=== PATIENT | female | born 1955 | race Caucasian/White ===

== ENCOUNTER 2023-12-05 09:52 | Outpatient (AMB) | payer OTHER, SELFPAY ==
--- NOTE | 2023-12-05 10:01 | A.OFFPC_ITS ---
Vital Signs 12/05/23 10:04 12/05/23 10:54 12/05/23 10:54 12/05/23 10:54 Height 5 ft 5 in Weight 147 lb 8 oz BMI 24.5 BP 122/74 122/62 132/70 140/78 H Blood Pressure Location Lt brachial Rt brachial Rt brachial Rt brachial Position Sitting Supine Standing Standing Pulse 76 70 74 72 Pulse Source Pulse Oximeter Pulse Oximeter Pulse Oximeter Pulse Oximeter Pulse Oximetry (%) 97 97 97 97 Oxygen Delivery Method Room Air Room Air Room Air Room Air Intake Visit Reasons: Est Care Intake Note: pt is here for establish care Police Cadet Required: No Accompanied by: Self / Same As Patient Allergies No Known Allergies Allergy (Verified 12/05/23 10:17) Medication List - Last Reconciled 12/05/23 by ESMER Torres No Known Home Meds Tobacco use date assessed: 12/05/23 Fall risk assessment: No Falls in past year Last assessed Fall Risk: 12/05/23 Dental Screening Dental Screen Date: 12/05/23 Did you have a dental visit in the last 12 months?: Yes Did you have a dental problem in the last 6 months where you did not have access to dental care?: No Was dental information given to patient?: Patient has dentist HPI HPI Comments History of Present Illness Details Patient is a 68-year-old female here to establish [facility]. Patient has a past medical history for syncopal event following UTI, 4 years prior to this appointment. Patient states she was recently seen at [facility] for burning with urination was given nitro feet urine toys. The patient completed the course 5 days prior to this appointment and states she is still having symptoms of burning with urination. She denies fever, numbness, chest pain, shortness a breath, dyspnea on exertion, nausea, vomiting, diarrhea. Will obtain EKG in postural vital signs in office today. Will also draw full panel fasting labs including UA with culture. Patient is declining pneumonia vaccine, declining mammogram, declining OBGYN referral, declining bone density scan. [facility] Surgical History S/P foot surgery, left Family History Father No problems noted. Mother Dementia Social History Housing: House Alcohol intake: never Patient Tobacco Use Status: Former Tobacco user e-Cigarette/Vaping Use: Never Used service: No Current occupational status: employed and retired Current occupational exposures/hazards: No Cognitive needs: No Hearing needs: Yes Vision needs: Yes Questionnaire PHQ-9 Over the last 2 weeks, how often have you been bothered by any of the following problems? 1. Little interest or pleasure in doing things: not at all 2. Feeling down, depressed, or hopeless: not at all 3. Trouble falling or staying asleep, or sleeping too much: several days 4. Feeling tired or having little energy: several days 5. Poor appetite or overeating: several days 6. Feeling bad about yourself - or that you are a failure or have let yourself or your family down: several days 7. Trouble concentrating on things, such as reading the newspaper or watching television: several days 8. Moving or speaking so slowly that other people could have noticed. Or the opposite - being so fidgety or restless that you have been moving around a lot more than usual: not at all 9. Thoughts that you would be better off or of hurting yourself in some way: not at all Total score: 5 Depression Screening Interpretation: Negative Depression Screening Done: Yes 29286 - PHQ-9 Billing: Yes Source: Developed by Drs. Adi Muñoz, Ana Lane, Brennan Betancourt and colleagues, with an educational kelly from [employer]. Thrive Questionnaire Date Thrive assessed: 12/05/23 I am a: Patient What is your living situation today?: I have a steady place to live Within the past 12 months, did the food you bought not last and you didn't have the money to get more?: Never true Within the past 12 months, did you worry whether your food would run out before you got money to buy more?: Never true Do you have trouble paying for medicines?: No Do you have trouble getting transportation to medical appointments?: No Do you have trouble paying your heating and electricity bill?: No Do you have trouble taking care of your child, family member or friend?: No Do you have trouble with day-to-day activities such as bathing, preparing meals, shopping, managing finances, etc.?: No Are you currently unemployed and looking for a job?: No Are you interested in more education?: No Please select the resources that you would like help with: None Currently or been in a relationship where the following occur: no concerns reported THRIVE Score: 0 AUDIT C Alcohol Use Questionnaire (AUDIT-C) 1. How often do you have a drink containing alcohol?: Never 3. How often do you have six or more drinks on one occasion?: Never Total Score: 0 Score Reviewed/Action Taken: Yes TAYLER-7 AMB Questionnaire TAYLER-7 Date TAYLER - 7 assessed: 12/05/23 Feeling nervous, anxious, or on edge: 1 = Several days Not being able to stop or control worryin = Several days Worrying too much about different things: 2 = More than half the days Trouble relaxin = Several days Being so restless that it is hard to sit still: 1 = Several days Becoming easily annoyed or irritable: 1 = Several days Feeling afraid as if something awful might happen: 1 = Several days Total TAYLER-7 score (0-4 normal; 5-9 mild; 10-14 moderate; 15-21 severe): 8 Source: Developed by Drs. Adi Muñoz, Ana Lane, Brennan Betancourt and colleagues, with an educational kelly from [employer]. TAYLER-7 Assessment Billing TAYLER-7 Assessment Tool: TAYLER-7 Assessment 57994 Physical exam (Primary Care) Vital Signs: Last Vital Signs Pulse 76 12/05/23 10:04 BP 122/74 12/05/23 10:04 Pulse Ox 97 12/05/23 10:04 Oxygen Delivery Method Room Air 12/05/23 10:04 BMI result Body Mass Index 24.5 Tobacco/Smoking Status: Tobacco use Status Tobacco use date assessed 12/05/23 12/05/23 10:02 Patient Tobacco Use Status Former Tobacco user 12/05/23 10:11 e-Cigarette/Vaping Use Never Used 12/05/23 10:11 PHQ-9: PHQ-9 Score PHQ-9: Total score 5 12/05/23 10:20 Depression Screening Interpretation: Negative Thrive Assessment: Date of Thrive Assessment Date Thrive assessed 12/05/23 12/05/23 10:11 Currently or been in a relationship where the following occur: no concerns reported Assessment and Plan Assessment & Plan (1) Burning with urination: Comment: Patient recently completed course of Macrobid. States she is still having burning with urination. Will order UA with culture. Code(s): R30.0 - Dysuria (2) Fatigue: Comment: Patient currently offering symptoms of fatigue. States that she feels tired has little energy. Will order EKG, will obtain postural vital signs. Will order full panel of fasting labs which will include CBC, TSH, UA, CMP, lipid profile, vitamin B6, vitamin B12, vitamin-D. Code(s): R53.83 - Other fatigue Qualifiers: Fatigue type: unspecified Qualified Code(s): R53.83 - Other fatigue Plan: Patient will sign release in send us medical records from [facility] on Screen (3) Bilateral knee pain: Comment: Patient has bilateral knee pain. Will obtain x-rays. Patient educated she can use [id number] Aleve cream. Code(s): M25.561 - Pain in right knee; M25.562 - Pain in left knee Qualifiers: Chronicity: unspecified Qualified Code(s): M25.561 - Pain in right knee; M25.562 - Pain in left knee Plan: Will follow-up with results. Plan Will follow-up with any abnormal test results. Patient will make physical exam in 3-4 months. Orders: Orders Comprehensive Met. Panel Today Z91.89 - Other specified personal risk factors, not elsewhere classified Vitamin D 25-OH (D2 and D3) Today Z13.21 - Encounter for screening for nutritional disorder XR knee LT 2V Today M25.569 - Pain in unspecified knee XR knee RT 2V Today M25.569 - Pain in unspecified knee Complete Blood Count Auto Diff Today Z13.0 - Encounter for screening for diseases of the blood and blood-forming organs and certain disorders involving the immune mechanism Lipid Panel Today Z13.220 - Encounter for screening for lipoid disorders IRON PROFILE Today Z13.0 - Encounter for screening for diseases of the blood and blood-forming organs and certain disorders involving the immune mechanism Vitamin B6 Today Z13.21 - Encounter for screening for nutritional disorder Vitamin B12 Today Z13.21 - Encounter for screening for nutritional disorder UA CC w/rflx Micro + Cult Today Z13.89 - Encounter for screening for other disorder TSH reflex Free T4 Today Z13.29 - Encounter for screening for other suspected endocrine disorder AMB EKG-In Office Today Z13.6 - Encounter for screening for cardiovascular disorders Review Patient declined Mammogram: 12/05/23 Declined Pap Smear: 12/05/23 Patient declined Colonoscopy: 12/05/23 Patient declined Pneumococcal Vaccine: 12/05/23 Flu Vaccine not done: patient reason Coding Level of Care Code New Pt Level 3 (36632) Diagnoses Burning with urination R30.0 Fatigue, unspecified type R53.83 Fatigue type: unspecified Pain in both knees, unspecified chronicity M25.561; M25.562 Chronicity: unspecified Additional Codes TAYLER-7 Assessment Billing - TAYLER-7 Assessment Tool: TAYLER-7 Assessment [id number] ([id number]) Time Spent (min) 40
[2023-12-05 10:04] VITALS: BP 122/74; PULSE 76; O2SAT 97; BMI 24.5
[2023-12-05 10:54] VITALS: BP 122/62; BP 132/70; BP 140/78; PULSE 70; PULSE 72; PULSE 74; O2SAT 97
== END 2023-12-05 12:26 | disposition home or self-care (01) ==
PROVIDERS: PCP Internal Medicine; Visit Provider Nurse Practitioner Primary Care
DX: R30.0 Dysuria (principal); R53.83 Other fatigue; M25.561 Pain in right knee; M25.562 Pain in left knee
CPT/HCPCS: 99203

== ENCOUNTER 2023-12-05 11:02 | Outpatient (REF) | payer OTHER, SELFPAY ==
--- NOTE | ~2023-12-05 | XR_ITS ---
EXAM: XR BILATERAL KNEES CLINICAL INFORMATION: Pain and unspecified knee TECHNIQUE: 2 views of each knee. FINDINGS: Right Knee: The bones are diffusely demineralized. Moderate medial joint space narrowing with marginal osteophytes. Degenerative changes in the patellofemoral joints with small osteophytes. No significant joint effusion. Vascular calcifications. Left Knee: The bones are diffusely demineralized. Vascular calcifications. No significant joint effusion. Mild medial joint space narrowing. There is a heterogeneous lesion in the proximal tibia with mixed sclerotic and lucent components of indeterminate age and etiology. XR/XR knee RT 2V IMPRESSION: 1. Moderate degenerative changes right knee. 2. Mild degenerative changes left knee. Heterogeneous lesion in the proximal left tibia with mixed sclerotic and lucent components of indeterminate age and etiology. Direct correlation with prior images is recommended and if prior images are provided, an addendum will be dictated. In the absence of prior images, correlation with clinical exam as well as orthopedic consultation and possible MRI recommended.
--- NOTE | ~2023-12-05 | XR_ITS ---
EXAM: XR BILATERAL KNEES CLINICAL INFORMATION: Pain and unspecified knee TECHNIQUE: 2 views of each knee. FINDINGS: Right Knee: The bones are diffusely demineralized. Moderate medial joint space narrowing with marginal osteophytes. Degenerative changes in the patellofemoral joints with small osteophytes. No significant joint effusion. Vascular calcifications. Left Knee: The bones are diffusely demineralized. Vascular calcifications. No significant joint effusion. Mild medial joint space narrowing. There is a heterogeneous lesion in the proximal tibia with mixed sclerotic and lucent components of indeterminate age and etiology. XR/XR knee LT 2V IMPRESSION: 1. Moderate degenerative changes right knee. 2. Mild degenerative changes left knee. Heterogeneous lesion in the proximal left tibia with mixed sclerotic and lucent components of indeterminate age and etiology. Direct correlation with prior images is recommended and if prior images are provided, an addendum will be dictated. In the absence of prior images, correlation with clinical exam as well as orthopedic consultation and possible MRI recommended.
[2023-12-05 13:05] LABS: MANUAL DIFF FLAG NO
[2023-12-05 13:11] LABS: Basophils Percent Auto 0.4 % (0-2); Eosinophils Absolute Auto 0.1 X10*3/uL (0.0-0.4); Hematocrit 39.2 % (37.0-47.0); Hemoglobin 13.2 g/dl (12.0-16.0); Imm Gran Abs Auto 0.03 X10*3/uL (0.00-0.03); Imm Gran Pct Auto 0.4 % (0.0-0.4); Lymphocytes Absolute Auto 1.7 X10*3/uL (1.2-4.9); Lymphocytes Percent Auto 24.5 % (20-40); Mean Corpuscular HGB Conc 33.7 g/dl (31.0-35.0); Mean Corpuscular Hemoglobin 30.9 pg (27.0-33.0); Mean Corpuscular Volume 91.8 fL (80.0-98.0); Monocytes Absolute Auto 0.6 X10*3/uL (0.1-1.2); Monocytes Percent Auto 7.8 % (2-11); Neutrophils Absolute Auto 4.6 x10*3/uL (2.0-8.3); Neutrophils Percent Auto 65.9 % (45-73); Platelet Count 186 X10*3/uL (160-400); Red Blood Count 4.27 X10*6/uL (4.20-5.50); Red Cell Distribution Width 12.7 % (11.0-16.0)
[2023-12-05 13:41] LABS: Appearance Urine Clear; Color Urine Yellow; Glucose Urine UA Negative (Negative); Leukocyte Esterase Urine Negative (Negative); Nitrite Urine Negative (Negative); Specific Gravity - Urine <= 1.005 (1.005-1.025); Urine Blood Negative (Negative); Urine Ketones Negative (Negative); Urine Protein Negative (Neg-Trace)
[2023-12-05 13:44] LABS: Alanine Aminotransferase 11 U/L (0-31); Albumin Level 3.7 g/dL (3.5-5.0); Alkaline Phosphatase 92 U/L (39-117); Anion Gap 10 (12-20); Aspartate Amino Transferase 18 U/L (5-31); Bilirubin Total 1.3 mg/dL (0.0-1.0); Blood Urea Nitrogen 10 mg/dL (9-16); Calcium 9.1 mg/dL (8.4-10.2); Carbon Dioxide 26 mmol/L (22-29); Chloride 103 mmol/L (96-108); Cholesterol 155 mg/dL (<200); Estimated Glomerular Filt Rate > 60; Glucose Random 88 mg/dL (60-115); HDL Cholesterol 53 mg/dL (>40); Iron 132 mcg/dL (30-160); LDL Cholesterol Calculated 89 mg/dL (<100); Percent Iron Saturation 52 % (15-50); Potassium 3.7 mmol/L (3.3-5.1); Sodium 135 mmol/L (135-145); Total Iron Binding Capacity 256 mcg/dL (228-428); Total Protein 7.9 g/dL (6.5-8.0); Triglycerides 65 mg/dL (<150); Unsaturated Iron Binding 124 ug/dL
[2023-12-05 13:58] LABS: TSH reflex Free T4 2.94 uIU/mL (0.32-4.0)
[2023-12-05 14:01] LABS: Vitamin B12 519 pg/mL (200-900)
[2023-12-09 17:08] LABS: Vitamin B6 10.7 ng/mL (2.1-21.7)
[2023-12-10 17:38] LABS: Vitamin D 25-OH, D2 <4 ng/mL; Vitamin D 25-OH, D3 33 ng/mL; Vitamin D 25-OH, Total 33 ng/mL (30-100)
== END 2023-12-05 11:03 | disposition home or self-care (01) ==
LOC: HO.HMGCX 11:02
PROVIDERS: PCP Nurse Practitioner Primary Care; Visit Provider Nurse Practitioner Primary Care
DX: M25.561 Pain in right knee (principal); M25.562 Pain in left knee; Z13.21 Encounter for screening for nutritional disorder; Z13.89 Encounter for screening for other disorder; Z13.29 Encounter for screening for other suspected endocrine disorder; Z13.220 Encounter for screening for lipoid disorders; Z13.0 Encounter for screening for diseases of the blood and blood-forming organs and certain disorders involving the immune mechanism
CPT/HCPCS: 36415; 73560; 80053; 80061; 81003; 82306; 82607; 83540; 84207; 84443; 85025

== ENCOUNTER 2024-02-14 08:53 | Outpatient (AMB) | payer OTHER, SELFPAY ==
--- NOTE | 2024-02-14 09:02 | A.OFFPC_ITS ---
Vital Signs 02/14/24 09:04 Height 5 ft 5 in Weight 145 lb BMI 24.1 BP 110/64 Blood Pressure Location Rt brachial Position Sitting Pulse 65 Pulse Source Pulse Oximeter Pulse Oximetry (%) 98 Oxygen Delivery Method Room Air Intake Visit Reasons: pre op DOS 02/25/24 EKG, CBC,BMP,PT,PTT/INR Intake Note: Patient here for preop clearance. Allergies No Known Allergies Allergy (Verified 02/14/24 09:19) Medication List - Last Reconciled 02/14/24 by ESMER Torres No Known Home Meds Tobacco use date assessed: 12/05/23 Dental Screening Dental Screen Date: 12/05/23 HPI HPI Comments History of Present Illness Details Patient is a 68-year-old female in today for a preop visit. Patient is having surgery on her left foot to remove stables. For clearance patient needs labs including CBC, BMP, PT/INR, PTT. Patient also needs EKG Patient has past medical history significant for osteoarthritis of the bilateral knees. Patient is not currently taking any medication. Has been educated that she needs to avoid NSAIDs at least 1 week prior to surgery. [facility] Surgical History S/P foot surgery, left Family History Father No problems noted. Mother Dementia Social History Housing: House Alcohol intake: never Patient Tobacco Use Status: Former Tobacco user e-Cigarette/Vaping Use: Never Used service: No Current occupational status: employed and retired Current occupational exposures/hazards: No Cognitive needs: No Hearing needs: Yes Vision needs: Yes Questionnaire Thrive Questionnaire Date Thrive assessed: 12/05/23 TAYLER-7 AMB Questionnaire TAYLER-7 Date TAYLER - 7 assessed: 12/05/23 Source: Developed by Drs. Adi Muñoz, Ana Lane, Brennan Betancourt and colleagues, with an educational kelly from [employer]. Review of Systems Const All systems reviewed & are unremarkable except as noted in HPI and below Denies chills and Denies fever(s) Card Denies chest pain and Denies dyspnea Resp Denies chest congestion, Denies cough, Denies dyspnea and Denies wheezing GI Denies diarrhea, Denies nausea and Denies vomiting Musc Reports other (Left foot pain) Aller/Immun Denies wheezing Physical exam (Primary Care) Care Plan Goal for BP management: Blood Pressure Controlled. Tobacco/Smoking Status: Tobacco use Status Tobacco use date assessed 12/05/23 12/05/23 10:02 Patient Tobacco Use Status Former Tobacco user 12/05/23 10:11 e-Cigarette/Vaping Use Never Used 12/05/23 10:11 Thrive Assessment: Date of Thrive Assessment Date Thrive assessed 12/05/23 12/05/23 10:11 Const Other: Appearance: Alert.? Oriented X3.? No acute distress.? Head: Normocephalic, atraumatic, no step-offs or deformities Neck: Normal inspection.? Neck supple.? CVS: Normal heart rate and rhythm.? Pulses normal.? Respiratory: No respiratory distress.? Breath sounds normal.? Extremity: Left foot palpable mark under skin. No erythema or edema. Limited ROM. Neuro: Oriented X 3.? No motor deficit.? No sensory deficit. CN 2-12 intact Assessment and Plan Assessment & Plan (1) Preoperative clearance: Comment: Patient will have BMP, CBC, PT/INR,/PTT. Patient also had office EKG which was normal sinus rhythm. Code(s): Z01.818 - Encounter for other preprocedural examination (2) Left foot pain: Comment: Patient is having surgery in [place] through [facility] from instep of left foot. Code(s): M79.672 - Pain in left foot Plan: Will send results to surgical office. Plan Patient will follow-up with physical exam in 2 months Orders: Orders Complete Blood Count Auto Diff Today Z13.0 - Encounter for screening for diseases of the blood and blood-forming organs and certain disorders involving the immune mechanism AMB EKG-In Office 02/11/24 Z13.6 - Encounter for screening for cardiovascular disorders Coding Level of Care Code Est Pt Level 3 (04178) Diagnoses Preoperative clearance Z01.818 Left foot pain M79.672 Time Spent (min) 25
[2024-02-14 09:04] VITALS: BP 110/64; PULSE 65; O2SAT 98; BMI 24.1
== END 2024-02-14 09:28 | disposition home or self-care (01) ==
PROVIDERS: PCP Nurse Practitioner Primary Care; Visit Provider Nurse Practitioner Primary Care
DX: Z01.818 Encounter for other preprocedural examination (principal); M79.672 Pain in left foot
CPT/HCPCS: 99213

== ENCOUNTER 2024-02-14 09:34 | Outpatient (REF) | payer OTHER, SELFPAY ==
[2024-02-14 10:19] LABS: MANUAL DIFF FLAG NO
[2024-02-14 10:50] LABS: Basophils Absolute Auto 0.1 X10*3/uL (0.0-0.2); Basophils Percent Auto 0.7 % (0-2); Eosinophils Absolute Auto 0.2 X10*3/uL (0.0-0.4); Eosinophils Percent Auto 2.4 % (0-4); Hematocrit 37.2 % (37.0-47.0); Hemoglobin 12.6 g/dl (12.0-16.0); Imm Gran Abs Auto 0.03 X10*3/uL (0.00-0.03); Imm Gran Pct Auto 0.4 % (0.0-0.4); Lymphocytes Absolute Auto 1.8 X10*3/uL (1.2-4.9); Lymphocytes Percent Auto 25.5 % (20-40); Mean Corpuscular HGB Conc 33.9 g/dl (31.0-35.0); Mean Corpuscular Hemoglobin 32.2 pg (27.0-33.0); Mean Corpuscular Volume 95.1 fL (80.0-98.0); Mean Platelet Volume 10.8 fL (9.4-12.3); Monocytes Absolute Auto 0.7 X10*3/uL (0.1-1.2); Monocytes Percent Auto 9.1 % (2-11); Neutrophils Absolute Auto 4.4 x10*3/uL (2.0-8.3); Neutrophils Percent Auto 61.9 % (45-73); Platelet Count 182 X10*3/uL (160-400); Red Blood Count 3.91 X10*6/uL (4.20-5.50); Red Cell Distribution Width 12.7 % (11.0-16.0); White Blood Count 7.2 X10*3/uL (4.8-10.8)
[2024-02-14 10:54] LABS: INTERNATIONAL NORM RATIO 1.1 (0.9-1.1)
[2024-02-14 10:57] LABS: Partial Thromboplastin Time 34.8 SEC (26.0-36.8)
[2024-02-14 11:58] LABS: Anion Gap 12 (12-20); Blood Urea Nitrogen 8 mg/dL (9-16); Calcium 9.5 mg/dL (8.4-10.2); Carbon Dioxide 26 mmol/L (22-29); Chloride 99 mmol/L (96-108); Estimated Glomerular Filt Rate > 60; Glucose Random 74 mg/dL (60-115); Potassium 3.7 mmol/L (3.3-5.1); Sodium 133 mmol/L (135-145)
== END 2024-02-14 09:35 | disposition home or self-care (01) ==
LOC: HO.HMGCLDS 09:34
PROVIDERS: PCP Nurse Practitioner Primary Care; Visit Provider Nurse Practitioner Primary Care
DX: Z01.812 Encounter for preprocedural laboratory examination (principal); Z13.0 Encounter for screening for diseases of the blood and blood-forming organs and certain disorders involving the immune mechanism
CPT/HCPCS: 36415; 80048; 85025; 85610; 85730

== ENCOUNTER 2024-03-25 08:52 | Outpatient (AMB) | payer OTHER, SELFPAY ==
--- NOTE | 2024-03-25 08:56 | A.OFFPC_ITS ---
Vital Signs 03/25/24 08:59 Height 5 ft 5 in Weight 143 lb BMI 23.8 BP 128/84 Blood Pressure Location Rt brachial Position Sitting Pulse 83 Pulse Source Pulse Oximeter Pulse Oximetry (%) 97 Oxygen Delivery Method Room Air Intake Visit Reasons: annual pe Intake Note: pt is here for annual PE. Declined mammogram, declined colonoscopy, declined pap Allergies No Known Allergies Allergy (Verified 03/25/24 09:19) Medication List - Last Reconciled 03/25/24 by ESMER Torres amoxicillin 500 mg PO BID Tobacco use date assessed: 03/25/24 Dental Screening Dental Screen Date: 03/25/24 Did you have a dental visit in the last 12 months?: Yes Did you have a dental problem in the last 6 months where you did not have access to dental care?: No Was dental information given to patient?: Patient has dentist HPI HPI Comments History of Present Illness Details Patient is a 68-year-old female in today for physical exam Patient is declining mammogram, declining colonoscopy, declining Pap smear, declining bone density test. Patient is up-to-date with tetanus. She is declining all other vaccines. Patient has a past medical history significant for: Osteoarthritis of bilateral knees: Patient is establish care with [facility], receives intermittent gel injections. Patient has history of left knee x-ray with heterogeneous lesion, she has declined any additional care or im aging. Osteoarthritis of the right shoulder: Patient establish care with [facility], received steroid injections. History of right foot surgery: Being followed by Podiatry, will receive notes. Will draw fasting labs [facility] Medical History (Updated 03/25/24 @ 09:44 by ESMER Torres) Fatigue History of syncope Burning with urination Surgical History S/P foot surgery, left Family History Father No problems noted. Mother Dementia Social History Housing: House Alcohol intake: never Patient Tobacco Use Status: Former Tobacco user e-Cigarette/Vaping Use: Never Used service: No Current occupational status: employed and retired Current occupational exposures/hazards: No Cognitive needs: No Hearing needs: Yes Vision needs: Yes Questionnaire TAYLER-7 AMB Questionnaire TAYLER-7 Date TAYLER - 7 assessed: 12/05/23 Source: Developed by Drs. Adi Muñoz, Ana Lane, Brennan Betancourt and colleagues, with an educational kelly from [employer]. Review of Systems Const All systems reviewed & are unremarkable except as noted in HPI and below Physical exam (Primary Care) Vital Signs: Last Vital Signs Pulse 83 03/25/24 08:59 BP 128/84 03/25/24 08:59 Pulse Ox 97 03/25/24 08:59 Oxygen Delivery Method Room Air 03/25/24 08:59 Care Plan Goal for BP management: Patient's blood pressure is controlled BMI result Body Mass Index 23.8 Tobacco/Smoking Status: Tobacco use Status Tobacco use date assessed 03/25/24 03/25/24 09:04 Patient Tobacco Use Status Former Tobacco user 03/25/24 08:56 e-Cigarette/Vaping Use Never Used 03/25/24 08:56 Thrive Assessment: Date of Thrive Assessment Date Thrive assessed 03/25/24 09:04 Const Other: Appearance: Alert.? Oriented X3.? No acute distress.? Head: Normocephalic. Eyes: Pupils equal, round and reactive to light.?Normal conjunctiva and sclera. ENT: Pharynx normal.?TM intact and pearly lucero. Neck: Normal inspection.? Neck supple.? CVS: Normal heart rate and rhythm.? Pulses normal.? Respiratory: No respiratory distress.? Breath sounds normal.? Abdomen: Soft and nontender.? Skin: Skin warm and dry.? Normal skin color.? Normal skin turgor.? Extremities: No lower extremity edema. 5/5 strength to bilateral upper and lower extremities. Patient in left foot cast. Back: No midline tenderness, no C-spine tenderness, full range of motion, no CVA tenderness bilaterally Neuro: Oriented X 3.? No motor deficit.? No sensory deficit. CN 2-12 intact Assessment and Plan Assessment & Plan (1) Physical exam: Comment: Patient is a 68-year-old female in today for physical exam Patient is declining mammogram, declining colonoscopy, declining Pap smear, declining bone density test. Patient is up-to-date with tetanus. She is declining all other vaccines. Patient has a past medical history significant for: Osteoarthritis of bilateral knees: Patient is establish care with [facility], receives intermittent gel injections. Patient has history of left knee x-ray with heterogeneous lesion, she has declined any additional care or imaging. Osteoarthritis of the right shoulder: Patient establish care with [facility], received steroid injections. History of right foot surgery: Being followed by Podiatry, will receive notes. Will draw fasting labs Code(s): Z00.00 - Encounter for general adult medical examination without abnormal findings (2) Bilateral knee pain: Comment: Patient is establish care with [facility]. Code(s): M25.561 - Pain in right knee; M25.562 - Pain in left knee Qualifiers: Chronicity: unspecified Qualified Code(s): M25.561 - Pain in right k nee; M25.562 - Pain in left knee (3) Left foot pain: Comment: Recent surgical procedure to remove mark on left foot. Patient is in cast on physical exam. Patient has follow-up with pre billing clinician in 3 days. Code(s): M79.672 - Pain in left foot Plan: draw labs Plan Follow-up in 6 months Orders: Orders Vitamin B12 Today Z13.21 - Encounter for screening for nutritional disorder UA CC w/rflx Micro + Cult Today Z13.89 - Encounter for screening for other disorder TSH reflex Free T4 Today Z13.29 - Encounter for screening for other suspected endocrine disorder Lipid Panel Today Z13.220 - Encounter for screening for lipoid disorders Vitamin D 25-OH (D2 and D3) Today Z13.21 - Encounter for screening for nutritional disorder Vitamin B6 Today Z13.21 - Encounter for screening for nutritional disorder Complete Blood Count Auto Diff Today Z13.0 - Encounter for screening for diseases of the blood and blood-forming organs and certain disorders involving the immune mechanism IRON PROFILE Today D50.9 - Iron deficiency anemia, unspecified Review Patient declined Mammogram: 03/25/24 Declined Pap Smear: 03/25/24 Patient declined Colonoscopy: 03/25/24 Patient declined Colon Cancer Screen Lab: 03/25/24 Patient declined Pneumococcal Vaccine: 03/25/24 Flu Vaccine not done: patient reason Coding Level of Care Code Est Pt Prev Care >65y(04186) Diagnoses Physical exam Z00.00 Pain in both knees, unspecified chronicity M25.561; M25.562 Chronicity: unspecified Left foot pain M79.672 Time Spent (min) 28
[2024-03-25 08:59] VITALS: BP 128/84; PULSE 83; O2SAT 97; BMI 23.8
== END 2024-03-25 09:50 | disposition home or self-care (01) ==
PROVIDERS: PCP Nurse Practitioner Primary Care; Visit Provider Nurse Practitioner Primary Care
DX: Z00.00 Encounter for general adult medical examination without abnormal findings (principal); M25.561 Pain in right knee; M25.562 Pain in left knee; M79.672 Pain in left foot
CPT/HCPCS: 99397

== ENCOUNTER 2025-01-06 10:15 | Outpatient (AMB) | payer MEDICARE, SELFPAY ==
--- NOTE | 2025-01-06 10:22 | A.OFFPC_ITS ---
Vital Signs 01/06/25 10:23 Height 5 ft 5 in Weight 144 lb BMI 24.0 BP 110/66 Blood Pressure Location Lt brachial Position Sitting Pulse 70 Pulse Source Pulse Oximeter Pulse Oximetry (%) 96 Intake Visit Reasons: JODY from [facility] review/weakness Prop[employer] Required: No Accompanied by: Self / Same As Patient Allergies No Known Allergies Allergy (Verified 01/06/25 10:59) Medication List - Last Reconciled 01/06/25 by Charley Hickey MD No Known Home Meds Tobacco use date assessed: 01/06/25 Fall risk assessment: No Falls in past year Last assessed Fall Risk: 01/06/25 Dental Screening Dental Screen Date: 01/06/25 Did you have a dental visit in the last 12 months?: Yes Did you have a dental problem in the last 6 months where you did not have access to dental care?: No Was dental information given to patient?: Patient has dentist HPI JODY from [facility] [employer] [facility] review/weakness HPI Details 69-year-old lady, [place] to [place], here to [facility] with a new PCP. She has history of osteoarthritis, but not taking any medications for it. She has been feeling well except for occasional episodes of this and fatigue. Denies any chest pain or shortness of breath, no lightheadedness, no headaches, no gait instability reported. [facility] Medical History (Updated 01/10/25 @ 22:24 by Charley Hickey MD) Osteoarthritis Cold intolerance History of fracture of right hip Fatigue History of syncope Burning with urination Surgical History (Updated 01/06/25 @ 10:27 by Cholo Raymundo CMA) Status post hip surgery S/P foot surgery, left Family History Father No problems noted. Mother Dementia Social History Housing: House Alcohol intake: never Patient Tobacco Use Status: Former Tobacco user e-Cigarette/Vaping Use: Never Used service: No Current occupational status: employed and retired Current occupational exposures/hazards: No Cognitive needs: No Hearing needs: Yes Vision needs: Yes Questionnaire PHQ-9 Over the last 2 weeks, how often have you been bothered by any of the following problems? 1. Little interest or pleasure in doing things: several days 2. Feeling down, depressed, or hopeless: not at all 3. Trouble falling or staying asleep, or sleeping too much: several days 4. Feeling tired or having little energy: several days 5. Poor appetite or overeating: several days 6. Feeling bad about yourself - or that you are a failure or have let yourself or your family down: several days 7. Trouble concentrating on things, such as reading the newspaper or watching television: several days 8. Moving or speaking so slowly that other people could have noticed. Or the opposite - being so fidgety or restless that you have been moving around a lot more than usual: not at all 9. Thoughts that you would be better off or of hurting yourself in some way: not at all Total score: 6 Depression Screening Interpretation: Negative Depression Screening Done: Yes 62678 - PHQ-9 Billing: Yes Source: Developed by Drs. Adi Muñoz, Ana Lane, Brennan Betancourt and colleagues, with an educational kelly from [employer]. Thrive Questionnaire Date Thrive assessed: 01/06/25 I am a: Patient What is your living situation today?: I have a steady place to live Within the past 12 months, did the food you bought not last and you didn't have the money to get more?: I choose not to answer this question Within the past 12 months, did you worry whether your food would run out before you got money to buy more?: I choose not to answer this question Do you have trouble paying for medicines?: I choose not to answer this question Do you have trouble getting transportation to medical appointments?: No Do you have trouble paying your heating and electricity bill?: No Do you have trouble taking care of your child, family member or friend?: No Do you have trouble with day-to-day activities such as bathing, preparing meals, shopping, managing finances, etc.?: Yes Are you currently unemployed and looking for a job?: Yes Are you interested in more education?: No Please select the resources that you would like help with: None Currently or been in a relationship where the following occur: I choose not to answer THRIVE Score: 0 AUDIT C Alcohol Use Questionnaire (AUDIT-C) 1. How often do you have a drink containing alcohol?: Never 3. How often do you have six or more drinks on one occasion?: Never Total Score: 0 Score Reviewed/Action Taken: Yes TAYLER-7 AMB Questionnaire TAYLER-7 Date TAYLER - 7 assessed: 01/06/25 Feeling nervous, anxious, or on edge: 1 = Several days Not being able to stop or control worryin = Several days Worrying too much about different things: 1 = Several days Trouble relaxin = Several days Being so restless that it is hard to sit still: 1 = Several days Becoming easily annoyed or irritable: 1 = Several days Feeling afraid as if something awful might happen: 0 = Not at all Total TAYLER-7 score (0-4 normal; 5-9 mild; 10-14 moderate; 15-21 severe): 6 Source: Developed by Drs. Adi Muñoz, Ana Lane, Brennan Betancourt and colleagues, with an educational kelly from [employer]. TAYLER-7 Assessment Billing TAYLER-7 Assessment Tool: TAYLER-7 Assessment 47862 Review of Systems Const Denies chills and Denies fever(s) Eyes Denies change in vision ENT Reports no additional complaints Card Denies chest pain, Denies irregular heart rhythm, Denies lightheadedness and Denies dyspnea Resp Denies chest congestion, Denies cough, Denies dyspnea and Denies wheezing GI Denies abdominal pain, Denies melena, Denies hematochezia, Denies change in bowel habits, Denies heartburn and Denies vomiting Reports no additional complaints Musc Reports arthralgias (Occasional in her knees/ ankles), Denies muscle weakness and Reports stiffness Skin/Breast Denies breast pain, Denies breast mass and Denies rash Neuro Reports no additional complaints Psych Reports no additional complaints Endo Reports no additional complaints Cabrera/Lymph Reports no additional complaints Aller/Immun Denies seasonal rhinorrhea and Denies wheezing Physical exam (Primary Care) Vital Signs: Last Vital Signs Pulse 70 01/06/25 10:23 BP 110/66 01/06/25 10:23 Pulse Ox 96 01/06/25 10:23 BMI result Body Mass Index 24.0 Tobacco/Smoking Status: Tobacco use Status Tobacco use date assessed 01/06/25 01/06/25 10:30 Patient Tobacco Use Status Former Tobacco user 01/06/25 10:30 e-Cigarette/Vaping Use Never Used 01/06/25 10:30 PHQ-9: PHQ-9 Score PHQ-9: Total score 6 01/10/25 22:08 Depression Screening Interpretation: Negative Thrive Assessment: Date of Thrive Assessment Date Thrive assessed 01/06/25 01/06/25 10:30 Currently or been in a relationship where the following occur: I choose not to answer Const General: comfortable, no acute distress and alert Orientation/consciousness: patient oriented x3 HENMT Ears: external ears normal, TM's normal bilaterally and EAC's normal General nose exam: Normal external nose present and No nasal discharge present Mouth: Normal oral and palatal mucosa present, oropharynx normal and moist mucous membranes Eyes General: appearance normal, both eyes and all related structures Conjunctivae: conjunctivae normal Sclerae: sclerae normal Pupils: Equal, round and reactive pupils present EOM: EOMs intact bilaterally Neck Neck: Yes full ROM, Yes no lymphadenopathy and Yes supple Resp Effort & Inspection: normal respiratory effort and able to speak in complete sentences Auscultation: clear to auscultation bilaterally Cardio Rate: regular rate Rhythm: regular rhythm Heart sounds: S1 normal heart sound present and S2 normal heart sound present GI Palpation (GI): Soft to palpation, nontender and no masses Auscultation: normal bowel sounds Back/Spine/Pelvis Back: No back tenderness Skin General skin exam: no rashes or lesions noted Neuro General: patient oriented x3, gait normal, tone normal, moves all extremities, Normal light touch and pain sensation and no focal motor deficits Cranial nerves: Yes CN's II-XII intact bilaterally and Yes Equal, round and reactive pupils present Cognition (Neuro): normal cognition Extrem General: Yes full ROM, Yes no joint enlargement, Yes no clubbing, cyanosis or edema and Yes no calf tenderness Psych Appearance: grossly normal and well kempt Mental Status: mental status grossly normal Speech and movement: Normal speech and movement present Affect: normal affect Attitude: cooperative Thought process: Normal thought process present Thought content: Normal thought content present, suicidality and no homicidality Results Reviewed Results Reviewed: Name: Julia Lomax Age/Sex: 68/F : 1955 Unit#: [id number] Attend Dr: Baudilio Welsh [employer] Re02/14/24 Status: DEP REF [facility]: [facility] Disch: SPEC : [id number] JOSIAH: 02/14/24 STATUS: COMP REQ : [id number] RECD: 02/14/24-[address]: Baudilio Welsh [employer] COMP: 02/14/24 ENTERED: 02/14/[address]: ORDERED: CBC Auto Diff Test Result Flag Reference WBC 7.2 4.8-10.8 X10*3/uL RBC 3.91 L 4.20-5.50 X10*6/uL HGB 12.6 12.0-16.0 g/dl HCT 37.2 37.0-47.0 % MCV 95.1 80.0-98.0 fL MCH 32.2 27.0-33.0 pg MCHC 33.9 31.0-35.0 g/dl RDW 12.7 11.0-16.0 % PLT 182 160-400 X10*3/uL MPV 10.8 9.4-12.3 fL Neut Pct Auto 61.9 45-73 % ImGran Pct Auto 0.4 0.0-0.4 % Lymp Pct Auto 25.5 20-40 % Nash Pct Auto 9.1 2-11 % Eos Pct Auto 2.4 0-4 % Baso Pct Auto 0.7 0-2 % NRBC Pct Auto 0.0 0.0-0.2 /100WBC ANC Neut Abs # 4.4 2.0-8.3 x10*3/uL ImGran Abs Auto 0.03 0.00-0.03 X10*3/uL Lymph Abs Auto 1.8 1.2-4.9 X10*3/uL Nash Abs Auto 0.7 0.1-1.2 X10*3/uL Eos Abs Auto 0.2 0.0-0.4 X10*3/uL Baso Abs Auto 0.1 0.0-0.2 X10*3/uL NRBC Abs Auto 0.000 0.0-0.012 X10*3/uL Coding Level of Care Code Est Pt Level 4 (54435) Diagnoses Fatigue, unspecified type R53.83 Fatigue type: unspecified Cold intolerance R68.89 Osteoarthritis M19.90 History of fracture of right hip Z87.81 Additional Codes TAYLER-7 Assessment Billing - TAYLER-7 Assessment Tool: TAYLER-7 Assessment 69088 ([id number]) PHQ-9 - 12998 - PHQ-9 Billing: Yes ([id number]) Assessment & Plan Assessment & Plan (1) Fatigue: Code(s): R53.83 - Other fatigue Category: Medical Qualifiers: Fatigue type: unspecified Qualified Code(s): R53.83 - Other fatigue Plan: Reviewed last labs from a year ago which did not show any evidence of anemia, mild hyponatremia noted, ordered thyroid stimulating hormone with free T4 vitamin-D level and comprehensive metabolic panel. (2) Cold intolerance: Code(s): R68.89 - Other general symptoms and signs Category: Medical Plan: Will check TSH and T4, last CBC done a year ago showed normal findings (3) Osteoarthritis: Code(s): M19.90 - Unspecified osteoarthritis, unspecified site Category: Medical Plan: Advised to try massaging absorbing nakia to affected joints or diclofenac gel as directed (4) History of fracture of right hip: Comment: s/p fall 2021 Code(s): Z87.81 - Personal history of (healed) traumatic fracture Category: Medical Plan: Patient postmenopausal, ordered a bone density scan and will check vitamin-D and calcium levels Orders: Orders XR DEXA axial skeleton 01/06/25 Z87.81 - Personal history of (healed) traumatic fracture Lipid Panel 01/06/25 M19.90 - Unspecified osteoarthritis, unspecified site, R53.83 - Other fatigue, R68.89 - Other general symptoms and signs, Z13.1 - Encounter for screening for diabetes mellitus, Z13.220 - Encounter for screening for lipoid disorders, Z13.820 - Encounter for screening for osteoporosis, Z78.0 - Asymptomatic menopausal state Vitamin D 25-OH Total 01/06/25 M19.90 - Unspecified osteoarthritis, unspecified site, R53.83 - Other fatigue, R68.89 - Other general symptoms and signs, Z13.1 - Encounter for screening for diabetes mellitus, Z13.220 - Encounter for screening for lipoid disorders, Z13.820 - Encounter for screening for osteoporosis, Z78.0 - Asymptomatic menopausal state Comprehensive [place]. Panel Fast 01/06/25 M19.90 - Unspecified osteoarthritis, unspecified site, R53.83 - Other fatigue, R68.89 - Other general symptoms and signs, Z13.1 - Encounter for screening for diabetes mellitus, Z13.220 - Encounter for screening for lipoid disorders, Z13.820 - Encounter for screening for osteoporosis, Z78.0 - Asymptomatic menopausal state TSH reflex Free T4 01/06/25 M19.90 - Unspecified osteoarthritis, unspecified site, R53.83 - Other fatigue, R68.89 - Other general symptoms and signs, Z13.1 - Encounter for screening for diabetes mellitus, Z13.220 - Encounter for screening for lipoid disorders, Z13.820 - Encounter for screening for osteoporosis, Z78.0 - Asymptomatic menopausal state
[2025-01-06 10:23] VITALS: BP 110/66; PULSE 70; O2SAT 96; BMI 24.0
--- OUTSIDE RECORDS SUMMARY | 2025-01-06 12:00 | XMS_ITS | Clinical Summary ---
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 0 10/27/2019 Active doxepin (SINEquan) 10 MG capsule Take 10 mg by mouth. 0 10/27/2019 Active bumetanide (BUMEX) 0.5 MG tablet Take 0.5 mg by mouth. 0 06/01/2020 Active Diclofenac Sodium 1 % GEL topical APPLY 4GM TOPICALLY 3 TIMES DAILY 0 06/01/2020 Active folic acid (FOLVITE) tablet 1 mg Take 1 mg by mouth. 0 06/01/2020 Acti ve spironolactone (ALDACTONE) tablet 25 mg TAKE 1 TABLET BY MOUTH TWICE DAILY 0 06/01/2020 Active lisinopril (PRINIVIL,ZESTRIL) tablet 10 mg Take 10 mg by mouth. 0 10/24/2020 Active LORazepam (ATIVAN) 0.5 MG tablet Take 1 tablet by mouth every 6 (six) hours as needed. 0 10/25/2020 Active Diclofenac Sodium 1 % GEL APPLY 4GM TOPICALLY 3 TIMES DAILY 0 06/01/2020 Active cetirizine (ZyrTEC) 10 MG tablet TAKE ONE TABLET BY MOUTH EVERY DAY 0 2021 Active ergocalciferol (VITAMIN D2) capsule 74655 units Take 1 capsule by mouth once a week. 0 02/16/2022 Active acetaminophen (TYLENOL) 325 MG tablet Take 2 tablets (650 mg total) by mouth every 6 (six) hours as needed for pain. 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 Arthritis of knee, right 10/09/2019 Radiodense bone lesion present on x-ray 10/09/19 20 Arthritis of right knee 05/10/2017 Family History Medical History Relation Name Comments Hypertension Neg Hx Social History Tobacco Use Types Packs/Day Years Used Date Smoking Tobacco: Former Cigarettes Alcohol Use Standard Drinks/Week Comments Not Currently 0 (1 standard drink = 0.6 oz pur e alcohol) Sex and Gender Information Value Date Recorded Sex Assigned at Female 11/10/2019 8:39 AM EST Gender Identity Not on file Sexual Orientation Not on file Job Start Date Occupation Industry Not on file Not on file Not on file Last Filed Vital Signs Vital Sign Reading Time Taken Comments Blood Pressure 144/72 02/25/2024 9:07 AM EDT Pulse 65 02/25/2024 9:07 AM EDT Temperature 36.1 ??C (96.9 ??F) 02/25/2024 8:45 AM ED T Respiratory Rate 15 02/25/2024 9:07 AM EDT Oxygen Saturation 96% 02/25/2024 9:07 AM EDT Inhaled Oxygen Concentration - - Weight 64 kg (141 lb) 02/20/2024 10:03 AM EDT Height 165.1 cm (5' 5 ) 02/20/2024 10:03 AM EDT Body Mass Index 23.46 02/20/2024 10:03 AM EDT Plan of Treatment Health Maintenance Due Date Last Done Comments Hepatitis C Screening 1955 COVID-19 Vaccine (#1) 01/20/1956 Depression Screening 1965 Preventative Health Evaluation 1971 DTap / Tdap / Td (1 - Tdap) 1972 Colon Cancer Screening (Colonoscopy) 1998 Breast Cancer Screening (Mammogram) 2003 Shingrix-Zoster Vaccine (1 of 2) 2003 Fall Risk Assessment 2018 Osteoporosis Screening (DEXA Scan) 2018 Pneumococcal Vaccine (1 of 1 - PCV) 2018 Influenza Vaccine (#1) 2024 RSV Adult > 60+ Yrs or Pregn ant (1 - 1-dose 75+ series) 2028 Hepatitis B Vaccines Aged Out No long er eligible based on patient's age to complete this topic RSV Ped < 20 months Aged Out No longe r eligible based on patient's age to complete this topic
--- OUTSIDE RECORDS SUMMARY | 2025-01-06 12:01 | XMS_ITS | Data Portability ---
Author Organization [place] [facility] Mark Fay AONE Clifford Address [address] [place] [address] Care Team Providers Care Fan Blade Truer Name Role Phone JOEL LAWTON Referring Provider [facility] Primary Care Provider [phone] Assessment Encounter Date Assessment Date Assessment LastModified by Organization Details LastModified Time 09/01/2024 09/01/2024 69-year-old fema le with right hip pain. 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 During today's office visit we will do an injection to the region of the bursa for therapeutic and diagnostic reasons. Notably, she is status post 3 cannulated screw fixation of hip fracture. Her hip pain may be related to friction syndrome at the screw heads. Follow-up in 1 month with me. A second follow-up appointment will be scheduled with Dr. Patton for further evaluation of right shoulder pain. This patient was seen and evaluated by Gagandeep Sanchez MS, PA-C in indirect conjunction with documenting/superv [facility] provider Agusto Cain MD. He agrees with history, physical examination, tests/diagnostic imaging, and treatment plan. This document was generated using voice recognition software. As a result, there may be unintended spelling, grammatical and/or textual errors. Not available 09/01/2024 14:11:03 09/15/2024 09/15/2024 69-year-old fema le with right hip pain. Based on her location of pain, exam, and response to injection of local anesthetic it would appear that most if not all of her symptoms are coming from prominence of the 3 screw heads. She is status post cannulated screw fixation of a hip fracture years ago. She reports that her symptoms are bothersome enough that she wishes to consider hardware removal. Follow-up with Dr. Cain. This patient was seen and evaluated by Gagandeep Sanchez MS, PADavid in indirect conjunction with documenting/superv ising provider Agusto Cain MD. He agrees with history, physical examination, tests/diagnostic imaging, and treatment plan. This document was generated using voice recognition software. As a result, there may be unintended spelling, grammatical and/or textual errors. Not available 09/15/2024 16:03:08 09/16/2024 09/16/2024 HPI : ?Thank you for the pleasure of requesting a consultation on this patient. Patient comes in complaining of right hip pain. Patient has a history of a right hip femoral neck fracture 3 years ago. This was treated with femoral neck screws. She healed from this. She has had pain for the last 1 year. The pain is both laterally based and groin base. She has pain with putting on shoes and socks. She gets pain with getting in and out of the car. She did have an intra-articular injection to the right hip on August 18 which did not bring significant relief. ?This patient is experiencing right hip pain for a period lasting greater than the last three months, which is severe (VAS score greater than or equal to 6 on a 0-10 scale) in intensity and the restriction of function (appropriate for a patient of this age) are intolerable. The pain substantially limits activities of daily living. In particular, walking tolerance and ability to stair climb is reduced. Conservative management such as non-steroidal anti-inflammatory medications available by prescription, physician directed therapy, ice and/or heat and activity modification have been minimally effective or deemed insufficient by the patient for a period lasting greater than 3-6 months in duration. Assistive devices and external support were not deemed by the patient to be helpful in improving their function. The patient is unable to tolerate further physical therapy at this time. Review of systems is negative for rapidly progressive neurological disorder, chest pain, shortness of breath, fevers, chills, or any signs of active or persistent local or systemic infection. Physical Exam : Patient is well nourished, well-developed, in no acute distress, with appropriate mood and affect. The patient is oriented to time, place, and person. Respirations are even and unlabored. Gait evaluation reveals a limp. There is no inguinal adenopathy. Examination of the contralateral hip shows normal range of motion, strength, no tenderness, and intact skin. The affected limb is well-perfused, shows a grossly normal motor and sensory examination. Examination of the hip shows well-healed lateral skin incision. She has tenderness along the greater trochanter and the screw heads. Hip motion is reduced and causes pain. FADIR is positive and PHYLICIA is positive. Stinchfield test is positive. Leg lengths are approximately right less than left by 1 cm. Both hips are stable and muscle strength is normal. Pedal pulses are palpable. Radiographs of the right hip from June 2024 demonstrate right hip femoral neck screws with washers. There are 3 screws present. There is slight valgus deformity of the femoral head. There is flattening of the femoral head superiorly. There is subchondral sclerosis and joint space narrowing. Assessment/Plan : The patient is an appropriate candidate for consideration of right total hip replacement conversion surgery. An extensive discussion was conducted of the natural history of the disease and the variety of surgical and non-surgical treatment options available to the patient. A risk/benefit analysis was discussed with the patient reviewing the advantages and disadvantages of surgical intervention at this time. A full explanation was given of the nature and the purpose of the procedure and anesthesia, its benefits, possible alternative methods of diagnosis or treatment, the risks involved, the possibility of complications, the foreseeable consequences of the procedure and the possible results of the non-treatment. No guarantee or assurance was made as to the results that may be obtained. Specifically, the risks were identified to include, but are not limited to the following: Infection, phlebitis, pulmonary embolism, , paralysis, dislocation, pain, stiffness, instability, limp, weakness, breakage, leg-length inequality, uncontrolled bleeding, nerve injury, blood vessel injury, pressure sores, anesthetic risks, delayed healing of wound and bone, and wear and loosening. Additional risks of robotic hip replacement were discussed (if used) including but not limited to pin site infection, draining, longer incision, longer OR time, and fracture near the pin sites. Further discussion was undertaken with the patient about the details of surgical preparation, treatment, and postoperative rehabilitation including medical clearance, autotransfusion, the hospital course, and the postoperative rehabilitation involved. As a part of routine preoperative counseling, if the patient is a smoker, the patient recognizes the increased risk of complications in patients who utilize tobacco products. The patient has also been counseled regarding the elevated risk of surgical complications in patients with an elevated BMI. The patient demonstrates understanding of the increased risk in such patients. The patient was encouraged to participate in physical activity and diet modification under the direction of their primary care physician. We will plan on proceeding with right total hip arthroplasty using the Renetta hip replacement system. However, it is possible during the preoperative planning process or due to intraoperative findings that a different implant system may be utilized in order to optimize the patient's outcome. We had a discussion regarding implant and bearing options. We had a detailed discussion of the advantages and limitations of the specific implant designs, materials and bearing surfaces. All questions were answered to the patient's satisfaction, and the patient was asked to call the office with any further concerns. All in all, I feel that this patient is a good candidate for surgical reconstruction. An in-depth discussion of the risks and benefits of surgery as noted above were had with patient, including any reasonable alternatives and the risks and benefits of the alternatives. The patient was given time to understand and ask questions, and the surgical consent was signed and dated today. If surgery is >1 month from today, this discussion will be repeated on the day of surgery, prior to anesthesia administration. The patient is also aware that questions can be asked at any time before the surgical date to me or my team. Plan for right total hip conversion surgery at [facility]. [email or web address] Not available 09/16/2024 11:52:41 09/22/2024 09/22/2024 Right shoulder pain, weakness, limited function in the setting of right proximal humeral fracture malunion and early post-traumatic arthropathy. Fracture was approximately 5 years ago, treated nonoperatively. Prior injection helped significantly. Right shoulder subacromial cortisone injection performed today. She will follow-up as needed. [email or web address] Not available 09/22/2024 10:43:14 12/01/2024 12/01/2024 HPI : Patient is here for a 2 week follow-up from a conversion HAL[facility]. Patient denies fevers, chest pain and shortness of breath. Patient has been compliant with anticoagulant protocol. She has not encountered any problems since the time of her surgery. She reports that every day I am getting a little bit stronger. She requires only Tylenol for analgesia. She has plans to do outpatient physical therapy. She states that the pain that she was having at the screw heads is now completely resolved. She only has soreness at the incisions. Physical Exam : Patient is well nourished, well- developed, in no acute distress, with appropriate mood and affect. The patient demonstrates good hip motion and strength. Patient demonstrates active hip flexion and knee extension. 3 out of 5 strength on hip flexion and knee extension. The incision is clean and dry with no signs of infection. Negative calf tenderness, negative Belen's sign. Assessment/Plan : The patient is doing well status post total hip arthroplasty. Patient will continue and complete 28 day anticoagulation therapy and continue physical therapy. Return for follow-up in 1 month; sooner with any problems. This patient was seen and evaluated by Gagandeep Sanchez MS, PAPaulC in indirect conjunction with documenting/superv ising provider Agusto Cain MD. He agrees with history, physical examination, tests/diagnostic imaging, and treatment plan. Not available 12/01/2024 11:27:00 Plan of Treatment Reminders Order Date Submit Date Provider Last Modified By Organization Details Last Modified Time Details Appointments POST-OP 2024 10:00A Gatito Cain MD Not available Not available Not available FOLLOW UP 2024 11:15A M Slava downey MD Not available Not available Not available Lab None recorded. Referral None recorded. Procedures None recorded. Surgeries total hip arthropla sty (SURG) 2023 025 [facility] [place] [facility], [address] [place], [address], 11/23/2024 12:16:22 Imaging None recorded. Medication Orders lidocaine (PF) 10 mg/mL (1 %) injection solution 2023 024 [email or web address] Not available 12/01/2024 11:19:59 Marcaine (PF) 0.5 % (5 mg/mL) injection solution 2023 024 [email or web address] Not available 12/01/2024 11:20:01 triamcino lone acetonide 40 mg/mL suspensio n for injection 2023 024 [email or web address] Not available 12/01/2024 11:20:04 Marcaine (PF) 0.5 % (5 mg/mL) injection solution 2023 024 [email or web address] [facility], [address] [place], [address], 12/01/2024 11:20:01 lidocaine (PF) 100 mg/5 mL (2 %) injection syringe 2023 024 [facility], [address] [place] [address], [address], 09/22/2024 09:29:14 triamcino lone acetonide 40 mg/mL suspensio n for injection 2023 024 [email or web address] [facility], [address] [facility], [place], [address], 12/01/2024 11:20:04 Patient TargetsNo targets recorded. Patient Instructions Encounter Date Encounter Id Patient Instructions Last Modified By Organization Details Last Modified Time 12/01/2024 [id number] physical therapy * - Evaluate and treat as indicated to reduce pain and to improve strength, mobility, stability, range of motion, and function. Please teach a home exercise plan and incorporate PT into patient's exercise routine. 2-3 sessions weekly for 6-8 weeks. [email or web address] Not available 12/08/2024 08:14:15 Reason for Referral None Reported. Results Created Date Observation Date Name Description Value Unit Range Abnormal Flag Note LastModifiedBy Organization Detail LastModifiedTime 08/18/20 24 08/18/2024 injec tion, hip, fluor o curly nce (PROC ) No observ ation record ed. [email or web address] [facility] [address] [facility] [address], [place], [address], 08/18/2024 13:25:51 11/16/19 25 11/16/2024 XR, hip, unila teral , 2 or 3 view No observ ation record ed. [email or web address] [address], [address], 11/17/2024 06:59:30 11/17/19 25 11/16/2024 XR, hip, unila teral , 2 or 3 view No observ ation record ed. [email or web address] [address], [address], 11/17/2024 15:28:59 11/17/19 25 11/16/2024 XR, knee, 4 or more view No observ [facility]ion [facility] ed. [email or web address] [address], [address], 11/17/2024 15:28:59 11/17/19 25 11/16/2024 XR, foot, 3 or more view No observ ation record ed. [email or web address] [address], [address], 11/17/2024 15:28:59 Result Notes None recorded. Problems Name Problem SNOMED Code Status Onset Date Resolution Date Notes Provider Name and Address Organization Details Recorded Time Closed fracture of proximal right humerus 2434306289432 9105 Active 2023 ZAKI DUMONT PA-C [address], [place], [address], [place] [facility], [facility] 4 08:42:58 Pain of right shoulder joint 9616714837498 9100 Active 2023 ZAKI DUMONT PA-C [address], [place], [address], [place] [facility], [facility] 4 08:42:58 Osteoarthri tis of joint of right shoulder region 6995692313973 00 Active 2023 ZAKI DUMONT PA-C [address], [place], [address], [place] [facility], [facility] 4 08:42:58 Pain 58778279 Active 2023 Kyara Sierra MD [address], [place], [address], [place] [facility], [facility] 4 20:08:33 Osteoarthri tis of right knee joint 2656855298088 00 Active 2023 GAGANDEEP SANCHEZ PA-C [address], [place], [address], [place] [facility], [facility] 4 09:39:02 Osteoarthri tis of left knee joint 0038629634531 09 Active 2023 GAGANDEEP SANCHEZ PA-C [address], [place], [address], [place] [facility], [facility] 4 09:39:03 Osteoarthri tis of right hip joint 5583046147344 07 Active 2023 GAGANDEEP SANCHEZ PA-C [address], [place], [address], [place] [facility], [facility] 4 13:18:38 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 001897121 Active 2023 Agusto Cain MD [address], [place], [address], [place] [facility], [facility] 4 11:48:31 Arthritis of hip 20591295 Active [address], [place], [address], [place] [facility], [facility] 4 11:49:30 Osteoarthri tis of knee 042042007 Active 2022 Shiva Rojas MD [address], [place], [address], [place] [facility], [facility] 10:53:59 History of repair of hip joint 981961096 Active 2024 GAGANDEEP SANCHEZ PA-C [address], [place], [address], [place] [facility], [facility] 11:26:09 Problem Notes None recorded. Procedures Surgical History Date Name Laterality Status Provider Name and Address Organization Details Recorded Time 11/16/19 25 TOTAL HIP ARTHROPLASTY (SURG) completed Elva Agarwal [place] [facility] 11/18/2024 14:14:48 09/22/20 24 BLW Subacromial Inj completed Sammi Yi [place] [facility] 09/22/2024 10:04:57 09/01/20 24 MJG GT injection w/US completed GAGANDEEP SANCHEZ PA-C [address], [place], [address], [place] [facility], [facility] 09/01/2024 14:17:38 06/02/20 24 Synvisc-One Knee Inj w/US completed GAGANDEEP SANCHEZ PA-C [address], [place], [address], [place] [facility] 06/02/2024 15:18:24 03/10/20 24 BLW Subacromial Inj completed Sammi Yi [place] [facility] 03/10/2024 09:39:21 02/25/20 24 ORTHOPAEDIC SURGERY (SURG) completed Elva Agarwal [place] [facility] 02/26/2024 09:22:07 11/05/19 24 BLW Subacromial Inj completed Sammi Yi [place] [facility] 11/05/2023 09:09:00 10/25/19 24 Synvisc-One Knee Inj completed GAGANDEEP SO PA-C [address], [place], [address], [place] [facility] 10/25/2023 10:46:54 03/19/20 23 Synvisc-One Knee Inj completed Shiva Rojas MD [address], [place], [address], [place] [facility] 03/19/2023 10:09:01 Imaging Results Imaging Date Name Status LastModified by [facility] Details LastModified Time 08/18/2024 injection, hip, fluoro guidance (PROC) completed [email or web address] [facility] [address], [place], [address], 08/18/2024 13:25:51 11/16/2024 XR, hip, unilateral, 2 or 3 view completed [address], [address], 11/17/2024 06:59:30 11/16/2024 XR, hip, unilateral, 2 or 3 view completed [email or web address] [address], [address], 11/17/2024 15:28:59 11/16/2024 XR, knee, 4 or more view completed [email or web address] [address], [address], 11/17/2024 15:28:59 11/16/2024 XR, foot, 3 or more view completed [address], [address], 11/17/2024 15:28:59 Procedure Notes None recorded. Medical Equipment None Reported. Allergies No known drug allergies Medications Name Sig Start Date Stop Date Status Note LastModified by Organization Details LastModified Time methocarbam ol 500 mg tablet TAKE TWO TABLETS BY MOUTH EVERY 8 HOURS NEEDED FOR PAIN AND OR MUSCLE SPASMS 10/25 completed Not Available Not Available Not Available prednisone 10 mg tablet TAKE FOUR TABLETS BY MOUTH EVERY DAY FOR 3 DAYS THEN TAKE THREE TABLETS BY MOUTH EVERY DAY FOR 3 DAYS, THEN TAKE TWO TABLETS BY MOUTH EVERY 10/25 completed Not Available Not Available Not Available Sulfatrim 200 mg-40 mg/5 mL oral suspension TAKE 10 ML ONCE DAILY 10/25 completed Not Available Not Available Not Available amoxicillin 600 mg-potassiu m clavulanate 42.9 mg/5 mL oral suspension TAKE 5 MLS TWO TIMES A DAY FOR 7 DAYS. DISCARD REMAINDER 06/16 completed Not Available Not Available Not Available amoxicillin 250 mg-potassiu m clavulanate 62.5 mg/5 mL oral suspension active Not Available Not Available N ot Available ondansetron HCl 8 mg tablet active Not Available Not Available Not Available prednisone 20 mg tablet TAKE TWO TABLETS BY MOUTH EVERY DAY FOR 5 DAYS 10/25 completed Not Available Not Available Not Available ciprofloxac in 500 mg tablet TAKE ONE TABLET BY MOUTH EVERY DAY FOR 10 DAYS 10/25 completed Not Available Not Available Not Available cefadroxil 500 mg capsule active Not Available Not Available Not Available meloxicam 7.5 mg tablet active Not Available Not Available Not Available amoxicillin 875 mg tablet TAKE 1 TABLET BY MOUTH EVERY 12 HOURS FOR 10 DAYS 10/25 completed Not Available Not Available Not Available methocarbam ol 750 mg tablet active Not Available Not Available Not Available IBU 600 mg tablet Take 1 tablet every 6 hours by oral route. 03/10 completed Not Available Not Available Not Available triamcinolo ne acetonide 40 mg/mL suspension for injection Take 80 mg by injection route. 12/01 completed Not Available Not Available Not Available pantoprazol e 40 mg tablet,vidhya yed release active Not Available Not Available Not Available polymyxin B sulfate 10,000 unit-trimet hoprim 1 mg/mL eye drops INSTILL ONE DROP INTO AFFECTED EYE S) EVERY 4 HOURS 10/25 completed Not Available Not Available Not Available Vitamin D2 1,250 mcg (50,000 unit) capsule TAKE ONE CAPSULE BY MOUTH ONCE A WEEK 10/25 completed Not Available Not Available Not Available Tylenol Extra Strength 500 mg tablet Take 2 tablets 3 times a day by oral route. 03/10 completed Not Available Not Available Not Available oxycodone 5 mg tablet Take 1 tablet every 6 hours by oral route. active Not Available Not Available No t Available cyclobenzap rine 5 mg tablet TAKE ONE TABLET BY MOUTH EVERY 8 HOURS NEEDED FOR PAIN FOR 5 DAYS 10/25 completed Not Available Not Available Not Available LMX 5 5 % topical cream APPLY A SMALL AMOUNT TO AFFECTED AREA(S) OF 5TH METATARSA L HEAD 3-4 TIMES DAILY NEEDED 10/25 completed Not Available Not Available Not Available Marcaine (PF) 0.5 % (5 mg/mL) injection solution Take 2 mL by injection route. 12/01 completed Not Available Not Available Not Available nitrofurant oin monohydrate /macrocryst als 100 mg capsule TAKE ONE CAPSULE BY MOUTH TWICE A DAY 12/23 completed Not Available Not Available Not Available Tylenol active Not Available Not Avail able Not Available lidocaine (PF) 10 mg/mL (1 %) injection solution Take 2 mL by injection route. 12/01 completed Not Available Not Available Not Available Synvisc-One 48 mg/6 mL intra-artic ular syringe Take 6 mL by intraarti cular route. 06/16 completed Not Available Not Available Not Available tranexamic acid 650 mg tablet active Not Available Not Available Not Available lidocaine (PF) 100 mg/5 mL (2 %) injection syringe Take 4 mL by injection route. 09/22 completed Not Available Not Available Not Available Vitals Date Recorded Body height Body mass index (BMI) Body weight Provider Name and Address Organization Details Last Updated DateTime 09/01/2024 165.1 cm 25 kg/m2 [address] [place] [facility] 09/01/2024 13:40:18 Date Recorded Body height Body mass index (BMI) Body weight Provider Name and Address Organization Details Last Updated DateTime 09/16/2024 160.02 cm 26 kg/m2 [address] [place] [facility] 09/16/2024 11:14:22 Date Recorded Body height Provider Name an d Address Organization Details Last Updated DateTime 12/01/2024 160[address] [place] [facility] 12/01/2024 11:20:13 Social History Question Answer Notes LastModified by Organizat ion Details LastModified Time Tobacco Smoking Status Former Smoker Leanna laureano, [place] [facility] 02/19/2023 10:23:44 What Is Your Level Of Alcohol Consumption? None [email or web address] Information not available 02/19/2023 Which Of Your Hands Is Dominant? Right [email or web address] Information not available 11/05/2023 Do You Use Any Illicit Or Recreational Drugs? No [email or web address] Information not available 02/19/2023 Do You Or Have You Ever Used Any Other Forms Of Tobacco Or Nicotine? No Information not available 02/19/2023 Sex: Unknown Functional Status None recorded. Mental Status None recorded. Family History Nothing Reported. Medical History Condition Response Coronary Artery Disease N Gout N Hyperthyroidism N MRSA N Blood Transfusion N Emphysema N Hypothyroidism N Depression N COPD N Pacemaker N Vascular Disease N Gastrointestinal Disease N Anxiety Disorder N Autoimmune disease N Arthritis N Cancer N Stroke N High Cholesterol N Neurologic Disorder N Liver Disease N Organ Transplant N Rheumatoid Arthritis N Arrhythmia N Fibromyalgia N Kidney Disease N Allergies/Hayfever N Adverse Reaction to Anesthesia N Thyroid Problems N Anemia N Brain Injury N Heart Attack (DC) N Osteopenia N Diabetes N Bleeding Disorder N Seizures/Epilepsy N AIDS/HIV N Congestive Heart Failure (CHF) N Asthma N Amputation N Reflux/GERD N Sleep Apnea N Hepatitis N Aneurysm N Heart Disease N Pulmonary Embolism N Hypertension N Osteoporosis N Gynecological HistoryNo gynecological history recorded. Obstetrics History GPAL:G 0 P 0 0 0 0 Past Encounters Encounter ID Performer Location Encounter Start Date Encounter Closed Date Diagnosis/Indication Diagnosis SNOMED-CT Code Diagnosis ICD10 Code Diagnosis Note [id number] MD RENETTA Ruiz[address] [address] 02/19/2023 09:55:49 02/19/2023 10:53:48 Pain of right knee joint [id number] 36792 M25.561 Pain of le ft knee joint [id number] 66068 M25.562 Osteoarthr itis of knee 950849818 M17.9 [id number] MD RENETTA Ruiz[address] [address] 03/19/2023 09:19:16 03/19/2023 10:09:36 Bilateral osteoarthritis of knees [id number] 26277 M17.0 Osteoarthr itis of knee 027641139 M17.9 [id number] MD RENETTA Ruiz[address] [address] 03/21/2023 15:03:24 03/21/2023 16:05:12 Osteoarthritis of knee 481831994 M17.9 [id number] MD RENETTA Ortiz[address] [address] 10/25/2023 10:02:37 10/25/2023 10:46:38 Osteoarthritis of left knee joint [id number] 86879 M17.12 Osteoarthr itis of right knee joint 7153625591 73130 M17.11 [id number] MD RENETTA Galvez[address] [address] 11/05/2023 08:20:45 11/05/2023 09:17:07 Pain of right shoulder joint [id number] 3822646 M25.511 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 5898929436 05313 M19.011 Closed fra cture of proximal right humerus 8460437645 1388633 S42.201A 43942 ZAKI DUMONT PA-C [address] [address] 12/24/2023 09:04:44 12/24/2023 09:25:51 Osteoarthritis of knee 484088621 M17.9 Pain of ri ght shoulder joint 2987192713 2180500 M25.511 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 5729250273 83219 M19.011 Closed fra cture of proximal right humerus 7332616390 0457877 S42.201A [id number] MD RENETTA Greco[address] [address] 01/02/2024 14:08:16 01/02/2024 15:11:50 Pain in left foot [id number] 75702 M79.672 Pain 34843372 T84.84X A Additional diagnosis detail: Painful orthopaedi c hardware [id number] MD RENETTA Greco[address] [address] 01/30/2024 08:45:09 01/30/2024 09:08:16 Pain in left foot 6089328701 72024 M79.672 Pain 83597646 T84.84X A Additional diagnosis detail: Painful orthopaedi c hardware [id number] Slava Patton MD [place] [address] 9 03/10/2024 09:05:05 03/10/2024 09:45:03 Pain of right shoulder joint [id number] 5366658 M25.511 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 7133568741 12183 M19.011 Closed fra cture of proximal right humerus 1938844339 7175236 S42.201A 34796 [place] [address] 03/12/2024 09:27:33 03/12/2024 10:07:24 Pain in left foot 4488324454 30481 M79.672 Pain 55808619 T84.84X A Additional diagnosis detail: Painful orthopaedi c hardware [id number] Agusto Cain MD [address] [address] 03/17/2024 09:14:06 03/17/2024 09:51:08 Pain of right knee joint 1051793849 62931 M25.561 Additional diagnosis detail: Pain, joint, knee, right Pain of le ft knee joint 1258289272 29599 M25.562 Additional diagnosis detail: Pain, joint, knee, left Osteoarthr itis of right knee joint 4394042988 60480 M17.11 Additional diagnosis detail: Primary osteoarthr itis of right knee Osteoarthr itis of left knee joint 3348613247 20690 M17.12 Additional diagnosis detail: Primary osteoarthr itis of left knee [id number] Agusto Cain MD [address] [address] 06/02/2024 14:38:53 06/02/2024 15:32:53 Osteoarthritis of right knee joint [id number] 07768 M17.11 Additional diagnosis detail: Primary osteoarthr itis of right knee Osteoarthr itis of left knee joint 9267071124 96124 M17.12 Additional diagnosis detail: Primary osteoarthr itis of left knee Osteoarthr itis of knee 693310646 M17.9 13432 MD KALYANI Ortiz [address] [address] 06/16/2024 12:39:47 06/16/2024 13:17:47 Pain in right hip joint 2326536729 41091 M25.551 Osteoarthr itis of right hip joint 1347717474 48906 M16.11 [id number] MD KALYANI Ortiz [address] [address] 09/01/2024 13:27:29 09/01/2024 14:21:10 Trochanteric bursitis of right hip 0905062745 38076 M70.61 [id number] MD KALYANI Ortiz [address] [address] 09/15/2024 14:56:07 09/15/2024 16:03:48 Hip pain 87700339 M25.551 [id number] MD KALYANI Ortiz [address] [place], [place] [address] [address] 09/16/2024 10:54:39 09/16/2024 11:51:06 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 719406071 M16.51 Arthritis of hip 0019295 6 M13.859 [id number] MD KALYANI Galvez [address] [address] 09/22/2024 09:18:13 09/22/2024 10:08:52 Pain of right shoulder joint 9292529489 6167009 M25.511 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 8698657164 93108 M19.011 Closed fra cture of proximal right humerus [id number] 8685948 S42.201A [id number] MD KALYANI Ortiz [address] [address] 12/01/2024 10:57:42 12/01/2024 11:27:35 History of repair of hip joint 850815408 Z96.641 Health Concerns Section Related Observation LastModified by Organization Detai ls LastModified Time None Recorded Concern Status LastModified by Organization Details LastModified Time None Recorded Advance Directives Directive None Recorded Payers Encounter Date Sequence Insurance Name Policy Number Policy Butterfield Covered Member ID Butterfield Member ID Guarantor Name 09/01/2024 1 [employer] (MEDICARE REPLACEMENT HMO) Julia Lomax [id number] Julia Lomax 09/01/2024 2 () Julia Lomax [id number] Julia Lomax 09/15/2024 1 [employer] (MEDICARE REPLACEMENT HMO) Julia Lomax [id number] Julia Lomax 09/15/2024 2 () Julia Lomax [id number] Julia Lomax 09/16/2024 1 [employer] (MEDICARE REPLACEMENT HMO) Julia Lomax [id number] Julia Lomax 09/16/2024 2 () Julia Lomax [id number] Julia Lomax 09/22/2024 1 [employer] (MEDICARE REPLACEMENT HMO) Julia Lomax [id number] Julia Lomax 09/22/2024 2 () Julia Lomax [id number] Julia Lomax 12/01/2024 1 [employer] (MEDICARE REPLACEMENT PPO) [id number] Julia Lomax [id number] Julia Lomax 12/01/2024 2 () Julia Lomax [id number] Julia Lomax Notes Date Note Type Note Provider Name and Address Organization Details Recorded Time 09/01/2024 text/html 69-year-old fembelinda greene presents for recheck of right hip pain. She underwent an interventional radiology administered intra-articular injection of cortisone to the right hip on 08/18/2024. She reports that she got no immediate relief from the local anesthetic nor any later relief from the steroid component. She has persistent pain at the hip. At present moment, the majority of her pain is at the lateral aspect of the hip and she points to the region of the greater trochanter. GAGANDEEP SANCHEZ PA-C [address], [place], [address], [place] [facility] 09/01/2024 14:18:05 09/15/2024 text/html 69-year-old fembelinda greene presents for recheck of right hip pain. She reports that she did not get any lasting relief from cortisone injection to the bursa of the right hip administered on September 01. However, she reports that in the hours immediately after the injection she had a sensation of numbness which gave her relief of virtually all of the pain for which she has been presenting. She complains of a burning sensation and sensitivity to light touch and points to the region of the greater trochanter of the right hip. GAGANDEEP SANCHEZ PA-C [address], [place], [address], [place] [facility] 09/15/2024 16:04:21 09/22/2024 text/html Julia returns t o the office today for follow-up of her right shoulder pain in the setting of rotator cuff tear arthropathy. She underwent a subacromial cortisone injection on 03/10/2024 with relief. She notes pain with reaching. Her pain is moderate and intermittent. On average, her pain is a 2 out of 10 and a 6-7 out of 10 at worst. Her function and motion are limited. She has tried cortisone injections and Tylenol. She ambulates with a cane. She is scheduled for right total hip surgery in [facility] with Dr. Cain. Slava Patton MD [address], [place], [address], [place] [facility] 09/22/2024 10:44:01 OBGyn Episode No OBEpisode recorded.
--- OUTSIDE RECORDS SUMMARY | 2025-01-06 12:01 | XMS_ITS ---
Author Organization [facility] Address [address] [place] [address] Phone Care Team Providers Care Epic Analyst Name Role Phone Rajesh Lane MD Primary Care Provider [phone] [facility] Unavailable [phone] Plan of Treatment No Plan of Treatment Recorded Assessments Includes: Assessments for all patient encounters No Assessments Recorded Medical Equipment - Implanted Devices Includes: Current and historical Devices No Medical Equipment Recorded Medications Includes: Current and historical Medications Current Medications (continue as prescribed) Tylenol 325 MG Oral Tablet 05/18/2021 Provider: Diagnosis: Last Documented On 7:53AM By Linda Orourke ; [facility] Medications Administered Includes: Administered Medications in patient's chart No Administered Medications Recorded Results Includes: Results from 01/07/2024 through 01/06/2025 No Results Recorded For Specified Dates History of Present Illness History of Present Illness not supported for this document type No History of Present Illness Recorded Social History No Social History Recorded - Smoking Status Unknown Medical History Includes: Medical History in patient's chart No Medical History Recorded Family History Includes: Family History in patient's chart No Family History Recorded Review of Systems Review of Systems not supported for this document type No Review of Systems Recorded Mental Status No Mental Status Recorded Functional Status No Functional Status Recorded Physical Exam Physical Exam not supported for this document type No Physical Exam Recorded Allergies Includes: Active, inactive, and resolved Allergies No Known Allergies Insurance Includes: Active Insurance Policies Plan Name Member ID Group # Subscriber Relationship Effect miguel Dates 1 - [employer] [id number] Julia Lomax Self 10/07/2022 - Un known 2 - [facility] [id number] Julia Monie Self Clinical Notes Includes: Signed Clinical Notes starting from 09/16/2022 No Clinical Notes Recorded
--- OUTSIDE RECORDS SUMMARY | 2025-01-06 12:01 | XMS_ITS ---
Author Name [facility] Organization Unknown Results Test Name/Text Value Interpretation Date Range Source Calcium SerPl-mCnc 8.5mg/dL Normal [id number] 8.4 - 10 .2 [facility] BUN SerPl-mCnc 8mg/dL Normal [id number] 7 - 17 [facility] Creat SerPl-mCnc 0.7mg/dL Normal [id number] 0.5 - 1 [facility] Chloride SerPl-sCnc 98mmol/L Normal [id number] 98 - 10 7 [facility] BUN/Creat SerPl 11.4 Below low normal [id number] 12 - 20 [facility] CO2 SerPl-sCnc 24mmol/L Normal [id number] 24 - 32 [facility] eGFRcr SerPlBld CKD-EPI 2020 93mL/min/1.7 3m2 Normal [id number] - [facility] Potassium SerPl-sCnc 4mmol/L Normal [id number] 3.5 - 5.1 [facility] Sodium SerPl-sCnc 130mmol/L Below low normal [id number] 13 5 - 145 [facility] Anion Gap SerPl-sCnc 8 Normal [id number] 5 - 14 [facility] Glucose SerPl-mCnc 137mg/dL Above high normal [id number] 70 - 99 [facility] RDW RBC Auto-Rto 13.5% Normal [id number] 12.1 - 16. 2 [facility] PMV Bld Auto 7.7FL Normal [id number] 7.4 - 11.4 [facility] MCH RBC Qn Auto 32.9pcg Normal [id number] 25 - 33 [facility] RBC # Bld Auto 3.55M/mcL Below low normal [id number] 4.2 - 5.4 [facility] MCHC RBC Auto-mCnc 34.2g/dL Normal [id number] 32 - 36 [facility] Platelet # Bld Auto 146K/mcL Below low normal [id number] 150 - 450 [facility] WBC # Bld Auto 11K/mcL Above high normal [id number] 4 - 10.5 [facility] Hct VFr Bld Auto 34.3% Below low normal [id number] 37 - 47 [facility] MCV RBC Auto 96.4FL Normal [id number] 78 - 100 [facility] Hgb Bld-mCnc 11.7g/dL Below low normal [id number] 12.5 - 16 [facility] Prealb SerPl-mCnc 18mg/dL Normal [id number] 17 - 34 [facility] ALP SerPl-cCnc 93unit/L Normal [id number] 34 - 104 [facility] Glucose SerPl-mCnc 85mg/dL Normal [id number] 70 - 99 [facility] Chloride SerPl-sCnc 99mmol/L Normal [id number] 98 - 10 7 [facility] BUN SerPl-mCnc 13mg/dL Normal [id number] 7 - 17 [facility] Calcium SerPl-mCnc 8.6mg/dL Normal [id number] 8.4 - 10 .2 [facility] Anion Gap SerPl-sCnc 7 Normal [id number] 5 - 14 [facility] Sodium SerPl-sCnc 132mmol/L Below low normal [id number] 13 5 - 145 [facility] eGFRcr SerPlBld CKD-EPI 2021 79mL/min/1.7 3m2 Normal [id number] - [facility] CO2 SerPl-sCnc 26mmol/L Normal [id number] 24 - 32 [facility] Albumin SerPl-mCnc 3.9g/dL Normal [id number] 3.5 - 5 [facility] Potassium SerPl-sCnc 3.6mmol/L Normal [id number] 3.5 - 5.1 [facility] AST SerPl-cCnc 16unit/L Normal [id number] 5 - 40 [facility] Creat SerPl-mCnc 0.8mg/dL Normal [id number] 0.5 - 1 [facility] BUN/Creat SerPl 16.3 Normal [id number] 12 - 20 C [facility] ALT SerPl-cCnc 11unit/L Normal [id number] 7 - 52 [facility] Bilirub SerPl-mCnc 1.4mg/dL Above high normal [id number] 0.3 - 1 [facility] Prot SerPl-mCnc 6.7g/dL Normal [id number] 6.4 - 8.5 C [facility] MCH RBC Qn Auto 33.4pcg Above high normal [id number] 25 - 33 [facility] RBC # Bld Auto 3.84M/mcL Below low normal [id number] 4.2 - 5.4 [facility] Lymphocytes # Bld Auto 1.5K/mcL Normal [id number] 1 - 3.2 [facility] Neutrophils/leuk NFr Bld Auto 70.5% Normal [id number] 44 - 74 [facility] Basophils # Bld Auto 0K/mcL Normal [id number] 0 - 0.2 [facility] Lymphocytes/leuk NFr Bld Auto 20.8% Normal [id number] 20 - 48 [facility] PMV Bld Auto 7.3FL Below low normal [id number] 7.4 - 1 1.4 [facility] Monocytes/leuk NFr Bld Auto 7.9% Normal [id number] 2 - 12 [facility] Basophils/leuk NFr Bld Auto 0.4% Normal [id number] 0 - 2 [facility] MCHC RBC Auto-mCnc 34.4g/dL Normal [id number] 32 - 36 [facility] Monocytes # Bld Auto 0.6K/mcL Normal [id number] 0 - 0.8 [facility] Hct VFr Bld Auto 37.4% Normal [id number] 37 - 47 [facility] Eosinophil/leuk NFr Bld Auto 0.4% Normal [id number] 0 - 6 [facility] Neutrophils # Bld Auto 5.2K/mcL Normal [id number] 1.8 - 7.8 [facility] Platelet # Bld Auto 205K/mcL Normal [id number] 150 - 4 50 [facility] RDW RBC Auto-Rto 13.6% Normal [id number] 12.1 - 16. 2 [facility] Eosinophil # Bld Auto 0K/mcL Normal [id number] 0 - 0.5 [facility] Hgb Bld-mCnc 12.8g/dL Normal [id number] 12.5 - 16 [facility] MCV RBC Auto 97.3FL Normal [id number] 78 - 100 [facility] WBC # Bld Auto 7.4K/mcL Normal [id number] 4 - 10.5 [facility] History of Medication Use Medication Directions Dispensed Refills Start Date End Date Stat pantoprazole 40 mg tablet,delayed release active cefadroxil 500 mg capsule active amoxicillin 250 mg-potassium clavulanate 62.5 mg/5 mL oral suspension active methocarbamol 750 mg tablet active ondansetron HCl 8 mg tablet active tranexamic acid 650 mg tablet active meloxicam 7.5 mg tablet active senna (SENOKOT) 8.6 mg tablet Take 2 tablets (17.2 mg total) by mouth at bedtime. 11/17/2024 active aspirin 81 mg EC tablet Take 1 tablet (81 mg total) by mouth 2 (two) times a day for 28 days. 11/17/2024 active senna (SENOKOT) tablet 17.2 mg 17.2 mg (2 tablet), oral, Nightly, First dose on Sat11/16/24 at 2100, Recovery & On Unit, Bowel Regimen - for prevention of constipation 11/17/2024 active meloxicam (MOBIC) 7.5 mg tablet Take 1 tablet (7.5 mg total) by mouth 1 (one) time each day. 11/16/2024 active ondansetron (ZOFRAN) 8 mg tablet Take 1 tablet (8 mg total) by mouth every 8 (eight) hours if needed for nausea or vomiting for up to 10 days. 11/17/2024 active ceFAZolin (ANCEF) 2 g in sterile water 20 mL IV syringe 2 g, intravenous, Administer over 3 Minutes, Every 8 hours, First dose on Sat11/16/24 at 2100, For 2 doses, Recovery & On Unit, Indication: Prophylaxis-Surgica l 11/17/2024 active tranexamic acid (LYSTEDA) 650 mg tablet tablet Take 3 tablets (1,950 mg total) by mouth 1 (one) time each day for 2 days. 11/17/2024 active oxyCODONE (ROXICODONE) immediate release tablet 5 mg [Order 1 Start] Name: oxyCODONE (ROXICODONE) immediate release tablet 5 mg Signed Summary: 5 mg, oral, Every 4 hours PRN, moderate pain, Starting on Sat11/16/24 at 1549, Recovery & On Unit [Order 1 End] [Order 2 Start] Name: oxyCODONE (ROXICODONE) immediate release tablet 10 mg Signed Summary: 10 mg 11/16/2024 active orphenadrine (NORFLEX) injection 30 mg 30 mg, intravenous, Once as needed, muscle spasms, Starting on Sat11/16/24 at 1610, For 1 dose, Recovery (only) 11/16/2024 completed lactated Ringer's infusion 100 mL/hr, intravenous, Continuous, Starting on Sat11/16/24 at 1015 11/16/2024 active acetaminophen (TYLENOL) 500 mg tablet Take 2 tablets (1,000 mg total) by mouth every 8 (eight) hours for 28 days. 11/16/2024 active vancomycin (VANCOCIN) 1,000 mg in sodium chloride 0.9 % 250 mL IVPB 1,000 mg, intravenous, at 250 mL/hr, Administer over 60 Minutes, Once, On Sat11/16/24 at 1015, For 1 dose, Preprocedure, ADD vancomycin 1,000mg IV less than or equal to 70kg Give pre-op in the OR, Indication: Prophylaxis-Surgica l 11/16/2024 completed methocarbamoL (ROBAXIN) 750 mg tablet Take 1 tablet (750 mg total) by mouth 4 (four) times a day if needed for muscle spasms for up to 14 days. 11/16/2024 active cefadroxil 500 mg capsule Take 1 capsule (500 mg total) by mouth 2 (two) times a day for 7 days. 11/17/2024 active oxyCODONE (ROXICODONE) 5 mg immediate release tablet Take 1 tablet (5 mg total) by mouth every 4 (four) hours if needed for moderate pain. Max Daily Amount: 30 mg 11/17/2024 active pantoprazole (PROTONIX) 40 mg EC tablet Take 1 tablet (40 mg total) by mouth 1 (one) time each day before breakfast for 28 days. Do not crush, chew, or split. 11/17/2024 active HYDROmorphone (DILAUDID) injection 0.5 mg 0.5 mg, intravenous, Every 15 min PRN, severe pain, Starting on Sat11/16/24 at 1610, For 4 doses, Recovery (only), For pain (7-10). 11/16/2024 aborted tranexamic acid (CYKLOKAPRON) 1,000 mg in sodium chloride 0.9 % 100 mL IVPB - MBP 1,000 mg (1 g), intravenous, Once, On Sat11/16/24 at 1615, For 1 dose, Recovery & On Unit, Mini-Bag Plus bag. Do not exceed maximum rate of 100 mg per minute. 11/16/2024 completed ondansetron ODT (ZOFRAN-ODT) disintegrating tablet 4 mg [Order 1 Start] Name: ondansetron ODT (ZOFRAN-ODT) disintegrating tablet 4 mg Signed Summary: 4 mg, oral, Every 8 hours PRN, vomiting, nausea, Starting on Sat11/16/24 at 1550, Recovery & On Unit, -Give IV if patient is unable to take orally. -If inadequate response within 30 minutes, proceed to next 11/16/2024 active amoxicillin-clavula joanna (AUGMENTIN) 250-62.5 mg/5 mL suspension TAKE 10ML BY MOUTH EVERY 8 HOURS FOR 7 DAYS DISCARD REMAINDER 10/13/2024 completed acetaminophen (TYLENOL) 500 mg tablet Take 500 mg by mouth every 6 hours as needed. active Marcaine (PF) 0.5 % (5 mg/mL) injection solution active folic acid (FOLVITE) tablet 1 mg Take 1 mg by mouth. 06/01/2020 activ e Menthol-Zinc Oxide (CALMOSEPTINE) 0.44-20.6 % OINT Apply 1 each topically. 10/27/2019 active IBU 600 mg tablet Take 1 tablet every 6 hours by oral route. 4 completed LORazepam (ATIVAN) 0.5 MG tablet Take 1 tablet by mouth every 6 (six) hours as needed. 10/25/2020 active lidocaine (PF) 100 mg/5 mL (2 %) injection syringe Take 4 mL by injection route. 09/01/2024 4 active Tylenol active Synvisc-One 48 mg/6 mL intra-articular syringe active prednisone 20 mg tablet TAKE TWO TABLETS BY MOUTH EVERY DAY FOR 5 DAYS 4 active ciprofloxacin 500 mg tablet TAKE ONE TABLET BY MOUTH EVERY DAY FOR 10 DAYS 4 completed methocarbamol 500 mg tablet TAKE TWO TABLETS BY MOUTH EVERY 8 HOURS NEEDED FOR PAIN AND OR MUSCLE SPASMS 4 completed lidocaine (PF) 10 mg/mL (1 %) injection solution active Kenalog 40 mg/mL suspension for injection Take 2 mL by injection route. 11/05/2023 4 completed cetirizine (ZyrTEC) 10 MG tablet TAKE ONE TABLET BY MOUTH EVERY DAY 2021 active oxycodone 5 mg tablet Take 1 tablet every 6 hours by oral route. 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 ProblemAct [facility] Dental disease active ProblemAct [facility] Rebound headache active 2021-11-08 ProblemAct [facility] Femur fracture active 2021-04-27 ProblemAct [facility] Chronic low back pain active 2005-11-10 ProblemAct [facility] Rosacea active 2005-11-10 ProblemAct [facility] Alcoholic cirrhosis of liver without ascites active 2024-10-21 ProblemAct [facility] Osteoarthritis of right knee joint active 2024-03-17 ProblemAct [facility] History of repair of hip joint active 2024-12-01 ProblemAct [facility] Pain of right shoulder joint active 2023-12-24 [facility]Act [facility] 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 active 2024-09-16 ProblemAct [facility] Arthritis of hip active 2024-09-16 ProblemAct [facility] Status post THR (total hip replacement) active 2024-11-16 [facility]Act [facility] Subclinical hypothyroidism active 2011-04-05 ProblemAct [facility] Dysplasia of cervix (uteri) active 2005-11-10 ProblemAct [facility] Hyponatremia active 2024-10-20 ProblemAct [facility] Peripheral neuropathy active 2015-07-25 ProblemAct [facility] Overweight (BMI 25.0-29.9) active 2018-09-16 ProblemAct [facility] Callus active 2021-10-31 ProblemAct [facility] Radius fracture active 2021-04-[address] [facility] Pain active 2024-11-16 ProblemAct [facility] History of alcohol abuse active 2020-10-24 ProblemAct [facility] Closed fracture of proximal right humerus active 2023-12-24 ProblemAct [facility] Pain active 2024-01-05 ProblemAct [facility] Osteoarthritis of left knee joint active 2024-03-17 ProblemAct [facility] 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 ProblemAct [facility] Osteoarthritis of knee active 2023-02-19 ProblemAct [facility] Osteoarthritis of right hip joint active 2024-06-16 ProblemAct [facility] Osteoarthritis of right hip active 2024-10-20 ProblemAct [facility] Humerus fracture active 2015-04-07 ProblemAct [facility] Immunizations Vaccine Date Source Lot Number Status Td Tetanus diptheria (Tdvax) 7yo and older 04/27/2021 [facility] [id number] completed Moderna SARS-CoV-2 COVID-19, mRNA, LNP-S, preservative free 01/20/2021 [facility] completed Moderna SARS-CoV-2 COVID-19, mRNA, LNP-S, preservative free 02/18/2021 [facility] completed Encounters Encounter Type Encounter Reason Primary Diagnosis Location Date Inpatient Pain, unspecified Pain, unspecified [facility] 11/16/2024 Ambulatory [facility] 10/22/2024 Ambulatory Encounter for other preprocedural examination Encounter for other preprocedural examination [facility] 10/20/2024 Ambulatory [facility] 09/17/2024 Ambulatory [facility] 09/01/2024 Ambulatory [facility] 05/21/2024 Ambulatory [facility] 03/25/2024 Ambulatory [facility] 03/13/2024 Ambulatory Pain due to internal orthopedic prosthetic devices, implants and grafts, initial encounter Pain due to internal orthopedic prosthetic devices, implants and grafts, initial encounter [facility] 02/25/2024 Ambulatory [facility] 02/24/2024 Ambulatory [facility] 02/05/2024 Ambulatory [facility] 02/19/2023 Ambulatory [facility] 02/19/2023 Ambulatory [facility] 02/19/2023 Ambulatory [facility] 02/19/2023 Ambulatory [facility] 02/13/2023 Ambulatory [facility] 02/04/2023 Ambulatory [facility] 02/01/2023 Ambulatory [facility] 01/01/2023 Care Team Organization Name Specialty Phone Email Start Date End [facility] te [facility] 02/2024 [facility] Primary Care 0 02/07/2024
--- OUTSIDE RECORDS SUMMARY | 2025-01-06 12:01 | XMS_ITS | Clinical Summary ---
Author Organization [facility] Address [address] [place] [address] Phone Care Team Providers Care C Software Developer Name Role Phone Rajesh Lane MD Primary Care Provider [phone] [facility] Unavailable [phone] Reason for Visit and Chief Complaint Established Patient Plan of Treatment Pending Tests Order Diagnosis Results Due Ordering P rovider Follow Up - Appointment PRN Displaced intertrochanteric fracture of right femur, init 12/19/21 Caden Navarro PA-C Last Documented On 2 9:38AM ; [facility] In House X-Rays - X-Rays Hip Unilateral, right, 2-3 views ([id number]) Displaced intertrochanteric fracture of right femur, init 12/21/21 Caden Navarro PA-C Last Documented On 2 9:38AM ; [facility] Assessments Includes: Assessments from this encounter No Assessments Recorded Medical Equipment - Implanted Devices Includes: Current Devices No Medical Equipment Recorded Medications Includes: Medications discussed during this encounter and other current Medications Current Medications (continue as prescribed) Tylenol 325 MG Oral Tablet 05/18/2021 Provider: Diagnosis: Last Documented On 1 7:53AM By Linda Orourke ; [facility] Medications Administered Includes: Administered Medications from this encounter No Administered Medications Recorded Results Includes: Results discussed during this encounter No Results Recorded For Specified Dates History of Present Illness Includes: History of Present Illness from this encounter No History of Present Illness Recorded Social History No Social History Recorded - Smoking Status Unknown Medical History Includes: Medical History addressed during this encounter No Medical History Recorded Family History Includes: Family History addressed during this encounter No Family History Recorded Review of Systems Includes: Review of Systems from this encounter No Review of Systems Recorded Mental Status Includes: Mental Status from this encounter No Mental Status Recorded Functional Status Includes: Functional Status from this encounter No Functional Status Recorded Physical Exam Includes: Physical Exam from this encounter No Physical Exam Recorded Allergies Includes: Active Allergies No Known Allergies Encounters Encounter Provider Location Date Check-In Time Check-Out Time Diagnosis Established Patient [facility]aden [facility] 12/20/19 22 8:40AM 9:29AM Insurance Includes: Active Insurance Policies Plan Name Member ID Group # Subscriber Relationship Effect miguel Dates 1 - [employer] [id number] Julia Lomax Self 10/07/2022 - Un known 2 - [facility] [id number] Julia Lomax Self Clinical Notes Includes: Clinical Notes from this encounter No Clinical Notes Recorded
--- OUTSIDE RECORDS SUMMARY | 2025-01-06 12:01 | XMS_ITS | Data Portability ---
Author Organization [facility], [address] Address [address] [place] [address] Assessment No assessment recorded. Plan of Treatment Reminders Order Date Submit Date Provider Last Modified By Organization Details Last Modified Time Details Appointments None recorded. Lab None recorded. Referral None recorded. Procedures None recorded. Surgeries None recorded. Imaging None recorded. Medication Orders amoxicillin 875 mg tablet 2022 023 [email or web address], [address] [place] [address], [address], 3 13:25:50 Tylenol Cold and Flu Severe 5 mg-10 mg-325 mg-200 mg/15 mL oral liquid 2022 023 [id number], [address] [place] [address], [id number], 3 13:25:50 Polytrim 10,000 unit-1 mg/mL eye drops 2022 023 [email or web address], [address] [place] [address], [id number], 3 13:25:51 Patient TargetsNo targets recorded. Patient Instructions Encounter Date Encounter Id Patient Instructions Last Modified By Organization Details Last Modified Time 05/01/2023 [id number] You have been diagnosed with an Upper Respiratory Infection. It is important to drink plenty of fluids and rest while you are ill. Hot Tea with Honey is good to help with a sore throat. Some OTC medications that are helpful with your current symptoms would include. 1. Tylenol 2. Codie Selzer Cold/Flu Effervescent Pills 3. Saline Nasal [place] Try an avoid other people and wash your hands regularly. Most symptoms will improve on its own in 7-10 days. If symptoms last longer than 10 days then I would suggest getting a re-evaluate by us or your Primary Care Doctor. I would be seen more urgently if you develop any of the following symptoms: 1. Fever > 101.0 2. Increased facial pain or pressure 3. Purulent Discharge from the nose that occurs all day -(not just first thing in the AM) 4. Worsening Sore throat 5. Cough or Shortness of Breath I would go to the ER if you develop: 1. Severe Headache 2. Fever > 102.5 3. Still Neck 4. Shortness of Breath or Chest Pain. [email or web address] Not available 05/04/2023 16:04:07 Reason for Referral None Reported. Problems No Known Problems Procedures Surgical History Date Name Laterality Status Provider Name and Address Organization Details Recorded Time repair of hip completed MICHAEL DENIS - [facility] 05/01/2023 12:58:25 Imaging Results None recorded. Procedure Notes None recorded. Medical Equipment None Reported. Allergies No known drug allergies Medications Name Sig Start Date Stop Date Status Note LastModified by Organization Details LastModified Time methocarbam ol 500 mg tablet TAKE TWO TABLETS BY MOUTH EVERY 8 HOURS NEEDED FOR PAIN AND OR MUSCLE SPASMS 05/01 completed Not Available Not Available Not Available Sulfatrim 200 mg-40 mg/5 mL oral suspension TAKE 10 ML ONCE DAILY 05/01 completed Not Available Not Available Not Available prednisone 20 mg tablet TAKE TWO TABLETS BY MOUTH EVERY DAY FOR 5 DAYS 05/01 completed Not Available Not Available Not Available amoxicillin 875 mg tablet Take 1 tablet every 12 hours by oral route for 10 days. 2022 active Not Available Not Available Not Avai lable Polytrim 10,000 unit-1 mg/mL eye drops INSTILL 1 DROP INTO AFFECTED EYE(S) BY OPHTHALMI C ROUTE EVERY 4 HOURS 2022 active Not Available Not Available Not Avai lable cyclobenzap rine 5 mg tablet TAKE ONE TABLET BY MOUTH EVERY 8 HOURS NEEDED FOR PAIN FOR 5 DAYS 05/01 completed Not Available Not Available Not Available LMX 5 5 % topical cream APPLY A SMALL AMOUNT TO AFFECTED AREA(S) OF 5TH METATARSA L HEAD 3-4 TIMES DAILY NEEDED 05/01 completed Not Available Not Available Not Available Tylenol Cold and Flu Severe 5 mg-10 mg-325 mg-200 mg/15 mL oral liquid Take 30 mL every 4-6 hours by oral route as needed for 5 days. 2022 active Not Available Not Available Not Avai lable Vitals Date Recorded Body height Body mass index (BMI) Body weight Respiratory rate Body temperature Oxygen saturation Oxygen saturation in Arterial blood by Pulse oximetry Heart rate Systolic blood pressure Diastolic blood pressure Provider Name and Address Organization Details Last Updated DateTime 3 165.1 cm 24.1 kg/m2 01502.8 9 g 18 /min 98.9 [degF] 95 % 95 % 88 /min 147 mm[Hg] 79 mm[Hg] MICHAEL GOULD PA - [facility] 12:59:49 Social History Question Answer Notes LastModified by [employer] ion Details LastModified Time Tobacco Smoking Status Never Smoker MICHAEL laureano PA - [facility] 05/01/2023 12:58:04 What Is Your Level Of Alcohol Consumption? None Information not available 05/01/2023 Are You Currently Employed? No Information not available 05/01/2023 Do You Use Any Illicit Or Recreational Drugs? No Information not available 05/01/2023 Are You Currently In School? No Information not available 05/01/2023 Do You Or Have You Ever Used Any Other Forms Of Tobacco Or Nicotine? No Information not available 05/01/2023 Sex: Unknown Functional Status None recorded. Mental Status None recorded. Family History Nothing Reported. Medical History No medical history recorded. Gynecological History Statement/Question Response LMP N/A Obstetrics History GPAL:G 0 P 0 0 0 0 Immunizations Vaccine Type Date Status Note Provider Nam e and Address Organization Details Recorded Time COVID-19, mRNA, LNP-S, PF, 100 mcg/0.5mL dose or 50 mcg/0.25mL dose 1 completed MICHAEL laureano PA - [facility] 05/01/2023 12:56:53 COVID-19, mRNA, LNP-S, PF, 100 mcg/0.5mL dose or 50 mcg/0.25mL dose 1 completed MICHAEL GOULD null, PA - [facility] 05/01/2023 12:56:53 Td (adult), 2 Lf tetanus toxoid, preservative free, adsorbed 1 completed MICHAEL GOULD null, PA - [facility] 05/01/2023 12:56:53 Past Encounters Encounter ID Performer Location Encounter Start Date Encounter Closed Date Diagnosis/Indication Diagnosis SNOMED-CT Code Diagnosis ICD10 Code Diagnosis Note [id number] [facility] [address] [place] [phone] 03/18/2020 15:15:17 03/18/2020 16:20:19 [id number] [facility] [address] [place] [phone] 0 06/10/2022 12:05:54 06/10/2022 14:31:03 [id number] [facility] [address] [place] [address] 05/01/2023 12:32:42 05/01/2023 13:27:20 Upper respiratory infection 94013923 J06.9 Otalgia of left ear 1010 634361 H92.02 Acute conj unctivitis of left eye 1498528604 00211 H10.32 Health Concerns Section Related Observation LastModified by Organization Detai ls LastModified Time None Recorded Concern Status LastModified by Organization Details LastModified Time None Recorded Advance Directives Directive None Recorded Payers Encounter Date Sequence Insurance Name Policy Number Policy Butter[place] Covered Member ID [place] Member ID Guarantor Name 03/18/2020 1 [place] [employer] Julia Lomax [id number] Julia Lomax 06/10/2022 1 [place] [employer] Julia Lomax [id number] Julia Lomax 05/01/2023 1 [facility] [facility] Lomax [id number] Julia Lomax Notes Date Note Type Note Provider Name and Address Organization Details Recorded Time 3 text/html Eye problemsReported bypatient.source of patient informationInformation obtained from patient; Patient arrived at Urgent Care ambulatory Location:left Eye Symptoms:no sensitivity to light; no pain in the eyes; no blurred vision Severity:mildNotes:67 y.o female pt presents with nasal congestion, cough and blocked left ear. Pt denies fever, sob or chest pain. Pt speaking and swallowing normal. ADEEL ROJAS [address] [place], [address], PA - [facility] 05/04/2023 16:04:31 OBGyn Episode No OBEpisode recorded.
--- OUTSIDE RECORDS SUMMARY | 2025-01-06 12:01 | XMS_ITS | Patient Health Record ---
Author Organization [facility] Address [address] [address] Care Team Providers Care Immunologist Name Role Phone Wilma Goldstein Primary Care Provider CARLITO Valencia Unavailable [phone] MIGUEL ANGEL YBARRA Unavailable [phone] Allergies Allergen (clinical drug ingredient) Drug/Non Drug Allergy documented on EMR Reaction Allergy Type Onset Date Status oxycodone Oxycodone passed out Drug Allergy Active Results Component Value Reference Range Notes Anaerobic/Aerobic/Gram Stain -[id number] Reviewed date:12/18/2024 12:12:14 PM Interpretation: Performing Lab:[facility] [place], Molly [address], [address], [employer], Phone - [phone], Director - [facility] Notes/Report: Clinical Information:RIGHT FOOT Clinical Information:RIGHT FOOT Clinical Information:RIGHT FOOT Clinical Information:RIGHT FOOT Anaerobic Culture Final report Aerobic Culture Final report Gram Stain Result Final report Result 1 No anaerobic gr owth in 72 hours. Result 1 Staphylococcus aureus Based on susceptibility to oxacillin this isolate would be susceptible to: *Penicillinase-stable penicillins, such as: Cloxacillin, Dicloxacillin, Nafcillin *Beta-lactam combination agents, such as: Amoxicillin-clavulanic acid, Ampicillin-sulbactam, Piperacillin-tazobactam *Oral cephems, such as: Cefaclor, Cefdinir, Cefpodoxime, Cefprozil, Cefuroxime, Cephalexin, Loracarbef *Parenteral cephems, such as: Cefazolin, Cefepime, Cefotaxime, Cefotetan, Ceftaroline, Ceftizoxime, Ceftriaxone, Cefuroxime *Carbapenems, such as: Doripenem, Ertapenem, Imipenem, Meropenem Most isolates of Staphylococcus sp. produce a beta-lactamase enzyme rendering them resistant to penicillin. Please contact the laboratory if penicillin is being considered for therapy. Heavy growth Antimicrobial Susceptibility S = Susceptible; I = Intermediate; R = Resistant P = Positive; N = Negative MICS are expressed in micrograms per mL Antibiotic RSLT#1 RSLT#2 RSLT#3 RSLT#4 Ciprofloxacin S Clindamycin R Erythromycin R Gentamicin S Levofloxacin S Linezolid S Moxifloxacin S Oxacillin S Rifampin S Tetracycline S Trimethoprim/Sulfa S Vancomycin S Result 1 No white blood cells seen. Result 2 Few gram positi ve cocci Anaerobic/Aerobic/Gram Stain -[id number] Reviewed date:03/24/2024 12:10:50 PM Interpretation: Performing Lab:[facility], Molly [address], [address], [place], Phone - [phone], Director - [facility] Notes/Report: Anaerobic Culture Final report Aerobic Culture Final report Gram Stain Result Final report Result 1 No white blood cells seen. Result 2 No organisms seen Result 1 Prevotella intermedia Heavy growth Beta lactamase negative. Result 1 Pasteurella multocida Heavy growth Susceptibility not normally performed on this organism. Reason For Referral No Information Medications Medication SIG (Take, Route, Frequency, Duration) Notes Start Date End Date Status Sulfamethoxazole-Trimetho prim 200-40 MG/5ML 10 mL Orally Once a day for 10 day(s) Not-Taking Sulfamethoxazole-Trimetho prim 200-40 MG/5ML 10 mL Orally Once a day for 10 day(s) 07/18/2022 Not-Taking Cipro 500 MG 1 tablet Orally once daily for 10 days 10/22/2023 Not-Taking Amoxicillin-Pot Clavulanate 600-42.9 MG/5ML as directed Orally 5mL twice a day for 7 days 03/27/2024 Not-Takin g Amoxicillin-Pot Clavulanate 600-42.9 MG/5ML 5mL Orally twice a day for 7 days 03/23/2024 Not-Taking Tylenol Active Lisinopril 10 MG 1 tablet Orally Once a day Not-Taking Amoxicillin-Pot Clavulanate 250-62.5 MG/5ML 10 mL Orally every 8 hrs for 7 days 10/12/2024 Not-Taking Sulfamethoxazole-Trimetho prim 200-40 MG/5ML 10 ml Orally Once a day for 10 day(s) 01/26/2022 Not-Taking Vitamin D (Ergocalciferol) 36193 UNIT 1 capsule Orally once a week for 30 day(s) 02/16/2022 Not-Taking Vitamin D (Cholecalciferol) 50 MCG (1999 UT) 1 capsule Orally Once a day Not-Taking Amoxicillin-Pot Clavulanate 250-62.5 MG/5ML 10 ml Orally every 8 hrs for 7 day(s) 01/17/2022 Not-Taking Problems Problem Type SNOMED Code ICD Code Onset Dates Problem Status W/U Status Risk Notes Problem 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 Problem 54121303 Polyneuropathy (G62.9) Active confirmed Problem 596180794 Ulcer of left foot with fat layer exposed (L97.522) Active confirmed Problem 270950568 Polyneuropathy associated with underlying disease (G63) Active confirmed Problem 881669883 Ulcer of right foot, limited to breakdown of skin (L97.511) Active confirmed Problem 480298666 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) Active confirmed Problem 74339889 Vitamin D deficiency (E55.9) Active confirmed Problem 520673198 Deformity of metatarsal bone of right foot (M21.961) Active confirmed Problem 77602745705622064 Skin ulcer of left heel with fat layer exposed (L97.422) Active confirmed Problem 195005988 Pressure injury of right foot, 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) Active confirmed Vital Signs Heart Rate 79 /min 12/14/2024 Temperature 97.1 degrees Fahrenheit 12/14/2024 Respiratory Rate 16 /min 12/14/2024 Blood pressure diastolic 56 mm Hg 07/13/2024 Height 66 in 12/31/2024 Blood pressure systolic 108 mm Hg 07/13/2024 Weight 135.0 lbs 12/31/2024 BMI 21.79 kg/m2 12/31/2024 Procedures Procedure Date Ordered Date Performed Result Body Sit e Debridement ulcer subq first 20sq cm 10/12/2024 N/A Encounters Encounter Location Date Provider Diagnosis [facility] [address] [facility] [address] [place] [address] 01/24/2024 MIGUEL ANGEL AMADA [facility] [address] 04/01/2024 MIGUEL ANGEL AMADA [facility] [address] 04/08/2024 MIGUEL ANGEL AMADA [facility] [address] 04/13/2024 MIGUEL ANGEL AMADA [facility] [address] 05/12/2024 MIGUEL ANGEL AMADA [facility] [address] 07/13/2024 MIGUEL ANGEL AMADA [facility] [address] 12/02/2024 MIGUEL ANGEL AMADA Right foot pain M79.671 and Gait abnormality R26.9 [facility] [address] 02/24/2024 MIGUEL ANGEL AMADA Skin ulcer of left heel with fat layer exposed L97.422 ; Calcaneal gait R26.89 and Polyneuropathy G62.9 [facility] [address] 03/19/2024 MIGUEL ANGEL AMADA Skin ulcer of left heel with fat layer exposed L97.422 ; Calcaneal gait R26.89 and Polyneuropathy G62.9 [facility] [address] 03/27/2024 MIGUEL ANGEL AMADA Skin ulcer of left heel with fat layer exposed L97.422 ; Calcaneal gait R26.89 and Polyneuropathy G62.9 [facility] [address] 09/22/2024 MIGUEL ANGEL AMADA Pressure injury of right foot, stage 3 L89.893 [facility] [address] 10/12/2024 MIGUEL ANGEL AMADA Pressure injury of right foot, stage 3 L89.893 ; Cellulitis of right foot L03.115 ; Alcohol-induced polyneuropathy G62.1 and Post-traumatic osteoarthritis of right hip M16.51 [facility] [address] 12/14/2024 CARLITO ERNST Abscess of right foot L02.611 ; Pressure injury of right foot, stage 3 L89.893 ; Cellulitis of right foot L03.115 and Alcohol-induced polyneuropathy G62.1 [facility] [address] 12/23/2024 MIGUEL ANGEL AMADA Deformity of metatarsal bone of right foot M21.961 and Right foot pain M79.671 [facility] [address] 12/31/2024 MIGUEL ANGEL AMADA Deformity of metatarsal bone of right foot M21.961 ; Right foot pain M79.671 and Gait abnormality R26.9 [facility] [address] 01/24/2024 MIGUEL ANGEL AMADA [facility] [address] 02/24/2024 MIGUEL ANGEL AMADA [facility] [address] 02/24/2024 MIGUEL ANGEL AMADA [facility] [address] 03/06/2024 MIGUEL ANGEL AMADA [facility] [address] 03/13/2024 MIGUEL ANGEL AMADA [facility] [address] 03/19/2024 MIGUEL ANGEL AMADA [facility] [address] 03/23/2024 MIGUEL ANGEL AMADA [facility] [address] [place] [address] 05/12/2024 MIGUEL ANGEL AMADA [facility] [address] [place] [address] 07/13/2024 MIGUEL ANGEL AMADA [facility] [address] [place] [address] 09/17/2024 MIGUEL ANGEL AMADA [facility] [address] [place] [address] 09/22/2024 MIGUEL ANGEL AMADA [facility] [address] [place] [address] 10/08/2024 MIGUEL ANGEL AMADA [facility] [address] [place] [address] 10/12/2024 MIGUEL ANGEL AMADA [facility] [address] [place] [address] 10/20/2024 MIGUEL ANGEL AMADA [facility] [address] [place] [address] 12/01/2024 MIGUEL ANGEL AMADA [facility] [address] [place] [address] 12/14/2024 MIGUEL ANGEL AMADA [facility] [address] [place] [address] 12/14/2024 CARLITO ERNST Assessments Encounter Date Diagnosis (ICD Code) Assessment Notes Treatment Notes Treatment Clinical Notes Section Notes 02/24/2024 Skin ulcer of left heel with fat layer exposed (ICD-10 - L97.422) I debrided all the nonviable tissue to the left plantar heel ulceration. This left her with a granular wound base. I applied a padded bandage to the area. I again discussed with her that the weakness on the left side has changed her gait causing her to apply more pressure to the heel region. This is the reason for the new callus and painful ulceration. I dont see a sinus tract to suspect foreign body. Xrays have been clear in this region. I did advise an ultrasound could always be ordered to rule out FB. I do think that she will need AFO bracing to protect her left side due to the weakness. She is having some hardware removed tomorrow and will be off the foot. She will follow back with me once she has healed. 02/24/2024 Calcaneal gait (ICD-10 - R26.89) 03/19/2024 Skin ulcer of left heel with fat layer exposed (ICD-10 - L97.422) She was examined and evaluated. She continues to have pain associated with a plantar left heel ulceration. This is due to her calcaneal gait from the superficial posterior muscle group weakness she has on the left side. Her ultrasound of the heel revealed no retained foreign bodies. I discussed with her the option of biopsy of the tissues and obtaining cultures. I stressed that the only way this will heal is if she keeps pressure off the area. I advised that she will need to wear a heel offloading post op shoe for awhile and then may require further bracing. She understood. I obtained a punch biopsy of the left heel ulceration under local anesthetic today and also obtained tissue cultures. Cultures were sent for aerobic, anaerobic, and gram stain. The tissue biopsy sent to [facility] for further analysis. The wound was cleansed and a few superficial suture placed. A well padded bandage was then applied and she was placed into the heel offloading shoe. She is to focus on icing, elevating, and resting the foot. She needs to keep the area dry. I will await the cultures and initiate abx as needed. I will re-evaluate her in the office in one week. I encouraged her to call me if she has any additional questions or concerns in the meantime. 03/19/2024 Calcaneal gait (ICD-10 - R26.89) 03/27/2024 Skin ulcer of left heel with fat layer exposed (ICD-10 - L97.422) She was examined and evaluated. She continues to have pain associated with a plantar left heel ulceration. This is due to her calcaneal gait from the superficial posterior muscle group weakness she has on the left side. Her tissue cultures came back with heavy bacterial growth. She has since been on Augmentin twice daily. The biopsy was negative for vasculitis and any signs of malignancy. This is an infected pressure ulceration secondary to her calcaneal gait. The biopsy site today looks good. There is no evidence of worsening ulceration or infection present. There is still a small open granular region that has serosanginous drainage. I cleansed this and applied betadine and a sterile bandage. She needs to continue in the offloading shoe and keep the left foot dry. She also needs to continue daily bandage changes to the area. I have extended her antibiotic for another week to be safe. I will re-evaluate next week. In the meantime I encouraged her to call with any questions or concerns. 03/27/2024 Calcaneal gait (ICD-10 - R26.89) 09/22/2024 Pressure injury of right foot, stage 3 (ICD-10 - L89.893) Ms. Lomax presents with painful callus sub right 5th metatarsal head. This has been a chronic issues. Upon debridement she has a small ulceration present with allison wound erythema. Wound cultures were taken today. The area was cleansed and a padded bandage applied. She will change daily with the help of her . She is struggling with right hip pain and this may have been the reason her gait has been off this enitre time creating this callus tissue. Her left foot has healed remarkably despite her continued calcaneal gait. She will continue with daily foot checks and good supportive shoe gear. I will see her back in a month. I will await cultures and start antibiotics if needed. I encouraged her to call with any quesitons or concerns. 10/12/2024 Cellulitis of right foot (ICD-10 - L03.115) 10/12/2024 Pressure injury of right foot, stage 3 (ICD-10 - L89.893) Ms. Lomax presents with painful callus sub right 5th metatarsal head. This has been a chronic issue and has progressively worsened since her right hip pain and arthritis. She is scheduled for hip replacement next month. She is currently using a walker to ambulate due to her pain. Upon debridement of the right sub 5th callus tissue she has a small ulceration present with allison wound erythema. No probing or undermining. The area was cleansed and a padded bandage applied. She will change daily with the help of her . Rx for antibiotic sent to pharmacy for her to start taking daily for the next 7 days. Her left foot has healed remarkably despite her continued calcaneal gait. She will continue with daily foot checks and good supportive shoe gear. I will see her back in a month. I will await cultures and start antibiotics if needed. I encouraged her to call with any quesitons or concerns. 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 Lomax was examined and evaluated today. She has a chronic callus that comes and goes to the right 5th met head region. She recently had an infected blister form. This was lanced and debrided at her last visit. Cultures were taken and came back for MSSA. She has since been on augmentin suspension. She has a couple days left. On exam today she has no open area to the 5th MTPJ. There is some localized edema and erythema. There is significant tenderness over the dorsum of the right 5th met head. Three weightbearing radiographs were taken today. No obvious bony changes to the 5th MTP. No soft tissue emphysema seen or calcifications. She has had a 5th met osteotomy in the past that was a bit proximal. This has healed on imaging. She still has a tailors deformity present. She also has visible atherosclerosis to the vessels on the xrays. I am concerned that she could have deeper infection such as OM at this point despite the imaging, this could also be inflammatory like a bursitis vs arthropathy. She also could have some neuritis. She definitely increases her gait pressure to the outer aspect of the right foot and this has always created increased irritation here. At this point I will have her finish the oral antibiotic course. Continue padding, icing, and resting the area. I will re-evaluate in 1 week. If she is still have pain, erythema, and edema.. we may need to tap the joint or even pursue a bone biopsy with a more distal osteotomy to the 5th met. I encouraged her to call me if anything worsens before her appt. 12/31/2024 Right foot pain (ICD-10 - M79.671) 12/31/2024 Deformity of metatarsal bone of right foot (ICD-10 - M21.961) Ms. Lomax was examined and evaluated today. She has a chronic callus that comes and goes to the right 5th met head region. She recently had an infected blister form. This was lanced and debrided. Cultures were taken and came back for MSSA. She has since been on augmentin suspension and has finished the course. The area has healed over nicely. There is still some localized tenderness and hyperemia. Her gait on the right side is showing increased inversion of the right foot with more pressure to the lateral border since the hip surgery. She is working with PT for this. We have discussed inserts and bracing in the past and she does not want to do this. I discussed doing another floating osteotomy to the 5th more distal. She does not want to do this. I also discussed bone biopsy if the area continues to be an issue to rule out any deeper infection. She does not want to do this either. She wants to monitor it for now and continue to do PT for the hip. I did advise that if she starts to notice any new callus formation or any worsening pain or redness she needs to call immediately or go to the ER. She understood. She will follow back with me as needed. 12/14/2024 Abscess of right foot (ICD-10 - L02.611) Patient was seen and examined by myself for an urgent visit. Her medical history was reviewed. I discussed with the patient the evidence of infection and risk if the area of fluctuance was not drained. The patient agreed, and a consent form was signed for an incision, drainage, and debridement of abscess in the right foot. The area does not probe to bone, but I warned the patient that if it continues to deteriorate this could continue to the bone. Wound culture taken. RX Augmentin in liquid form sent to the pharmacy per the patient's request. They are to wrap the foot again daily until almost closed and then can switch to a band-aid again. Patient to call if the redness worsens, swelling or drainage increases. Pt to follow up in 1 week. 12/14/2024 Pressure injury of right foot, stage 3 (ICD-10 - L89.893) 12/31/2024 Gait abnormality (ICD-10 - R26.9) 10/12/2024 Alcohol-induced polyneuropathy (ICD-10 - G62.1) 03/27/2024 Polyneuropathy (ICD-10 - G62.9) 03/19/2024 Polyneuropathy (ICD-10 - G62.9) 02/24/2024 Polyneuropathy (ICD-10 - G62.9) 10/12/2024 Post-traumatic osteoarthritis of right hip (ICD-10 - M16.51) 12/14/2024 Cellulitis of right foot (ICD-10 - L03.115) 12/14/2024 Alcohol-induced polyneuropathy (ICD-10 - G62.1) Plan Of Treatment Pending Test Test Name Order Date Thyroid Panel With TSH 03/14/2022 Uric Acid, Serum 03/14/2022 Vitamin B12 01/26/2022 CBC With Differential/Platelet TRACE w/Reflex if Positive 03/14/2022 Lyme Ab/Western Blot Reflex 03/14/2022 Ultrasound : Ankle Brachial Indices 01/06 Ultrasound : Artery Doppler Low Ext Bila t 01/26/2022 Ultrasound : Extremity Ultrasound Non-Va sc 03/10/2024 X ray : Foot, left 3v 01/26/2022 X ray : Foot, right 3v 08/21/2022 X ray : Foot, right 3v 12/23/2024 Debridement ulcer subq first 20sq cm 03/2025 Removal of nail matrix 12/31/2022 25OH VITAMIN D 01/26/2022 25OH VITAMIN D 10/17/2023 CBC (COMPLETE BLOOD COUNT) WITH DIFF 08/2024 CITRULLINE PEPTIDE ANTIBODY 03/14/2022 COMPREHENSIVE METABOLIC PANEL 03/14/2022 COMPREHENSIVE METABOLIC PANEL 10/17/2023 C-REACTIVE PROTEIN 03/14/2022 C-REACTIVE PROTEIN 10/17/2023 HEMOGLOBIN A1C 10/17/2023 RHEUMATOID FACTOR 03/14/2022 SEDIMENTATION RATE 10/17/2023 SEDIMENTATION RATE 03/14/2022 THYROID PANEL (TSH, FT4) 10/17/2023 Trim skin lesion 10/28/2020 Trim skin lesion 05/17/2021 Insurance Providers Payer Name Payer Address Payer Phone Subscriber Number Group Number Insured Name Patient Relationship to Insured Coverage Start Date Coverage End Date [employer] [address] [place] [phone] [id number] Julia Lomax Self - patient is the insured Medical (General) History Medical History History ICD Code Polyneuropathy, unspecified G62.9 Unspecified fracture of shaf t of humerus, unspecified arm, initial encounter for closed fracture S42.309A Hypothyroidism, unspecified E03.9 Low back pain M54.5 Dysplasia of cervix uteri, unspecified N 87.9 Rosacea, unspecified L71.9 Unspecified fracture of shaf t of humerus, unspecified arm, initial encounter for closed fracture S42.309A Cirrhosis of liver Hypertension 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 [facility] [id number] Right tailors bunion surgery 2019 Left and right 5th metatarsal floating o steotomies 07/2022 removal of mark left foot 02/2024 Right hip surgery 11/2024 Hospitalization History Reason Date(Month/Year) right hip surgery [facility] 11/2024 [facility] Lyme encephalopathy , UTI sepsis, Cirrhosis. 04/2020
--- OUTSIDE RECORDS SUMMARY | 2025-01-06 12:01 | XMS_ITS | Encounter Summary ---
Author Organization [facility] Address [address] [place] [address] Care Team Providers Care Licensed Land Surveyor Name Role Phone Audelia Messer MD Primary Care Provider [phone] Reason for Visit * Consultation (Routine) - Authorized Specialty Diagnoses / Procedures Referred By Kameron andrade Referred To Contact Physical Therapy Diagnoses Presence of right artificial hip joint Daniel Sanchez PA [address] [place] [phone] Phone: tel: fax: Referral ID Status Reason Start Date Expiration Date Visits Requested Visits Authorized [id number] Authorized Specialty Services Required 12/01/2024 12/01/2025 20 20 Encounter Details Date Type Department Care Team (Late st Contact Info) Description 01/01/2025 9:30 AM EDT Treatment [address] [address] Agusto Nicole PTA Presence of right artificial hip joint (Primary Dx) Social History Tobacco Use Types Packs/Day Years Used Date Smoking Tobacco: Former Cigarettes 1 26.9 1 11/11/1969 - 08/21/1997 Smokeless Tobacco: Never Comments:None Alcohol Use Standard Drinks/Week Comments Not Currently 6 (1 standard drink = 0.6 oz pur e alcohol) don't drink Interpersonal Safety Answer Date Record ed Physical Abuse 11/16/2024 Verbal Abuse 11/16/2024 Comments No Sex and Gender Information Value Date Recorded Sex Assigned at Female 11/10/2024 5:19 PM EST Legal Sex Female 9:08 PM EST Gender Identity Female 11/10/2024 5:19 PM EST Sexual Orientation Straight 11/10/2024 5: 19 PM EST documented as of this encounter Progress Notes * Agusto Nicole PTA - 01/01/2025 9:30 AM EDT [facility] - Outpatient PHYSICAL THERAPY DAILY TREATMENT NOTE - OP Date: 01/01/2025 Visit Number: 3 Patient Name: Julia Lomax : 1955 Age: 69 y.o. Gender: female Diagnosis: ICD-10-CM ICD-9-CM 1. Presence of right artificial hip joint Z96.641 V43.64 Date of Onset/Surgery: 11/16/2024 Referring Provider: Daniel Sanchez PA Insurance: Payor: [employer] / Plan: [employer] MED[employer]ARE ADVANTAGE / Product Type: *No Product type* / Patient Identified by: Agusto Nicole PTA Language: Speaks and understands Japanese as preferred language with no centrex radio operator required Medications: Current Outpatient Medications on File Prior to Visit Medication Sig Dispense Refill methocarbamoL (ROBAXIN) 750 mg tablet Take 1 tablet (750 mg total) by mouth 4 (four) times a day ifneeded for muscle spasms for up to 14 days. 56 tablet 0 oxyCODONE (ROXICODONE) 5 mg immediate release tablet Take 1 tablet (5 mg total) by mouth every 4 (four) hours if needed for moderate pain. Max Daily Amount: 30 mg 40 tablet 0 senna (SENOKOT) 8.6 mg tablet Take 2 tablets (17.2 mg total) by mouth at bedtime. 60 each 11 No current facility-administered medications on file prior to visit. Allergies: has No Known Allergies. Precautions: Hip precautions (no flexion past 90, no excessive hip Add and IR Fall risk: No SUBJECTIVE Subjective Report: R knee was sore after last visit. Hip is doing well. Chart Reviewed: Yes Pain: R ant thigh is a little stiff and sore TREATMENT INTERVENTION: Nustep L5 x 6 mins (UE/LE) Standing marching, 2x15 B Standing R and L hip ext toe touch, 2x10 B Standing R and L hip abd, 2x10 ea B heel raise in // bars, 2x10 Supine AA knee/hip flexion heel slides to 90*, 2x10 Supine slide board R hip abd, 3x10 HL hip add isometrics into bolster, 2x10 HL hip abd isometrics - man resistance, 2x10 Reviewed hip precautions ASSESSMENT/Response to Treatment Good Some soreness with standing december, otherwise jayy exs well Patient Education: Education provided: POC Education Provided To: Patient utilizing Explanation mode(s) of education Response to Education: Verbal Understanding PLAN POC Development/Review: No Change in the Plan of Care; Participants: Patient Interventions Time Entry: Modalities: Therapeutic procedures: Total Treatment Time: 30 mins Documentation completed by Agusto Nicole PTA documented in this encounter Plan of Treatment Upcoming Encounters Date Type Department Care Team (Late st Contact Info) Description 01/07/2025 11:30 AM EDT Treatment [address] [address] Ceferino Griffin, CIGAR MACHINE FEEDER 01/11/2025 10:00 AM EDT Treatment [address] [phone] Catherine Zaldivar, PT 01/13/2025 10:30 AM EDT Treatment [address] [phone] Agusto Nicole, MADELINE 01/18/2025 10:30 AM EDT Treatment [address] [phone] Catherine Zaldivar, PT 01/20/2025 9:30 AM EDT Treatment [address] [phone] Catherine Zaldivar, PT documented as of this encounter Goals Goal Patient Goal Type Associated Problems Recent Progress Patient-Stated? Author LTG - 8 visits General No Catherine Zaldivar, PT Note: Patient reports subjective decrease in R hip tenderness Patient is able to achieve 4+/5 R hip flexion strength Patient is able to ambulate 400 ft without AD Patient is able to perform 5 sit to stand from chair without UE assistance Patient is able to achieve 4/5 hip abd strength Patient is independent and compliant with HEP documented as of this encounter Visit Diagnoses Diagnosis Presence of right artificial hip joint- Primary documented in this encounter Care Teams Licensed Land Surveyor Relationship Specialty Start Date End Date Audelia Messer MD [address] [place] [address] PCP - General Internal Medicine 10/20/24 documented as of this encounter
--- OUTSIDE RECORDS SUMMARY | 2025-01-06 12:01 | XMS_ITS | Clinical Summary ---
Author Organization [facility] Address [address] [place] [address] Phone Care Team Providers Care Tile Layer Name Role Phone Rajesh Lane MD Primary Care Provider [phone] [facility] [phone] Reason for Visit and Chief Complaint Established Patient Plan of Treatment Pending Tests Order Diagnosis Results Due Ordering P rovider Follow Up - Appointment PRN Displaced intertrochanteric fracture of right femur, init 09/19/21 Earnestine DENIS Last Documented On 1 8:43AM ; [facility] Follow Up - Appointment 3 Months Displaced intertrochanteric fracture of right femur, init 09/19/21 Earnestine DENIS Last Documented On 1 9:00AM ; [facility] Follow Up - Appointment 3 Months Displaced intertrochanteric fracture of right femur, init 09/19/21 Earnestine DENIS Last Documented On 1 9:10AM ; [facility] In House X-Rays - X-Rays Hip Unilateral, right, 2-3 views ([id number]) Displaced intertrochanteric fracture of right femur, init 09/21/21 Earnestine DENIS Last Documented On 1 8:43AM ; [facility] Assessments Includes: Assessments from this encounter No Assessments Recorded Medical Equipment - Implanted Devices Includes: Current Devices No Medical Equipment Recorded Medications Includes: Medications discussed during this encounter and other current Medications Current Medications (continue as prescribed) Tylenol 325 MG Oral Tablet 05/18/2021 Provider: Diagnosis: Last Documented On 1 7:53AM By Linda Orourke ; [facility] Medications Administered Includes: Administered Medications from this encounter No Administered Medications Recorded Results Includes: Results discussed during this encounter No Results Recorded For Specified Dates History of Present Illness Includes: History of Present Illness from this encounter HPI Chief complaint: Follow-up fracture right hip s/p cannulated screws 04/03 and closed reduction of right distal radius fracture by Dr Kaleb REYNOSO 04/01/21 History of Present Illness: This is a 65-year-old woman who had multiple screw fixation of an impacted valgus subcapital fracture of the right hip and close reduction and casting of a fracture of her right distal radius by Dr. Manuel on 04/03/2021. She was last seen here on 08/01/2021. She is ambulating without an assistive device. She complains of residual right hip pain and decreased strength of right wrist. No other major concerns. Physical exam: General: AOx3 MSK: On exam of RUE, There is mild deformity noted. She is mildly tender palpation overlying the distal radius. She has no discomfort with wrist flexion. She has minimal discomfort with wrist extension. pronation 65, supination 80, extension 60, flexion 75. decreasded codifier strength in comparison to left. Complains of decreased sensation in tips of all 5 fingers. Remainder of digits NV intact. On exam of RLE, well healed surgical incision. tender to palpation over GT region. She has FROM of hip with minimal discomfort. Imaging: Radiographs of the right hip taken today are compared to her prior images. There has been no change in fracture reduction and there is continued satisfactory position of the implants. 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 Impression: Status post percutaneous screw fixation right hip fracture and closed reduction right distal radius fracture Plan: Continue at home exercises of right wrist. Follow up 3 months for repeat xray of right hip. If worsening AVN of right hip, referral to total hip surgeon for possible total hip arthroplasty if pain is debilitating. Patient case discussed with Dr. Epperson who agrees with the above plan. Social History No Social History Recorded - [...] Check-In Time Check-Out Time Diagnosis Established Patient Earnestine RODRIGUEZ [facility] 09/19/20 8:20AM 9:03AM Insurance Includes: Active Insurance Policies Plan Name Member ID Group # Subscriber Relationship Effect miguel Dates 1 - Walk-in Appointment Scheduler [id number] Julia Tellez 10/07/2022 - Un known 2 - [facility] [id number] Julia Tellez Clinical Notes Includes: Clinical Notes from this encounter No Clinical Notes Recorded
--- OUTSIDE RECORDS SUMMARY | 2025-01-06 12:01 | XMS_ITS | Encounter Summary ---
Author Organization [facility] Address [address] [place] [address] Care Team Providers Care Perinatal Educator Name Role Phone Audelia Messer MD Primary Care Provider [phone] Encounter Details Date Type Department Care Team (Latest Contact Info) Description 10/20/2024 Hospital Encounter Social History Tobacco Use Types Packs/Day Years [...] PM EST documented as of this encounter Plan of Treatment Upcoming Encounters Date Type Department Care Team (Late st Contact Info) Description 01/07/2025 11:30 AM EDT Treatment [facility] [address] [phone] Ceferino Griffin, DIE CUTTER 01/11/2025 10:00 AM EDT Treatment [facility] [address] [phone] Catherine Zaldivar, SHAHRIAR 01/13/2025 10:30 AM EDT Treatment [facility] [address] [phone] Agusto Nicole, DIE CUTTER 01/18/2025 10:30 AM EDT Treatment [facility] [address] [phone] Catherine Zaldivar, SHAHRIAR 01/20/2025 9:30 AM EDT Treatment [facility] [address] [phone] Catherine Zaldivar, SHAHRIAR documented as of this encounter Goals Goal Patient Goal Type Associated Problems Recent Progress Patient-Stated? Author LTG - 8 visits General No Catherine Zaldivar PT Note: Patient reports subjective decrease in [...] as of this encounter Visit Diagnoses Diagnosis Osteoarthritis of right hip- Primary documented in this encounter Admitting Diagnoses Diagnosis Osteoarthritis of right hip documented in this encounter Care Teams Perinatal Educator Relationship Specialty Start Date End Date Audelia Messer MD [address] [place] [address] PCP - General Internal Medicine 10/20/24 documented as of this encounter
--- OUTSIDE RECORDS SUMMARY | 2025-01-06 12:02 | XMS_ITS | Clinical Summary ---
Author Organization [facility] Address [address] [place] [address] Phone Care Team Providers Care Yard Caller Name Role Phone Rajesh Lane MD Primary Care Provider [phone] [facility] [phone] Reason for Visit and Chief Complaint Established Patient Plan of Treatment Pending Tests Order Diagnosis Results Due Ordering P rocurtder Follow Up - Appointment LELE Talbot al primary osteoarthritis, right hip 07/18/23 Brigitte DENIS Last Documented On 3 9:28AM ; [facility] In House X-Rays - X-Rays Hip Unilateral, right, 2-3 views ([id number]) Unilateral primary osteoarthritis, right hip 07/20/23 Brigitte DENIS Last Documented On 3 9:28AM ; [facility] Assessments Includes: Assessments from this encounter No Assessments Recorded Medical Equipment - Implanted Devices Includes: Current Devices No Medical Equipment Recorded Medications Includes: Medications discussed during this encounter and other current Medications Current Medications (continue as prescribed) Tylenol 325 MG Oral Tablet 05/18/2021 Provider: Diagnosis: Last Documented On 1 7:53AM By Linda Orourke ; [facility] Medications Administered Includes: Administered Medications from this encounter No Administered Medications Recorded Vital Signs Includes: Vital Signs from this encounter Vital Name 07/18/2023 10:25A Blood Pressure Sitting (mmHg) 136/69 Pulse Rate-Sitting (bpm) 76 Temp-Temporal 97.9 Height (in) 65 Weight (lb) 147 Body Mass Index 24.5 Body Surface Area 1.7 Oxygen Saturation (%) 98 Last Documented: On 07/18/2023 10:26A M ; [facility] Results Includes: Results discussed during this encounter [...] Includes: Review of Systems from this encounter Chief complaint follow-up right subcapital femoral neck fracture Date of surgery: 04/03/2021 History of present illness: The patient is a 67-year-old female who is status post cannulated screw fixation right femoral neck by Dr. Manuel on 04/03/2021. She was last seen in the office on 11/05/2022. Today she complains of right groin pain and balance issues. She states the balance issues occur when she gets the pain radiating to her groin. She also occasionally uses a walker at home. She also reports chronic right knee pain for which she sees [facility] and will get injections into her right knee. No other complaints at this time. Physical exam: Right hip range of motion: Flexion 90 degrees, external rotation 5 degrees, internal rotation 10 degrees. Left hip range of motion: Flexion 120 degrees, external rotation 20 degrees, internal rotation 40 degrees. No pain with right knee range of motion, no ligamentous laxity with valgus or varus stress test. Tenderness palpation over right lateral hip. Neurovascular intact. Ambulating without any gait aids. Diagnostic imaging: Radiographic images obtained today of the right hip are compared to those from 11/05/2022. There is a healed fracture of the right femoral neck with 3 cannulated screws in satisfactory alignment. No change compared to prior radiographs. Assessment: 1. Greater than 2 years status post cannulated screw fixation right femoral neck 2. Arthritis right hip Plan: I discussed with the patient that her symptoms are consistent with right hip arthritis. She is already a patient of [facility] which includes Dr. Cain who is a total joint surgeon. Patient is to schedule an appointment with their office for treatment of her right hip arthritis and possible discussion of right total hip arthroplasty. The patient understands and agrees with this plan. Mental Status Includes: Mental Status from this encounter No Mental Status Recorded Functional Status Includes: Functional Status from this encounter No Functional Status Recorded Physical Exam Includes: Physical Exam from this encounter No Physical Exam Recorded Allergies Includes: Active Allergies No Known Allergies Encounters Encounter Provider Location Date Check-In Time Check-Out Time Diagnosis Established Patient Brigitte DENIS [facility], 07/18/20 23 8:20AM 9:19AM Insurance Includes: Active Insurance Policies Plan Name Member ID Group # Subscriber Relationship Effect miguel Dates 1 - [employer] [id number] Julia Tellez 10/07/2022 - Un known 2 - [facility] [id number] Julia Lomax Self Clinical Notes Includes: Clinical Notes from this encounter * Progress note Date Encounter Last Documented by 07/18/2023 Established Patient Last joni garduno on 07/18/2023; 9:28 AM, Brigitte DENIS; [facility], Plan StartCited - Unilateral primary osteoarthritis, right hip Follow Up/Appointment: [facility] In House X-Rays/X-Rays: Hip Unilateral, right, 2-3 views ([id number]) EndCited User Defined 4 Chief complaint follow-up right subcapital femoral neck fracture Date of surgery: 04/03/2021 History of present illness: The patient is a 67-year-old female who is status post cannulated screw fixation right femoral neck by Dr. Manuel on 04/03/2021. She was last seen in the office on 11/05/2022. Today she complains of right groin pain and balance issues. She states the balance issues occur when she gets the pain radiating to her groin. She also occasionally uses a walker at home. She also reports chronic right knee pain for which she sees [facility] and will get injections into her right knee. No other complaints at this time. Physical exam: Right hip range of motion: Flexion 90 degrees, external rotation 5 degrees, internal rotation 10 degrees. Left hip range of motion: Flexion 120 degrees, external rotation 20 degrees, internal rotation 40 degrees. No pain with right knee range of motion, no ligamentous laxity with valgus or varus stress test. Tenderness palpation over right lateral hip. Neurovascular intact. Ambulating without any gait aids. Diagnostic imaging: Radiographic images obtained today of the right hip are compared to those from 11/05/2022. There is a healed fracture of the right femoral neck with 3 cannulated screws in satisfactory alignment. No change compared to prior radiographs. Assessment: 1. Greater than 2 years status post cannulated screw fixation right femoral neck 2. Arthritis right hip Plan: I discussed with the patient that her symptoms are consistent with right hip arthritis. She is already a patient of [facility] which includes Dr. Cain who is a total joint surgeon. Patient is to schedule an appointment with their office for treatment of her right hip arthritis and possible discussion of right total hip arthroplasty. The patient understands and agrees with this plan.
--- OUTSIDE RECORDS SUMMARY | 2025-01-06 12:02 | XMS_ITS | Continuity of Care Document ---
Author Name [facility] Organization [facility] Care Team Providers Care Trout Farmer Name Role Phone [facility] Unavailable Unavailable Immunizations Combined list of available immunizations from the Department of Defense and Veterans Affairs facilities. Immunization Series Date Given Administered By Site Reaction Lot Number CVX Code Drug Mold Setter Status Comments Source COVID-19 (MODERNA), MRNA, LNP-S, PF, 100 MCG OR 50 MCG DOSE 3 2021 207 complet ed MOD; [id number]; 2 IELD COVID-19 (MODERNA), MRNA, LNP-S, PF, 100 MCG/0.5 ML DOSE 2 2020 207 complet ed MOD; [id number]; 1 [facility] COVID-19 (MODERNA), MRNA, LNP-S, PF, 100 MCG/0.5 ML DOSE 1 2020 207 complet ed MOD; [id number]; 1 [facility]
--- OUTSIDE RECORDS SUMMARY | 2025-01-06 12:02 | XMS_ITS | Clinical Summary ---
Author Organization [facility] Address [address] [place] [address] Phone Care Team Providers Care Hose Handler Name Role Phone Rajesh Lane MD Primary Care Provider [phone] [facility] Un[facility] [phone] Reason for Visit and Chief Complaint Established Patient Plan of Treatment No Plan of Treatment Recorded Assessments Includes: Assessments from this encounter No Assessments Recorded Medical Equipment - Implanted Devices Includes: Current Devices No Medical Equipment Recorded Medications Includes: Medications discussed during this encounter and other current Medications Current Medications (continue as prescribed) Tylenol 325 MG Oral Tablet 05/18/2021 Provider: Diagnosis: Last Documented On 7:53AM By Linda Orourke ; [facility] Medications Administered Includes: Administered Medications from this [...] Check-In Time Check-Out Time Diagnosis Established Patient Lio Manuel MD [facility] 023 8:20AM 8:52AM Insurance Includes: Active Insurance Policies Plan Name Member ID Group # Subscriber Relationship Effect miguel Dates 1 - [employer] [id number] Julia Lomax Self 10/07/2022 - Un known 2 - [facility] [id number] Lomax Self Clinical Notes Includes: Clinical Notes from this encounter * Progress note Date Encounter Last Documented by 11/05/2022 Established Patient Last joni garduno on 11/05/2022; 8:37 AM, Lio Manuel MD; [facility], Chief Complaint CC: Right hip, subcapital femoral neck fracture S/p in situ fixation cannulated screws DOS: 04/03/2021 HPI: 67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 Exquisite point tenderness in the trochanteric region. Occasional groin pain. States is not gotten any better but has not gotten any worse Denies numbness ting paresthesias denies fevers chills sweats Ambulates without crutch cane or gait aid occasionally will use a walker at night she says if she feels very weak Physical exam alert oriented nondistressed 67-year-old female habitus unremarkable Sensation intact distally good cap refill distally Hip motion unremarkable flexion extension internal and external rotation exquisite point tenderness greater trochanteric region X-rays performed today right hip 2 views AP lateral Well-placed cannulated screws negative cut out lysis periprostatic fracture negative for AVN Mild arthritis Impression/plan 67-year-old female right hip pain mild/moderate point tenderness the screws are slightly prominent but certainly not impressive in any way. Treatment options discussed with patient patient does not desire any type of surgical intervention have discussed Marcaine corticosteroid injection patient declines at this time plan Reassurance follow-up as needed Current Medication - Tylenol 325 MG Oral Tablet 0 days, 0 refills Allergies - No Known Allergies
--- OUTSIDE RECORDS SUMMARY | 2025-01-06 12:02 | XMS_ITS ---
Care Plan - [facility] Created on: January 06, 2025 Julia Lomax : 1955 Sex: Female Author Organization [facility] Address [address] [place] [address] Phone Care Team Providers Care Bagging Salvager Name Role Phone Rajesh Lane MD Primary Care Provider [phone] [facility] Unavailable [phone]
--- OUTSIDE RECORDS SUMMARY | 2025-01-06 12:02 | XMS_ITS ---
Author Organization [facility] Address [address] [facility] [address] [place] [address] Care Team Providers Care Performance Improvement Specialist Name Role Phone Wilma Goldstein Primary Care Provider AN Cuevas Unavailable [phone] Allergies Allergen (clinical drug ingredient) Drug/Non Drug Allergy documented on EMR Reaction Allergy Type Onset Date Status oxycodone Oxycodone passed out Drug Allergy Active REASON FOR VISIT 1 wk Medications Medication SIG (Take, Route, Frequency, Duration) Notes Start Date End Date Status Lisinopril 10 MG 1 tablet Orally Once a day Not-Taking Sulfamethoxazole-Trimetho prim 200-40 MG/5ML 10 ml Orally Once a day for 10 day(s) 01/26/2022 Not-Taking Vitamin D (Ergocalciferol) 38132 UNIT 1 capsule Orally once a week for 30 day(s) 02/16/2022 Not-Taking Vitamin D (Cholecalciferol) 50 MCG (2000 UT) 1 capsule Orally Once a day Not-Taking Amoxicillin-Pot Clavulanate 250-62.5 MG/5ML 10 ml Orally every 8 hrs for 7 day(s) 01/17/2022 Not-Taking Sulfamethoxazole-Trimetho prim 200-40 MG/5ML 10 mL [...] for 7 days 03/23/2024 Not-Taking Tylenol Active Amoxicillin-Pot Clavulanate 250-62.5 MG/5ML 10 mL Orally every 8 hrs for 7 days 10/12/2024 Not-Taking Vital Signs Height 66 in 12/31/2024 Weight 135.0 lbs 12/31/2024 BMI 21.79 kg/m2 12/31/2024 Encounters Encounter Location Date Provider Diagnosis [facility] [address] [place] [address] 12/31/2024 AN WEBBALLEY Deformity of metatarsal bone of right foot M21.961 ; Right foot pain M79.671 and Gait abnormality R26.9 Assessments Encounter Date Diagnosis (ICD Code) Assessment Notes Treatment Notes Treatment Clinical Notes Section Notes 12/31/2024 Deformity of metatarsal bone of right foot (ICD-10 - M21.961) Ms. Nino was examined and evaluated today. She has [...] will follow back with me as needed. 12/31/2024 Right foot pain (ICD-10 - M79.671) 12/31/2024 Gait abnormality (ICD-10 - R26.9) Plan Of Treatment Treatment Notes Assessment Notes Deformity of metatarsal bone of right fo ot Ms. Nino was examined and evaluated today. She has [...] will follow back with me as needed. Progress Notes * Julia NINO NDOB: [birth year] (69 yo F)Acc No.[id number]:12/31/2024 Progress Note Patient:Julia ROMERO Provider:?An Holley DPM :1955???Age:69 Y???Sex:Female D ate:12/31/2024 Address:[address] [place] [id number] Pcp:Wilma Goldstein Subjective: * Chief Complaints: * ???1 wk * HPI: ???Constitutional:?Ms. Nino presents for a 1 week follow up. She has finished the oral antibiotics for the right foot. She still has localized pain around the 5th MTP. She has noticed shooting pains in both feet on and off. The right foot blister area has healed up well. No swelling.??She has noticed that since her right hip surgery the right foot is more inward. She states she has started to use a cane to ambulate. She is in PT and they are working on getting her gait more stabilized. * ROS:?General/Constitutional:?Denies?Chills.?Denies?Fatigue.?Denies?Fever.?Denies?Headache.?Hematology:?Denies?Bleeding problems.?Denies?Dizziness.?Denies?Fever.?Denies?Weakness.?Musculoskeletal:?Patient complaining of?pain right foot.?Admits?Arthritis/Arthralgia.?Denies?Leg cramps.?Denies?Limping gait.?Skin:?Denies?Blistering of skin.?Denies?Discoloration.?Admits?Skin lesion(s).? * Medical History:? * Surgical History:?left foot surgery, triple arthrodesis, left hallux IPJ arthrodesis, left 2-5 PIPJ arthrodesis. [facility] 2017-2019Right tailors bunion surgery 2019Left and right 5th metatarsal floating osteotomies emoval of mark left foot ight hip surgery 11/2024 * Hospitalization/Major Diagno stic Procedure:?[facility] Lyme encephalopathy, UTI sepsis, Cirrhosis. 04/2020right hip surgery [facility] 11/2024 * Family History:?Father: [place], gout.?Mother: thyroid disease, hypertension.?Maternal aunt: breast cancer.?Siblings: hypertension.?1 brother(s) . .? * Social History:?Former Smoker; quit 1996 Alcohol use/2-3 cans of beer per week. Has since quit since her hospital admission in 2019. Lives with , retired. * Medications:?TakingTylenol T aking Tylenol Uhw-NwcxqyGmtkoajibfy-Dvr Clavulanate 250-62.5 MG/5ML Suspension Reconstituted 10 mL Orally every 8 hrs Amoxicillin- Pot Clavulanate 600-42.9 MG/5ML Suspension Reconstituted as directed Orally 5mL twice a day Amoxicillin-Pot Clavulanate 600-42.9 MG/5ML Suspension Reconstituted 5mL Orally twice a day Cipro 500 MG Tablet 1 tablet Orally once daily Sulfamethoxazole-Trimethoprim 200-40 MG/5ML Suspension 10 mL Orally Once a day Sulfamethoxazole-Trimethoprim 200-40 MG/5ML Suspension 10 mL Orally Once a day Vitamin D (Cholecalciferol) 50 MCG (2000 UT) Capsule 1 capsule Orally Once a day Amoxicillin-Pot Clavulanate 250-62.5 MG/5ML Suspension Reconstituted 10 ml Orally every 8 hrs Sulfamethoxazole-Trimethoprim 200-40 MG/5ML Suspension 10 ml Orally Once a day Vitamin D (Ergocalciferol) 23584 UNIT Capsule 1 capsule Orally once a week Lisinopril 10 MG Tablet 1 tablet Orally Once a day Medication List reviewed and reconciled with the patientNot-Taking Amoxicillin-Pot Clavulanate 250-62.5 MG/5ML Suspension Reconstituted 10 mL Orally every 8 hrs Not-Taking Amoxicillin-Pot Clavulanate 600-42.9 MG/5ML Suspension Reconstituted as directed Orally 5mL twice a day Not-Taking Amoxicillin-Pot Clavulanate 600-42.9 MG/5ML Suspension Reconstituted 5mL Orally twice a day Not-Taking Cipro 500 MG Tablet 1 tablet Orally once daily Not-Taking Sulfamethoxazole-Trimethoprim 200-40 MG/5ML Suspension 10 mL Orally Once a day Not-Taking Sulfamethoxazole-Trimethoprim 200-40 MG/5ML Suspension 10 mL Orally Once a day Not-Taking Vitamin D (Cholecalciferol) 50 MCG (2000 UT) Capsule 1 capsule Orally Once a day Not-Taking Amoxicillin-Pot Clavulanate 250-62.5 MG/5ML Suspension Reconstituted 10 ml Orally every 8 hrs Not-Taking Sulfamethoxazole-Trimethoprim 200-40 MG/5ML Suspension 10 ml Orally Once a day Not-Taking Vitamin D (Ergocalciferol) 77570 UNIT Capsule 1 capsule Orally once a week Not-Taking Lisinopril 10 MG Tablet 1 tablet Orally Once a day Medication List reviewed and reconciled with the patient * Allergies:?Oxycodone: passed out - Allergyno[Allergies Verified] Objective: * Vitals:?Wt:135.0lbs, Ht: 66 in, BMI:21.79Index, Ht-cm: 167.64, Wt-k.24 kg. * Examination: ???General Examination: ???Patient is alert and oriented. She is in no acute distress. She is ambulating in sneakers with the aid of a cane. Both feet are warm and well perfused. Palpable pedal pulses bilaterally. She has complete loss of protective sensation 10/10 sites bilaterally when testing with a 5.07 [place]-Fritz monofilament. Her left foot has a rigid pes planus with rigid flexion deformity to her left hallux. She has extensive weakness in her superficial posterior muscle group on the left creating a calcaneal like gait. There is some lateral muscle group weakness on the right. There is tenderness around the right 5th MTPJ with some localized erythema. Most tenderness is dorsally around the joint. No pain triggered with range of motion of the 5th MTPJ on the right. There is a residual tailors like bunionette on the right with adductovarus of the right 5th toe. No open wound or callus tissue to the right 5th.. On stance she has inversion of the right foot. Assessment: * Assessment: 1.?Deformity of metatarsal b one of right foot - M21.961 (Primary)???2.?Right foot pain - M79.671???3.?Gait abnormality - R26.9??? Plan: * Treatment: * Procedure Codes:? * Billing Information: * Visit Code:? 07570 Office Visit, Est Pt., Level 3. * Procedure Codes:? * Sign off status: Completed true * Provider:?An Holley DPM Date:?12/31 Generated for Woo watson/Denise/Fridaitting on:?01/06/2025 12:01 PM EDT History and Physical Notes * Examination Category Sub-Category Detail Notes Category Not es General Examination Patient is alert and oriented. She is in no acute distress. She is ambulating in sneakers with the aid of a cane. Both feet are warm and well perfused. Palpable pedal pulses bilaterally. She has complete loss of protective sensation 10/10 sites bilaterally when testing with a 5.07 [place]-Fritz monofilament. Her left foot has a rigid pes planus with rigid flexion deformity to her left hallux. She has extensive weakness in her superficial posterior muscle group on the left creating a calcaneal like gait. There is some lateral muscle group weakness on the right. There is tenderness around the right 5th MTPJ with some localized erythema. Most tenderness is dorsally around the joint. No pain triggered with range of motion of the 5th MTPJ on the right. There is a residual tailors like bunionette on the right with adductovarus of the right 5th toe. No open wound or callus tissue to the right 5th.. On stance she has inversion of the right foot.
--- OUTSIDE RECORDS SUMMARY | 2025-01-06 12:02 | XMS_ITS ---
Author Organization [facility] Address [address] [facility] [address] [place] [address] Care Team Providers Care Energy Project Engineer Name Role Phone Wilma Goldstein Primary Care Provider AN Cuevas Unavailable [phone] Allergies Allergen (clinical drug ingredient) Drug/Non Drug Allergy documented on EMR Reaction Allergy Type Onset Date Status oxycodone Oxycodone passed out Drug Allergy Active REASON FOR VISIT 1 wk Medications Medication SIG (Take, Route, Frequency, Duration) Notes Start Date End Date Status Vitamin D (Ergocalciferol) 88370 UNIT 1 capsule Orally once a week for 30 day(s) 02/16/2022 Not-Taking Sulfamethoxazole-Trimetho prim 200-40 MG/5ML 10 ml Orally Once a day for 10 day(s) 01/26/2022 Not-Taking Lisinopril 10 MG 1 tablet Orally Once a day Not-Taking Amoxicillin-Pot Clavulanate 250-62.5 MG/5ML 10 ml Orally every 8 hrs for 7 day(s) 01/17/2022 Not-Taking Vitamin D (Cholecalciferol) 50 MCG (2000 UT) 1 capsule Orally Once a day Not-Taking Amoxicillin-Pot Clavulanate 600-42.9 MG/5ML 5mL Orally twice a day for 7 days 03/23/2024 Not-Taking Amoxicillin-Pot Clavulanate 600-42.9 MG/5ML as directed Orally 5mL twice a day for 7 days 03/27/2024 Not-Takin g Cipro 500 MG 1 tablet Orally once daily for 10 days 10/22/2023 Not-Taking Sulfamethoxazole-Trimetho prim 200-40 MG/5ML 10 mL Orally Once a day for 10 day(s) 07/18/2022 Not-Taking Sulfamethoxazole-Trimetho prim 200-40 MG/5ML 10 mL Orally Once a day for 10 day(s) Not-Taking Amoxicillin-Pot Clavulanate 250-62.5 MG/5ML 10 mL Orally every 8 hrs for 7 days 10/12/2024 Active Tylenol Active Vital Signs Height 66 in 12/23/2024 Encounters Encounter Location Date Provider Diagnosis [facility] [address] [facility] [address] [place] [address] 12/23/2024 AN PEMBERTONEY Deformity of metatarsal bone of right foot M21.961 and Right foot pain M79.671 Assessments Encounter Date Diagnosis (ICD Code) Assessment Notes Treatment Notes Treatment Clinical Notes Section Notes 12/23/2024 Deformity of metatarsal bone of right [...] me if anything worsens before her appt. 12/23/2024 Right foot pain (ICD-10 - M79.671) Plan Of Treatment Treatment Notes Assessment Notes Deformity of metatarsal bone of right foot Ms. Nino was examined and evaluated tonila mcqueen. She has a chronic callus that comes [...] me if anything worsens before her appt. Pending Test Test Name Order Date X ray : Foot, right 3v 12/23/2024 Next Appt Details Follow Up: 1 Week, Reason: Progress Notes * Julia NINO NDOB: [birth year] (69 yo F)Acc No.[id number]:12/23/2024 Progress Note Patient:?Julia NINO Provider:?An Holley DPM :1955???Age:69 Y???Sex:Female D ate:12/23/2024 Address:[address] [place], [place] [id number] Pcp:Wilma Goldstein Subjective: * Chief Complaints: * ???1 wk * HPI: ???Constitutional:?Ms. Nino presents for a 1 week follow up. She saw my colleague last week for an infected blister under the right 5th toe. Cultures were taken and she was started on Augmentin suspension. She still has a couple days to go. She states that the area is still red and tender. She has been getting shooting pains around the top of the toe that come and go. It can be with rest and with ambulation. She has kept the area bandaged and uses tylenol for the pain. She has not had any drainage from the area. She has noticed that since her right hip surgery the right foot is more inward. She states she has been progressing well since the hip surgery and is in PT now. She denies any chills, diarrhea, vomiting, or fatigue. * ROS:?General/Constitutional:?Denies?Chills.?Denies?Fatigue.?Denies?Fever.?Denies?Headache.?Hematology:?Denies?Bleeding problems.?Denies?Dizziness.?Denies?Fever.?Denies?Weakness.?Musculoskeletal:?Patient complaining of?pain right foot.?Admits?Arthritis/Arthralgia.?Denies?Leg cramps.?Denies?Limping gait.?Skin:?Denies?Blistering of skin.?Denies?Discoloration.?Admits?Skin lesion(s).? * Medical History:? * Surgical History:?left foot surgery, triple arthrodesis, left hallux IPJ arthrodesis, left 2-5 PIPJ arthrodesis. [facility] 2017-2019Right tailors bunion surgery 2019Left and right 5th metatarsal floating osteotomies 2removal of mark left foot ight hip surgery 11/2024 * Hospitalization/Major Diagno stic Procedure:?[facility] Lyme encephalopathy, UTI sepsis, Cirrhosis. 04/2020rig hip surgery [facility] 11/2024 * Family History:?Father: [place], gout.?Mother: thyroid disease, hypertension.?Maternal aunt: breast cancer.?Siblings: hypertension.?1 brother(s) . .? * Social History:?Former Smoker; quit 1996 Alcohol use/2-3 cans of beer per week. Has since quit since her hospital admission in 2019. Lives with , retired. * Medications:?TakingTylenol A moxicillin-Pot Clavulanate 250-62.5 MG/5ML Suspension Reconstituted 10 mL Orally every 8 hrs Taking Tylenol Taking Amoxicillin-Pot Clavulanate 250-62.5 MG/5ML Suspension Reconstituted 10 mL Orally every 8 hrs Vkg-CpspbwPbqmciomwik-Lcy Clavulanate 600-42.9 MG/5ML Suspension Reconstituted as directed [...] Orally Once a day Vitamin D (Ergocalciferol) 69512 UNIT Capsule 1 capsule Orally once a week Lisinopril 10 MG Tablet 1 tablet Orally Once a day Medication List reviewed and reconciled with the patientNot-Taking Amoxicillin-Pot Clavulanate 600-42.9 MG/5ML Suspension Reconstituted as [...] Once a day Not-Taking Vitamin D (Ergocalciferol) 91392 UNIT Capsule 1 capsule Orally once a week Not-Taking Lisinopril 10 MG Tablet 1 tablet Orally Once a day Medication List reviewed and reconciled with the patient * Allergies:?Oxycodone: passed out - Allergyno[Allergies Verified] Objective: * Vitals:?Ht: 66 in, Ht-cm: 16 7.64. * Examination: ???General Examination: ???Patient is alert and oriented. She is in no acute distress. She is ambulating in sneakers with the aid of a walker. Both feet are warm and well perfused. Palpable pedal pulses bilaterally. She has complete loss of protective sensation 10/10 sites bilaterally when testing with a 5.07 [place]-Fritz monofilament. Her left foot has a rigid pes planus with rigid flexion deformity to her left hallux. She has extensive weakness in her superficial posterior muscle group on the left creating a calcaneal like gait. Light callus tissue to the plantar left heel. There is some lateral muscle group weakness on the right. There is tenderness around the right 5th MTPJ with some localized erythema. Most tenderness is dorsally around the joint. No pain triggered with range of motion of the 5th MTPJ on the right. There is a residual tailors like bunionette on the right with adductovarus of the right 5th toe. There is light callus tissue to the plantar lateral 5th met head on the right without any open wound. There is some edema present but no fluctuance. No streaking erythema. Assessment: * Assessment: 1.?Deformity of metatarsal b one of right foot - M21.961 (Primary)???2.?Right foot pain - M79.671??? Plan: * Treatment: 2.?Right foot pain?Imaging: X ray : Foot, right 3v * Procedures:?RIGHT FOOT RADIOGRAPHS 12/23/2024 3 weight bearing views (AP, LAT, LO PROJECTION/MO VIEW) Taken in the office and read by the physician. Diffuse osteopenia is present. There is deformity at the 5th metatarsal shaft from previous osteotomy. This has healed. There is a tailors bunionette present with adductovarus of the 5th toe. No erosive changes to the 5th metatarsal head. No abnormal calcifications other than atherosclerotic changes. There is soft tissue edema at the 5th MTPJ without soft tissue emphysema.??There are no acute fractures or dislocations. Large plantar calcaneal enthesophyte. ? * Procedure Codes:?36997 X-RAY EXAM OF FOOT 3 Views, Modifiers: RT * Follow Up:?1 Week * Billing Information: * Visit Code:? 05153 Office Visit, Est Pt., Level 3. * Procedure Codes:? 71665 X-RAY EXAM OF FOOT 3 Views. Modifiers: RT * Sign off status: Completed true * Provider:Annamarie Holley DPM Date:?12/23 Generated for Woo watson/Denise/Blanksmitting on:?01/06/2025 12:01 PM EDT History and Physical Notes * Examination Category Sub-Category Detail Notes Category Not es General Examination Patient is alert and oriented. She is in no acute distress. She is ambulating in sneakers with the aid of a walker. Both feet are warm and well perfused. Palpable pedal pulses bilaterally. She has complete loss of protective sensation 10/10 sites bilaterally when testing with a 5.07 [place]-Fritz monofilament. Her left foot has a rigid pes planus with rigid flexion deformity to her left hallux. She has extensive weakness in her superficial posterior muscle group on the left creating a calcaneal like gait. Light callus tissue to the plantar left heel. There is some lateral muscle group weakness on the right. There is tenderness around the right 5th MTPJ with some localized erythema. Most tenderness is dorsally around the joint. No pain triggered with range of motion of the 5th MTPJ on the right. There is a residual tailors like bunionette on the right with adductovarus of the right 5th toe. There is light callus tissue to the plantar lateral 5th met head on the right without any open wound. There is some edema present but no fluctuance. No streaking erythema.
--- OUTSIDE RECORDS SUMMARY | 2025-01-06 12:02 | XMS_ITS ---
Author Organization [facility] Address [address] [address] Care Team Providers Care Surveyor Mine Name Role Phone Wilma Goldstein Primary Care Provider CARLITO Valencia [phone] REASON FOR VISIT Care credit payment Encounters Encounter Location Date Provider Diagnosis [facility] [address] [address] 12/14/2024 CARLITO ERNST Plan Of Treatment No Information Progress Notes * Julia NINO NDOB: (69 yo F)Acc No.[id number]:12/14/2024 Patient:?Julia NINO :1955???Age:69 Y???Sex:Female Address:[address] [place] [address], [phone] * true * Date:? Generated for Gagani shilrey/Denise/eTransmitting on:?01/06/2025 12:02 PM EDT
--- OUTSIDE RECORDS SUMMARY | 2025-01-06 12:02 | XMS_ITS | Clinical Summary ---
Author Organization [facility] Address [address] [place] [phone] Phone Care Team Providers Care Education Rn Name Role Phone Audelia Messer MD Primary Care Provider [phone] Allergies No known active allergies Medications methocarbamoL (ROBAXIN) 750 mg tablet Take 1 tablet (750 mg total) by mouth 4 (four) times a day if needed for muscle spasms for up to 14 days. 56 tablet 11/17/2024 12:34 PM EST 5 Active oxyCODONE (ROXICODONE) 5 mg immediate release tablet Take 1 tablet (5 mg total) by mouth every 4 (four) hours if needed for moderate pain. Max Daily Amount: 30 mg 40 tablet 11/17/2024 12:34 PM EST 5 Active senna (SENOKOT) 8.6 mg tablet Take 2 tablets (17.2 mg total) by mouth at bedtime. 60 each 11 11/17/2024 12:34 PM EST 5 11/17/19 26 Active acetaminophen (TYLENOL) 500 mg tablet Take 2 tablets (1,000 mg total) by mouth every 8 (eight) hours for 28 days. 168 each 5 12/16/19 25 meloxicam (MOBIC) 7.5 mg tablet Take 1 tablet (7.5 mg total) by mouth 1 (one) time each day. 30 each 11/17/2024 12:34 PM EST 5 03/13/20 25 pantoprazole (PROTONIX) 40 mg EC tablet Take 1 tablet (40 mg total) by mouth 1 (one) time each day before breakfast for 28 days. Do not crush, chew, or split. 28 each 11/17/2024 12:34 PM EST 5 12/16/19 25 aspirin 81 mg EC tablet Take 1 tablet (81 mg total) by mouth 2 (two) times a day for 28 days. 56 each 5 12/16/19 25 Active Problems Problem Noted Date Diagnosed Date Pain 11/16/2024 Status post THR (total hip replacement) 11/16/19 25 Alcoholic cirrhosis of liver without ascites Assessment & Plan (10/21/2024 10:27 PM EST): History of alcoholic liver cirrhosis. Hospitalized in April 2020 with sepsis, TAI requiring hemodialysis and cirrhosis was discovered. She was drinking approximately 4-6 beers daily at the time per review of patient records. She has not had any alcohol since her hospitalization in 2019. Exam today is unremarkable, no jaundice, no abdominal pain, no peripheral edema. Preop labs with elevation in total serum bilirubin 1.4 but otherwise the remainder of liver function is normal. Creatinine 0.8, bilirubin 1.4, sodium 132. INR was not obtained with preop labs so unable to calculate MELD score. PT/INR DOS. Hyponatremia 10/20/2024 Osteoarthritis of right hip 10/20/2024 Assessment & Plan (10/20/2024 11:03 PM EST): Will defer further management to the orthopedic surgeon, anesthesia and the perioperative team regarding the proposed surgery. Rebound headache 11/08/2021 Callus 10/31/2021 Overview (10/01/2024): R Foot. Follows with podiatry. Assessment & Plan (10/21/2024 10:27 PM EST): She is currently taking Augmentin prescribed by her PCP for a callus to the right foot. The callus does not appear to be infected today. Image taken during exam, see above. Podiatry has stated proceed with surgery. Femur fracture 04/27/2021 Overview (10/01/2024): 03/27 secondary to a fall, ORIF, right Radius fracture 04/27/2021 Overview (10/01/2024): 03/27 secondary to a fall; casted History of alcohol abuse 10/24/2020 Assessment & Plan (10/21/2024 10:27 PM EST): Discussed alcohol use history. No longer drinks alcohol, since 2019 hospitalizations. No evidence of synthetic liver dysfunction on lab analysis. Denies history of alcohol withdrawal or seizures in the past. Patient is aware not to drink any alcohol the morning of surgery. Overweight (BMI 25.0-29.9) 09/16/2018 Peripheral neuropathy 07/25/2015 Assessment & Plan (10/21/2024 10:27 PM EST): Ongoing for many years, baseline without changes. Suggest continued outpatient follow up and management. Humerus fracture 04/07/2015 Overview (10/01/2024): 04/20 comminuted displaced fx right humeral head Subclinical hypothyroidism 04/05/2011 Assessment & Plan (10/21/2024 10:27 PM EST): Last TSH 3.25 without any thyroid supplementation. No signs or symptoms of thyroid dysfunction. Normal exam, appears euthyroid. Continue current treatment and outpatient follow up. 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 Suggest continued outpatient follow up and management. Dysplasia of cervix (uteri) 11/10/2005 Overview (10/01/2024): SAMRA 1, cryosurgery IMO update Rosacea 11/10/2005 Assessment & Plan (10/21/2024 6:16 AM EST): She is not currently treating this with any topical or oral medications. Exam unremarkable. Suggest continued outpatient follow up and management. Dental disease Overview (10/20/2024): needs teeth removed went [facility] 10/12/23 Assessment & Plan (11/06/2024 8:03 AM EST): She has multiple missing teeth and several dental caries. She notes that she recently had x-rays taken of her mouth. I have requested documentation from her dental provider that she is okay to proceed with surgery. ADDENDUM: Dentist cleared patient for surgery. Encounters Date Type Department Care Team Description 01/01/2025 9:30 AM EDT Treatment [facility] [address] [phone] Agusto Nicole, MADELINE Presence of right artificial hip joint (Primary Dx) 12/29/2024 10:30 AM EDT Treatment [facility] [address] [phone] Agusto Nicole, MADELINE Presence of right artificial hip joint (Primary Dx) 12/21/2024 10:00 AM EDT Evaluation [facility] [address] [phone] Catherine Zaldivar, PT Presence of right artificial hip joint 11/17/2024 2:29 PM EST - 11/17/2024 7:54 PM EST Emergency [facility] Emergency [address] [place] [address] Ralph Gallegos MD Syncope, unspecified syncope type (Primary Dx) Discharge Disposition: Home or Self Care 11/16/2024 1:19 PM EST Anesthesia Event [facility] OR [address] [place] [address] Mehul Pope MD Colliton, Kenneth R, MD 11/16/2024 1:00 PM EST - 11/16/2024 2:30 PM EST [facility] [address] [place] [address] Agusto Cain MD ARTHROPLASTY HIP TOTAL-CONVERSION [62188 (CPT??)] 11/16/2024 9:54 AM EST - 11/17/2024 12:25 PM EST [facility] [address] [place] [address] Agusto Cain MD Pain Discharge Disposition: Home-Health Care [facility] 10/20/2024 10:30 AM EST Consult Periop Testing - [place] [address] [place] [address] Rita Grimm NP Pre-op evaluation (Primary Dx); Osteoarthritis of right hip, unspecified osteoarthritis type; History of alcohol abuse; Alcoholic cirrhosis of liver without ascites (CMS/HCC); Serum total bilirubin elevated; Subclinical hypothyroidism; Rosacea; Peripheral polyneuropathy; Chronic low back pain, unspecified back pain laterality, unspecified whether sciatica present; Callus; Dental disease 10/20/2024 Hospital Encounter from Last 3 Months Immunizations Name Administration Dates Next Due Moderna SARS-CoV-2 COVID-19, mRNA, LNP-S, preservative free 02/18/2021,01/20/2021 Td Tetanus diptheria (Tdvax) 7yo and older 04/27 Surgical History Surgery Date Site/Laterality Comments HIP SURGERY 10/07/2020 - 10/06/2021 Right PROCEDURE:HIP SURGERY WRIST SURGERY 10/07/2020 - 10/06/2021 Right PROCEDURE:WRIST SURGERY FOOT SURGERY 10/07/2017 - 10/06/2018 Left reconstruction falling arch FRACTURE SURGERY 2019 Medical History Medical History Date Comments Arthritis of right knee 05/10/2017 DX:Arthr itis of right knee HL (hearing loss) DX:HL (hearing loss) Visual impairment DX:Visual impa irment Wears glasses Neuropathy feet Dental disease needs teeth annie cortes went to [facility] 10/12/23 Liver disease April 2019 Alcoholism (CMS/HCC) April 2019 Hyponatremia 10/20/2024 Alcoholic cirrhosis of liver without ascites (CMS/HCC) 10/21/2024 Family History Medical History Relation Name Comments Heart failure Father Delano Frazier Vision loss Father Delano Frazier none Alzheimer's disease Mother Britni Frazier Dementia Mother Britni Frazier none Stroke Mother Britni Frazier none Hypertension Neg Hx Relation Name Status Comments Father Delano Frazier (Age 89) old a ge Mother Britni Frazier (Age 92) old age Social History Tobacco Use Types Packs/Day Years [...] Orientation Straight 11/10/2024 5: 19 PM EST Obstetrics History Last Filed Vital Signs Vital Sign Reading Time Taken Comments Blood Pressure 136/69 11/17/2024 5:33 PM EST Pulse 94 11/17/2024 5:33 PM EST Temperature 36.8 ??C (98.3 ??F) 11/17/2024 5:33 PM ES T Respiratory Rate 21 11/17/2024 5:33 PM EST Oxygen Saturation 97% 11/17/2024 5:33 PM EST Inhaled Oxygen Concentration - - Weight 65.8 kg (145 lb) 11/17/2024 2:42 PM EST Height 165.1 cm (5' 5 ) 11/17/2024 2:42 PM EST Body Mass Index 24.13 11/17/2024 2:42 PM EST Plan of Treatment Upcoming Encounters Date Type Department Care Team (Late st Contact Info) Description 01/07/2025 11:30 AM EDT Treatment [address] [address] Ceferino Griffin, AERIAL INSTALLER 01/11/2025 10:00 AM EDT Treatment [facility] [address] [phone] Catherine Zaldivar, PT 01/13/2025 10:30 AM EDT Treatment [facility] [address] [phone] Agusto Nicole, AERIAL INSTALLER 01/18/2025 10:30 AM EDT Treatment [facility] [address] [phone] Catherine Zaldivar, PT 01/20/2025 9:30 AM EDT Treatment [facility] [address] [phone] Catherine Zaldivar, PT Health Maintenance Due Date Last Done Comments Breast Cancer Screening 1955 Pneumococcal Vaccine: 50+ Years (1 of 2 - PCV) 1972 Zoster Vaccines (1 of 2) 2003 Depression Screening 09/14/2022 Osteoporosis Screening (Bone Density Screening) 09/14/2022 Social Influencers of Health Screening 09/14/2022 Medicare Annual Wellness Visit 09/18/2023 09/18/2022 COVID-19 Vaccine ( - 2023-2 5 season) 2024 10/21/2021, 02/18/2021, 01/20/2021 Influenza Vaccine (Season Ended) 2025 Falls Risk Assessment 11/17/2025 11/17/2024 RSV Immunization Adult Patients (1 - 1-dose 75+ series) 2028 Colorectal Cancer Screening: Colonoscopy 09/16/2028 09/16/2018 DTaP,Tdap,and Td Vaccines (2 - Td or Tdap) 04/27/2031 04/27/2021 Hepatitis C Screening Completed 09/18/2018 HIB Vaccines Aged Out No longer eligi ble based on patient's age to complete this topic HPV Vaccines Aged Out No longer eligi ble based on patient's age to complete this topic Hepatitis A Vaccines Aged Out No long er eligible based on patient's age to complete this topic Hepatitis B Vaccines Aged Out No long er eligible based on patient's age to complete this topic IPV Vaccines Aged Out No longer eligi ble based on patient's age to complete this topic MMR Vaccines Aged Out No longer eligi ble based on patient's age to complete this topic Meningococcal ACWY Vaccine Aged Out N o longer eligible based on patient's age to complete this topic Meningococcal B Vacine Aged Out No lo nger eligible based on patient's age to complete this topic RSV Immunization Patients Under 20 months Aged Out No longer eligible b ased on patient's age to complete this topic Varicella Vaccines Aged Out No longer eligible based on patient's age to complete this topic Goals Goal Patient Goal Type Associated Problems [...] Patient is independent and compliant with HEP Medical Devices Implanted Type Area Facepiece Line Supervisor Device Identifier Shelf Expiration Date Model / Serial / Lot Cement Bone Surg Simplex Radiopq - [id number] Implanted:Qty : 1 on 11/16/2024 by Agusto Cain MD at [facility] Bone Cement Right: Hip [employer] [id number] 05/06/2027 6191 0 / / [id number] Cement Bone Surg Simplex Radiopq - [id number] Implanted:Qty : 1 on 11/16/2024 by Agusto Cain MD at [facility] Bone Cement Right: Hip [employer] [id number] 05/06/2027 6191 0 / / [id number] Kit Prep Total Hip Bone Imp - Sna - [id number] Implanted:Qty : 1 on 11/16/2024 by Agusto Cain MD at [facility] Bone Cement Right: Hip [employer] [id number] / NA / NA Hip Spacr Distl 10mm - [id number] Implanted:Qty : 1 on 11/16/2024 by Agusto Cain MD at [facility] Hip Right: Hip [employer] [id number] 10/16/2029 6103-5499 / / [id number] Head Femoral 36mm -2.5mm Offset Biolox Delta Ceramic Hip - [id number] Implanted:Qty : 1 on 11/16/2024 by Agusto Cain MD at [facility] Joints Hip Right: Hip [employer] [id number] 06/20/2029 6570-0-43 6 / / [id number] Liner Trident X3 0 Deg 36mm 3.9mm Sz D - [id number] Implanted:Qty : 1 on 11/16/2024 by Agusto Cain MD at [facility] Hip Right: Hip [employer] [id number] 06/10/2029 723-00-36 D / / [id number] Lp Hex Screw 6.5x25mm - [id number] Implanted:Qty : 1 on 11/16/2024 by Agusto Cain MD at [facility] Joints Hip Right: Hip [employer] [id number] 09/07/2029 1448-0296 / / [id number] Tritanium Cluster Hole Shell 50mm - [id number] Implanted:Qty : 1 on 11/16/2024 by Agusto Cain MD at [facility] Joints Hip Right: Hip [employer] [id number] 08/04/2028 702-04-50 D / / [id number] Lp Hex Screw 6.5x15mm - [id number] Implanted:Qty : 1 on 11/16/2024 by Agusto Cain MD at [facility] Joints Hip Right: Hip [employer] [id number] 08/22/2027 8101-1661 / / [id number] Lp Hex Screw 6.5x20mm - [id number] Implanted:Qty : 1 on 11/16/2024 by Agusto Cain MD at [facility] Joints Hip Right: Hip [employer] [id number] 08/26/2029 3000-4865 / / [id number] Hip Stem Acco-C 132deg #4 - [id number] Implanted:Qty : 1 on 11/16/2024 by Agusto Cain MD at [facility] Joints Hip Right: Hip [employer] [id number] 09/13/2029 0399-0804 D / / [id number] Explanted Type Area Facepiece Line Supervisor Device Identifier Shelf Expiration Date Model / Serial / Lot Canullated Screws Explanted:Qty: 3 on 11/16/2024 by Agusto Cain MD at [facility] Right: Hip NA NA / NA / NA Procedures Procedure Name Priority Date/Time Associated Diagnosis Comments ECG ANNOTATED 11/18/2024 ECG OUTSIDE 11/18/2024 TROPONIN I HIGH SENSITIVITY STAT 11/17/2024 4:14 PM EST CBC WITH AUTO DIFFERENTIAL STAT 11/17/2024 3:02 PM EST TROPONIN I HIGH SENSITIVITY STAT 11/17/2024 3:02 PM EST MAGNESIUM STAT 11/17/2024 3:02 PM EST BASIC METABOLIC PANEL STAT 11/17/2024 3:02 PM EST CBC AND DIFFERENTIAL STAT 11/17/2024 3:02 PM EST ECG 12-LEAD STAT 11/17/2024 2:49 PM EST BASIC METABOLIC PANEL Routine 11/17/2024 5:49 AM EST COMPLETE BLOOD COUNT Routine 11/17/2024 5:49 AM EST OXYGEN THERAPY, ADULT Routine 11/16/2024 4:10 PM EST XR PELVIS 1-2 VIEWS Routine 11/16/2024 4 :05 PM EST XR FLUORO UP TO 1 HOUR (STATISTICS)(NO REPORT) Routine 11/16/2024 2:27 PM EST Pain XR HIP 1 VIEW RIGHT Routine 11/16/2024 2 :26 PM EST Pain ANESTHESIA SPINAL BLOCK Routine 11/16/2024 1:21 PM EST DE CONVERSION PREV HIP SURG TO TOTAL HIP ARTHROPLASTY W/WO AUTO/ALLOGRAFT 11/16/2024 1:04 PM EST Unilateral post-traumatic osteoarthritis, right hip Case Notes [facility] 10/20/2024Inpatient/Surgery Admit ECG 12-LEAD Routine 10/20/2024 10:40 AM EST Pre-op evaluation Osteoarthritis of right hip, unspecified osteoarthritis type Subclinical hypothyroidism Rosacea History of alcohol abuse Peripheral polyneuropathy Chronic low back pain, unspecified back pain laterality, unspecified whether sciatica present CBC WITH AUTO DIFFERENTIAL Routine 10/16/2024 11:37 AM EST Pre-op evaluation PREALBUMIN Routine 10/16/2024 11:37 AM EST Pre-op evaluation CBC AND DIFFERENTIAL Routine 10/16/2024 11:37 AM EST Pre-op evaluation COMPREHENSIVE METABOLIC PANEL Routine 10/16/2024 11:37 AM EST Pre-op evaluation HEPATITIS C SCREENING Routine 09/18/2018 COLONOSCOPY Routine 09/16/2018 from Last 3 Months or Most Recently Relevant to Health Maintenance Results * ECG-Outside (11/18/2024) us Provider Onbase MD ECG ORDERABLES Final Result * ECG-Annotated (11/18/2024) us Provider Onbase MD ECG ORDERABLES Final Result * Troponin I high sensitivity (11/17/2024 4:14 PM EST) Only the most recent of2 resultswithin the time period is included. [facility] High Sensitivity Troponin I 10 <=54 ng/L LAB CHEMISTRY METHOD 11/17/2024 5:23 PM [facility] Blood Venous blood specimen / Unknown Venipuncture / Unknown 11/17/2024 4:14 PM EST 11/17/2024 4:45 PM EST [facility] - 11/17/2024 5:23 PM EST High levels of biotin in samples may falsely decrease hsTroponin values. ??Use caution when interpreting hsTroponin results in patients taking biotin who exhibit renal impairment (eGFR <60) or in patients taking more than 20 mg/day of biotin. Ralph Gallegos MD LAB BLOOD ORDERABLES Rose Marie jordan Result [facility] [address] [place] [address], [place] [phone] * (ABNORMAL) CBC auto differential (11/17/2024 3:02 PM EST) Only the most recent of2 resultswithin the time period is included. [facility] WBC 15.2(H) 4.8 - 10.8 K/mcL LAB HEMETOLOGY METHOD 11/17/2024 4:08 PM [facility] RBC 3.60(L) 3.80 - 4.80 M/Health system LAB HEMETOLOGY METHOD 11/17/2024 4:08 PM [facility] Hemoglobin 12.0 11.5 - 16.0 g/dL LAB HEMETOLOGY METHOD 11/17/2024 4:08 PM [facility] Hematocrit 35.2 35.0 - 47.0 % LAB HEMETOLOGY METHOD 11/17/2024 4:08 PM [facility] MCV 97.0 79.0 - 98.0 FL LAB HEMETOLOGY METHOD 11/17/2024 4:08 PM EST [facility] MCH 33.1(H) 27.0 - 32.0 pcg LAB HEMETOLOGY METHOD 11/17/2024 4:08 PM [facility] MCHC 34.1 32.0 - 37.0 g/dL LAB HEMETOLOGY METHOD 11/17/2024 4:08 PM [facility] RDW 13.3 11.0 - 15.0 % LAB HEMETOLOGY METHOD 11/17/2024 4:08 PM [facility] Platelets 182 130 - 400 K/mcL LAB HEMETOLOGY METHOD 11/17/2024 4:08 PM [facility] MPV 10.0 7.0 - 11.0 FL LAB HEMETOLOGY METHOD 11/17/2024 4:08 PM [facility] NRBC 0.0 <1.0 % LAB HEMETOLOGY METHOD 11/17/2024 4:08 PM [facility] NRBC Absolute 0.00 <0.10 K/mcL LAB HEMETOLOGY METHOD 11/17/2024 4:08 PM [facility] Neutrophils Relative 84.8 % LAB HEMETOLOGY METHOD 11/17/2024 4:08 PM [facility] Lymphocytes Relative 7.5 % LAB HEMETOLOGY METHOD 11/17/2024 4:08 PM [facility] Monocytes Relative 6.9 % LAB HEMETOLOGY METHOD 11/17/2024 4:08 PM [facility] Eosinophils Relative 0.0 % LAB HEMETOLOGY METHOD 11/17/2024 4:08 PM [facility] Basophils Relative 0.1 % LAB HEMETOLOGY METHOD 11/17/2024 4:08 PM [facility] Immature Granulocytes Relative 0.7 % LAB HEMETOLOGY METHOD 11/17/2024 4:08 PM [facility] Neutrophils Absolute 12.87(H) 1.50 - 7.00 K/mcL LAB HEMETOLOGY METHOD 11/17/2024 4:08 PM EST [facility] Lymphocytes Absolute 1.14 1.00 - 5.00 K/Health system LAB HEMETOLOGY METHOD 11/17/2024 4:08 PM [facility] Monocytes Absolute 1.05(H) 0.20 - 1.00 K/Health system LAB HEMETOLOGY METHOD 11/17/2024 4:08 PM EST [facility] Eosinophils Absolute 0.00 0.00 - 0.50 K/Health system LAB HEMETOLOGY METHOD 11/17/2024 4:08 PM EST [facility] Basophils Absolute 0.02 0.00 - 0.20 K/Health system LAB HEMETOLOGY METHOD 11/17/2024 4:08 PM [facility] Immature Granulocytes Absolute 0.10(H) 0.00 - 0.03 K/Health system LAB HEMETOLOGY METHOD 11/17/2024 4:08 PM [facility] Blood Venous blood specimen / Unknown Venipuncture / Unknown 11/17/2024 3:02 PM EST 11/17/2024 3:55 PM EST Ralph Gallegos MD LAB BLOOD ORDERABLES Rose Marie l Result [facility] [address] [place] [address], * (ABNORMAL) Magnesium (11/17/2024 3:02 PM EST) Magnesium 1.6(L) 1.9 - 2.6 mg/dL LAB CHEMISTRY METHOD 11/17/2024 4:29 PM EST [facility] Blood Venous blood specimen / Unknown Venipuncture / Unknown 11/17/2024 3:02 PM EST 11/17/2024 3:55 PM EST us Ralph Gallegos MD LAB BLOOD ORDERABLES Rose Marie l Result [facility] [address] [place] [address], [place] [phone] * (ABNORMAL) Basic metabolic panel (11/17/2024 3:02 PM EST) Only the most recent of2 resultswithin the time period is included. Sodium 131(L) 133 - 145 mmol/L LAB CHEMISTRY METHOD 11/17/2024 4:29 PM [facility] Potassium 3.8 3.5 - 5.5 mmol/L LAB CHEMISTRY METHOD 11/17/2024 4:29 PM [facility] Chloride 97 96 - 110 mmol/L LAB CHEMISTRY METHOD 11/17/2024 4:29 PM [facility] CO2 25 21 - 32 mmol/L LAB CHEMISTRY METHOD 11/17/2024 4:29 PM EST [facility] Anion Gap 9 3 - 11 LAB CHEMISTRY METHOD 11/17/2024 4:29 PM [facility] Glucose 114(H) 70 - 100 mg/dL LAB CHEMISTRY METHOD 11/17/2024 4:29 PM [facility] BUN 10 5 - 25 mg/dL LAB CHEMISTRY METHOD 11/17/2024 4:29 PM [facility] Creatinine 0.97 0.50 - 1.10 mg/dL LAB CHEMISTRY METHOD 11/17/2024 4:29 PM EST [facility] eGFR 63 >=60 mL/min/1. 73m2 LAB CHEMISTRY METHOD 11/17/2024 4:29 PM [facility] Comment:Calculation based on the??Chronic Kidney Disease Epidemiology Collaboration (CKD-EPI) equation refit??without adjustment for race. BUN/Creatinine Ratio 10.3 LAB CHEMISTRY METHOD 11/17/2024 4:29 PM [facility] Calcium 9.0 8.5 - 10.5 mg/dL LAB CHEMISTRY METHOD 11/17/2024 4:29 PM EST [facility] Blood Venous blood specimen / Unknown Venipuncture / Unknown 11/17/2024 3:02 PM EST 11/17/2024 3:55 PM EST Ralph Gallegos MD LAB BLOOD ORDERABLES Rose Marie l Result Performing Organization Address [facility]/ZIP Co de Phone Number [facility] [address] [place] [address], [place] [phone] * ECG 12 lead (11/17/2024 2:49 PM EST) Only the most recent of2 resultswithin the time period is included. Ventricular Rate ECG 77 BPM GEMUSE Atrial Rate 77 BPM GEMUSE P-R Interval 152 ms GEMUSE QRS Duration 90 ms GEMUSE Q-T Interval 364 ms GEMUSE QTc 411 ms GEMUSE P Wave [place] 34 degrees GEMUSE R [place] 0 degrees GEMUSE T [place] 52 degrees GEMUSE ECG Interpretation Normal sinus rhythm Normal ECG When compared with ECG of 02-APR-2021 17:23, No significant change was found Confirmed by Diomedes VILLATORO YUFENG ([id number]) on 11/17/2024 7:53:17 PM GEMUSE 11/17/2024 2:49 PM EST 11/17/2024 7:53 PM EST Ralph Gallegos MD ECG ORDERABLES Final Res ult Performing Organization Address [facility]/ZIP Co de Phone Number GEMUSE * (ABNORMAL) Complete blood count (11/17/2024 5:49 AM EST) WBC 11.0(H) 4.0 - 10.5 K/Health system LAB HEMETOLOGY METHOD 11/17/2024 6:05 AM EST [facility] RBC 3.55(L) 4.20 - 5.40 M/Health system LAB HEMETOLOGY METHOD 11/17/2024 6:05 AM EST [facility] Hemoglobin 11.7(L) 12.5 - 16.0 g/dL LAB HEMETOLOGY METHOD 11/17/2024 6:05 AM [facility] Hematocrit 34.3(L) 37.0 - 47.0 % LAB HEMETOLOGY METHOD 11/17/2024 6:05 AM [facility] MCV 96.4 78.0 - 100.0 FL LAB HEMETOLOGY METHOD 11/17/2024 6:05 AM EST [facility] MCH 32.9 25.0 - 33.0 pcg LAB HEMETOLOGY METHOD 11/17/2024 6:05 AM [facility] MCHC 34.2 32.0 - 36.0 g/dL LAB HEMETOLOGY METHOD 11/17/2024 6:05 AM [facility] RDW 13.5 12.1 - 16.2 % LAB HEMETOLOGY METHOD 11/17/2024 6:05 AM EST [facility] Platelets 146(L) 150 - 450 K/mcL LAB HEMETOLOGY METHOD 11/17/2024 6:05 AM EST [facility] MPV 7.7 7.4 - 11.4 FL LAB HEMETOLOGY METHOD 11/17/2024 6:05 AM EST [facility] Blood Venous blood specimen / Unknown Venipuncture / Unknown 11/17/2024 5:49 AM EST 11/17/2024 5:57 AM EST us Agusto Cain MD LAB BLOOD ORDERABLES Final R esult [facility] [address] [place] [id number], * XR Pelvis 1-2 Views (11/16/2024 4:05 PM EST) Anatomical Region Laterality Modality Body, Pelvis Radiographic Emely ging 11/16/2024 4:50 PM EST Impressions 11/16/2024 4:56 PM EST FINDINGS/IMPRESSION: Status post right total hip arthroplasty with expected surrounding postsurgical changes including soft tissue edema and subcutaneous emphysema. ??No plain film evidence of displaced fracture or dislocation. ??Coarse vascular calcifications seen in the bilateral thighs. ??Calcification of the bilateral vas deferens suggestive of underlying diabetes. Report reviewed and signed by : Dr. Roland Vazquez on 11/16/2024 4:56 PM. Workstation Name - [id number] -------- FINAL REPORT -------- Dictated By: Roland Vazquez Dictated Date: 11/16/2024 16:50 ET Assigned Physician: Roland Vazquez Reviewed and Electronically Signed By: Roland Vazquez Signed Date: 11/16/2024 16:56 ET Workstation ID: [id number] Transcribed By: Self Edit Transcribed Date: 11/16/2024 16:50 ET Narrative 11/16/2024 4:56 PM EST HISTORY: Hip replacement asymptomatic follow up TECHNIQUE: Portable supine AP view of the pelvis was obtained. COMPARISON: ??None. Procedure Note Roland Vazquez MD - 11/16/2024 HISTORY: Hip replacement asymptomatic follow up TECHNIQUE: Portable supine AP view of the pelvis was obtained. COMPARISON: None. IMPRESSION: FINDINGS/IMPRESSION: Status post right total hip arthroplasty with expected surroundingpostsurgical changes including soft tissue edema and subcutaneousemphysema. No plain film evidence of displaced fracture or dislocation.Coarse vascular calcifications seen in the bilateral thighs.Calcification of the bilateral vas deferens suggestive of underlyingdiabetes. Report reviewed and signed by : Dr. Roland Vazquez on 11/16/2024 4:56 PM.Workstation Name - [id number] -------- FINAL REPORT -------- Dictated By: Roland Vazquez Dictated Date: 11/16/2024 16:50 ET Assigned Physician: Roland Vazquez Reviewed and Electronically Signed By: Roland Vazquez Signed Date: 11/16/2024 16:56 ET Workstation ID: [id number] Transcribed By: Self Edit Transcribed Date: 11/16/2024 16:50 ET Agusto Cain MD IMG XR PROCEDURES Final Resu lt * XR Fluoro Up To 1 Hour (Statistics)(No Report) (11/16/2024 2:27 PM EST) Narrative RIS PACS/VR - 11/16/2024 2:27 PM EST This order has been auto-finalized and does not contain a result. Agusto Cain MD IMG FLUOROSCOPY PROCEDURES F inal Result RIS PACS/VR * XR Hip 1 View Right (11/16/2024 2:26 PM EST) Anatomical Region Laterality Modality Lower Extremities, Hip Right Radiograp hic Imaging 11/17/2024 11:2 0 AM EST Impressions 11/17/2024 11:30 AM EST Intraoperative spot film. Report reviewed and signed by : Dr. Roland Driver on 11/17/2024 11:30 AM. Workstation Name - [id number] -------- FINAL REPORT -------- Dictated By: Roland Driver Dictated Date: 11/17/2024 11:20 ET Assigned Physician: Roland Driver Reviewed and Electronically Signed By: Roland Driver Signed Date: 11/17/2024 11:30 ET Workstation ID: [id number] Transcribed By: Self Edit Transcribed Date: 11/17/2024 11:20 ET Narrative 11/17/2024 11:30 AM EST EXAMINATION TYPE: ??XR HIP 1 VIEW RIGHT DATE OF EXAM: ??11/16/2024 1:08 PM COMPARISON: ??None. INDICATIONS: ??ARTHROPLASTY HIP TOTAL-CONVERSION - Right FINDINGS: Single intraoperative fluoroscopic spot film of the right hip predominantly obscured by overlying metallic artifact in this patient undergoing right total hip arthroplasty. Procedure Note Roland Driver MD - 11/17/2024 EXAMINATION TYPE: XR HIP 1 VIEW RIGHT DATE OF EXAM: 11/16/2024 1:08 PM COMPARISON: None. INDICATIONS: ARTHROPLASTY HIP TOTAL-CONVERSION - Right FINDINGS: Single intraoperative fluoroscopic spot film of the right hippredominantly obscured by overlying metallic artifact in this patientundergoing right total hip arthroplasty. IMPRESSION: Intraoperative spot film. Report reviewed and signed by : Dr. Roland Driver on 11/17/2024 11:30 AM.Workstation Name - [id number] -------- FINAL REPORT -------- Dictated By: Roland Driver Dictated Date: 11/17/2024 11:20 ET Assigned Physician: Roland Driver Reviewed and Electronically Signed By: Roland Driver Signed Date: 11/17/2024 11:30 ET Workstation ID: [id number] Transcribed By: Self Edit Transcribed Date: 11/17/2024 11:20 ET us Agusto Cain MD IMG XR PROCEDURES Final Resu lt * Spinal Block (11/16/2024 1:21 PM EST) Narrative Ceferino Pinedo MD - 11/16/2024 1:21 PM EST Ceferino Pinedo MD ? 11/16/2024 ??1:37 PM Spinal Block Patient location during procedure: OR Start time: 11/16/2024 1:21 PM End time: 11/16/2024 1:28 PM Reason for block: primary anesthetic and at surgeon's request Staffing Performed: anesthesiologist Anesthesiologist: Ceferino Pinedo MD Performed by: Ceferino Pinedo MD Authorized by: Ceferino Pinedo MD ?? Preanesthetic Checklist Completed: patient identified, IV checked, risks and benefits discussed, surgical consent, monitors and equipment checked, pre-op evaluation and timeout performed Spinal Block Patient position: sitting Prep: ChloraPrep and site prepped and draped Patient monitoring: continuous pulse ox Approach: midline Location: L3-4 Injection technique: single-shot Needle Needle type: Castro Needle gauge: 25 G Needle length: 3.5 in Additional Notes Unable to access space at L 4-5. Switch to L 3-4 with success. Positive CSF swirl. ??2.4cc 0.5% ropivicaine injected. No blood or paresthesia. Resistance to injection normal. us Ceferino Pinedo MD ANESTHESIA ORDERABLES Fin al Result * Prealbumin (10/16/2024 11:37 AM EST) Prealbumin 18 17 - 34 mg/dL LAB CHEMISTRY METHOD 10/16/2024 3:08 PM EST [facility] Blood Venous blood specimen / Unknown Venipuncture / Unknown 10/16/2024 11:37 AM EST 10/16/2024 11:37 AM EST Rita Grimm NP LAB BLOOD ORDERABLES Final Re sult [facility] [address] [place] [address], [place] [phone] * (ABNORMAL) Comprehensive metabolic panel (10/16/2024 11:37 AM EST) Pathologist [facility] Sodium 132(L) 135 - 145 mmol/L LAB CHEMISTRY METHOD 10/16/2024 2:33 PM [facility] Potassium 3.6 3.5 - 5.1 mmol/L LAB CHEMISTRY METHOD 10/16/2024 2:33 PM [facility] Chloride 99 98 - 107 mmol/L LAB CHEMISTRY METHOD 10/16/2024 2:33 PM [facility] CO2 26 24 - 32 mmol/L LAB CHEMISTRY METHOD 10/16/2024 2:33 PM [facility] Anion Gap 7 5 - 14 LAB CHEMISTRY METHOD 10/16/2024 2:33 PM [facility] Glucose 85 70 - 99 mg/dL LAB CHEMISTRY METHOD 10/16/2024 2:33 PM [facility] BUN 13 7 - 17 mg/dL LAB CHEMISTRY METHOD 10/16/2024 2:33 PM [facility] Creatinine 0.80 0.50 - 1.00 mg/dL LAB CHEMISTRY METHOD 10/16/2024 2:33 PM [facility] eGFR 79 >=60 mL/min/1. 73m2 LAB CHEMISTRY METHOD 10/16/2024 2:33 PM [facility] Comment:Calculation based on the??Chronic Kidney Disease Epidemiology Collaboration (CKD-EPI) equation refit??without adjustment for race. BUN/Creatinine Ratio 16.3 12.0 - 20.0 LAB CHEMISTRY METHOD 10/16/2024 2:33 PM [facility] Calcium 8.6 8.4 - 10.2 mg/dL LAB CHEMISTRY METHOD 10/16/2024 2:33 PM [facility] AST (SGOT) 16 5 - 40 unit/L LAB CHEMISTRY METHOD 10/16/2024 2:33 PM [facility] ALT (SGPT) 11 7 - 52 unit/L LAB CHEMISTRY METHOD 10/16/2024 2:33 PM [facility] Alkaline Phosphatase 93 34 - 104 unit/L LAB CHEMISTRY METHOD 10/16/2024 2:33 PM [facility] Total Protein 6.7 6.4 - 8.5 g/dL LAB CHEMISTRY METHOD 10/16/2024 2:33 PM [facility] Albumin 3.9 3.5 - 5.0 g/dL LAB CHEMISTRY METHOD 10/16/2024 2:33 PM [facility] Total Bilirubin 1.4(H) 0.3 - 1.0 mg/dL LAB CHEMISTRY METHOD 10/16/2024 2:33 PM [facility] Blood Venous blood specimen / Unknown Venipuncture / Unknown 10/16/2024 11:37 AM EST 10/16/2024 11:37 AM EST us Rita Grimm NP LAB BLOOD ORDERABLES Final Re sult [facility] [address] [place] [address], [place] [phone] * Hepatitis C Screening (09/18/2018) Hepatitis C Screening abstracted Historical Provider HEALTH MAINTENANCE Final Result * Colonoscopy (09/16/2018) Colonoscopy no interpretation , abstracted Anatomical Region Laterality Modality Other Historical Provider HEALTH MAINTENANCE Final Result from Last 3 Months or Most Recently Relevant to Health Maintenance Insurance A[employer] MEDICARE ADVANTAGE [facility] Advance Directives Documents on File Type Date Recorded 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 Health Care Decision (hx) 05/17/2020 AD CADET DIRECTIVE Health Care Decision (hx) 05/17/2020 AD CADET DIRECTIVE Health Care Decision (hx) 05/17/2020 AD CADET DIRECTIVE Health Care Decision (hx) 05/17/2020 AD CADET DIRECTIVE Health Care Decision (hx) 05/17/2020 AD CADET DIRECTIVE Health Care Decision (hx) 05/17/2020 AD CADET DIRECTIVE Health Care Decision (hx) 05/17/2020 AD CADET DIRECTIVE Health Care Decision (hx) 05/17/2020 AD CADET DIRECTIVE Health Care Decision (hx) 05/17/2020 AD CADET DIRECTIVE Health Care Decision (hx) 05/17/2020 AD CADET DIRECTIVE Health Care Decision (hx) 05/17/2020 AD CADET DIRECTIVE Health Care Decision (hx) 05/17/2020 AD CADET DIRECTIVE Health Care Decision (hx) 05/17/2020 AD CADET DIRECTIVE Health Care Decision (hx) 05/17/2020 AD CADET DIRECTIVE Health Care Decision (hx) 05/17/2020 AD CADET DIRECTIVE * Full Code - Default (Latest Code Status on File) Date Activated Date Inactivated Comments 11/16/2024 3:52 PM 11/17/2024 2:30 PM This is ord er is used when code status has not been discussed with the patient, or code status is otherwise unknown/unconfirmed To update the patient's code status, place a code status order. Do not modify or discontinue any currently active code status orders. * Full Code - Confirmed Date Activated Date Inactivated Comments 11/16/2024 9:55 AM 11/16/2024 3:[address] at[facility] was ascertained in the following way: Code status discussion: discussion with patient To update the patient's code status, place a code status order. Do not modify or discontinue any currently active code status orders. Care Teams Education Rn Relationship Specialty Start Date End Date Audelia Messer MD [address] [place] [address] PCP - General Internal Medicine 10/20/24
== END 2025-01-06 11:56 | disposition home or self-care (01) ==
LOC: HO.HMCC 10:16
PROVIDERS: PCP Nurse Practitioner Primary Care; Visit Provider Internal Medicine
DX: R53.83 Other fatigue (principal); R68.89 Other general symptoms and signs; M19.90 Unspecified osteoarthritis, unspecified site; Z87.81 Personal history of (healed) traumatic fracture

== ENCOUNTER 2025-01-06 10:15 | Outpatient (REF) | payer MEDICARE, SELFPAY ==
--- OUTSIDE RECORDS SUMMARY | 2025-01-06 13:49 | XMS_ITS ---
Author Organization [facility] Address [address] [place] [address] Phone Care Team Providers Care Field Service Manager Name Role Phone Rajesh Lane MD Primary Care Provider [phone] [facility] [phone] Plan of Treatment No Plan of Treatment Recorded Assessments Includes: Assessments for all patient encounters No Assessments Recorded Medical Equipment - Implanted Devices Includes: Current and historical Devices No Medical Equipment Recorded Medications Includes: Current and historical Medications Current Medications (continue as prescribed) Tylenol 325 MG Oral Tablet 05/18/2021 Provider: Diagnosis: Last Documented On 7:53AM By Linda Orourke ; [facility] Medications Administered Includes: Administered Medications in [...] Subscriber Relationship Effect miguel Dates 1 - [employer] [id number] Julia Lomax Self 10/07/2022 - Un known 2 - [facility] [id number] Julia Monie Self Clinical Notes Includes: Signed Clinical Notes starting from 09/16/2022 No Clinical Notes Recorded
--- OUTSIDE RECORDS SUMMARY | 2025-01-06 13:49 | XMS_ITS | Clinical Summary ---
Author Organization [facility] Address [address] [place] [address] Care Team Providers Care Emerging Technologies Director Name Role Phone Unavailable Primary Care Provider [...] 0 2021 Active ergocalciferol (VITAMIN D2) capsule 11500 units Take 1 capsule by mouth once [...]
--- OUTSIDE RECORDS SUMMARY | 2025-01-06 13:49 | XMS_ITS | Encounter Summary ---
Author Organization [facility] Address [address] [place] [address] Care Team Providers Care Equipment Maintenance Technician Name Role Phone Audelia Messer MD Primary Care Provider [phone] Encounter Details Date Type Department Care Team [...] Info) Description 01/07/2025 11:30 AM EDT Treatment [facility] [address] [phone] Ceferino Griffin, MANAGER [employer]IANCE 01/11/2025 10:00 AM EDT Treatment [facility] [address] [phone] Catherine Zaldivar, SHAHRIAR 01/13/2025 10:30 AM EDT Treatment [facility] [address] [phone] Agusto Nicole, MANAGER [employer]ANCE 01/18/2025 10:30 AM EDT Treatment [facility] [address] [phone] Catherine Zaldivar, SHAHRIAR 01/20/2025 9:30 AM EDT Treatment [facility] [address] [phone] Catherine Zaldivar, SHAHRIAR documented as of this [...] hip documented in this encounter Care Teams Equipment Maintenance Technician Relationship Specialty Start Date End Date Audelia Messer MD [address] [place] [address] PCP - General Internal Medicine 10/20/24 documented as of this encounter
--- OUTSIDE RECORDS SUMMARY | 2025-01-06 13:49 | XMS_ITS | Clinical Summary ---
Author Organization [facility] Address [address] [place] [address] Phone Care Team Providers Care Farm Implement Engine Mechanic Name Role Phone Rajesh Lane MD Primary Care Provider [phone] [facility] [phone] Reason for Visit and Chief Complaint Established Patient Plan of Treatment Pending Tests Order Diagnosis Results Due Ordering P rovider Follow Up - Appointment PRN Displaced intertrochanteric fracture of right femur, init 09/19/21 Earnestine DENIS Last Documented On 1 8:43AM ; [facility] Follow Up - Appointment 3 Months Displaced intertrochanteric fracture of right femur, init 09/19/21 Earnestine DENIS Last Documented On 1 9:00AM ; [facility] Follow Up - Appointment 3 Months Displaced intertrochanteric fracture of right femur, init 09/19/21 Earnestine DENIS Last Documented On 1 9:10AM ; [facility] In House X-Rays - X-Rays Hip Unilateral, right, 2-3 views ([id number]) Displaced intertrochanteric fracture of right femur, init 09/21/21 Earnestine DENIS Last Documented On 1 8:43AM ; [facility] Assessments Includes: Assessments from this encounter No Assessments Recorded Medical Equipment - Implanted Devices Includes: Current Devices No Medical Equipment Recorded Medications Includes: Medications discussed during this encounter and other current Medications Current Medications (continue as prescribed) Tylenol 325 MG Oral Tablet 05/18/2021 Provider: Diagnosis: Last Documented On 1 7:53AM By Linda Orourke ; [facility] Medications Administered Includes: Administered Medications from this [...] supination 80, extension 60, flexion 75. decreasded master cosmetologist strength in comparison to left. Complains of [...] Diagnosis Established Patient Earnestine RODRIGUEZ [facility] 09/19/20 8:20AM 9:03AM Insurance Includes: Active Insurance Policies Plan Name Member ID Group # Subscriber Relationship Effect miguel Dates 1 - [employer] [id number] Julia Tellez 10/07/2022 - Un known 2 - [facility] [id number] Julia Tellez Clinical Notes Includes: Clinical Notes from this encounter No Clinical Notes Recorded
--- OUTSIDE RECORDS SUMMARY | 2025-01-06 13:50 | XMS_ITS | Clinical Summary ---
Author Organization [facility] Address [address] [place] [address] Phone Care Team Providers Care Latent Print Examiner Name Role Phone Rajesh Lane MD Primary Care Provider [phone] [facility] [phone] Reason for Visit and Chief Complaint Established [...] Documented On 7:53AM By Linda Orourke ; [facility] Medications Administered Includes: Administered Medications from [...] Time Diagnosis Established Patient Lio Manuel MD [facility] 023 8:20AM 8:52AM Insurance Includes: Active Insurance Policies Plan Name Member ID Group # Subscriber Relationship Effect miguel Dates 1 - [employer] [id number] Julia Lomax Self 10/07/2022 - Un known 2 - [facility] [id number] Lomax Self Clinical Notes Includes: Clinical Notes from this encounter * Progress note Date Encounter Last Documented by 11/05/2022 Established Patient Last joni garduno on 11/05/2022; 8:37 AM, Lio Manuel MD; [facility], Chief Complaint CC: Right hip, subcapital femoral [...]
--- OUTSIDE RECORDS SUMMARY | 2025-01-06 13:50 | XMS_ITS | Continuity of Care Document ---
Author Name [facility] Organization [facility] Care Team Providers Care Center Punch Operator Name Role Phone [facility] Unavailable Unavailable Immunizations Combined list of available immunizations from the Department of Defense and Veterans Affairs facilities. Immunization Series Date Given Administered By Site Reaction Lot Number CVX Code Drug Merchandise Distributor Status Comments Source COVID-19 (MODERNA), MRNA, LNP-S, PF, 100 MCG OR 50 MCG DOSE 3 2021 207 complet ed MOD; [id number]; 2 [facility] COVID-19 (MODERNA), MRNA, LNP-S, PF, 100 MCG/0.5 ML DOSE 2 2020 207 complet ed MOD; [id number]; 1 [facility] COVID-19 (MODERNA), MRNA, LNP-S, PF, 100 MCG/0.5 ML DOSE 1 2020 207 complet ed MOD; [id number]; 1 [facility]
--- OUTSIDE RECORDS SUMMARY | 2025-01-06 13:50 | XMS_ITS | Encounter Summary ---
Author Organization [facility] Address [address] [place] [address] Care Team Providers Care Position Classification Manager Name Role Phone Audelia Messer MD Primary Care Provider [phone] Reason for Visit * Consultation (Routine) - Authorized Specialty Diagnoses / Procedures Referred By Kameron andrade Referred To Contact Physical Therapy Diagnoses Presence of right artificial hip joint Daniel Sanchez PA [address] [place] [address] Phone: tel: fax: Referral ID Status Reason Start Date Expiration Date Visits Requested Visits Authorized [id number] Authorized Specialty Services Required 12/01/2024 12/01/2025 20 20 Encounter Details Date Type Department Care Team (Late st Contact Info) Description 01/01/2025 9:30 AM EDT Treatment [address] [phone] Agusto Nicole PTA Presence of [...] Nicole PTA - 01/01/2025 9:30 AM EDT [facility] - Outpatient PHYSICAL THERAPY DAILY TREATMENT NOTE - OP Date: 01/01/2025 Visit Number: 3 Patient Name: Julia Lomax : 1955 Age: 69 y.o. Gender: female Diagnosis: ICD-10-CM ICD-9-CM 1. Presence of right artificial hip joint Z96.641 V43.64 Date of Onset/Surgery: 11/16/2024 Referring Provider: Daniel Sanchez PA Insurance: Payor: [facility] MEDICARE [employer]VANTAGE / Plan: [employer] MEDICARE ADVANTAGE / Product Type: *No Product type* / Patient Identified by: Agusto Nicole PTA Language: Speaks and understands Urdu as preferred language with no reeling machine setup operator required Medications: Current Outpatient Medications on [...] Info) Description 01/07/2025 11:30 AM EDT Treatment [address] [phone] Ceferino Griffin, CONVEYOR SYSTEM OPERATOR 01/11/2025 10:00 AM EDT Treatment [address] [phone] Catherine Zaldivar, PT 01/13/2025 10:30 AM EDT Treatment [address] [phone] Agusto Nicole, MADELINE 01/18/2025 10:30 AM EDT Treatment [address] [phone] Catherine Zaldivar, PT 01/20/2025 9:30 AM EDT Treatment [address] [phone] Catherine Zaldivar, PT documented as of this [...] Primary documented in this encounter Care Teams Position Classification Manager Relationship Specialty Start Date End Date Audelia Messer MD [address] [place] [address] PCP - General Internal Medicine 10/20/24 documented as of this encounter
--- OUTSIDE RECORDS SUMMARY | 2025-01-06 13:50 | XMS_ITS | Clinical Summary ---
Author Organization [facility] Address [address] [place] [phone] Phone Care Team Providers Care Senior Health Educator Name Role Phone Audelia Messer MD Primary Care Provider [phone] Allergies No known active allergies Medications methocarbamoL [...] Team Description 01/01/2025 9:30 AM EDT Treatment [facility] [address] [phone] Agusto Nicole, MADELINE Presence of right artificial hip joint (Primary Dx) 12/29/2024 10:30 AM EDT Treatment [facility] [address] [phone] Agusto Nicole, MADELINE Presence of right artificial hip joint (Primary Dx) 12/21/2024 10:00 AM EDT Evaluation [facility] [address] [phone] Catherine Zaldivar, PT Presence of right artificial hip joint 11/17/2024 2:29 PM EST - 11/17/2024 7:54 PM EST Emergency [facility] Emergency [address] [place] [address] Ralph Gallegos MD Syncope, unspecified syncope type (Primary Dx) Discharge Disposition: Home or Self Care 11/16/2024 1:19 PM EST Anesthesia Event [facility] [place] [address] [place] [address] Mehul Pope MD Colliton, Kenneth R, MD 11/16/2024 1:00 PM EST - 11/16/2024 2:30 PM EST [facility] [address] [place] [address] Agusto Cain MD ARTHROPLASTY HIP TOTAL-CONVERSION [91021 (CPT??)] 11/16/2024 9:54 AM EST - 11/17/2024 12:25 PM EST [facility] [address] [facility] [address] [place] [address] Agusto Cain MD Pain Discharge Disposition: Home-Health Care [facility] 10/20/2024 10:30 AM EST Consult Periop Testing - [facility] [address] [place] [address] Rita Grimm NP Pre-op evaluation [...] Info) Description 01/07/2025 11:30 AM EDT Treatment [address] [phone] Ceferino Griffin, NYLON WINDER 01/11/2025 10:00 AM EDT Treatment [facility] [address] [phone] Catherine Zaldivar, PT 01/13/2025 10:30 AM EDT Treatment [facility] [address] [phone] Agusto Nicole, NYLON WINDER 01/18/2025 10:30 AM EDT Treatment [facility] [address] [phone] Catherine Zaldivar, PT 01/20/2025 9:30 AM EDT Treatment [facility] [address] [phone] Catherine Zaldivar, PT Health Maintenance Due Date [...] with HEP Medical Devices Implanted Type Area Final Inspection Supervisor Device Identifier Shelf Expiration Date Model / Serial / Lot Cement Bone Surg Simplex Radiopq - [id number] Implanted:Qty : 1 on 11/16/2024 by Agusto Cain MD at [facility] Bone Cement Right: Hip [employer] [id number] 05/06/2027 6191 0 / / [id number] Cement Bone Surg Simplex Radiopq - [id number] Implanted:Qty : 1 on 11/16/2024 by Agusto Cain MD at [facility] Bone Cement Right: Hip [employer] [id number] 05/06/2027 6191 0 / / [id number] Kit Prep Total Hip Bone Imp - Sna - [id number] Implanted:Qty : 1 on 11/16/2024 by Agusto Cain MD at [facility] Bone Cement Right: Hip [employer] [id number] / NA / NA Hip Spacr Distl 10mm - [id number] Implanted:Qty : 1 on 11/16/2024 by Agusto Cain MD at [facility] Hip Right: Hip [employer] [id number] 10/16/2029 1390-0772 / / [id number] Head Femoral 36mm -2.5mm Offset Biolox Delta Ceramic Hip - [id number] Implanted:Qty : 1 on 11/16/2024 by Agusto Cain MD at [facility] Joints Hip Right: Hip [employer] [id number] 06/20/2029 6570-0-43 6 / / [id number] Liner Trident X3 0 Deg 36mm 3.9mm Sz D - [id number] Implanted:Qty : 1 on 11/16/2024 by Agusto Cain MD at [facility] Hip Right: Hip [employer] [id number] 06/10/2029 723-00-36 D / / [id number] Lp Hex Screw 6.5x25mm - [id number] Implanted:Qty : 1 on 11/16/2024 by Agusto Cain MD at [facility] Joints Hip Right: Hip [employer] [id number] 09/07/2029 3761-1199 / / [id number] Tritanium Cluster Hole Shell 50mm - [id number] Implanted:Qty : 1 on 11/16/2024 by Agusto Cain MD at [facility] Joints Hip Right: Hip [employer] [id number] 08/04/2028 702-04-50 D / / [id number] Lp Hex Screw 6.5x15mm - [id number] Implanted:Qty : 1 on 11/16/2024 by Agusto Cain MD at [facility] Joints Hip Right: Hip [employer] [id number] 08/22/2027 5705-9914 / / [id number] Lp Hex Screw 6.5x20mm - [id number] Implanted:Qty : 1 on 11/16/2024 by Agusto Cain MD at [facility] Joints Hip Right: Hip [employer] [id number] 08/26/2029 9317-6834 / / [id number] Hip Stem Acco-C 132deg #4 - [id number] Implanted:Qty : 1 on 11/16/2024 by Agusto Cain MD at [facility] Joints Hip Right: Hip [employer] [id number] 09/13/2029 7920-3758 D / / [id number] Explanted Type Area Final Inspection Supervisor Device Identifier Shelf Expiration Date Model / Serial / Lot Canullated Screws Explanted:Qty: 3 on 11/16/2024 by Agusto Cain MD at [facility] Right: Hip NA NA / NA [...] SPINAL BLOCK Routine 11/16/2024 1:21 PM EST AR CONVERSION PREV HIP SURG TO TOTAL HIP [...] of2 resultswithin the time period is included. [facility] High Sensitivity Troponin I 10 <=54 ng/L LAB CHEMISTRY METHOD 11/17/2024 5:23 PM [facility] Blood Venous blood specimen / Unknown Venipuncture / Unknown 11/17/2024 4:14 PM EST 11/17/2024 4:45 PM EST [facility] LAB - 11/17/2024 5:23 PM EST High levels of biotin in samples may falsely decrease hsTroponin values. ??Use caution when interpreting hsTroponin results in patients taking biotin who exhibit renal impairment (eGFR <60) or in patients taking more than 20 mg/day of biotin. Ralph Gallegos MD LAB BLOOD ORDERABLES Rose Marie jordan Result [facility] [address] [place] [address], [place] [phone] * (ABNORMAL) CBC auto differential (11/17/2024 3:02 PM EST) Only the most recent of2 resultswithin the time period is included. [facility] WBC 15.2(H) 4.8 - 10.8 K/mcL LAB HEMETOLOGY METHOD 11/17/2024 4:08 PM [facility] RBC 3.60(L) 3.80 - 4.80 M/[facility] LAB HEMETOLOGY METHOD 11/17/2024 4:08 PM [facility] Hemoglobin 12.0 11.5 - 16.0 g/dL LAB HEMETOLOGY METHOD 11/17/2024 4:08 PM [facility] Hematocrit 35.2 35.0 - 47.0 % LAB HEMETOLOGY METHOD 11/17/2024 4:08 PM [facility] MCV 97.0 79.0 - 98.0 FL LAB HEMETOLOGY METHOD 11/17/2024 4:08 PM EST [facility] MCH 33.1(H) 27.0 - 32.0 pcg LAB HEMETOLOGY METHOD 11/17/2024 4:08 PM [facility] MCHC 34.1 32.0 - 37.0 g/dL LAB HEMETOLOGY METHOD 11/17/2024 4:08 PM [facility] RDW 13.3 11.0 - 15.0 % LAB HEMETOLOGY METHOD 11/17/2024 4:08 PM [facility] Platelets 182 130 - 400 K/mcL LAB HEMETOLOGY METHOD 11/17/2024 4:08 PM [facility] MPV 10.0 7.0 - 11.0 FL LAB HEMETOLOGY METHOD 11/17/2024 4:08 PM [facility] NRBC 0.0 <1.0 % LAB HEMETOLOGY METHOD 11/17/2024 4:08 PM [facility] NRBC Absolute 0.00 <0.10 K/mcL LAB HEMETOLOGY METHOD 11/17/2024 4:08 PM [facility] Neutrophils Relative 84.8 % LAB HEMETOLOGY METHOD 11/17/2024 4:08 PM [facility] Lymphocytes Relative 7.5 % LAB HEMETOLOGY METHOD 11/17/2024 4:08 PM [facility] Monocytes Relative 6.9 % LAB HEMETOLOGY METHOD 11/17/2024 4:08 PM [facility] Eosinophils Relative 0.0 % LAB HEMETOLOGY METHOD 11/17/2024 4:08 PM [facility] Basophils Relative 0.1 % LAB HEMETOLOGY METHOD 11/17/2024 4:08 PM [facility] Immature Granulocytes Relative 0.7 % LAB HEMETOLOGY METHOD 11/17/2024 4:08 PM [facility] Neutrophils Absolute 12.87(H) 1.50 - 7.00 K/mcL LAB HEMETOLOGY METHOD 11/17/2024 4:08 PM EST [facility] Lymphocytes Absolute 1.14 1.00 - 5.00 K/[facility] LAB HEMETOLOGY METHOD 11/17/2024 4:08 PM [facility] Monocytes Absolute 1.05(H) 0.20 - 1.00 K/[facility] LAB HEMETOLOGY METHOD 11/17/2024 4:08 PM EST [facility] Eosinophils Absolute 0.00 0.00 - 0.50 K/[facility] LAB HEMETOLOGY METHOD 11/17/2024 4:08 PM EST [facility] Basophils Absolute 0.02 0.00 - 0.20 K/[facility] LAB HEMETOLOGY METHOD 11/17/2024 4:08 PM [facility] Immature Granulocytes Absolute 0.10(H) 0.00 - 0.03 K/[facility] LAB HEMETOLOGY METHOD 11/17/2024 4:08 PM [facility] Blood Venous blood specimen / Unknown Venipuncture / Unknown 11/17/2024 3:02 PM EST 11/17/2024 3:55 PM EST Ralph Gallegos MD LAB BLOOD ORDERABLES Rose Marie l Result [facility] [address] [place] [address], * (ABNORMAL) Magnesium (11/17/2024 3:02 PM EST) Magnesium 1.6(L) 1.9 - 2.6 mg/dL LAB CHEMISTRY METHOD 11/17/2024 4:29 PM EST [facility] Blood Venous blood specimen / Unknown Venipuncture / Unknown 11/17/2024 3:02 PM EST 11/17/2024 3:55 PM EST us Ralph Gallegos MD LAB BLOOD ORDERABLES Rose Marie l Result [facility] [address] [place] [address], [place] [phone] * (ABNORMAL) Basic metabolic panel (11/17/2024 3:02 PM EST) Only the most recent of2 resultswithin the time period is included. Sodium 131(L) 133 - 145 mmol/L LAB CHEMISTRY METHOD 11/17/2024 4:29 PM [facility] Potassium 3.8 3.5 - 5.5 mmol/L LAB CHEMISTRY METHOD 11/17/2024 4:29 PM [facility] Chloride 97 96 - 110 mmol/L LAB CHEMISTRY METHOD 11/17/2024 4:29 PM [facility] CO2 25 21 - 32 mmol/L LAB CHEMISTRY METHOD 11/17/2024 4:29 PM EST [facility] Anion Gap 9 3 - 11 LAB CHEMISTRY METHOD 11/17/2024 4:29 PM [facility] Glucose 114(H) 70 - 100 mg/dL LAB CHEMISTRY METHOD 11/17/2024 4:29 PM [facility] BUN 10 5 - 25 mg/dL LAB CHEMISTRY METHOD 11/17/2024 4:29 PM [facility] Creatinine 0.97 0.50 - 1.10 mg/dL LAB CHEMISTRY METHOD 11/17/2024 4:29 PM EST [facility] eGFR 63 >=60 mL/min/1. 73m2 LAB CHEMISTRY METHOD 11/17/2024 4:29 PM [facility] Comment:Calculation based on the??Chronic Kidney Disease Epidemiology Collaboration (CKD-EPI) equation refit??without adjustment for race. BUN/Creatinine Ratio 10.3 LAB CHEMISTRY METHOD 11/17/2024 4:29 PM [facility] Calcium 9.0 8.5 - 10.5 mg/dL LAB CHEMISTRY METHOD 11/17/2024 4:29 PM EST [facility] Blood Venous blood specimen / Unknown Venipuncture / Unknown 11/17/2024 3:02 PM EST 11/17/2024 3:55 PM EST Ralph Gallegos MD LAB BLOOD ORDERABLES Rose Marie l Result Performing Organization Address [facility]/ZIP Co de Phone Number [facility] [address] [place] [address], [place] [phone] * ECG 12 lead (11/17/2024 2:49 PM EST) Only the most recent of2 resultswithin the time period is included. Ventricular Rate ECG 77 BPM GEMUSE Atrial Rate 77 BPM GEMUSE P-R Interval 152 ms GEMUSE QRS Duration 90 ms GEMUSE Q-T Interval 364 ms GEMUSE QTc 411 ms GEMUSE P Wave [place] 34 degrees GEMUSE R [place] 0 degrees GEMUSE T [place] 52 degrees GEMUSE ECG Interpretation Normal sinus rhythm Normal ECG When compared with ECG of 02-APR-2021 17:23, No significant change was found Confirmed by Diomedes VILLATORO YUFENG ([id number]) on 11/17/2024 7:53:17 PM GEMUSE 11/17/2024 2:49 PM EST 11/17/2024 7:53 PM EST Ralph Gallegos MD ECG ORDERABLES Final Res ult Performing Organization Address [facility]/ZIP Co de Phone Number GEMUSE * (ABNORMAL) Complete blood count (11/17/2024 5:49 AM EST) WBC 11.0(H) 4.0 - 10.5 K/[facility] HEMETOLOGY METHOD 11/17/2024 6:05 AM EST [facility] RBC 3.55(L) 4.20 - 5.40 M/[facility] HEMETOLOGY METHOD 11/17/2024 6:05 AM EST [facility] Hemoglobin 11.7(L) 12.5 - 16.0 g/dL LAB HEMETOLOGY METHOD 11/17/2024 6:05 AM [facility] Hematocrit 34.3(L) 37.0 - 47.0 % LAB HEMETOLOGY METHOD 11/17/2024 6:05 AM [facility] MCV 96.4 78.0 - 100.0 FL LAB HEMETOLOGY METHOD 11/17/2024 6:05 AM EST [facility] MCH 32.9 25.0 - 33.0 pcg LAB HEMETOLOGY METHOD 11/17/2024 6:05 AM [facility] MCHC 34.2 32.0 - 36.0 g/dL LAB HEMETOLOGY METHOD 11/17/2024 6:05 AM [facility] RDW 13.5 12.1 - 16.2 % LAB HEMETOLOGY METHOD 11/17/2024 6:05 AM EST [facility] Platelets 146(L) 150 - 450 K/mcL LAB HEMETOLOGY METHOD 11/17/2024 6:05 AM EST [facility] MPV 7.7 7.4 - 11.4 FL LAB HEMETOLOGY METHOD 11/17/2024 6:05 AM EST [facility] Blood Venous blood specimen / Unknown Venipuncture / Unknown 11/17/2024 5:49 AM EST 11/17/2024 5:57 AM EST us Agusto Cain MD LAB BLOOD ORDERABLES Final R esult [facility] [address] [place] [id number], * XR Pelvis 1-2 Views (11/16/2024 4:05 [...] on 11/16/2024 4:56 PM. Workstation Name - [id number] -------- FINAL REPORT -------- Dictated By: Roland Vazquez Dictated Date: 11/16/2024 16:50 ET Assigned Physician: Roland Vazquez Reviewed and Electronically Signed By: Roland Vazquez Signed Date: 11/16/2024 16:56 ET Workstation ID: [id number] Transcribed By: Self Edit Transcribed Date: 11/16/2024 [...] Vazquez on 11/16/2024 4:56 PM.Workstation Name - [id number] -------- FINAL REPORT -------- Dictated By: Roland Vazquez Dictated Date: 11/16/2024 16:50 ET Assigned Physician: Roland Vazquez Reviewed and Electronically Signed By: Roland Vazquez Signed Date: 11/16/2024 16:56 ET Workstation ID: [id number] Transcribed By: Self Edit Transcribed Date: 11/16/2024 [...] on 11/17/2024 11:30 AM. Workstation Name - [id number] -------- FINAL REPORT -------- Dictated By: Roland Driver Dictated Date: 11/17/2024 11:20 ET Assigned Physician: Roland Driver Reviewed and Electronically Signed By: Roland Driver Signed Date: 11/17/2024 11:30 ET Workstation ID: [id number] Transcribed By: Self Edit Transcribed Date: 11/17/2024 [...] Driver on 11/17/2024 11:30 AM.Workstation Name - [id number] -------- FINAL REPORT -------- Dictated By: Roland Driver Dictated Date: 11/17/2024 11:20 ET Assigned Physician: Roland Driver Reviewed and Electronically Signed By: Roland Driver Signed Date: 11/17/2024 11:30 ET Workstation ID: [id number] Transcribed By: Self Edit Transcribed Date: 11/17/2024 [...] LAB CHEMISTRY METHOD 10/16/2024 3:08 PM EST [facility] Blood Venous blood specimen / Unknown Venipuncture / Unknown 10/16/2024 11:37 AM EST 10/16/2024 11:37 AM EST Rita Grimm NP LAB BLOOD ORDERABLES Final Re sult [facility] [address] [place] [address], [place] [phone] * (ABNORMAL) Comprehensive metabolic panel (10/16/2024 11:37 AM EST) Pathologist [facility] Sodium 132(L) 135 - 145 mmol/L LAB CHEMISTRY METHOD 10/16/2024 2:33 PM [facility] Potassium 3.6 3.5 - 5.1 mmol/L LAB CHEMISTRY METHOD 10/16/2024 2:33 PM [facility] Chloride 99 98 - 107 mmol/L LAB CHEMISTRY METHOD 10/16/2024 2:33 PM [facility] CO2 26 24 - 32 mmol/L LAB CHEMISTRY METHOD 10/16/2024 2:33 PM [facility] Anion Gap 7 5 - 14 LAB CHEMISTRY METHOD 10/16/2024 2:33 PM [facility] Glucose 85 70 - 99 mg/dL LAB CHEMISTRY METHOD 10/16/2024 2:33 PM [facility] BUN 13 7 - 17 mg/dL LAB CHEMISTRY METHOD 10/16/2024 2:33 PM [facility] Creatinine 0.80 0.50 - 1.00 mg/dL LAB CHEMISTRY METHOD 10/16/2024 2:33 PM [facility] eGFR 79 >=60 mL/min/1. 73m2 LAB CHEMISTRY METHOD 10/16/2024 2:33 PM [facility] Comment:Calculation based on the??Chronic Kidney Disease Epidemiology Collaboration (CKD-EPI) equation refit??without adjustment for race. BUN/Creatinine Ratio 16.3 12.0 - 20.0 LAB CHEMISTRY METHOD 10/16/2024 2:33 PM [facility] Calcium 8.6 8.4 - 10.2 mg/dL LAB CHEMISTRY METHOD 10/16/2024 2:33 PM [facility] AST (SGOT) 16 5 - 40 unit/L LAB CHEMISTRY METHOD 10/16/2024 2:33 PM [facility] ALT (SGPT) 11 7 - 52 unit/L LAB CHEMISTRY METHOD 10/16/2024 2:33 PM [facility] Alkaline Phosphatase 93 34 - 104 unit/L LAB CHEMISTRY METHOD 10/16/2024 2:33 PM [facility] Total Protein 6.7 6.4 - 8.5 g/dL LAB CHEMISTRY METHOD 10/16/2024 2:33 PM [facility] Albumin 3.9 3.5 - 5.0 g/dL LAB CHEMISTRY METHOD 10/16/2024 2:33 PM [facility] Total Bilirubin 1.4(H) 0.3 - 1.0 mg/dL LAB CHEMISTRY METHOD 10/16/2024 2:33 PM [facility] Blood Venous blood specimen / Unknown Venipuncture / Unknown 10/16/2024 11:37 AM EST 10/16/2024 11:37 AM EST us Rita Grimm NP LAB BLOOD ORDERABLES Final Re sult [facility] [address] [place] [address], [place] [phone] * Hepatitis C Screening (09/18/2018) Hepatitis C Screening abstracted Historical Provider HEALTH MAINTENANCE Final Result * Colonoscopy (09/16/2018) Colonoscopy no interpretation , abstracted Anatomical Region Laterality Modality Other Historical Provider HEALTH MAINTENANCE Final Result from Last 3 Months or Most Recently Relevant to Health Maintenance Insurance [employer] MEDICARE ADVANTAGE [facility] Advance Directives Documents on File Type Date Recorded Patient Cotton Header Expl anation Health Care Decision (hx) 05/17/2020 [...] currently active code status orders. Care Teams Senior Health Educator Relationship Specialty Start Date End Date Audelia Messer MD [address] [place] [address] PCP - General Internal Medicine 10/20/24
--- OUTSIDE RECORDS SUMMARY | 2025-01-06 13:50 | XMS_ITS | Clinical Summary ---
Author Organization [facility] Address [address] [place] [address] Phone Care Team Providers Care Nursing Professor Name Role Phone Rajesh Lane MD Primary Care Provider [phone] [facility] [phone] Reason for Visit and Chief Complaint Established Patient Plan of Treatment Pending Tests Order Diagnosis Results Due Ordering P rocurtder Follow Up - Appointment LELE Talbot al primary osteoarthritis, right hip 07/18/23 Brigitte DENIS Last Documented On 3 9:28AM ; [facility] In House X-Rays - X-Rays Hip Unilateral, right, 2-3 views ([id number]) Unilateral primary osteoarthritis, right hip 07/20/23 Brigitte DENIS Last Documented On 3 9:28AM ; [facility] Assessments Includes: Assessments from this encounter No Assessments Recorded Medical Equipment - Implanted Devices Includes: Current Devices No Medical Equipment Recorded Medications Includes: Medications discussed during this encounter and other current Medications Current Medications (continue as prescribed) Tylenol 325 MG Oral Tablet 05/18/2021 Provider: Diagnosis: Last Documented On 1 7:53AM By Linda Orourke ; [facility] Medications Administered Includes: Administered Medications from this encounter No Administered Medications Recorded Vital Signs Includes: Vital Signs from this encounter Vital Name 07/18/2023 10:25A Blood Pressure Sitting (mmHg) 136/69 Pulse Rate-Sitting (bpm) 76 Temp-Temporal 97.9 Height (in) 65 Weight (lb) 147 Body Mass Index 24.5 Body Surface Area 1.7 Oxygen Saturation (%) 98 Last Documented: On 07/18/2023 10:26A M ; [facility] Results Includes: Results discussed during this encounter [...] pain for which she sees [facility] and will get injections into her right [...] is already a patient of [facility] which includes Dr. Cain who is a [...] Check-Out Time Diagnosis Established Patient Brigitte DENIS [facility], 07/18/20 23 8:20AM 9:19AM Insurance Includes: Active Insurance Policies Plan Name Member ID Group # Subscriber Relationship Effect miguel Dates 1 - [employer] [id number] Julia Tellez 10/07/2022 - Un known 2 - [facility] [id number] Julia Lomax Self Clinical Notes Includes: Clinical Notes from this encounter * Progress note Date Encounter Last Documented by 07/18/2023 Established Patient Last joni garduno on 07/18/2023; 9:28 AM, Brigitte DENIS; [facility], Plan StartCited - Unilateral primary osteoarthritis, right hip Follow Up/Appointment: PRN In House X-Rays/X-Rays: Hip Unilateral, right, 2-3 views ([id number]) EndCited User Defined 4 Chief complaint follow-up [...] for which she sees [facility] and will get injections into her right [...] already a patient of [facility] which includes Dr. Cain who is a total joint surgeon. Patient is to schedule an appointment with their office for treatment of her right hip arthritis and possible discussion of right total hip arthroplasty. The patient understands and agrees with this plan.
--- OUTSIDE RECORDS SUMMARY | 2025-01-06 13:50 | XMS_ITS ---
Care Plan - [facility] Created on: January 06, 2025 Julia Lomax : 1955 Sex: Female Author Organization [facility] Address [address] [place] [address] Phone Care Team Providers Care Probation And Patrol Agent Name Role Phone Rajesh Lane MD Primary Care Provider [phone] [facility] Unavailable [phone]
--- OUTSIDE RECORDS SUMMARY | 2025-01-06 13:50 | XMS_ITS | Clinical Summary ---
Author Organization [facility] Address [address] [place] [address] Phone Care Team Providers Care Strategy Manager Name Role Phone Rajesh Lane MD Primary Care Provider [phone] [facility] Unavailable [phone] Reason for Visit and Chief Complaint Established Patient Plan of Treatment Pending Tests Order Diagnosis Results Due Ordering P rovider Follow Up - Appointment PRN Displaced intertrochanteric fracture of right femur, init 12/19/21 Caden Navarro PA-C Last Documented On 2 9:38AM ; [facility] In House X-Rays - X-Rays Hip Unilateral, right, 2-3 views ([id number]) Displaced intertrochanteric fracture of right femur, init 12/21/21 Caden Navarro PA-C Last Documented On 2 9:38AM ; [facility] Assessments Includes: Assessments from this encounter No Assessments Recorded Medical Equipment - Implanted Devices Includes: Current Devices No Medical Equipment Recorded Medications Includes: Medications discussed during this encounter and other current Medications Current Medications (continue as prescribed) Tylenol 325 MG Oral Tablet 05/18/2021 Provider: Diagnosis: Last Documented On 1 7:53AM By Linda Orourke ; [facility] Medications Administered Includes: Administered Medications from [...] Time Diagnosis Established Patient Caden RODRIGUEZ [facility] 12/20/19 22 8:40AM 9:29AM Insurance Includes: Active Insurance Policies Plan Name Member ID Group # Subscriber Relationship Effect miguel Dates 1 - [employer] [id number] Julia Lomax Self 10/07/2022 - Un known 2 - [facility] [id number] Julia Lomax Self Clinical Notes Includes: Clinical Notes from this encounter No Clinical Notes Recorded
--- OUTSIDE RECORDS SUMMARY | 2025-01-06 13:50 | XMS_ITS | Clinical Summary ---
Author Organization [facility] Address [address] [place] [address] Phone Care Team Providers Care Library Technical Assistant Name Role Phone Rajesh Lane MD Primary Care Provider [phone] [facility] Unavailable [phone] Reason for Visit and Chief Complaint Established Patient Plan of Treatment 1. Continue with physical therapy for gait training full weight right lower leg as well as range of motion and strengthening exercises right wrist. 2. Patient given a Velcro wrist splint for support of her right wrist. 3. Return to office in 6 weeks. - Last Documented On 08/01/2021 11:55AM ; [facility] [place] P[place] Tests Order Diagnosis Results Due Ordering Mark hernandez Follow Up - Appointment 6 weeks Colles' fracture of r radius, subs for clos fx w routn heal 08/01/21 Luke Zimmer MD Last Documented On 1 11:55AM ; [facility] Assessments Includes: Assessments from this encounter No Assessments Recorded Medical Equipment - Implanted Devices Includes: Current Devices No Medical Equipment Recorded Medications Includes: Medications discussed during this encounter and other current Medications Current Medications (continue as prescribed) Tylenol 325 MG Oral Tablet 05/18/2021 Provider: Diagnosis: Last Documented On 1 7:53AM By Linda Orourke ; [facility] [place] Medications Administered Includes: Administered Medications from this encounter No Administered Medications Recorded Vital Signs Includes: Vital Signs from this encounter Vital Name 08/01/2021 09:57A Height (in) 64 Weight (lb) 142 Body Mass Index (kg/m2) 24.4 Body Surface Area (m2) 1.7 Last Documented: On 08/01/2021 9:57AM ; [facility] Results Includes: Results discussed during this encounter No Results Recorded For Specified Dates History of Present Illness Includes: History of Present Illness from this encounter HPI SB NINO is a 66 year old female. - Allergy list reviewed - Medication reconciliation performed She underwent cannulated screw fixation of the impacted valgus subcapital right femur fracture on 04/03/2021. She also went closed reduction of a distal right radius fracture with casting. She is here today for follow-up. Social History No Social History Recorded - Smoking Status Unknown Medical History Includes: Medical History addressed during this encounter No Medical History Recorded Family History Includes: Family History addressed during this encounter No Family History Recorded Review of Systems Includes: Review of Systems from this encounter 1. Reduction and fixation of impacted subcapital right femur fracture is evident with three cannulated screws. 2. Healed fracture distal right radius with mild shortening. Mental Status Includes: Mental Status from this encounter No Mental Status Recorded Functional Status Includes: Functional Status from this encounter No Functional Status Recorded Physical Exam Includes: Physical Exam from this encounter Allergies Includes: Active Allergies No Known Allergies Encounters Encounter Provider Location Date Check-In Time Check-Out Time Diagnosis Established Patient Luke Zimmer MD [facility] 08/01/20 21 9:56AM 10:52AM Insurance Includes: Active Insurance Policies Plan Name Member ID Group # Subscriber Relationship Effect miguel Dates 1 - [email or web address] [id number] Sb Nino Self 10/07/2022 - Un known 2 - [facility] [id number] Sb Nino Self Clinical Notes Includes: Clinical Notes from this encounter No Clinical Notes Recorded
[2025-01-06 14:23] LABS: Alanine Aminotransferase 7 U/L (0-31); Albumin Level 3.7 g/dL (3.5-5.0); Alkaline Phosphatase 85 U/L (39-117); Anion Gap 9 (12-20); Aspartate Amino Transferase 23 U/L (5-31); Bilirubin Total 0.7 mg/dL (0.0-1.0); Blood Urea Nitrogen 10 mg/dL (9-16); Calcium 9.1 mg/dL (8.4-10.2); Carbon Dioxide 26 mmol/L (22-29); Chloride 103 mmol/L (96-108); Cholesterol 177 mg/dL (<200); Estimated Glomerular Filt Rate > 60; Glucose Fasting 85 mg/dL (60-99); HDL Cholesterol 63 mg/dL (>40); LDL Cholesterol Calculated 101 mg/dL (<100); Potassium 3.9 mmol/L (3.3-5.1); Sodium 134 mmol/L (135-145); Total Protein 7.5 g/dL (6.5-8.0); Triglycerides 67 mg/dL (<150); Vitamin D 25-OH Total 28.8 ng/mL (>30)
== END 2025-01-06 10:16 | disposition home or self-care (01) ==
LOC: HO.HMGCLDS 10:15
PROVIDERS: PCP Internal Medicine; Visit Provider Internal Medicine
DX: R68.89 Other general symptoms and signs (principal); R53.83 Other fatigue; M19.90 Unspecified osteoarthritis, unspecified site; Z78.0 Asymptomatic menopausal state; Z87.81 Personal history of (healed) traumatic fracture; Z13.220 Encounter for screening for lipoid disorders; Z13.1 Encounter for screening for diabetes mellitus; Z13.820 Encounter for screening for osteoporosis
CPT/HCPCS: 36415; 80053; 80061; 82306; 84443; 96127; 99212

== ENCOUNTER 2025-04-19 08:37 | Outpatient (REF) | payer MEDICARE, SELFPAY ==
--- OUTSIDE RECORDS SUMMARY | 2021-10-21 06:30 | XMS_ITS | Continuity of Care Document ---
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 Immunization Series Date Given Administered By Site Reaction Lot Number [id number] Code Drug Party Host/Hostess Status Comments Source COVID-19 (MODERNA), MRNA, LNP-S, PF, 100 MCG OR 50 MCG DOSE 3 2021 207 complet ed MOD; [id number]; 2 [facility] COVID-19 (MODERNA), MRNA, LNP-S, PF, 100 MCG/0.5 ML DOSE 2 2020 207 complet ed MOD; [id number]; 1 [facility] COVID-19 (MODERNA), MRNA, LNP-S, PF, 100 MCG/0.5 ML DOSE 1 2020 207 complet ed MOD; [id number]; 1 [facility]
--- OUTSIDE RECORDS SUMMARY | 2025-04-19 08:42 | XMS_ITS | Patient Health Record ---
Author Organization [facility] Address [address] [place] [address] Care Team Providers Care Digital Press Operator Name Role Phone Wilma Goldstein Primary Care Provider Yannick Chun Unavailable [phone] Reason For Referral No Information Problems Problem Type SNOMED Code ICD Code Onset Dates Problem Status W/U Status Risk Notes Problem Arthralgia (55291929) Arthralgia (719.40) Active confirmed Problem Disorder of joint of ankle and/or foot (584150963) Arthritis - Degenerative (719.97) Active confirmed Problem Ingrowing nail (768761897) Ingrowing Nail (703.0) Active confirmed Problem Neuralgia - Neuritis (729.2) Active confirmed Problem Onychomycosis (654942865) Onychomycosis (110.1) Active confirmed Problem Pain in limb (57080343) Pain in Limb (729.5) Active confirmed Plan Of Treatment Pending Test Test Name Order Date [id number] NAIL, 6 OR MORE 09/23/2013 [id number] NAIL, 6 OR MORE 12/28/2013 [id number] Plate 12/28/2013 Insurance Providers Payer Name Payer Address Payer Phone Subscriber Number Group Number Insured Name Patient Relationship to Insured Coverage Start Date Coverage End Date [employer] [address] [place] [address] [id number] Julia Lomax Self - patient is the insured 3 Medical (General) History Medical History History ICD Code Arthritis back, hip, knee pain headaches/migraines measles thyroid disorder
--- OUTSIDE RECORDS SUMMARY | 2025-04-19 08:42 | XMS_ITS | Clinical Summary ---
Author Organization [facility] Address [address] [place] [address] Care Team Providers Care Washer Cutter Name Role Phone Unavailable Primary Care Provider [...] 0 2021 Active ergocalciferol (VITAMIN D2) capsule 10290 units Take 1 capsule by mouth once [...] 63 02/25/2024 9:07 AM EDT Temperature 36.1 C (96.9 F) 02/25/2024 8:45 AM EDT Respiratory Rate 15 02/25/2024 9:07 AM EDT [...] 1 - PCV) 2018 Influenza Vaccine (#1) 2025 RSV Adult > 60+ Yrs or Pregn ant (1 - 1-dose 75+ series) 2028 Hepatitis B Vaccines Aged Out No long er eligible based on patient's age to complete this topic RSV Ped < 20 months Aged Out No longe r eligible based on patient's age to complete this topic
--- OUTSIDE RECORDS SUMMARY | 2025-04-19 08:43 | XMS_ITS | Encounter Summary ---
Author Organization [facility] Address [address] [place] [address] Care Team Providers Care Division Toll Wire Chief Name Role Phone Audelia Messer MD Primary Care Provider [phone] Encounter Details Date Type Department Care Team [...] as of this encounter Plan of Treatment Not on file documented as of this encounter Goals Goal [...] hip documented in this encounter Care Teams Division Toll Wire Chief Relationship Specialty Start Date End Date Audelia Messer MD [address] [place] [address] PCP - General Internal Medicine 10/20/24 documented as of this encounter
--- OUTSIDE RECORDS SUMMARY | 2025-04-19 08:43 | XMS_ITS | Patient Health Record ---
Author Organization [facility] Address [address] [facility] [address] [place] [address] Care Team Providers Care Scalder Name Role Phone Wilma Goldstein Primary Care Provider MIGUEL ANGEL Cuevas Unavailable [phone] CARLITO ERNST Unavailable [phone] Allergies Allergen (clinical drug ingredient) Drug/Non Drug Allergy documented on EMR Reaction Allergy Type Onset Date Status oxycodone Oxycodone passed out Drug Allergy Active Results Component Value Reference Range Notes Anaerobic/Aerobic/Gram Stain -[id number] Reviewed date:04/13/2025 07:38:44 AM Interpretation: Performing Lab:[facility], [address], [address], [place], Phone - [phone], Director - [facility] Notes/Report: Clinical Information:SRC: SOURCE NOT INDICATED Clinical Information:SRC: SOURCE NOT INDICATED Clinical Information:SRC: SOURCE NOT INDICATED Clinical Information:SRC: SOURCE NOT INDICATED Anaerobic Culture Final report Aerobic Culture Final report Gram Stain Result Final report Result 1 No anaerobic gr owth in 72 hours. Result 1 Methicillin - resistant Staphylococcus aureus Based on resistance to oxacillin this isolate would be resistant to all currently available beta-lactam antimicrobial agents, with the exception of the newer cephalosporins with anti-MRSA activity, such as Ceftaroline Heavy growth Result 2 Klebsiella pneumoniae Modera te growth Antimicrobial Susceptibility S = Susceptible; I = Intermediate; R = Resistant P = Positive; N = Negative MICS are expressed in micrograms per mL Antibiotic RSLT#1 RSLT#2 RSLT#3 RSLT#4 Amoxicillin/Clavulanic Acid S Ampicillin R Cefazolin S Cefepime S Cefoxitin S Cefpodoxime S Ceftriaxone S Ciprofloxacin S S Clindamycin S Ertapenem S Erythromycin R Gentamicin S S Levofloxacin S S Linezolid S Meropenem S Oxacillin R Penicillin R Piperacillin/Tazobactam S Rifampin S Tetracycline S S Tobramycin S Trimethoprim/Sulfa S S Vancomycin S Result 1 Rare white bloo d cells. Result 2 Many gram posit miguel cocci. Anaerobic/Aerobic/Gram Stain -[id number] Reviewed date:02/23/2025 07:36:54 AM Interpretation: Performing Lab:[facility] [address], [address], [place], Phone - [phone], Director - [facility] Notes/Report: Clinical Information:SRC: Clinical Information:SRC: Clinical Information:SRC: Clinical Information:SRC: Anaerobic Culture Final report Aerobic Culture Final report Gram Stain Result Final report Result 1 No anaerobic gr owth in 72 hours. Result 1 Proteus mirabilis Heavy grow th Result 2 Klebsiella oxytoca Moderate growth Result 3 Methicillin - resistant Staphylococcus aureus Based on resistance to oxacillin this isolate would be resistant to all currently available beta-lactam antimicrobial agents, with the exception of the newer cephalosporins with anti-MRSA activity, such as Ceftaroline Heavy growth Antimicrobial Susceptibility S = Susceptible; I = Intermediate; R = Resistant P = Positive; N = Negative MICS are expressed in micrograms per mL Antibiotic RSLT#1 RSLT#2 RSLT#3 RSLT#4 Amoxicillin/Clavulanic Acid S S Ampicillin S R Cefazolin I Cefepime S S Cefoxitin S S Cefpodoxime S S Ceftriaxone S S Ciprofloxacin S S S Clindamycin S Ertapenem S S Erythromycin R Gentamicin S S S Levofloxacin S S S Linezolid S Meropenem S S Oxacillin R Penicillin R Piperacillin/Tazobactam S Rifampin S Tetracycline R S S Tobramycin S S Trimethoprim/Sulfa S S S Vancomycin S Result 1 No white blood cells seen. Result 2 Moderate number of gram positive cocci. 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 Problem 19424435 Polyneuropathy (G62.9) Active confirmed Problem 023579761 Ulcer of left foot with fat layer exposed (L97.522) Active confirmed Problem 357904900 Polyneuropathy associated with underlying disease (G63) Active confirmed Problem 759802649 Ulcer of right foot, limited to breakdown of skin (L97.511) Active confirmed Problem 997129642 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) Active confirmed Problem 27684597 Vitamin D deficiency (E55.9) Active confirmed Problem 710012617 Deformity of metatarsal bone of right foot (M21.961) Active confirmed Problem 99517358283333038 Skin ulcer of left heel with fat layer exposed (L97.422) Active confirmed Problem 098983260 Pressure injury of right foot, 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) Active confirmed Vital Signs Heart Rate 87 /min 04/07/2025 Temperature 96.9 degrees Fahrenheit 04/07/2025 Respiratory Rate 16 /min 04/07/2025 Blood pressure diastolic 56 mm Hg 07/13/2024 Height 66 in 04/13/2025 Blood pressure systolic 108 mm Hg 07/13/2024 Weight 144 lbs 04/13/2025 BMI 23.24 kg/m2 04/13/2025 Procedures Procedure Date Ordered Date Performed Result Body Sit e Debridement ulcer subq first 20sq cm 10/12/2024 N/A I&D superficial 03/04/2025 N/A Encounters Encounter Location Date Provider Diagnosis [facility] [address] [address] 05/12/2024 MIGUEL ANGEL AMADA [facility] [address] [address] 07/13/2024 MIGUEL ANGEL AAMDA [facility] [address] [address] 12/02/2024 MIGUEL ANGEL AMADA Right foot pain M79.671 and Gait abnormality R26.9 [facility] [address] [address] 09/22/2024 MIGUEL ANGEL AMADA Pressure injury of right foot, stage 3 L89.893 [facility] [address] [address] 10/12/2024 MIGUEL ANGEL AMADA Pressure injury of right foot, stage 3 L89.893 ; Cellulitis of right foot L03.115 ; Alcohol-induced polyneuropathy G62.1 and Post-traumatic osteoarthritis of right hip M16.51 [facility] [address] [address] 12/14/2024 CARLITO ERNST Abscess of right foot L02.611 ; Pressure injury of right foot, stage 3 L89.893 ; Cellulitis of right foot L03.115 and Alcohol-induced polyneuropathy G62.1 [facility] [address] 12/23/2024 MIGUEL ANGEL AMADA Deformity of metatarsal bone of right foot M21.961 and Right foot pain M79.671 [facility] [address] 12/31/2024 MIGUEL ANGEL AMADA Deformity of metatarsal bone of right foot M21.961 ; Right foot pain M79.671 and Gait abnormality R26.9 [facility] [address] 01/28/2025 MIGUEL ANGEL AMADA Deformity of metatarsal bone of right foot M21.961 ; Right foot pain M79.671 and Gait abnormality R26.9 [facility] [address] 02/15/2025 MIGUEL ANGEL AMADA Cellulitis of right foot L03.115 and Pressure injury of right foot, stage 3 L89.893 [facility] [address] 03/04/2025 MIGUEL ANGEL AMADA Cellulitis of right foot L03.115 ; Cutaneous abscess of right foot L02.611 ; Deformity of metatarsal bone of right foot M21.961 and Skin lesion of left lower extremity L98.9 [facility] [address] 03/24/2025 MIGUEL ANGEL AMADA Deformity of metatarsal bone of right foot M21.961 and Pressure injury of right foot, stage 3 L89.893 [facility] [address] 04/01/2025 MIGUEL ANGEL AMADA Deformity of metatarsal bone of right foot M21.961 and Pressure injury of right foot, stage 3 L89.893 [facility] [address] [address] 04/07/2025 MIGUEL ANGEL AMADA Cellulitis of right foot L03.115 and Postoperative wound dehiscence, initial encounter T81.31XA [facility] [address], [place] 04/13/2025 MIGUEL ANGEL AMADA Postoperative wound dehiscence, subsequent encounter T81.31XD and Deformity of metatarsal bone of right foot M21.961 [facility] [address], [place] 05/12/2024 MIGUEL ANGEL AMADA [facility] [address], [place] 07/13/2024 MIGUEL ANGEL AMADA [facility] [address], [place] 09/17/2024 MIGUEL ANGEL AMADA [facility] [address], [place] 09/22/2024 MIGUEL ANGEL AMADA [facility] [address], [place] 10/08/2024 MIGUEL ANGEL AMADA [facility] [address], [place] 10/12/2024 MIGUEL ANGEL AMADA [facility] [address], [place] 10/20/2024 MIGUEL ANGEL AMADA [facility] [address], [place] 12/01/2024 MIGUEL ANGEL AMADA [facility] [address], [place] 12/14/2024 MIGUEL ANGEL AMADA [facility] [address], [place] 12/14/2024 CARLITO ERNST [facility] [address] [place] [address] 01/28/2025 MIGUEL ANGEL AMADA [facility] [address], [place] 02/15/2025 MIGUEL ANGEL YBARRA [facility] [address] [place] [address] 03/05/2025 MIGUEL ANGEL YBARRA [facility] [address] [place] [address] 03/22/2025 MIGUEL ANGEL YBARRA [facility] [address] [place] [address] 03/24/2025 MIGUEL ANGEL YBARRA [facility] [address] [place] [address] 04/01/2025 MIGUEL ANGEL YBARRA [facility] [address] [place] [address] 04/05/2025 MIGUEL ANGEL YBARRA Assessments Encounter Date Diagnosis (ICD Code) Assessment Notes Treatment Notes Treatment Clinical Notes Section Notes 09/22/2024 Pressure injury of right foot, stage [...] Pt to follow up in 1 week. 01/28/2025 Right foot pain (ICD-10 - M79.671) 01/28/2025 Deformity of metatarsal bone of right foot (ICD-10 - M21.961) Ms. Lomax was examined and evaluated today. She has a chronic callus that comes and goes to the right 5th met head region. No evidence of underlying ulceration or infection today. I debrided the callus tissue using a sterile 15 blade down to healthy epithelial tissue. She tolerated this well. I gave her some felt padding to use for offloading. She has some weakness and inversion of this foot and also tailors bunionette. This all creates the pressure. She does not want any more invasive procedures at this time. She will continue with conservative measures for now and follow up as needed. 02/15/2025 Cellulitis of right foot (ICD-10 - L03.115) 02/15/2025 Pressure injury of right foot, stage 3 (ICD-10 - L89.893) Patient examined and evaluated. She has recurrence of the right sub 5th met head callus with pain and localized erythema. There is an underlying ulceration present without undermining or probing. I debirded this today down to a healthy bleeding base. Wound cultures were taken. I started her on bactrim suspension once a day for the next 7 days. Will change depending on culture results. I applied offloading padding and a bandage. I advised she do this daily. I will see her back in 2-3 weeks or sooner if needed. I encouraged her to call if she has any questions or concerns. 03/04/2025 Cutaneous abscess of right foot (ICD-10 - L02.611) 03/04/2025 Cellulitis of right foot (ICD-10 - L03.115) Patient examined and evaluated. She has recurrent issues to the sub right 5th metatarsal head region. She presents with a superficial cutaneous abscess to this area with active cellulitis. I did perform an incision and drainage today. I also debrided the area. There is a superficial pressure ulceration. She had cultures taken two weeks ago that were sensitive to bactrim. I restarted the bactrim suspension again for another 7 days. I advised she continue to cleansed the area and keep it bandaged. I again talked with her about the floating osteotomy and performing this more distally to offload this area better since she continues to have break down. She is wanting to move forward with this. We will check with her insurance and see about scheduling in the future. 03/24/2025 Deformity of metatarsal bone of right foot (ICD-10 - M21.961) 04/01/2025 Deformity of metatarsal bone of right foot (ICD-10 - M21.961) 04/07/2025 Cellulitis of right foot (ICD-10 - L03.115) 04/07/2025 Postoperative wound dehiscence, initial encounter (ICD-10 - T81.31XA) Patient examined and evaluated. She is 1 week s/p floating right 5th metatarsal distal osteotomy to offload a chronic plantar sub 5th ulceration. She has had mild dehiscence at the small dorsal incision site and has cellulitis. She is on bactrim for the past two day and has noticed improvement. I did take a wound culture today to make sure we have full coverage. The plantar ulceration has almost completely healed at this point. I applied betadine over the dorsal incision area and a padded sterile bandage. I advised she continue to do this and keep the foot dry. Continue elevating and icing and taking it easy. She should finish the abx. I will re-evaluate in 1 week. I encouraged her to call if she has any additional questions or concerns. 04/13/2025 Deformity of metatarsal bone of right foot (ICD-10 - M21.961) 04/13/2025 Postoperative wound dehiscence, subsequent encounter (ICD-10 - T81.31XD) Patient examined and evaluated. She is 2 weeks out from her MIS floating metatarsal ostoeotmy to the distal right 5th metatarsal. She had some mild dehiscence of the incision and cellulitis last week. Cultures were taken and came back all sensitive to the bactrim. She just finished the antibiotic. The erythema and edema has resolved. The area of dehiscene is smaller and healing nicely. I advised she cover this when she is getting the foot wet, she otherwise can allow it to dry out. The sub right 5th ulceration has healed and there is minimal callus. Her pain is improving greatly. I want her to continue to elevate and ice for swelling control and continue to take it easy. I will see her back in 4-6 weeks to assess bone healing with radiographs. I encouraged her to call in the meantime with any questions or concerns. 04/01/2025 Pressure injury of right foot, stage 3 (ICD-10 - L89.893) 03/24/2025 Pressure injury of right foot, stage 3 (ICD-10 - L89.893) Patient examined and evaluated. She has chronic callus build up sub right 5th MTPJ that has created a superficial ulceration. This is painful for her. No signs of acute infection on examination. She has residual deformity to the 5th metatarsal. She is scheduled for a more distal MIS osteotomy next week. I cleaned the ulceration for her and applied a padded bandage. I advised she try to stay off the foot and keep the area clean. I will see her next week for the procedure. The skin lesion has gone away to the left brownlee and therefore the biopsy is not needed. I encouraged her to call if she has any additional questions or concenrs before next week. 03/04/2025 Deformity of metatarsal bone of right foot (ICD-10 - M21.961) 01/28/2025 Gait abnormality (ICD-10 - R26.9) 12/14/2024 Pressure injury of right foot, stage 3 (ICD-10 - L89.893) 12/31/2024 Gait abnormality (ICD-10 - R26.9) 10/12/2024 Alcohol-induced polyneuropathy (ICD-10 - G62.1) 10/12/2024 Post-traumatic osteoarthritis of right hip (ICD-10 - M16.51) 03/04/2025 Skin lesion of left lower extremity (ICD-10 - L98.9) Patient has a nonraised pigmented skin lesion to the left anterior lower brownlee region. This can be tender for her. She has not noticed any changes in it over the three months of having it. It is peculiar in appearance with a purple like halo and brown pigmentation in the middle. I discussed the option of a skin biopsy in the future to get a better idea of what it could be for her. She is agreeable and this can be done at the time of the right foot procedure. Will also check this with insurance. 12/14/2024 Cellulitis of right foot (ICD-10 - [...] X ray : Foot, right 3v 12/23/2024 I&D superficial 03/04/2025 Debridement ulcer subq first 20sq cm 03/2025 [...] skin lesion 10/28/2020 Trim skin lesion 05/17/2021 Next Appt Details Provider Name:MIGUEL ANGEL YBARRA, 05/25/2025 09:30:00 AM, [address] [facility] [address], [place], [address], Insurance Providers Payer Name Payer Address Payer Phone Subscriber Number Group Number Insured Name Patient Relationship to Insured Coverage Start Date Coverage End Date [employer] [address] [place] [phone] [id number] Julia Lomax Self - patient is the [...] IPJ arthrodesis, left 2-5 PIPJ arthrodesis. NEOS [id number] Right tailors bunion surgery 2019 Left and right 5th metatarsal floating o steotomies 07/2022 removal of mark left foot 02/2024 Right hip surgery 11/2024 Hospitalization History Reason Date(Month/Year) right hip surgery [facility] 11/2024 [facility] Lyme encephalopathy , UTI sepsis, Cirrhosis. 04/2020
--- OUTSIDE RECORDS SUMMARY | 2025-04-19 08:43 | XMS_ITS | Data Portability ---
Author Organization [place] [facility] [place] Address [address] [place] [address] Care Team Providers [employer] Dean Name Role Phone DIONNE VALLE Primary Care Provider [phone] DIONNE VALLE Referring Provider [phone] JOEL LAWTON Referring Provider [facility] Primary Care Provider [phone] Assessment Encounter Date Assessment Date Assessment LastModified by Organization Details LastModified Time 12/01/2024 12/01/2024 HPI : Patient is here [...] Sanchez MS, PA-C in indirect conjunction with documenting/supervisin g provider Agusto Cain MD. He agrees with history, physical examination, tests/diagnostic imaging, and treatment plan. [email or web address] Not available 12/01/2024 11:27:00 01/15/2025 01/15/2025 HPI : Patient is here for a 6 week follow-up from a right conversion total hip replacement. She states she is recovering well. She has minimal pain. She has good function. She is much improved compared to before surgery. She is using a cane for ambulation. She does think that her foot turns in a little bit but this is not bothersome. Overall she is happy with her progress. She is doing physical therapy once a week. Physical Exam : Patient is well nourished, well- developed, in no acute distress, with appropriate mood and affect. The patient is AAOx3. The patient demonstrates good hip motion and strength. The incision is well healing. Assessment/Plan : The patient is functioning well 6 weeks from right conversion total hip arthroplasty. Continue physical therapy as needed. Return for follow-up in 2 months with x-rays at that time. Not available 01/15/2025 10:15:40 02/02/2025 02/02/2025 Right shoulder p ain, weakness, limited function in the setting of right proximal humeral fracture malunion and early post-traumatic arthropathy. Fracture was approximately 5 years ago, treated nonoperatively. Prior injection helped significantly. Right shoulder subacromial cortisone injection performed today. She will follow-up as needed. [email or web address] Not available 02/02/2025 11:42:53 03/04/2025 03/04/2025 HPI: Patient presents for Synvisc One viscosupplementation injection for the treatment of bilateral knee pain. All questions are answered to the patient's satisfaction. Exam: Knee(s) examined to show no sign of infection. Skin is intact. Score of 2 or more on Kellgren Ang scale. Tenderness to palpation of joint line. Distal checks are intact. Assessment/Plan: Knee pain secondary to osteoarthritis. See the attached procedure note. All questions were answered to the patient's satisfaction. This patient was seen and evaluated by Gagandeep Sanchez MS, PA-C in indirect conjunction with documenting/supervisin g provider Agusto Cain MD. He agrees with history, physical examination, tests/diagnostic imaging, and treatment plan. [email or web address] Not available 03/04/2025 10:32:07 03/19/2025 03/19/2025 HPI : Patient is here for 4-month follow-up from right total hip replacement conversion surgery. Overall, she is much improved compared to preoperatively. She states the pain is significantly better. She is walking well. She will occasionally use a cane. There is some mild lateral sided tenderness depending on her activity. Overall, patient reports good pain relief in the hip and satisfactory jain of function in terms of activities of daily living. Physical Exam : Patient is well nourished, well-developed, in no acute distress, with appropriate mood and affect. The patient is oriented to time, place, and person. Respirations are even and unlabored. There is no inguinal adenopathy. Examination of the contralateral hip shows normal range of motion, strength, no tenderness, and intact skin. The operative limb is well-perfused, with well healed skin incision. The patient demonstrates good hip motion, stability, and strength. There is some tenderness to palpation along the lateral incision, and greater trochanter area. There is no pain with ROM Muscle strength is normal. Pedal pulses are palpable. Assessment/Plan : This patient is functioning well after right total hip arthroplasty conversion surgery. She does have some lateral sided tenderness next aware her screws were in a small amount of extruded cement. We discussed that if this continues she could get a cortisone injection in that area. Overall, however, she is much improved compared to preoperatively. Continue to work on hip conditioning exercises. Ublg-dai-bxelxhr medications as needed. Ultimate failure may occur due to mechanical wear, loosening or breakage. Follow-up is recommended to assess for the possibility of failure. Follow-up at 1 year from surgery with repeat x-rays of the right hip at that time. Not available 03/19/2025 11:12:28 Plan of Treatment Reminders Order Date Submit Date Provider Last Modified By Organization Details Last Modified Time Details Appointments FOLLOW UP 2025 09:30A M Agusto Cain MD Not available Not available Not available Lab None recorde d. Referral None recorde d. Procedures None recorde d. Surgeries None recorde d. Imaging XR, hip, unilate ral, 2 or 3 view 2024 025 [facility], [address], [place], [address], 03/19/2025 11:36:19 XR, shoulde r, 2 or more view 2024 025 [email or web address] [facility], [address], [place], [address], 02/05/2025 13:17:36 Medication Orders Synvisc -One 48 mg/6 mL intra-a rticula r syringe 2024 025 [facility], [address] [place] [address], [address], 03/04/2025 11:03:18 Synvisc -One 48 mg/6 mL intra-a rticula r syringe 2024 025 [facility], [address] [place] [address], [address], 03/04/2025 11:03:18 lidocai ne (PF) 10 mg/mL (1 %) injecti on solutio n 2024 025 [email or web address] Not available 02/05/2025 13:17:36 Marcain e (PF) 0.5 % (5 mg/mL) injecti on solutio n 2024 025 [email or web address] Not available 02/05/2025 13:17:36 triamci nolone acetoni de 40 mg/mL suspens ion for injecti on 2024 025 [email or web address] Not available 02/05/2025 13:17:36 Patient TargetsNo targets recorded. Patient Instructions Encounter Date Encounter Id Patient Instructions Last Modified By Organization Details Last Modified Time 12/01/2024 [id number] physical therapy * - Evaluate and treat as indicated to reduce pain and to improve strength, mobility, stability, range of motion, and function. Please teach a home exercise plan and incorporate PT into patient's exercise routine. 2-3 sessions weekly for 6-8 weeks. [email or web address] Not available 12/08/2024 08:14:15 03/04/2025 [id number] You have been pr ovided with a viscosupplementation injection in order to reduce the pain that you are experiencing from your arthritis. The injection consists of a lubricating injection called hyaluronic acid. Please note that not everyone will have a lasting response following the injection. PATIENT INSTRUCTIONS I recommend icing the affected area for 20 minutes 3-4 times per day. It is recommended that you refrain from any high level activities using the joint or limb that was injected for approximately 24-48 hours. Normal day-to-day activities are generally not a problem. POSSIBLE SIDE EFFECTS Individuals with dark complexions may experience some skin discoloration locally at the site of the injection. There is the possibility of an increase in discomfort within 48 hours following the injection. This is called a flare . To help minimize the chances of this, please see the post-injection instructions above. There is a less than 1% chance of an infection. If you notice any signs of infection (redness, warmth, drainage, fever greater than 100 degrees) please call our office or contact us through the portal MARK. [email or web address] Not available 03/04/2025 10:16:42 03/19/2025 [id number] AP pelvis, AP an d lateral radiographs of the right hip taken today demonstrate a right total hip replacement with components in appropriate position without any signs of hardware related complication. Cemented stem component. Small amount of extruded cement at the greater trochanter where the screw holes were. Not available 03/19/2025 11:12:41 Reason for Referral None Reported. Results Created Date Observation Date Name Description Value Unit Range Abnormal Flag Note LastModifiedBy Organization Detail LastModifiedTime 11/16/1911/16/2024 XR, hip, unila teral , 2 or 3 view No observ ation record ed. [email or web address] [address], [address], 11/17/2024 06:59:30 11/17/19 25 11/16/2024 XR, hip, unila teral , 2 or 3 view No observ ation record ed. [email or web address] [address], [address], 11/17/2024 15:28:59 11/17/19 25 11/16/2024 XR, knee, 4 or more view No observ ation record ed. [email or web address] [address], [address], 11/17/2024 15:28:59 11/17/19 25 11/16/2024 XR, foot, 3 or more view No observ ation record ed. [email or web address] [address], [address], 11/17/2024 15:28:59 Result Notes None recorded. Problems Name Problem SNOMED Code Status Onset Date Resolution Date Notes Provider Name and Address Organization Details Recorded Time Closed fracture of proximal right humerus 7194651824454 9105 Active [address], [place], [address], [place] [facility] 4 08:42:58 Pain of right shoulder joint 8196015142177 9100 Active 2023 ZAKI DUMONT PA-C [address], [place], [address], [place] [facility], [facility] 4 08:42:58 Osteoarthri tis of joint of right shoulder region 8222503911908 00 Active [address], [place], [address], [place] [facility], [facility] 4 08:42:58 Pain 38177811 Active [address], [place], [address], [place] [facility], [facility] 4 20:08:33 Osteoarthri tis of right knee joint 1245525373518 00 Active [address], [place], [address], [place] [facility], [facility] 4 09:39:02 Osteoarthri tis of left knee joint 4169249488866 09 Active 2023 GAGANDEEP SANCHEZ PA-C [address], [place], [address], [place] [facility], [facility] 4 09:39:03 Osteoarthri tis of right hip joint 2080196195923 07 Active 2023 GAGANDEEP SANCHEZ PA-C [address], [place], [address], [place] [facility], [facility] 4 13:18:38 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 352982406 Active 2023 Agusto Cain MD [address], [place], [address], [place] [facility], [facility] 4 11:48:31 Arthritis of hip 64634902 Active 2023 Agusto Cain MD [address], [place], [address], [place] [facility], [facility] 4 11:49:30 Osteoarthri tis of knee 601031120 Active 2022 Shiva Rojas MD [address], [place], [address], [place] [facility], [facility] 3 10:53:59 History of repair of hip joint 150626422 Active 2024 GAGANDEEP SANCHEZ PA-C [address], [place], [address], [place] [facility] 5 11:26:09 Problem Notes None recorded. Procedures Surgical History Date Name Laterality Status Provider Name and Address Organization Details Recorded Time 03/04/20 Synvisc-One Knee Inj w/US completed GAGANDEEP SANCHEZ PA-C [address], [address], [place] [facility] 03/04/2025 10:31:55 02/03/20 25 BLW Subacromial Inj completed Sammi Yi [place] - [facility] 02/02/2025 11:41:40 11/16/19 25 TOTAL HIP ARTHROPLASTY (SURG) completed Elva Agarwal [place] [facility] 11/18/2024 14:14:48 09/22/20 24 BLW Subacromial Inj completed Sammi Yi [place] [facility] 09/22/2024 10:04:57 09/01/20 24 MJG GT injection w/US completed GAGANDEEP SANCHEZ PA-C [address], [place], [address], [place] [facility] 09/01/2024 14:17:38 06/02/20 24 Synvisc-One Knee Inj w/US completed GAGANDEEP SANCHEZ PA-C [address], [place], [address], [place] [facility] 06/02/2024 15:18:24 03/10/20 24 BLW Subacromial Inj completed Sammi Yi [place] - [facility] 03/10/2024 09:39:21 02/25/20 24 ORTHOPAEDIC SURGERY (SURG) completed Elva Agarwal [place] [facility] 02/26/2024 09:22:07 11/05/19 24 BLW Subacromial Inj completed Sammi Yi [place] [facility] 11/05/2023 09:09:00 10/25/19 24 Synvisc-One Knee Inj completed GAGANDEEP SO PA-C [address], [place], [address], [place] [facility] 10/25/2023 10:46:54 03/19/20 23 Synvisc-One Knee Inj completed Shiva Rojas MD [address], [place], [address], [place] [facility] 03/19/2023 10:09:01 Imaging Results None recorded. Procedure Notes None [...] m clavulanate 62.5 mg/5 mL oral suspension TAKE 10 MLS BY MOUTH EVERY 8 HOURS FOR 7 DAYS. DISCARD REMAINDER AFTER 7 DAYS 02/02 completed Not Available Not Available Not Available ondansetron HCl 8 mg tablet 01/15 completed Not Available Not Available Not Available [...] Available Not Available meloxicam 7.5 mg tablet 01/15 completed Not Available Not Available Not Available [...] injection Take 80 mg by injection route. 2024 active Not Available Not Available Not Avai lable pantoprazol e 40 mg tablet,vidhya yed release 01/15 completed Not Available Not Available Not Available polymyxin B sulfate 10,000 unit-trimet hoprim 1 mg/mL eye drops INSTILL ONE DROP INTO AFFECTED EYE S) EVERY 4 HOURS 10/25 completed Not Available Not Available Not Available sulfamethox azole 200 mg-trimetho prim 40 mg/5 mL oral suspension TAKE 5 MLS BY MOUTH TWO TIMES A DAY FOR 7 DAYS active Not Available Not Available No t Available Vitamin D2 1,250 mcg (50,000 unit) capsule TAKE ONE CAPSULE BY MOUTH ONCE A WEEK 10/25 completed Not Available Not Available Not Available Tylenol Extra Strength 500 mg tablet Take 2 tablets 3 times a day by oral route. 03/10 completed Not Available Not Available Not Available oxycodone 5 mg tablet Take 1 tablet every 6 hours by oral route. 01/15 completed Not Available Not Available Not Available cyclobenzap rine 5 mg tablet TAKE [...] solution Take 2 mL by injection route. 2024 active Not Available Not Available Not Avai lable nitrofurant oin monohydrate /macrocryst als 100 mg capsule TAKE ONE CAPSULE BY MOUTH TWICE A DAY 12/23 completed Not Available Not Available Not Available Tylenol active Not Available Not Avail able Not Available lidocaine (PF) 10 mg/mL (1 %) injection solution Take 2 mL by injection route. 2024 active Not Available Not Available Not Avai lable Synvisc-One 48 mg/6 mL intra-artic ular syringe Take 6 mL by intraarti cular route. 2024 active Not Available Not Available Not Avai lable tranexamic acid 650 mg tablet 01/15 completed Not Available Not Available Not Available lidocaine (PF) 100 mg/5 mL (2 %) injection syringe Take 4 mL by injection route. 09/22 completed Not Available Not Available Not Available Vitals Date Recorded Body height Provider Name an d Address Organization Details Last Updated DateTime 12/01/2024 [address] [place] [facility] 12/01/2024 11:20:13 Date Recorded Body height Body mass index (BMI) Body weight Provider Name and Address Organization Details Last Updated DateTime 01/15/2025 160.02 cm 26 kg/m2 [address].[address] [place] [facility] 01/15/2025 09:54:57 Date Recorded Body height Body mass index (BMI) Body weight Provider Name and Address Organization Details Last Updated DateTime 03/19/2025 160.02 cm 26 kg/m2 53868.08 g Opal Pelletier [facility] 03/19/2025 10:52:16 Social History Question Answer Notes LastModified by [employer] Details LastModified Time Tobacco Smoking Status Former Smoker Leanna Genao sridevi, [place] - [facility] 02/19/2023 10:23:44 Which Of Your Hands Is Dominant? Right [email or web address] Information not available 11/05/2023 Sex: Unknown Functional Status Question Answer Note LastModified by [employer] Details LastModified Time Do you use any illicit or recreational drugs? No [email or web address] Information not available 02/19/2023 Do you or have you ever used any other forms of tobacco or nicotine? No Information not available 02/19/2023 What is your level of alcohol consumption? None [email or web address] Information not available 02/19/2023 Mental Status None recorded. Family History Nothing Reported. Medical History Condition Response Coronary Artery Disease N Gout N Hyperthyroidism N MRSA N Blood Transfusion N Emphysema N Depression N COPD N Hypothyroidism N Pacemaker N Vascular Disease N Gastrointestinal Disease N Anxiety Disorder N Autoimmune disease N Arthritis N Cancer N Stroke N High Cholesterol N Neurologic Disorder N Liver Disease N Organ Transplant N Rheumatoid Arthritis N Arrhythmia N Fibromyalgia N Kidney Disease N Allergies/Hayfever N Adverse Reaction to Anesthesia N Thyroid Problems N Anemia N Brain Injury N Heart Attack (IA) N Osteopenia N Diabetes N Bleeding Disorder [...] SNOMED-CT Code Diagnosis ICD10 Code Diagnosis Note [id number] MD RENETTA Ruiz[address] [address] 02/19/2023 09:55:49 02/19/2023 10:53:48 Pain of right knee joint 3839062663 54234 M25.561 Pain of le ft knee joint 2651449384 53194 M25.562 Osteoarthr itis of knee 155645859 M17.9 [id number] MD KALYANI Ruiz [address] [address] 03/19/2023 09:19:16 03/19/2023 10:09:36 Bilateral osteoarthritis of knees 4245836166 22128 M17.0 Osteoarthr itis of knee 274134266 M17.9 [id number] MD RENETTA Ruiz[address] [address] 03/21/2023 15:03:24 03/21/2023 16:05:12 Osteoarthritis of knee 417164180 M17.9 257[address] [address] 10/25/2023 10:02:37 10/25/2023 10:46:38 Osteoarthritis of left knee joint 3459760624 19776 M17.12 Osteoarthr itis of right knee joint 7843544466 51416 M17.11 [id number] MD RENETTA Galvez[address] [address] 11/05/2023 08:20:45 11/05/2023 09:17:07 Pain of right shoulder joint 2750417683 4395991 M25.511 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 6202197112 42749 M19.011 Closed fra cture of proximal right humerus 0846364761 8017382 S42.201A 28811 ARIANNA STINSON [address] [address] 12/24/2023 09:04:44 12/24/2023 09:25:51 Osteoarthritis of knee 820968161 M17.9 Pain of ri ght shoulder joint 6319789611 5851253 M25.511 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 3589836881 77813 M19.011 Closed fra cture of proximal right humerus 1198833560 9126012 S42.201A 70581 Kyara Sierra MD [place] [address] 01/02/2024 14:08:16 01/02/2024 15:11:50 Pain in left foot 2894726641 38403 M79.672 Pain 79221107 T84.84X A Additional diagnosis detail: Painful orthopaedi c hardware [id number] Kyara Sierra MD [place] [address] 01/30/2024 08:45:09 01/30/2024 09:08:16 Pain in left foot 7829768637 14912 M79.672 Pain 22678062 T84.84X A Additional diagnosis detail: Painful orthopaedi c hardware [id number] Slava Patton MD [address] [address] 03/10/2024 09:05:05 03/10/2024 09:45:03 Pain of right shoulder joint 3730193009 0245494 M25.511 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 8119516720 63181 M19.011 Closed fra cture of proximal right humerus 5835388260 1435536 S42.201A 90850 TOMMIE JOHNSON PA-C [address] [address] 03/12/2024 09:27:33 03/12/2024 10:07:24 Pain in left foot 3724643035 50426 M79.672 Pain 45119485 T84.84X A Additional diagnosis detail: Painful orthopaedi c hardware 05790 GAGANDEEP SANCHEZ PA-C [address] [address] 03/17/2024 09:14:06 03/17/2024 09:51:08 Pain of right knee joint 5570020591 34342 M25.561 Additional diagnosis detail: Pain, joint, knee, right Pain of le ft knee joint 8215695175 35351 M25.562 Additional diagnosis detail: Pain, joint, knee, left Osteoarthr itis of right knee joint 3814777102 62450 M17.11 Additional diagnosis detail: Primary osteoarthr itis of right knee Osteoarthr itis of left knee joint 3018436370 06042 M17.12 Additional diagnosis detail: Primary osteoarthr itis of left knee [id number] ARIANNA MCCORMICK [address] [address] 06/02/2024 14:38:53 06/02/2024 15:32:53 Osteoarthritis of right knee joint 9897185387 66066 M17.11 Additional diagnosis detail: Primary osteoarthr itis of right knee Osteoarthr itis of left knee joint 7504912458 99838 M17.12 Additional diagnosis detail: Primary osteoarthr itis of left knee Osteoarthr itis of knee 701789993 M17.9 [id number] ARIANNA MCCORMICK [address] [address] 06/16/2024 12:39:47 06/16/2024 13:17:47 Pain of right hip joint 9432960530 91472 M25.551 Osteoarthr itis of right hip joint 5015609229 10386 M16.11 [id number] ARIANNA MCCORMICK [address] [address] 09/01/2024 13:27:29 09/01/2024 14:21:10 Trochanteric bursitis of right hip 0887482382 24868 M70.61 [id number] ARIANNA MCCORMICK [address] [address] 09/15/2024 14:56:07 09/15/2024 16:03:48 Pain of hip region 89685668 M25.551 [id number] MD KALYANI Ortiz [address] [place] [address] [place] [address] 09/16/2024 10:54:39 09/16/2024 11:51:06 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 144219492 M16.51 Arthritis of hip 8329841 6 M13.859 02557 Slava Patton MD [place] [address] 09/22/2024 09:18:13 09/22/2024 10:08:52 Pain of right shoulder joint 0326553828 2431923 M25.511 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 8599884075 37482 M19.011 Closed fra cture of proximal right humerus 7577502753 9729936 S42.201A [id number] GAGANDEEP SANCHEZ PA-C [place] [address] 12/01/2024 10:57:42 12/01/2024 11:27:35 History of repair of hip joint 299049833 Z96.641 [id number] MD KALYANI Ortiz [address] [address] 01/15/2025 09:48:03 01/15/2025 10:16:10 Surgical follow-up 963724819 Z47.1 Z96.641 [id number] Slava Patton MD [address] [address] 02/02/2025 11:08:38 02/02/2025 11:43:52 Osteoarthr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 0484338302 63609 M19.011 Pain of ri ght shoulder joint 8172747492 5619849 M25.511 Closed fra cture of proximal right humerus 3517303542 4498682 S42.201A [id number] ARIANNA MCCORMICK [address] [facility] [address] [place] [address] 03/04/2025 10:15:48 03/04/2025 10:32:32 Osteoarthritis of right knee joint 4725592782 08635 M17.11 Osteoarthr itis of left knee joint 3204294873 62616 M17.12 [id number] [facility] [address] [facility] [address] [facility] [place] [place] [address] 03/19/2025 10:18:29 03/19/2025 11:13:55 History of repair of hip joint 817925603 Z96.641 Surgical follow-up 08105 4000 Z47.1 Z96.641 Health Concerns Section Related Observation LastModified by Organization Detai ls LastModified Time None Recorded Concern Status LastModified by Organization Details LastModified Time None Recorded Advance Directives Directive None Recorded Payers Insurance Date Sequence Insurance Name Policy Number Policy [place] Covered Member ID [place] Member ID Guarantor Name 03/22/2025 1 [employer] (MEDICARE REPLACEMENT/A DVANTAGE - PPO) [id number] Julia Lomax [id number] Julia Lomax 01/15/2025 1 MEDICARE B-[place]: [facility] [employer] Julia Lomax [id number] Julia Lomax 03/22/2025 2 () Julia Lomax [id number] Julia Lomax 01/15/2025 1 [employer] (MEDICARE REPLACEMENT/A DVANTAGE - HMO) Julia Lomax [id number] Julia Lomax Notes Date Note Type Note Provider Name and Address Organization Details Recorded Time 02/02/2025 text/html Julia returns t o the office today for follow-up of her right shoulder pain in the setting of rotator cuff tear arthropathy. She underwent a subacromial cortisone injection on 09/22/2024 with relief. Her pain is mild and intermittent. On average, her pain is a 3 out of 10 and a 7 out 10 at worst. Her function and motion are good. She has utilized Tylenol. Slava Patton MD [address], [place], [address], [place] [facility], 02/02/2025 11:47:16 OBGyn Episode No OBEpisode recorded.
--- OUTSIDE RECORDS SUMMARY | 2025-04-19 08:43 | XMS_ITS ---
[facility] Name [facility] Organization Unknown Results Test Name/Text Value Interpretation Date Range Source CO2 SerPl-sCnc 24.0 mmol/L Normal 11/17/2024 24 - 32 CT [facility] BUN SerPl-mCnc 8.0 mg/dL Normal 11/17/2024 7 - 17 [facility] Anion Gap SerPl-sCnc 8.0 Normal 11/17/2024 5 - 14 [facility] Sodium SerPl-sCnc 130.0 mmol/L Below low normal 11/17/2024 1 35 - 145 [facility] BUN/Creat SerPl 11.4 Below low normal 11/17/2024 12 - 2 0 [facility] Chloride SerPl-sCnc 98.0 mmol/L Normal 11/17/2024 98 - 10 7 [facility] Calcium SerPl-mCnc 8.5 mg/dL Normal 11/17/2024 8.4 - 10.2 [facility] Potassium SerPl-sCnc 4.0 mmol/L Normal 11/17/2024 3.5 - 5 .1 [facility] eGFRcr SerPlBld CKD-EPI 2020 93.0 mL/min/1.73m2 Normal 11/17/2024 - [facility] Glucose SerPl-mCnc 137.0 mg/dL Above high normal 11/17/2024 70 - 99 [facility] Creat SerPl-mCnc 0.7 mg/dL Normal 11/17/2024 0.5 - 1 CT [facility] RBC # Bld Auto 3.55 M/mcL Below low normal 11/17/2024 4.2 - 5.4 [facility] WBC # Bld Auto 11.0 K/mcL Above high normal 11/17/2024 4 - [address] [facility] MCV RBC Auto 96.4 FL Normal 11/17/2024 78 - 100 [facility] Hct VFr Bld Auto 34.3 % Below low normal 11/17/2024 37 - 47 [facility] Hgb Bld-mCnc 11.7 g/dL Below low normal 11/17/2024 12.5 - 16 [facility] RDW RBC Auto-Rto 13.5 % Normal 11/17/2024 12.1 - 16.2 [facility] MCHC RBC Auto-mCnc 34.2 g/dL Normal 11/17/2024 32 - 36 [facility] MCH RBC Qn Auto 32.9 pcg Normal 11/17/2024 25 - 33 [facility]_ [facility] Platelet # Bld Auto 146.0 K/mcL Below low normal 11/17/2024 150 - 450 [facility] PMV Bld Auto 7.7 FL Normal 11/17/2024 7.4 - 11.4 [facility] Prealb SerPl-mCnc 18.0 mg/dL Normal 10/16/2024 17 - 34 [facility] Potassium SerPl-sCnc 3.6 mmol/L Normal 10/16/2024 3.5 - 5 .1 [facility] ALT SerPl-cCnc 11.0 unit/L Normal 10/16/2024 7 - 52 CT [facility] Sodium SerPl-sCnc 132.0 mmol/L Below low normal 10/16/2024 1 35 - 145 [facility] BUN SerPl-mCnc 13.0 mg/dL Normal 10/16/2024 7 - 17 [facility]_ [facility] Bilirub SerPl-mCnc 1.4 mg/dL Above high normal 10/16/2024 0. 3 - 1 [facility] Creat SerPl-mCnc 0.8 mg/dL Normal 10/16/2024 0.5 - 1 CT [facility] Prot SerPl-mCnc 6.7 g/dL Normal 10/16/2024 6.4 - 8.5 CT_ [facility] Anion Gap SerPl-sCnc 7.0 Normal 10/16/2024 5 - 14 [facility] BUN/Creat SerPl 16.3 Normal 10/16/2024 12 - 20 [facility] Albumin SerPl-mCnc 3.9 g/dL Normal 10/16/2024 3.5 - 5 [facility] Chloride SerPl-sCnc 99.0 mmol/L Normal 10/16/2024 98 - 10 7 [facility] eGFRcr SerPlBld CKD-EPI 2020 79.0 mL/min/1.73m2 Normal 10/16/2024 - [facility] CO2 SerPl-sCnc 26.0 mmol/L Normal 10/16/2024 24 - 32 CT [facility] Glucose SerPl-mCnc 85.0 mg/dL Normal 10/16/2024 70 - 99 [facility] AST SerPl-cCnc 16.0 unit/L Normal 10/16/2024 5 - 40 CT [facility] ALP SerPl-cCnc 93.0 unit/L Normal 10/16/2024 34 - 104 CT [facility] Calcium SerPl-mCnc 8.6 mg/dL Normal 10/16/2024 8.4 - 10.2 [facility] Lymphocytes/leuk NFr Bld Auto 20.8 % Normal 10/16/2024 20 - 48 [facility] MCV RBC Auto 97.3 FL Normal 10/16/2024 78 - 100 [facility] Monocytes # Bld Auto 0.6 K/mcL Normal 10/16/2024 0 - 0.8 [facility] RBC # Bld Auto 3.84 M/mcL Below low normal 10/16/2024 4.2 - 5.4 [facility] Hct VFr Bld Auto 37.4 % Normal 10/16/2024 37 - 47 CT [facility] Lymphocytes # Bld Auto 1.5 K/mcL Normal 10/16/2024 1 - 3.2 [facility] MCH RBC Qn Auto 33.4 pcg Above high normal 10/16/2024 25 - 33 [facility] Monocytes/leuk NFr Bld Auto 7.9 % Normal 10/16/2024 2 - 12 [facility] Basophils/leuk NFr Bld Auto 0.4 % Normal 10/16/2024 0 - 2 [facility] PMV Bld Auto 7.3 FL Below low normal 10/16/2024 7.4 - 11. 4 [facility] Neutrophils # Bld Auto 5.2 K/mcL Normal 10/16/2024 1.8 - 7.8 [facility] Platelet # Bld Auto 205.0 K/mcL Normal 10/16/2024 150 - 4 50 [facility] Neutrophils/leuk NFr Bld Auto 70.5 % Normal 10/16/2024 44 - 74 [facility] Eosinophil # Bld Auto 0.0 K/mcL Normal 10/16/2024 0 - 0.5 [facility] Basophils # Bld Auto 0.0 K/mcL Normal 10/16/2024 0 - 0.2 [facility] Hgb Bld-mCnc 12.8 g/dL Normal 10/16/2024 12.5 - 16 [facility] WBC # Bld Auto 7.4 K/mcL Normal 10/16/2024 4 - 10.5 [facility] RDW RBC Auto-Rto 13.6 % Normal 10/16/2024 12.1 - 16.2 [facility] MCHC RBC Auto-mCnc 34.4 g/dL Normal 10/16/2024 32 - 36 [facility] Eosinophil/leuk NFr Bld Auto 0.4 % Normal 10/16/2024 0 - 6 [facility] History of Medication Use Medication Directions Dispensed Refills Start Date End Date Status ceFAZolin (ANCEF) 2 g in sterile water 20 mL IV syringe 2 g, intravenous, Administer over 3 Minutes, Every 8 hours, First dose on Sat11/16/24 at 2100, For 2 doses, Recovery [facility] On Unit, Indication: Prophylaxis-Surgica l 5 11/17/19 25 active aspirin 81 mg EC tablet Take 1 tablet (81 mg total) by mouth 2 (two) times a day for 28 days. active cefadroxil 500 mg capsule Take 1 capsule (500 mg total) by mouth 2 (two) times a day for 7 days. 02/11/202 5 active ondansetron (ZOFRAN) 8 mg tablet Take 1 tablet (8 mg total) by mouth every 8 (eight) hours if needed for nausea or vomiting for up to 10 days. 5 active oxyCODONE (ROXICODONE) 5 mg immediate release tablet Take 1 tablet (5 mg total) by mouth every 4 (four) hours if needed for moderate pain. Max Daily Amount: 30 mg 5 active pantoprazole (PROTONIX) 40 mg EC tablet Take 1 tablet (40 mg total) by mouth 1 (one) time each day before breakfast for 28 days. Do not crush, chew, or split. 5 active senna (SENOKOT) 8.6 mg tablet Take 2 tablets (17.2 mg total) by mouth at bedtime. 5 active senna (SENOKOT) tablet 17.2 mg 17.2 mg (2 tablet), oral, Nightly, First dose on Sat11/16/24 at 2100, Recovery & On Unit, Bowel Regimen - for prevention of constipation active tranexamic acid (LYSTEDA) 650 mg tablet tablet Take 3 tablets (1,950 mg total) by mouth 1 (one) time each day for 2 days. active HYDROmorphone (DILAUDID) injection 0.5 mg 0.5 mg, intravenous, Every 15 min PRN, severe pain, Starting on Sat11/16/24 at 1610, For 4 doses, Recovery (only), For pain (7-10). 5 11/16/19 aborted orphenadrine (NORFLEX) injection 30 mg 30 mg, intravenous, Once as needed, muscle spasms, Starting on Sat11/16/24 at 1610, For 1 dose, Recovery (only) 5 11/16/19 completed tranexamic acid (CYKLOKAPRON) 1,000 mg in sodium chloride 0.9 % 100 mL IVPB - MBP 1,000 mg (1 g), intravenous, Once, On Sat11/16/24 at 1615, For 1 dose, Recovery & On Unit, Mini-Bag Plus bag. Do not exceed maximum rate of 100 mg per minute. 02/10/11/16/19 completed vancomycin (VANCOCIN) 1,000 mg in sodium chloride 0.9 % 250 mL IVPB 1,000 mg, intravenous, at 250 mL/hr, Administer over 60 Minutes, Once, On Sat11/16/24 at 1015, For 1 dose, Preprocedure, ADD vancomycin 1,000mg IV less than or equal to 70kg Give pre-op in the OR, Indication: Prophylaxis-Surgica l 5 11/16/19 completed acetaminophen (TYLENOL) 500 mg tablet Take 2 tablets (1,000 mg total) by mouth every 8 (eight) hours for 28 days. active lactated Ringer's infusion 100 mL/hr, intravenous, Continuous, Starting on Sat11/16/24 at 1015 active meloxicam (MOBIC) 7.5 mg tablet Take 1 tablet (7.5 mg total) by mouth 1 (one) time each day. active methocarbamoL (ROBAXIN) 750 mg tablet Take 1 tablet (750 mg total) by mouth 4 (four) times a day if needed for muscle spasms for up to 14 days. active ondansetron ODT (ZOFRAN-ODT) disintegrating tablet 4 mg [Order 1 Start] Name: ondansetron ODT (ZOFRAN-ODT) disintegrating tablet 4 mg Signed Summary: 4 mg, oral, Every 8 hours PRN, vomiting, nausea, Starting on Sat11/16/24 at 1550, Recovery [facility] On Unit, -Give IV if patient is unable to take orally. -If inadequate response within 30 minutes, proceed to next active oxyCODONE (ROXICODONE) immediate release tablet 5 mg [Order 1 Start] Name: oxyCODONE (ROXICODONE) immediate release tablet 5 mg Signed Summary: 5 mg, oral, Every 4 hours PRN, moderate pain, Starting on Sat11/16/24 at 1549, Recovery [facility] On Unit [Order 1 End] [Order 2 Start] Name: oxyCODONE (ROXICODONE) immediate release tablet 10 mg Signed Summary: 10 mg active amoxicillin-clavulana te (AUGMENTIN) 250-62.5 mg/5 mL suspension TAKE 10ML BY MOUTH EVERY 8 HOURS FOR 7 DAYS DISCARD REMAINDER 5 10/24/19 25 completed lidocaine (PF) 10 mg/mL (1 %) injection solution Take 2 mL by injection route. 4 12/01/19 25 completed Marcaine (PF) 0.5 % (5 mg/mL) injection solution Take 2 mL by injection route. 4 12/01/19 25 completed triamcinolone acetonide 40 mg/mL suspension for injection Take 80 mg by injection route. 4 12/01/19 25 completed lidocaine (PF) 100 mg/5 mL (2 %) injection syringe Take 4 mL by injection route. 4 09/22/20 24 active lidocaine (PF) 100 mg/5 mL (2 %) injection syringe Take 4 mL by injection route. 4 09/22/20 24 completed Synvisc-One 48 mg/6 mL intra-articular syringe Take 6 mL by intraarticular route. 4 06/16/20 24 completed Tylenol Extra Strength 500 mg tablet Take 2 tablets 3 times a day by oral route. 4 03/10/20 24 completed Kenalog 40 mg/mL suspension for injection Take 2 mL by injection route. 4 12/24/19 24 completed cetirizine (ZyrTEC) 10 MG tablet TAKE ONE TABLET BY MOUTH EVERY DAY 1 active LORazepam (ATIVAN) 0.5 MG tablet Take 1 tablet by mouth every 6 (six) hours as needed. 1 active folic acid (FOLVITE) tablet 1 mg Take 1 mg by mouth. 0 active Menthol-Zinc Oxide (CALMOSEPTINE) 0.44-20.6 % OINT Apply 1 each topically. 0 active meloxicam 7.5 mg tablet 01/16/20 25 completed ondansetron HCl 8 mg tablet 01/16/20 25 completed oxycodone 5 mg tablet Take 1 tablet ever y 6 hours by oral route. 01/16/20 25 completed pantoprazole 40 mg tablet,delayed release 01/16/20 25 completed tranexamic acid 650 mg tablet 01/16/20 25 completed amoxicillin 600 mg-potassium clavulanate 42.9 mg/5 mL oral suspension TAKE 5 MLS TWO TIMES A DAY FOR 7 DAYS. DISCARD REMAINDER 06/16/20 24 completed IBU 600 mg tablet Take 1 tablet every 6 hours by oral route. 03/10/20 24 completed IBU 600 mg tablet Take 1 tablet every 6 hours by oral route. 03/10/20 24 completed oxycodone 5 mg tablet Take 1 tablet ever y 6 hours by oral route. 03/10/20 24 completed nitrofurantoin monohydrate/macrocrys tals 100 mg capsule TAKE ONE CAPSULE BY MOUTH TWICE A DAY 12/24/19 24 completed amoxicillin 875 mg tablet TAKE 1 TABLET BY MOUTH EVERY 12 HOURS FOR 10 DAYS 10/25/19 24 completed ciprofloxacin 500 mg tablet TAKE ONE TABLET BY MOUTH EVERY DAY FOR 10 DAYS 10/25/19 24 completed ciprofloxacin 500 mg tablet TAKE ONE TABLET BY MOUTH EVERY DAY FOR 10 DAYS 10/25/19 24 completed cyclobenzaprine 5 mg tablet TAKE ONE TABLET BY MOUTH EVERY 8 HOURS NEEDED FOR PAIN FOR 5 DAYS 10/25/19 24 completed LMX 5 5 % topical cream APPLY A SMALL AMOUNT TO AFFECTED AREA(S) OF 5TH METATARSAL HEAD 3-4 TIMES DAILY NEEDED 10/25/19 24 completed methocarbamol 500 mg tablet TAKE TWO TABLETS BY MOUTH EVERY 8 HOURS NEEDED FOR PAIN AND OR MUSCLE SPASMS 10/25/19 24 completed methocarbamol 500 mg tablet TAKE TWO TABLETS BY MOUTH EVERY 8 HOURS NEEDED FOR PAIN AND OR MUSCLE SPASMS 10/25/19 24 completed polymyxin B sulfate 10,000 unit-trimethoprim 1 mg/mL eye drops INSTILL ONE DROP INTO AFFECTED EYE S) EVERY 4 HOURS 10/25/19 24 completed prednisone 10 mg tablet TAKE FOUR TABLETS BY MOUTH EVERY DAY FOR 3 DAYS THEN TAKE THREE TABLETS BY MOUTH EVERY DAY FOR 3 DAYS, THEN TAKE TWO TABLETS BY MOUTH EVERY 10/25/19 24 completed prednisone 20 mg tablet TAKE TWO TABLETS BY MOUTH EVERY DAY FOR 5 DAYS 10/25/19 24 active prednisone 20 mg tablet TAKE TWO TABLETS BY MOUTH EVERY DAY FOR 5 DAYS 10/25/19 24 completed Sulfatrim 200 mg-40 mg/5 mL oral suspension TAKE 10 ML ONCE DAILY 10/25/19 24 completed Vitamin D2 1,250 mcg (50,000 unit) capsule TAKE ONE CAPSULE BY MOUTH ONCE A WEEK 01/19/20 24 completed lidocaine (PF) 10 mg/mL (1 %) injection solution active Synvisc-One 48 mg/6 mL intra-articular syringe active Marcaine (PF) 0.5 % (5 mg/mL) injection solution active amoxicillin 250 mg-potassium clavulanate 62.5 mg/5 mL oral suspension active amoxicillin 250 mg-potassium clavulanate 62.5 mg/5 mL oral suspension TAKE 10 MLS BY MOUTH EVERY 8 HOURS FOR 7 DAYS. DISCARD REMAINDER AFTER 7 DAYS active cefadroxil 500 mg capsule active cefadroxil 500 mg capsule active meloxicam 7.5 mg tablet active methocarbamol 750 mg tablet active methocarbamol 750 mg tablet active ondansetron HCl 8 mg tablet active pantoprazole 40 mg tablet,delayed release active sulfamethoxazole 200 mg-trimethoprim 40 mg/5 mL oral suspension SHAKE WELL AND TAKE 10 MLS 2 TEASPOONFULS) TWICE DAILY FOR 7 DAYS. DISCARD REMAINING PORTION. active tranexamic acid 650 mg tablet active Tylenol active Tylenol active acetaminophen (TYLENOL) 500 mg tablet Take 500 mg by mouth every 6 hours as needed. 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 active 2024-09-16 ProblemAct [facility] Osteoarthritis of right knee joint active 2024-03-17 ProblemAct [facility] Osteoarthritis of knee active 2023-02-19 ProblemAct [facility] Closed fracture of proximal right humerus active 2023-12-24 ProblemAct [facility] History of repair of hip joint active 2024-12-01 ProblemAct [facility] Osteoarthritis of right hip joint active 2024-06-16 ProblemAct [facility] Status post THR (total hip replacement) active 2024-11-[address] [facility] Osteoarthritis of right hip active 2024-10-20 ProblemAct [facility] Subclinical hypothyroidism active 2011-04-05 ProblemAct [facility] Dysplasia of cervix (uteri) active 2005-11-10 ProblemAct [facility] 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 ProblemAct [facility] Hyponatremia active 2024-10-20 ProblemAct [facility] Dental disease active ProblemAct [facility] Humerus fracture active 2015-04-07 ProblemAct [facility] Peripheral neuropathy active 2015-07-25 ProblemAct [facility] Overweight (BMI 25.0-29.9) active 2018-09-16 ProblemAct [facility] Callus active 2021-10-31 ProblemAct [facility] Radius fracture active 2021-04-[address] [facility] Pain active 2024-11-16 ProblemAct [facility] Rebound headache active 2021-11-08 ProblemAct C [facility] Femur fracture active 2021-04-[address] Problem[address] [facility] Chronic low back pain active 2005-11-10 ProblemAct [facility] History of alcohol abuse active 2020-10-24 ProblemAct [facility] Rosacea active 2005-11-10 ProblemAct [facility] Alcoholic cirrhosis of liver without ascites active 2024-10-21 ProblemAct [facility] Arthritis of knee, right active 2020-07-15 ProblemAct [facility] Painful orthopaedic hardware active 2024-02-07 ProblemAct [facility] Radiodense bone lesion present on x-ray active 2019-10-09 ProblemAct [facility] 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 ProblemAct [facility] Immunizations Vaccine Date Source Lot Number Status Td Tetanus diptheria (Tdvax) 7yo and older 04/27/2021 [facility] [id number] completed Moderna SARS-CoV-2 COVID-19, mRNA, LNP-S, preservative free 02/18/2021 [facility] completed Moderna SARS-CoV-2 COVID-19, mRNA, LNP-S, preservative free 01/20/2021 [facility] completed Encounters Encounter Type Encounter Reason Primary Diagnosis Location Date Ambulatory [facility] 03/21/2025 Ambulatory [facility] 03/12/2025 Ambulatory [facility] 01/18/2025 Ambulatory [facility] 01/15/2025 Ambulatory [facility] 01/15/2025 Ambulatory [facility] [place] 01/15/2025 Inpatient Pain, unspecified Pain, unspecified [facility] 11/16/2024 Ambulatory [facility] 10/22/2024 Ambulatory Encounter for other preprocedural examination Encounter for other preprocedural examination [facility] 10/20/2024 Ambulatory [facility] 09/17/2024 Ambulatory [facility] 09/01/2024 Ambulatory [facility] 05/21/2024 Ambulatory [facility] 03/25/2024 Ambulatory [facility] 03/13/2024 Ambulatory Pain due to internal orthopedic prosthetic devices, implants and grafts, initial encounter Pain due to internal orthopedic prosthetic devices, implants and grafts, initial encounter [facility] 02/25/2024 Ambulatory [facility] 02/24/2024 Ambulatory [facility] 02/05/2024 Ambulatory [facility] 02/19/2023 Ambulatory [facility] 02/19/2023 Ambulatory [facility] 02/19/2023 Ambulatory [facility] 02/19/2023 Ambulatory [facility] 02/13/2023 Ambulatory [facility] [place] 02/04/2023 Ambulatory [facility] 02/01/2023 Ambulatory [facility] 01/01/2023 Care Team Organization Name Specialty Phone Email Start Date End Da te [facility] 11/08/2024 [facility] 10/21/2024 [facility] [place]/02[place]2024 [facility] 0 02/07/2024
[2025-04-19 10:46] LABS: Hematocrit 32.4 % (37.0-47.0); Hemoglobin 10.7 g/dl (12.0-16.0)
[2025-04-19 11:26] LABS: Alanine Aminotransferase 11 U/L (0-31); Anion Gap 11 (12-20); Aspartate Amino Transferase 23 U/L (5-31); Blood Urea Nitrogen 13 mg/dL (9-16); Calcium 8.5 mg/dL (8.4-10.2); Carbon Dioxide 24 mmol/L (22-29); Chloride 106 mmol/L (96-108); Cholesterol 154 mg/dL (<200); Estimated Glomerular Filt Rate > 60; HDL Cholesterol 56 mg/dL (>40); Potassium 3.7 mmol/L (3.3-5.1); Sodium 137 mmol/L (135-145); Triglycerides 59 mg/dL (<150)
== END 2025-04-19 08:38 | disposition home or self-care (01) ==
LOC: HO.HMGCLDS 08:37
PROVIDERS: PCP Internal Medicine; Visit Provider Internal Medicine
DX: E55.9 Vitamin D deficiency, unspecified (principal); M19.90 Unspecified osteoarthritis, unspecified site; R53.83 Other fatigue; Z13.220 Encounter for screening for lipoid disorders; Z13.1 Encounter for screening for diabetes mellitus; Z78.0 Asymptomatic menopausal state
CPT/HCPCS: 36415; 80048; 80061; 82306; 84450; 84460; 85014; 85018

== ENCOUNTER 2025-04-21 10:54 | Outpatient (AMB) | payer MEDICARE, SELFPAY ==
--- OUTSIDE RECORDS SUMMARY | 2021-10-21 06:30 | XMS_ITS | Continuity of Care Document ---
Author Name [facility] Organization [facility] Care Team Providers Care Dragger Name Role Phone [facility] Unavailable Unavailable Immunizations Combined list of available immunizations from the Department of Defense and Veterans Affairs facilities. Immunization Series Date Given Administered By Site Reaction Lot Number CVX Code Drug Manager Sap Status Comments Source COVID-19 (MODERNA), MRNA, LNP-S, PF, 100 MCG OR 50 MCG DOSE 3 2021 207 complet ed MOD; [id number]; 2 [facility] COVID-19 (MODERNA), MRNA, LNP-S, PF, 100 MCG/0.5 ML DOSE 2 2020 207 complet ed MOD; [id number]; 1 [facility] COVID-19 (MODERNA), MRNA, LNP-S, PF, 100 MCG/0.5 ML DOSE 1 2020 207 complet ed MOD; [id number]; 1 [facility]
[2025-04-21 11:32] VITALS: BP 110/58; PULSE 70; RESP 16; TEMP 36.6; O2SAT 97; BMI 25.1
--- NOTE | 2025-04-21 11:32 | A.OFFPC_ITS ---
Vital Signs 04/21/25 11:32 Height 5 ft 5 in Weight 151 lb BMI 25.1 BP 110/58 L Blood Pressure Location Rt brachial Position Sitting Respiration 16 Pulse 70 Pulse Source Pulse Oximeter Temp 97.9 F Temp Source Oral Pulse Oximetry (%) 97 Oxygen Delivery Method Room Air Intake Visit Reasons: Annual PE Intake Note: Pt is here today for her PE Allergies No Known Allergies Allergy (Verified 04/21/25 11:38) Medication List - Last Reconciled 04/21/25 by Charley Hickey MD acetaminophen (Tylenol Extra Strength) 500 mg PO Q6H PRN Tobacco use date assessed: 04/21/25 Fall risk assessment: No Falls in past year Last assessed Fall Risk: 04/21/25 Dental Screening Dental Screen Date: 04/21/25 Did you have a dental visit in the last 12 months?: Yes Did you have a dental problem in the last 6 months where you did not have access to dental care?: No Was dental information given to patient?: Patient has dentist HPI Annual PE HPI Details 69 year old lady with history of osteoar thritis, occasionally takes acetaminophen as needed for joint pains, here today for physical exam. She states that she has had mammograms in the past but has not been getting it on a regular basis. Never had a colonoscopy screening . No history of bone density scan but has history of hip fracture in the past. No longer gets cervical cancer screenings, stopped going to her OBGYN. She states she feels well, with no complaints of chest pain, no shortness of breath, no heartburn symptoms, no lightheadedness, no generalized weakness. She sees her [facility] Medical History (Updated 04/21/25 @ 12:22 by Charley Hickey MD) Closed fracture of right proximal humerus Anemia Personal history of (healed) osteoporosis fracture Osteoarthritis Cold intolerance History of fracture of right hip Fatigue History of syncope Surgical History (Updated 01/06/25 @ 10:27 by Cholo Raymundo CMA) Status post hip surgery S/P foot surgery, left Family History (Updated 04/21/25 @ 11:34 by Sarah Moya CMA) Father No problems noted. Mother Dementia Social History Housing: House Alcohol intake: never Patient Tobacco Use Status: Former Tobacco user e-Cigarette/Vaping Use: Never Used service: No Current occupational status: employed and retired Current occupational exposures/hazards: No Cognitive needs: No Hearing needs: Yes Vision needs: Yes Female Reproductive History Menstrual Menopause type: natural Questionnaire PHQ-9 Over the last 2 weeks, how often have you been bothered by any of the following problems? 1. Little interest or pleasure in doing things: not at all 2. Feeling down, depressed, or hopeless: not at all 3. Trouble falling or staying asleep, or sleeping too much: several days 4. Feeling tired or having little energy: several days 5. Poor appetite or overeating: several days 6. Feeling bad about yourself - or that you are a failure or have let yourself or your family down: not at all 7. Trouble concentrating on things, such as reading the newspaper or watching television: several days 8. Moving or speaking so slowly that other people could have noticed. Or the opposite - being so fidgety or restless that you have been moving around a lot more than usual: not at all 9. Thoughts that you would be better off or of hurting yourself in some way: not at all Total score: 4 Depression Screening Interpretation: Negative Depression Screening Done: Yes 97687 - PHQ-9 Billing: Yes Source: Developed by Drs. Adi Muñoz, Ana Lane, Brennan Betancourt and colleagues, with an educational kelly from [employer]. Thrive Questionnaire Date Thrive assessed: 01/06/25 I am a: Patient What is your living situation today?: I have a steady place to live Within the past 12 months, did the food you bought not last and you didn't have the money to get more?: I choose not to answer this question Within the past 12 months, did you worry whether your food would run out before you got money to buy more?: I choose not to answer this question Do you have trouble paying for medicines?: I choose not to answer this question Do you have trouble getting transportation to medical appointments?: No Do you have trouble paying your heating and electricity bill?: No Do you have trouble taking care of your child, family member or friend?: No Do you have trouble with day-to-day activities such as bathing, preparing meals, shopping, managing finances, etc.?: Yes Are you currently unemployed and looking for a job?: Yes Are you interested in more education?: No Please select the resources that you would like help with: None Currently or been in a relationship where the following occur: I choose not to answer THRIVE Score: 0 AUDIT C Alcohol Use Questionnaire (AUDIT-C) 1. How often do you have a drink containing alcohol?: Never 3. How often do you have six or more drinks on one occasion?: Never Total Score: 0 Score Reviewed/Action Taken: Yes TAYLER-7 AMB Questionnaire TAYLER-7 Date TAYLER - 7 assessed: 01/06/25 Source: Developed by Drs. Adi Muñoz, Ana Lane, Brennan Betancourt and colleagues, with an educational kelly from [employer]. Review of Systems Const Denies chills, Denies fever(s) and Reports headache(s) Eyes Denies change in vision (Up-to-date exam, sees Dr. Núñez) ENT Denies dizziness, Reports headache(s) and Reports hearing loss (Bilateral, left more than the right) Card Denies chest pain, Denies irregular heart rhythm, Denies lightheadedness and Denies dyspnea Resp Denies chest congestion, Denies cough, Denies dyspnea and Denies wheezing GI Denies abdominal pain, Denies melena, Denies hematochezia, Denies change in bowel habits, Denies heartburn and Denies vomiting Reports no additional complaints Musc Reports arthralgias (Occasional in her knees/ ankles), Denies muscle weakness and Reports stiffness Skin/Breast Denies breast pain, Denies breast mass and Denies rash Neuro Reports no additional complaints, Denies dizziness and Reports headache(s) Psych Reports no additional complaints Endo Reports no additional complaints Cabrera/Lymph Reports no additional complaints Aller/Immun Denies seasonal rhinorrhea and Denies wheezing Physical exam (Primary Care) Vital Signs: Last Vital Signs Temp 97.9 F 04/21/25 11:32 Pulse 70 04/21/25 11:32 Resp 16 04/21/25 11:32 BP 110/58 L 04/21/25 11:32 Pulse Ox 97 04/21/25 11:32 Oxygen Delivery Method Room Air 04/21/25 11:32 BMI result Body Mass Index 25.1 Tobacco/Smoking Status: Tobacco use Status Tobacco use date assessed 04/21/25 04/21/25 11:37 Patient Tobacco Use Status Former Tobacco user 04/21/25 11:37 e-Cigarette/Vaping Use Never Used 04/21/25 11:37 Depression Screening Interpretation: Negative Thrive Assessment: Date of Thrive Assessment Date Thrive assessed 01/06/25 04/21/25 11:37 Currently or been in a relationship where the following occur: I choose not to answer Advance Care Planning discussion: Completed/Scanned Date of discussion: 04/21/25 Who was present: Patient Forms completed: Health Care Proxy and MOLST Time spent: 16-45 minutes Actual minutes spent: 5 Const General: comfortable, no acute distress and alert Orientation/consciousness: patient oriented x3 HENMT Ears: external ears normal, TM's normal bilaterally and EAC's normal General nose exam: Normal external nose present Mouth: Normal oral and palatal mucosa present, oropharynx normal and moist mucous membranes Eyes General: appearance normal, both eyes and all related structures Conjunctivae: conjunctivae normal Sclerae: sclerae normal Pupils: Equal, round and reactive pupils present EOM: EOMs intact bilaterally Neck Neck: Yes full ROM, Yes no lymphadenopathy and Yes supple Chest Chest palpation & inspection: normal inspection of the chest Breast/axilla inspection: normal inspection of the breasts Breast/axilla palpation: normal palpation of the breasts Resp Effort & Inspection: normal respiratory effort and able to speak in complete sentences Auscultation: clear to auscultation bilaterally Cardio Rate: regular rate Rhythm: regular rhythm Heart sounds: S1 normal heart sound present and S2 normal heart sound present GI Palpation (GI): Soft to palpation, nontender and no masses Auscultation: normal bowel sounds Back/Spine/Pelvis Back: No back tenderness Skin General skin exam: no rashes or lesions noted Neuro General: patient oriented x3, gait normal, tone normal, moves all extremities, Normal light touch and pain sensation and no focal motor deficits Cranial nerves: Yes CN's II-XII intact bilaterally and Yes Equal, round and reactive pupils present Cognition (Neuro): normal cognition Extrem General: Yes full ROM, Yes no joint enlargement, Yes no clubbing, cyanosis or edema and Yes no calf tenderness Psych Appearance: grossly normal and well kempt Mental Status: mental status grossly normal Speech and movement: Normal speech and movement present Affect: normal affect Attitude: cooperative Results Reviewed Results Reviewed: Laboratory Tests 04/19/25 08:42 Hgb 10.7 L Hct 32.4 L Name: Julia Lomax Age/Sex: 69/F : 1955 [facility] [id number] Unit#: [id number] Attend Dr: Charley Hickey MD Re04/19/25 Status: DEP REF Location: [facility] Disch: SPEC : [id number] JOSIAH: 04/19/25 STATUS: COMP REQ : [id number] RECD: 04/19/[address]: Charley Hickey MD COMP: 04/19/25 ENTERED: 04/19/[address]: ORDERED: Met Prof Fast, AST, ALT, Lipid Panel, Vitamin D 25-OH Test Result Flag Reference Sodium 137 135-145 mmol/L Potassium 3.7 3.3-5.1 mmol/L CL 106 96-108 mmol/L CO2 24 22-29 mmol/L Gap 11 L 12-20 BUN 13 9-16 mg/dL Creat 0.75 0.5-1.4 mg/dL eGFR > 60 Chronic Kidney Disease: Estimated GFR < 60 mL/min/1.73m2 Severe Kidney Disease: Estimated GFR < 15 mL/min/1.73m2 FBS 81 60-99 mg/dL CA 8.5 # 8.4-10.2 mg/dL AST (GOT) 23 5-31 U/L ALT (GPT) 11 0-31 U/L Triglyceride 59 <150 mg/dL Desirable Triglyceride: less than 150 mg/dL Borderline High Triglyceride 150-199 mg/dL High Triglyceride: 200-499 mg/dL Very High Triglyceride: greater than or equal to 5OO mg/dL Cholesterol 154 <200 mg/dL Desirable Cholesterol: less than 200 mg/dL Borderline High Cholesterol: 200-239 mg/dL High Cholesterol: greater than 239 mg/dL LDL Calculated 87 <100 mg/dL Desirable LDL: less than 100 mg/dL Near Optimal/Above Optimal LDL: 110-129 mg/dL Borderline High LDL: 130-159 mg/dL High LDL: 160-189 mg/dL Very High LDL: greater than or equal to 190 mg/dL HDL 56 >40 mg/dL Desirable HDL: greater than 40 mg/dL Note: This HDL assay may give artificially low results in patients with liver disease. Vitamin D 25-OH 32.6 >30 ng/mL Health Based Reference Values* < 20 ng/mL Deficient 20-30 ng/mL Insufficient > 30 ng/mL Sufficient Coding Level of Care Code Est Pt Prev Care >65y(54174) Diagnoses Annual visit for general adult medical examination with abnormal findings Z00.01 Primary osteoarthritis involving multiple joints M15.0 Osteoarthritis location: multiple joints Osteoarthritis type: primary Anemia, unspecified type D64.9 Anemia type: unspecified type History of vitamin D deficiency Z86.39 Advanced directives, counseling/discussion Z71.89 Encounter for screening for malignant neoplasm of colon Z12.11 Additional Codes PHQ-9 - 54915 - PHQ-9 Billing: Yes ([id number]) Vital Signs *Quality* - Advance Care Planning discussion: Completed/Scanned ([id number]) Vital Signs *Quality* - Time spent: 16-45 minutes ([id number]) Assessment & Plan Assessment & Plan (1) Annual visit for general adult medical examination with abnormal findings: Code(s): Z00.01 - Encounter for general adult medical examination with abnormal findings Plan: Recent fasting lab results were discussed with patient. Up-to-date with her eye exam, sees Dr. Núñez, goes to the dentist every 6 months for cleaning, ordered a screening mammogram together with a bone density scan and referred to [facility] for her initial colonoscopy screening. Patient has had Tdap tetanus diphtheria booster and has had COVID vaccines in the past but does not want to get any other vaccines (2) Osteoarthritis: Code(s): M19.90 - Unspecified osteoarthritis, unspecified site Category: Medical Qualifiers: Osteoarthritis location: multiple joints Osteoarthritis type: primary Qualified Code(s): M15.0 - Primary generalized (osteo)arthritis Plan: Takes Tylenol arthritis as needed, currently being followed by Orthopedic (3) Anemia: Code(s): D64.9 - Anemia, unspecified Category: Medical Qualifiers: Anemia type: unspecified type Qualified Code(s): D64.9 - Anemia, unspecified Plan: Started on ferrous sulfate 325 mg to take 1 tablet once a day. Advised to crush the tablets as she has difficulty swallowing and mixed it with putting repeat another CBC and iron panel as well as ferritin level in 2 months. Referred to [facility] Clinic for her initial colon cancer screening (4) History of vitamin D deficiency: Code(s): Z86.39 - Personal history of other endocrine, nutritional and metabolic disease Plan: Latest labs now showed vitamin-D levels within normal limits (5) Advanced directives, counseling/discussion: Code(s): Z71.89 - Other specified counseling Plan: Initiated the conversation about Advanced Directives. Advanced Directives help patients prepare for current and future decisions about their medical treatment and place of care. Discussed with patient that it is a process where a patients current condition and prognosis are reviewed, their wishes for information regarding their illness are elicited, and likely medical dilemmas are presented and options discussed. Healthcare proxy form and MOLST form completed today The form can be amended as needed, reviewed yearly and make changes as needed (6) Encounter for screening for malignant neoplasm of colon: Code(s): Z12.11 - Encounter for screening for malignant neoplasm of colon Plan: Referred to [facility] for her initial colon cancer screen Orders: Orders XR DEXA axial skeleton Today Z78.0 - Asymptomatic menopausal state, Z87.310 - Personal history of (healed) osteoporosis fracture, Z87.81 - Personal history of (healed) traumatic fracture Complete Blood Count Auto Diff 06/12/25 D64.9 - Anemia, unspecified Ferritin 06/12/25 D64.9 - Anemia, unspecified MM tomosynthesis screening BI Today Z12.31 - Encounter for screening mammogram for malignant neoplasm of breast IRON PROFILE 06/12/25 D64.9 - Anemia, unspecified Referrals Gastroenterology Referral D64.9 - Anemia, unspecified, Z12.11 - Encounter for screening for malignant neoplasm of colon Medications: New ferrous sulfate 325 mg PO DAILY 90 tabs 1RF
--- OUTSIDE RECORDS SUMMARY | 2025-04-21 11:44 | XMS_ITS | Clinical Summary ---
Author Organization [facility] Address [address] [place] [address] Care Team Providers Care Aviation Metalsmith Name Role Phone Unavailable Primary Care Provider [...] 0 2021 Active ergocalciferol (VITAMIN D2) capsule 45527 units Take 1 capsule by mouth once [...]
--- OUTSIDE RECORDS SUMMARY | 2025-04-21 11:44 | XMS_ITS | Patient Health Record ---
Author Organization [facility] Address [address] [place] [address] Care Team Providers Care Junior Technical Writer Name Role Phone Wilma Goldstein Primary Care Provider Yannick Chun Unavailable [phone] Reason For Referral No Information Problems Problem Type SNOMED Code ICD Code Onset Dates Problem Status W/U Status Risk Notes Problem Arthralgia (86355151) Arthralgia (719.40) Active confirmed Problem Disorder of joint of ankle and/or foot (459817544) Arthritis - Degenerative (719.97) Active confirmed Problem Ingrowing nail (056093449) Ingrowing Nail (703.0) Active confirmed Problem Neuralgia - Neuritis (729.2) Active confirmed Problem Onychomycosis (585364678) Onychomycosis (110.1) Active confirmed Problem Pain in limb (26257285) Pain in Limb (729.5) Active confirmed Plan Of Treatment Pending Test Test Name Order Date [id number] NAIL, 6 OR MORE 09/23/2013 [id number] NAIL, 6 OR MORE 12/28/2013 [id number] Plate 12/28/2013 Insurance Providers Payer Name Payer Address Payer Phone Subscriber Number Group Number Insured Name Patient Relationship to Insured Coverage Start Date Coverage End Date Medicare [employer] [address] [place] [address] [id number] Julia Lomax Self - patient is the insured 3 Medical (General) History Medical History History ICD Code Arthritis back, hip, knee pain headaches/migraines measles thyroid disorder
--- OUTSIDE RECORDS SUMMARY | 2025-04-21 11:45 | XMS_ITS | Data Portability ---
Author Organization [place] [facility] Mark Fay AONE Bandera Address [address] [place] [address] Care Team Providers Care Health Policy Manager Name Role Phone DIONNE VALLE Primary Care Provider DIONNE VALLE Referring Provider [phone] JOEL LAWTON Referring Provider [employer] Primary Care Provider Assessment Encounter Date Assessment Date Assessment LastModified [...] pain relief in the hip and satisfactory faith of function in terms of activities of [...] Continue to work on hip conditioning exercises. Aaze-xmh-xwwkyur medications as needed. Ultimate failure may occur [...] or 3 view 2024 025 [facility], [address], [place], [address], 03/19/2025 11:36:19 XR, shoulde r, 2 or more view 2024 025 [email or web address] [facility], [address], [place], [address], 02/05/2025 13:17:36 Medication Orders Synvisc -One 48 mg/6 mL intra-a rticula r syringe 2024 025 [facility], [address] [place] [address], [address], 03/04/2025 11:03:18 Synvisc -One 48 mg/6 mL intra-a rticula r syringe 2024 025 [facility], [address] [place] [address], [address], 03/04/2025 11:03:18 lidocai ne (PF) 10 mg/mL [...] By Organization Details Last Modified Time 12/01/2024 [id number] physical therapy * - Evaluate and treat as indicated to reduce pain and to improve strength, mobility, stability, range of motion, and function. Please teach a home exercise plan and incorporate PT into patient's exercise routine. 2-3 sessions weekly for 6-8 weeks. [email or web address] Not available 12/08/2024 08:14:15 03/04/2025 [id number] You have been pr ovided with a [...] MARK. [email or web address] Not available 03/04/2025 10:16:42 03/19/2025 [id number] AP pelvis, AP an d lateral radiographs [...] view No observ ation record ed. [email or web address] [address], [address], 11/17/2024 06:59:30 11/17/19 25 11/16/2024 XR, hip, unila teral , 2 or 3 view No observ ation record ed. [email or web address] [address], [address], 11/17/2024 15:28:59 11/17/19 25 11/16/2024 XR, knee, 4 or more view No observ ation record ed. [email or web address] [address], [address], 11/17/2024 15:28:59 11/17/19 25 11/16/2024 XR, foot, 3 or more view No observ ation record ed. [email or web address] [address], [address], 11/17/2024 15:28:59 Result Notes None recorded. Problems Name Problem SNOMED Code Status Onset Date Resolution Date Notes Provider Name and Address Organization Details Recorded Time Closed fracture of proximal right humerus 0960386466335 9105 Active [address], [place], [address], [place] [facility], [facility] 4 08:42:58 Pain of right shoulder joint 7219980434106 9100 Active 2023 ZAKI DUMONT PA-C [address], [facility] [place], [address], [place] [facility], P 4 08:42:58 Osteoarthri tis of joint of right shoulder region 9230099400697 00 Active [address], [facility] [place], [address], [place] [facility], [facility] 4 08:42:58 Pain 35935829 Active [address], [place], [address], [place] [facility], P 4 20:08:33 Osteoarthri tis of right knee joint 7784090821371 00 Active [address], [place], [address], [place] [facility], P 4 09:39:02 Osteoarthri tis of left knee joint 4958677035632 09 Active 2023 GAGANDEEP SANCHEZ PA-C [address], [place], [address], [place] [facility], P 4 09:39:03 Osteoarthri tis of right hip joint 0534851547488 07 Active 2023 GAGANDEEP SANCHEZ PA-C [address], [place], [address], [place] [facility], P 4 13:18:38 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 169826782 Active 2023 Agusto Cain MD [address], [place], [address], [place] [facility], P 4 11:48:31 Arthritis of hip 13512191 Active 2023 Agusto Cain MD [address], [place], [address], [place] [facility], [facility] 4 11:49:30 Osteoarthri tis of knee 254038248 Active 2022 Shiva Rojas MD [address], [place], [address], [place] [facility], P 3 10:53:59 History of repair of hip joint 585863832 Active 2024 GAGANDEEP SANCHEZ PA-C [address], [place], [address], [place] [facility], [facility] 5 11:26:09 Problem Notes None recorded. Procedures Surgical History Date Name Laterality Status Provider Name and Address Organization Details Recorded Time 03/04/20 Synvisc-One Knee Inj w/US completed GAGANDEEP SANCHEZ PA-C [address], [address], [place] [facility], [facility] 03/04/2025 10:31:55 02/03/20 25 BLW Subacromial Inj completed Sammi Yi [place] [facility] 02/02/2025 11:41:40 11/16/19 25 TOTAL HIP ARTHROPLASTY (SURG) completed Elva Agarwal [place] [facility], P 11/18/2024 14:14:48 09/22/20 24 BLW Subacromial Inj completed Sammi Yi [place] [facility] 09/22/2024 10:04:57 09/01/20 24 MJG GT injection w/US completed GAGANDEEP SANCHEZ PA-C [address], [place], [address], [place] [facility] 09/01/2024 14:17:38 06/02/20 24 Synvisc-One Knee Inj w/US completed GAGANDEEP SANCHEZ PA-C [address], [place], [address], [place] [facility] 06/02/2024 15:18:24 03/10/20 24 BLW Subacromial Inj completed Sammi Yi [place] [facility] 03/10/2024 09:39:21 02/25/20 24 ORTHOPAEDIC SURGERY (SURG) completed Elva Agarwal [place] [facility] 02/26/2024 09:22:07 11/05/19 24 BLW Subacromial Inj completed Sammi Yi [place] [facility] 11/05/2023 09:09:00 10/25/19 24 Synvisc-One Knee Inj completed GAGANDEEP SO PA-C [address], [place], [address], [place] [facility] 10/25/2023 10:46:54 03/19/20 23 Synvisc-One Knee Inj completed Shiva Rojas MD [address], [place], [address], [place] [facility] 03/19/2023 10:09:01 Imaging Results None recorded. [...] Isabel Magana [place] [facility] 12/01/2024 11:20:13 Date Recorded Body height Body mass index (BMI) Body weight Provider Name and Address Organization Details Last Updated DateTime 01/15/2025 160.02 cm 26 kg/m2 [address]10.[address] [facility] 01/15/2025 09:54:57 Date Recorded Body height Body mass index (BMI) Body weight Provider Name and Address Organization Details Last Updated DateTime 03/19/2025 160.02 cm 26 kg/m2 37446.08 g Opal Pelletier [facility] 03/19/2025 10:52:16 Social History Question Answer Notes LastModified by Graphic[employer] Details LastModified Time Tobacco Smoking Status Former Smoker Leanna Genao sridevi, [place] - [facility] 02/19/2023 10:23:44 Which Of Your Hands Is Dominant? Right [email or web address] Information not available 11/05/2023 Sex: Unknown Functional Status Question Answer Note LastModified by Graph[employer] Details LastModified Time Do you use any illicit or recreational drugs? No [email or web address] Information not available 02/19/2023 Do you or have you ever used any other forms of tobacco or nicotine? No [email or web address] Information not available 02/19/2023 What is your level of alcohol consumption? None [email or web address] Information not available 02/19/2023 Mental Status None [...] Anemia N Brain Injury N Heart Attack (SD) N Osteopenia N Diabetes N Bleeding Disorder [...] SNOMED-CT Code Diagnosis ICD10 Code Diagnosis Note [id number] MD RENETTA Ruiz[address] [address] 02/19/2023 09:55:49 02/19/2023 10:53:48 Pain of right knee joint 3617920929 95861 M25.561 Pain of le ft knee joint 3802616765 29849 M25.562 Osteoarthr itis of knee 715643865 M17.9 39067 MD KALYANI Ruiz [address] [address] 03/19/2023 09:19:16 03/19/2023 10:09:36 Bilateral osteoarthritis of knees 7641058511 68012 M17.0 Osteoarthr itis of knee 457880614 M17.9 46842 MD RENETTA Ruiz[address] [address] 03/21/2023 15:03:24 03/21/2023 16:05:12 Osteoarthritis of knee 955732944 M17.9 [address] [address] 10/25/2023 10:02:37 10/25/2023 10:46:38 Osteoarthritis of left knee joint 7071916897 03045 M17.12 Osteoarthr itis of right knee joint 7974325987 88877 M17.11 03824 MD RENETTA Galvez[address] [address] 11/05/2023 08:20:45 11/05/2023 09:17:07 Pain of right shoulder joint 3558484023 2786843 M25.511 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 5128674501 99883 M19.011 Closed fra cture of proximal right humerus 8336840606 5145619 S42.201A 36746 ARIANNA STINSON [address] [address] 12/24/2023 09:04:44 12/24/2023 09:25:51 Osteoarthritis of knee 741362136 M17.9 Pain of ri ght shoulder joint 6144294778 6146694 M25.511 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 0694107645 05636 M19.011 Closed fra cture of proximal right humerus 2809948127 5955173 S42.201A 66450 Kyara Sierra MD [place] [address] 01/02/2024 14:08:16 01/02/2024 15:11:50 Pain in left foot 3569715755 17579 M79.672 Pain 81469238 T84.84X A Additional diagnosis detail: Painful orthopaedi c hardware 16041 Kyara Sierra MD [place] [address] 01/30/2024 08:45:09 01/30/2024 09:08:16 Pain in left foot 6080848153 10474 M79.672 Pain 41107290 T84.84X A Additional diagnosis detail: Painful orthopaedi c hardware 81476 Slava Patton MD [address] [address] 03/10/2024 09:05:05 03/10/2024 09:45:03 Pain of right shoulder joint 2019220807 8965270 M25.511 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 4821673912 68556 M19.011 Closed fra cture of proximal right humerus 6252348653 7411596 S42.201A 38908 TOMMIE JOHNSON PA-C [address] [address] 03/12/2024 09:27:33 03/12/2024 10:07:24 Pain in left foot 0071598190 00836 M79.672 Pain 66443485 T84.84X A Additional diagnosis detail: Painful orthopaedi c hardware 20849 GAGANDEEP SANCHEZ PA-C [address] [address] 03/17/2024 09:14:06 03/17/2024 09:51:08 Pain of right knee joint 7496729810 66619 M25.561 Additional diagnosis detail: Pain, joint, knee, right Pain of le ft knee joint 1653723726 96667 M25.562 Additional diagnosis detail: Pain, joint, knee, left Osteoarthr itis of right knee joint 6984019813 35954 M17.11 Additional diagnosis detail: Primary osteoarthr itis of right knee Osteoarthr itis of left knee joint 4889051352 63844 M17.12 Additional diagnosis detail: Primary osteoarthr itis of left knee 66015 ARIANNA MCCORMICK [address] [address] 06/02/2024 14:38:53 06/02/2024 15:32:53 Osteoarthritis of right knee joint 7344616523 55509 M17.11 Additional diagnosis detail: Primary osteoarthr itis of right knee Osteoarthr itis of left knee joint 6375576744 10586 M17.12 Additional diagnosis detail: Primary osteoarthr itis of left knee Osteoarthr itis of knee 307311311 M17.9 33717 ARIANNA MCCORMICK [address] [address] 06/16/2024 12:39:47 06/16/2024 13:17:47 Pain of right hip joint 4277673190 17977 M25.551 Osteoarthr itis of right hip joint 0654945689 47802 M16.11 76144 ARIANNA MCCORMICK [address] [address] 09/01/2024 13:27:29 09/01/2024 14:21:10 Trochanteric bursitis of right hip 0708411730 24183 M70.61 99722 ARIANNA MCCORMICK [address] [address] 09/15/2024 14:56:07 09/15/2024 16:03:48 Pain of hip region 87980919 M25.551 08270 MD KALYANI Ortiz [address] [place] [address] [place] [address] 09/16/2024 10:54:39 09/16/2024 11:51:06 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 906775022 M16.51 Arthritis of hip 7828666 6 M13.859 50386 Slava Patton MD [address] [address] 09/22/2024 09:18:13 09/22/2024 10:08:52 Pain of right shoulder joint 9508658403 4409796 M25.511 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 2747991073 72624 M19.011 Closed fra cture of proximal right humerus 3131516689 8151161 S42.201A 700321 GAGANDEEP SANCHEZ PA-C [place] [address] 12/01/2024 10:57:42 12/01/2024 11:27:35 History of repair of hip joint 837622460 Z96.641 212209 MD KALYANI Ortiz [address] [address] 01/15/2025 09:48:03 01/15/2025 10:16:10 Surgical follow-up 079701297 Z47.1 Z96.641 528492 Slava Patton MD [address] [address] 02/02/2025 11:08:38 02/02/2025 11:43:52 Osteoarthr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 1043315157 12734 M19.011 Pain of ri ght shoulder joint 4271647218 9640967 M25.511 Closed fra cture of proximal right humerus 3568811924 4227829 S42.201A [id number] ARIANNA MCCORMICK 299 [facility] [address] [place] [address] 03/04/2025 10:15:48 03/04/2025 10:32:32 Osteoarthritis of right knee joint 0285878947 87498 M17.11 Osteoarthr itis of left knee joint 4041713684 26384 M17.12 [id number] MD [facility] [address] [facility] [address] [facility] [place] [address] 03/19/2025 10:18:29 03/19/2025 11:13:55 History of repair of hip joint 827066844 Z96.641 Surgical follow-up 11931 4000 Z47.1 Z96.641 Health Concerns Section Related Observation LastModified by Organization Detai ls LastModified Time None Recorded Concern Status LastModified by Organization Details LastModified Time None Recorded Advance Directives Directive None Recorded Payers Insurance Date Sequence Insurance Name Policy Number Policy Butterfield Covered Member ID Butterfield Member ID Guarantor Name 03/22/2025 1 [employer] (MEDICARE REPLACEMENT/A DVANTAGE - PPO) [id number] Julia Lomax [id number] Julia Lomax 01/15/2025 1 MEDICARE B-[place]: [facility] Julia Lomax [id number] Julia Lomax 03/22/2025 2 () Julia Lomax [id number] Julia Lomax 01/15/2025 1 [employer] (MEDICARE REPLACEMENT/A DVANTAGE - HMO) Julia Lomax [id number] Julia Lomax Notes Date Note Type Note [...] Tylenol. Slava Patton MD [address], [place], [address], [place] [facility], 02/02/2025 11:47:16 OBGyn Episode No OBEpisode recorded.
--- OUTSIDE RECORDS SUMMARY | 2025-04-21 11:45 | XMS_ITS | Encounter Summary ---
Author Organization [facility] it Address [address] [place] [address] Care Team Providers Care Solar Sales Energy Advisor Name Role Phone Audelia Messer MD Primary Care Provider [phone] Encounter Details Date Type Department Care Team [...] hip documented in this encounter Care Teams Solar Sales Energy Advisor Relationship Specialty Start Date End Date Audelia Messer MD [address] [place] [address] PCP - General Internal Medicine 10/20/24 documented as of this encounter
--- OUTSIDE RECORDS SUMMARY | 2025-04-21 11:45 | XMS_ITS | Patient Health Record ---
Author Organization [facility] Address [address] [facility] [address] [place] [address] Care Team Providers Care Supervisor Customer Services Name Role Phone Wilma Goldstein Primary Care Provider MIGUEL ANGEL Cuevas Unavailable [phone] CARLITO ERNST Unavailable [phone] Allergies Allergen (clinical drug ingredient) Drug/Non Drug Allergy documented on EMR Reaction Allergy Type Onset Date Status oxycodone Oxycodone passed out Drug Allergy Active Results Component Value Reference Range Notes Anaerobic/Aerobic/Gram Stain -114033 Reviewed date:04/13/2025 07:38:44 AM Interpretation: Performing Lab:[facility], [address], [address], [place], Phone - [phone], Director - [facility] Notes/Report: Clinical Information:SRC: SOURCE NOT INDICATED [...] Many gram posit miguel cocci. Anaerobic/Aerobic/Gram Stain -262439 Reviewed date:02/23/2025 07:36:54 AM Interpretation: Performing Lab:[facility] [address], [address], [place], Phone - [phone], Director - [facility] Notes/Report: Clinical Information:SRC: Clinical Information:SRC: Clinical [...] number of gram positive cocci. 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 Problem 92666556 Polyneuropathy (G62.9) Active confirmed Problem 858670741 Ulcer of left foot with fat layer exposed (L97.522) Active confirmed Problem 344002166 Polyneuropathy associated with underlying disease (G63) Active confirmed Problem 597285127 Ulcer of right foot, limited to breakdown of skin (L97.511) Active confirmed Problem 281131598 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) Active confirmed Problem 47805532 Vitamin D deficiency (E55.9) Active confirmed Problem 053854838 Deformity of metatarsal bone of right foot (M21.961) Active confirmed Problem 14329268199969587 Skin ulcer of left heel with fat layer exposed (L97.422) Active confirmed Problem 631606144 Pressure injury of right foot, stage 3 [...] N/A Encounters Encounter Location Date Provider Diagnosis [facility] [address] [address] 05/12/2024 MIGUEL ANGEL AMADA [facility] [address] [address] 07/13/2024 MIGUEL ANGEL AMADA [facility] [address] [address] 12/02/2024 MIGUEL ANGEL AMADA Right foot pain M79.671 and Gait abnormality R26.9 [facility] [address] [address] 09/22/2024 MIGUEL ANGEL AMADA Pressure injury of right foot, stage 3 L89.893 [facility] [address] [address] 10/12/2024 MIGUEL ANGEL AMADA Pressure injury of right foot, stage 3 L89.893 ; Cellulitis of right foot L03.115 ; Alcohol-induced polyneuropathy G62.1 and Post-traumatic osteoarthritis of right hip M16.51 [facility] [address] [address] 12/14/2024 CARLITO ERNST Abscess of right foot L02.611 ; Pressure injury of right foot, stage 3 L89.893 ; Cellulitis of right foot L03.115 and Alcohol-induced polyneuropathy G62.1 [facility] [address] 12/23/2024 MIGUEL ANGEL AMADA Deformity of metatarsal bone of right foot M21.961 and Right foot pain M79.671 [facility] [address] 12/31/2024 MIGUEL ANGEL AMADA Deformity of metatarsal bone of right foot M21.961 ; Right foot pain M79.671 and Gait abnormality R26.9 [facility] [address] 01/28/2025 MIGUEL ANGEL AMADA Deformity of metatarsal bone of right foot M21.961 ; Right foot pain M79.671 and Gait abnormality R26.9 [facility] [address] 02/15/2025 MIGUEL ANGEL AMADA Cellulitis of right foot L03.115 and Pressure injury of right foot, stage 3 L89.893 [facility] [address] 03/04/2025 MIGUEL ANGEL AMADA Cellulitis of right foot L03.115 ; Cutaneous abscess of right foot L02.611 ; Deformity of metatarsal bone of right foot M21.961 and Skin lesion of left lower extremity L98.9 [facility] [address] 03/24/2025 MIGUEL ANGEL AMADA Deformity of metatarsal bone of right foot M21.961 and Pressure injury of right foot, stage 3 L89.893 [facility] [address] 04/01/2025 MIGUEL ANGEL AMADA Deformity of metatarsal bone of right foot M21.961 and Pressure injury of right foot, stage 3 L89.893 [facility] [address] 04/07/2025 MIGUEL ANGEL AMADA Cellulitis of right foot L03.115 and Postoperative wound dehiscence, initial encounter T81.31XA [facility] [address], [place] 04/13/2025 MIGUEL ANGEL AMADA Postoperative wound dehiscence, subsequent encounter T81.31XD and Deformity of metatarsal bone of right foot M21.961 [facility] [address], [place] 05/12/2024 MIGUEL ANGEL AMADA [facility] [address], [place] 07/13/2024 MIGUEL ANGEL AMADA [facility] [address], [place] 09/17/2024 MIGUEL ANGEL AMADA [facility] [address], [place] 09/22/2024 MIGUEL ANGEL AMADA [facility] [address], [place] 10/08/2024 MIGUEL ANGEL AMADA [facility] [address], [place] 10/12/2024 MIGUEL ANGEL AMADA [facility] [address], [place] 10/20/2024 MIGUEL ANGEL AMADA [facility] [address], [place] 12/01/2024 MIGUEL ANGEL AMADA [facility] [address], [place] 12/14/2024 MIGUEL ANGEL AMADA [facility] [address], [place] 12/14/2024 CARLITO ERNST [facility] [address], [place] 01/28/2025 MIGUEL ANGEL AMADA [facility] [address] [place] [address] 02/15/2025 MIGUEL ANGEL WEBBALLEY [facility] [address] [place] [address] 03/05/2025 MIGUEL ANGEL AMADA [facility] [address] [place] [address] 03/22/2025 MIGUEL ANGEL AMADA [facility] [address] [place] [address] 03/24/2025 MIGUEL ANGEL AMADA [facility] [address] [place] [address] 04/01/2025 MIGUEL ANGEL AMADA [facility] [address] [place] [address] 04/05/2025 MIGUEL ANGEL YBARRA Assessments Encounter Date [...] 05/17/2021 Next Appt Details Provider Name:MIGUEL ANGEL WEBBALLEY, 05/25/2025 09:30:00 AM, [address] [address], [place], [address], Insurance Providers Payer Name Payer Address Payer Phone Subscriber Number Group Number Insured Name Patient Relationship to Insured Coverage Start Date Coverage End Date A[employer] Medicare [address] [place] [phone] [id number] Julia Lomax Self - patient is the [...] IPJ arthrodesis, left 2-5 PIPJ arthrodesis. NEOS [id number] Right tailors bunion surgery 2019 Left and right 5th metatarsal floating o steotomies 07/2022 removal of mark left foot 02/2024 Right hip surgery 11/2024 Hospitalization History Reason Date(Month/Year) right hip surgery [facility] 11/2024 [facility] Lyme encephalopathy , UTI sepsis, Cirrhosis. 04/2020
== END 2025-04-21 12:14 | disposition home or self-care (01) ==
PROVIDERS: PCP Nurse Practitioner Primary Care; Visit Provider Internal Medicine
DX: Z00.01 Encounter for general adult medical examination with abnormal findings (principal); M15.0 Primary generalized (osteo)arthritis; D64.9 Anemia, unspecified; Z86.39 Personal history of other endocrine, nutritional and metabolic disease; Z71.89 Other specified counseling; Z12.11 Encounter for screening for malignant neoplasm of colon; Z00.00 Encounter for general adult medical examination without abnormal findings

== ENCOUNTER → 2025-04-21 10:54 | Outpatient (BNVA) | payer MEDICARE, SELFPAY | PROVIDERS: PCP Nurse Practitioner Primary Care; Visit Provider Internal Medicine | DX: Z00.01 Encounter for general adult medical examination with abnormal findings (principal); M15.0 Primary generalized (osteo)arthritis; D64.9 Anemia, unspecified; Z78.0 Asymptomatic menopausal state; Z86.39 Personal history of other endocrine, nutritional and metabolic disease; Z87.81 Personal history of (healed) traumatic fracture; Z87.310 Personal history of (healed) osteoporosis fracture | CPT/HCPCS: 96127; 99397; 99497 ==

== ENCOUNTER 2025-06-21 10:04 | Outpatient (REF) | payer MEDICARE, SELFPAY ==
--- OUTSIDE RECORDS SUMMARY | 2025-06-21 12:39 | XMS_ITS | Clinical Summary ---
Author Organization [facility] Address [address] [place] [address] Care Team Providers Care Manager Shift Name Role Phone Unavailable Primary Care Provider [...] 0 2021 Active ergocalciferol (VITAMIN D2) capsule 44222 units Take 1 capsule by mouth once [...]
--- OUTSIDE RECORDS SUMMARY | 2025-06-21 12:39 | XMS_ITS | Patient Health Record ---
Author Organization [facility] Address [address] [place] [address] Care Team Providers Care Scallop Shucker Name Role Phone Wilma Goldstein Primary Care Provider Yannick Chun Unavailable [phone] Reason For Referral No Information Problems Problem Type SNOMED Code ICD Code Onset Dates Problem Status W/U Status Risk Notes Problem Arthralgia (06934583) Arthralgia (719.40) Active confirmed Problem Disorder of joint of ankle and/or foot (344792086) Arthritis - Degenerative (719.97) Active confirmed Problem Ingrowing nail (660790470) Ingrowing Nail (703.0) Active confirmed Problem Neuralgia - Neuritis (729.2) Active confirmed Problem Onychomycosis (643108851) Onychomycosis (110.1) Active confirmed Problem Pain in limb (47151204) Pain in Limb (729.5) Active confirmed Plan Of Treatment Pending Test Test Name Order Date [id number] NAIL, 6 OR MORE 09/23/2013 [id number] NAIL, 6 OR MORE 12/28/2013 [id number] Plate 12/28/2013 Insurance Providers Payer Name Payer Address Payer Phone Subscriber Number Group Number Insured Name Patient Relationship to Insured Coverage Start Date Coverage End Date Medicare National [employer] [address] [place] [address] [id number] Julia Lomax Self - patient is the insured 3 Medical (General) History Medical History History ICD Code Arthritis back, hip, knee pain headaches/migraines measles thyroid disorder
--- OUTSIDE RECORDS SUMMARY | 2025-06-21 12:39 | XMS_ITS | Encounter Summary ---
Author Organization [facility] it Address [address] [place] [address] Care Team Providers Care Communication And Outreach Manager Name Role Phone Audelia Messer MD Primary Care Provider [phone] Encounter Details Date Type Department Care Team [...] hip documented in this encounter Care Teams Communication And Outreach Manager Relationship Specialty Start Date End Date Audelia Messer MD [address] [place] [address] PCP - General Internal Medicine 10/20/24 documented as of this encounter
--- OUTSIDE RECORDS SUMMARY | 2025-06-21 12:39 | XMS_ITS | Patient Health Record ---
Author Organization [facility] Address [address] [place] [address] Care Team Providers Care Technology Recruiter Name Role Phone Abimaelosmany Charley Primary Care Provider Unavailab MIGUEL ANGEL Beckwith Unavailable [phone] CARLITO ERNST Unavailable [phone] Allergies Allergen (clinical drug ingredient) Drug/Non Drug Allergy documented on EMR Reaction Allergy Type Onset Date Status oxycodone Oxycodone passed out Drug Allergy Active Results Component Value Reference Range Notes Anaerobic/Aerobic/Gram Stain -[id number] Reviewed date:04/13/2025 07:38:44 AM Interpretation: Performing Lab:[facility], Molly Garibay Jeannette, [address], [place], Phone - [phone], Director - [facility] Notes/Report: Clinical Information:SRC: SOURCE NOT INDICATED [...] Many gram posit miguel cocci. Anaerobic/Aerobic/Gram Stain -[id number] Reviewed date:02/23/2025 07:36:54 AM Interpretation: Performing Lab:[facility] [address], [address], [place], Phone - [phone], Director - [facility] Notes/Report: Clinical Information:SRC: Clinical Information:SRC: Clinical [...] number of gram positive cocci. 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 Problem Polyneuropathy (91825384) Polyneuropathy (G62.9) Active confirmed Problem Ulcer of left foot (disorder) (468306969) Ulcer of left foot with fat layer exposed (L97.522) Active confirmed Problem Polyneuropathy associated with another disorder (869066178) Polyneuropathy associated with underlying disease (G63) Active confirmed Problem Ulcer of right foot (disorder) (655446291) Ulcer of right foot, limited to breakdown of skin (L97.511) Active confirmed Problem Deformity of metatarsal (890881616) 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) Active confirmed Problem Vitamin D deficiency (15900221) Vitamin D deficiency (E55.9) Active confirmed Problem Deformity of right foot (finding) (098964675) Deformity of metatarsal bone of right foot (M21.961) Active confirmed Problem Skin ulcer of left heel with fat layer exposed (L97.422) Active confirmed Problem Pressure injury of right foot, 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) Active confirmed Vital Signs Heart Rate 87 /min 04/07/2025 Temperature 96.9 degrees Fahrenheit 04/07/2025 Respiratory Rate 16 /min 04/07/2025 Blood pressure diastolic 56 mm Hg 07/13/2024 Height 66 in 05/25/2025 Blood pressure systolic 108 mm Hg 07/13/2024 Weight 147 lbs 05/25/2025 BMI 23.72 kg/m2 05/25/2025 Procedures Procedure Date Ordered Date Performed Result Body Sit e Debridement ulcer subq first 20sq cm 10/12/2024 N/A I&D superficial 03/04/2025 N/A Encounters Encounter Location Date Provider Diagnosis [facility] [address] [address] 07/13/2024 MIGUEL ANGEL AMADA [facility] [address] [address] 12/02/2024 MIGUEL ANGEL AMADA Right foot pain M79.671 and Gait abnormality R26.9 [facility] [address] [address] 09/22/2024 MIGUEL ANGEL AMADA Pressure injury of right foot, stage 3 L89.893 [facility] [address] [address] 10/12/2024 MIGUEL ANGEL AMADA Pressure injury of right foot, stage 3 L89.893 ; Cellulitis of right foot L03.115 ; Alcohol-induced polyneuropathy G62.1 and Post-traumatic osteoarthritis of right hip M16.51 [facility] [address] [address] 12/14/2024 CARLITO ERNST Abscess of right foot L02.611 ; Pressure injury of right foot, stage 3 L89.893 ; Cellulitis of right foot L03.115 and Alcohol-induced polyneuropathy G62.1 [facility] [address] 12/23/2024 MIGUEL ANGEL AMADA Deformity of metatarsal bone of right foot M21.961 and Right foot pain M79.671 [facility] [address] 12/31/2024 MIGUEL ANGEL AMADA Deformity of metatarsal bone of right foot M21.961 ; Right foot pain M79.671 and Gait abnormality R26.9 [facility] [address] 01/28/2025 MIGUEL ANGEL AMADA Deformity of metatarsal bone of right foot M21.961 ; Right foot pain M79.671 and Gait abnormality R26.9 [facility] [address] 02/15/2025 MIGUEL ANGEL AMADA Cellulitis of right foot L03.115 and Pressure injury of right foot, stage 3 L89.893 [facility] [address] 03/04/2025 MIGUEL ANGEL AMADA Cellulitis of right foot L03.115 ; Cutaneous abscess of right foot L02.611 ; Deformity of metatarsal bone of right foot M21.961 and Skin lesion of left lower extremity L98.9 [facility] [address] [address] 03/24/2025 MIGUEL ANGEL AMADA Deformity of metatarsal bone of right foot M21.961 and Pressure injury of right foot, stage 3 L89.893 [facility] [address] 04/01/2025 MIGUEL ANGEL AMADA Deformity of metatarsal bone of right foot M21.961 and Pressure injury of right foot, stage 3 L89.893 [facility] [address] 04/07/2025 MIGUEL ANGEL AMADA Cellulitis of right foot L03.115 and Postoperative wound dehiscence, initial encounter T81.31XA [facility] [address] 04/13/2025 MIGUEL ANGEL AMADA Postoperative wound dehiscence, subsequent encounter T81.31XD and Deformity of metatarsal bone of right foot M21.961 [facility] [address] 05/25/2025 MIGUEL ANGEL AMADA Deformity of metatarsal bone of right foot M21.961 ; Pre-ulcerative calluses L84 and Status post right foot surgery Z98.890 [facility] [address] 06/08/2025 MIGUEL ANGLE AMADA Left foot pain M79.6 72 ; Acute left ankle pain M25.572 and Weakness of left lower extremity R29.898 [facility] [address] 07/13/2024 MIGUEL ANGEL AMADA [facility] [address] 09/17/2024 MIGUEL ANGEL AMADA [facility] [address] 09/22/2024 MIGUEL ANGEL AMADA [facility] [address] 10/08/2024 MIGUEL ANGEL AMADA [facility] [address] 10/12/2024 MIGUEL ANGEL AMADA [facility] [address] 10/20/2024 MIGUEL ANGEL AMADA [facility] [address] 12/01/2024 MIGUEL ANGEL AMADA [facility] [address] [address] 12/14/2024 MIGUEL ANGEL YBARRA [facility] [address] [place] [address] 12/14/2024 CARLITO ERNST [facility] [address] [place] [address] 01/28/2025 MIGUEL ANGEL AMADA [facility] [address] [place] [address] 02/15/2025 MIGUEL ANGEL AMADA [facility] [address] [place] [address] 03/05/2025 MIGUEL ANGEL AMADA [facility] [address] [place] [address] 03/22/2025 MIGUEL ANGEL AMADA [facility] [address] [place] [address] 03/24/2025 MIGUEL ANGEL AMADA [facility] [address] [place] [address] 04/01/2025 MIGUEL ANGEL AMADA [facility] [address] [place] [address] 04/05/2025 MIGUEL ANGEL AMADA [facility] [address] [place] [address] 06/08/2025 MIGUEL ANGEL AMADA Assessments Encounter Date Diagnosis (ICD Code) Assessment [...] the meantime with any questions or concerns. 05/25/2025 Deformity of metatarsal bone of right foot (ICD-10 - M21.961) Patient examined and evaluated. She is 7 weeks s/p right MIS DMMO to the 5th metatarsal to offload a chronic recurrent ulceration. Three weightbearing radiographs of the right foot were taken in office and reviewed. Interval healing noted. The right plantar sub right 5th ulceration has healed. She has gone back to all normal activity without any issues. I would like to see her back in 6 weeks to recheck bone healing. I encouraged her to call in the meantime with any questions or concerns. 06/08/2025 Left foot pain (ICD-10 - M79.672) Patient examined and evaluated. She comes in with concerns of some increased weakness and nerve like sensations to the left lower extremity. She has had chronic issues to this side since a reconstructive foot surgery over 5 years ago. Three weightbearing radiographs of the left foot and the left ankle were taken in the office today and reviewed. No obvious fractures or dislocations. The radiographs seem stable compared to past radiographs. She has diffuse osteopenic changes and arthrosis. I discussed with her that the weakness and nerve like sensations maybe due to systemic pathology vs spinal compression. She is finally getting established with a PCP and has follow up next week. She has past medical issues that were never fully addressed. She has a history of hypothyroidism and chronic hyponatremia and both these could be factors in her increased weakness and neurological symptoms. I suggest she bring this up with her new PCP as this should be looked further into. She understood. She has an upcoming post-op visit for the right foot in a month and we can re-evaluate then. I encouraged her to call me if she has any additional questions or concerns. 06/08/2025 Acute left ankle pain (ICD-10 - M25.572) 06/08/2025 Weakness of left lower extremity (ICD-10 - R29.898) 05/25/2025 Pre-ulcerative calluses (ICD-10 - L84) 04/01/2025 Pressure injury of right foot, stage [...] procedure. Will also check this with insurance. 05/25/2025 Status post right foot surgery (ICD-10 - Z98.890) 12/14/2024 Cellulitis of right foot (ICD-10 - L03.115) 12/14/2024 Alcohol-induced polyneuropathy (ICD-10 - G62.1) Plan Of Treatment Pending Test Test Name Order Date X ray : Ankle, left, 3 views 06/08/2025 X ray : Foot, left, 2 views 06/08/2025 Thyroid Panel With TSH 03/14/2022 Uric Acid, [...] X ray : Foot, right 3v 12/23/2024 X ray : Foot, right 3v 05/25/2025 I&D superficial 03/04/2025 Debridement ulcer subq first [...] Next Appt Details Provider Name:MIGUEL ANGEL YBARRA, 06/29/2025 09:30:00 AM, [address], [place], [address], Insurance Providers Payer Name Payer Address Payer Phone Subscriber Number Group Number Insured Name Patient Relationship to Insured Coverage Start Date Coverage End Date [employer] Medicare [address] [place] [phone] [id number] Julia Lomax Self - patient is the insured Medical (General) History Medical History History ICD Code Unspecified fracture of shaf t of humerus, unspecified arm, initial encounter for closed fracture S42.309A Hypothyroidism, unspecified E03.9 Low back pain M54.5 Dysplasia of cervix uteri, unspecified N 87.9 Rosacea, unspecified L71.9 Cirrhosis of liver Hypertension 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 NEOS [id number] Right tailors bunion surgery 2019 Left and right 5th metatarsal floating o steotomies 07/2022 removal of mark left foot 02/2024 Right hip surgery 11/2024 Hospitalization History Reason Date(Month/Year) right hip surgery [facility] 11/2024 [facility] Lyme encephalopathy , UTI sepsis, Cirrhosis. 04/2020
--- OUTSIDE RECORDS SUMMARY | 2025-06-21 12:39 | XMS_ITS | Clinical Summary ---
Author Organization [facility] Address [address] [place] [address] Phone Care Team Providers Care Net Coordinator Name Role Phone Audelia Messer MD Primary Care Provider [phone] Allergies No known active allergies Medications methocarbamoL (ROBAXIN) 750 mg tablet Take 1 tablet (750 mg total) by mouth 4 (four) times a day if needed for muscle spasms for up to 14 days. 56 tablet 11/17/2024 12:34 PM EST 11/17/2024 Active oxyCODONE (ROXICODONE) 5 mg immediate release tablet Take 1 tablet (5 mg total) by mouth every 4 (four) hours if needed for moderate pain. Max Daily Amount: 30 mg 40 tablet 11/17/2024 12:34 PM EST 11/17/2024 Active senna (SENOKOT) 8.6 mg tablet Take 2 tablets (17.2 mg total) by mouth at bedtime. 60 each 11 11/17/2024 12:34 PM EST 11/17/2024 11/17/19 26 Active Active Problems Problem Noted Date Diagnosed Date Pain 11/16/2024 Status post THR (total hip replacement) 11/16/19 25 Alcoholic cirrhosis of liver without ascites (CMS/HCC V24, CMS/HCC V28) 10/21/2024 Assessment & Plan (10/21/2024 10:27 PM EST): [...] has stated proceed with surgery. Femur fracture (CMS/HCC V24, CMS/HCC V28) 2020 Overview (10/01/2024): 6/ secondary to a fall, ORIF, right Radius fracture 04/27/2021 Overview (10/01/2024): 6/21 secondary to a fall; casted History of [...] surgery. ADDENDUM: Dentist cleared patient for surgery. Immunizations Name Administration Dates Next Due Moderna [...] dentisit 10/12/23 Liver disease April 2019 Alcoholism ([facility] V24, [facility] V28) April 2019 Hyponatremia 10/20/2024 Alcoholic cirrhosis of liver without ascites ([facility] V24, [facility] V28) 10/21/2024 Family History Medical History Relation Name [...] 94 11/17/2024 5:33 PM EST Temperature 36.8 C (98.3 F) 11/17/2024 5:33 PM EST Respiratory Rate 21 11/17/2024 5:33 PM EST Oxygen Saturation 97% 11/17/2024 5:33 PM EST Inhaled Oxygen Concentration - - Weight 65.8 kg (145 lb) 11/17/2024 2:42 PM EST Height 165.1 cm (5' 5 ) 11/17/2024 2:42 PM EST Body Mass Index 24.13 11/17/2024 2:42 PM EST Plan of Treatment Health Maintenance Due Date Last Done Comments Breast Cancer Screening 1955 Hepatitis A Vaccines (1 of 2 - Risk 2-dose series) 1972 Pneumococcal Vaccine: 50+ Years (1 of 2 - PCV) 1972 Zoster Vaccines (1 of 2) 2003 Osteoporosis Screening (Bone Density Screening) 09/14/2022 Social Influencers of Health Screening 09/14/2022 Medicare Annual Wellness Visit 09/18/2023 09/18/2022 Depression Screening 10/07/2024 COVID-19 Vaccine (4 - 2024-2 6 season) 2025 10/21/2021, 02/18/2021, 01/20/2021 Influenza Vaccine (#1) 2025 Falls Risk Assessment 11/17/2025 11/17/2024 RSV [...] age to complete this topic Meningococcal B Vaccine Aged Out No l onger eligible based on patient's age to complete [...] with HEP Medical Devices Implanted Type Area Space Operations Officer Device Identifier Shelf Expiration Date Model / Serial / Lot Cement Bone Surg Simplex Radiopq - [id number] Implanted:Qty : 1 on 11/16/2024 by Agusto Cain MD at [facility] Bone Cement Right: Hip [employer] [id number] 05/06/2027 6190-10-07 0 / / [id number] Cement Bone Surg Simplex Radiopq - [id number] Implanted:Qty : 1 on 11/16/2024 by Agusto Cain MD at [facility] Bone Cement Right: Hip [employer] [id number] 05/06/2027 6190-10-07 0 / / [id number] Kit Prep Total Hip Bone Imp - Sna - [id number] Implanted:Qty : 1 on 11/16/2024 by Agusto Cain MD at [facility] Bone Cement Right: Hip [employer] [id number] / NA / NA Hip Spacr Distl 10mm - [id number] Implanted:Qty : 1 on 11/16/2024 by Agutso Cain MD at [facility] Joints Hip Right: Hip [employer] [id number] 10/16/2029 2964-4726 / / [id number] Head Femoral 36mm -2.5mm Offset Biolox Delta Ceramic Hip - [id number] Implanted:Qty : 1 on 11/16/2024 by Agusto Cain MD at [facility] Joints Hip Right: Hip [employer] [id number] 06/20/2029 6570-0-43 6 / / [id number] Liner Trident X3 0 Deg 36mm 3.9mm Sz D - [id number] Implanted:Qty : 1 on 11/16/2024 by Agusto Cain MD at [facility] Joints Hip Right: Hip [employer] [id number] 06/10/2029 723-00-36 D / / [id number] Lp Hex Screw 6.5x25mm - [id number] Implanted:Qty : 1 on 11/16/2024 by Agusto Cain MD at [facility] Hip Right: Hip [employer] [id number] 09/07/2029 1964-7852 / / [id number] Tritanium Cluster Hole Shell 50mm - [id number] Implanted:Qty : 1 on 11/16/2024 by Agusto Cain MD at [facility] Joints Hip Right: Hip [employer] [id number] 08/04/2028 702-04-50 D / / [id number] Lp Hex Screw 6.5x15mm - [id number] Implanted:Qty : 1 on 11/16/2024 by Agusto Cain MD at [facility] Joints Hip Right: Hip [employer] [id number] 08/22/2027 4225-0689 / / [id number] Lp Hex Screw 6.5x20mm - [id number] Implanted:Qty : 1 on 11/16/2024 by Agusto Cain MD at [facility] Joints Hip Right: Hip [employer] [id number] 08/26/2029 9642-0696 / / [id number] Hip Stem Acco-C 132deg #4 - [id number] Implanted:Qty : 1 on 11/16/2024 by Agusto Cain MD at [facility] Joints Hip Right: Hip [employer] [id number] 09/13/2029 6814-4306 D / / [id number] Explanted Type Area Space Operations Officer Device Identifier Shelf Expiration Date Model / Serial / Lot Canullated Screws Explanted:Qty: 3 on 11/16/2024 by Agusto Cain MD at [facility] Right: Hip NA NA / NA / NA Procedures Procedure Name Priority Date/Time Associated Diagnosis Comments HEPATITIS C SCREENING Routine 09/18/2018 COLONOSCOPY Routine 09/16/2018 from Last 3 Months or Most Recently Relevant to Health Maintenance Results * Hepatitis C Screening (09/18/2018) Hepatitis C Screening abstracted Historical Provider HEALTH MAINTENANCE Final Result * Colonoscopy (09/16/2018) Colonoscopy no interpretation , abstracted Anatomical Region Laterality Modality Other Historical Provider HEALTH MAINTENANCE Final Result from Last 3 Months or Most Recently Relevant to Health Maintenance Insurance AETNA MEDICARE ADVANTAGE [facility] Advance Directives Documents on File Type Date Recorded Patient Deflector Operator Expl anation Health Care Decision (hx) 05/17/2020 [...] 3:52 PM 11/17/2024 2:30 PM This is orde r is used when code status has not [...] currently active code status orders. Care Teams Net Coordinator Relationship Specialty Start Date End Date Audelia Messer MD [address] [place] [address] PCP - General Internal Medicine 10/20/24
[2025-06-21 13:27] LABS: MANUAL DIFF FLAG NO
[2025-06-21 13:33] LABS: Hematocrit 33.8 % (37.0-47.0); Hemoglobin 11.0 g/dl (12.0-16.0); Imm Gran Abs Auto 0.01 X10*3/uL (0.00-0.03); Imm Gran Pct Auto 0.2 % (0.0-0.4); Lymphocytes Absolute Auto 1.7 X10*3/uL (1.2-4.9); Mean Corpuscular HGB Conc 32.5 g/dl (31.0-35.0); Mean Corpuscular Hemoglobin 31.3 pg (27.0-33.0); Mean Corpuscular Volume 96.3 fL (80.0-98.0); NRBC Abs Auto 0.000 X10*3/uL (0.0-0.012); NRBC Pct Auto 0.0 /100WBC (0.0-0.2); Platelet Count 195 X10*3/uL (160-400); Red Blood Count 3.51 X10*6/uL (4.20-5.50); White Blood Count 6.1 X10*3/uL (4.8-10.8)
[2025-06-21 13:51] LABS: Iron 86 mcg/dL (30-160); Percent Iron Saturation 32 % (15-50); Total Iron Binding Capacity 267 mcg/dL (228-428); Unsaturated Iron Binding 181 ug/dL
[2025-06-21 14:07] LABS: Ferritin 95 ng/mL (10-250)
== END 2025-06-21 10:05 | disposition home or self-care (01) ==
LOC: HO.HMGCLDS 10:04
PROVIDERS: PCP Internal Medicine; Visit Provider Internal Medicine
DX: D64.9 Anemia, unspecified (principal)
CPT/HCPCS: 36415; 82728; 83540; 85025

== ENCOUNTER 2025-06-24 08:58 | Outpatient (AMB) | payer MEDICARE, MEDICAID, SELFPAY ==
--- NOTE | 2025-06-24 09:33 | MHC.PC.OV ---
Vital Signs 06/24/25 09:34 Height 5 ft 5 in Weight 155 lb BMI 25.8 BP 130/64 Blood Pressure Location Lt brachial Position Sitting Respiration 15 Pulse 76 Pulse Source Pulse Oximeter Temp 98.0 F Temp Source Oral Pulse Oximetry (%) 95 Oxygen Delivery Method Room Air Intake Visit Reasons: 2m f/u Allergies No Known Allergies Allergy (Verified 06/24/25 10:03) Medication List - Last Reconciled 06/24/25 by Charley Hickey MD acetaminophen (Tylenol Extra Strength) 500 mg PO Q6H PRN ferrous sulfate 325 mg PO DAILY Tobacco use date assessed: 06/24/25 Fall risk assessment: No Falls in past year Last assessed Fall Risk: 06/24/25 Dental Screening Dental Screen Date: 06/24/25 Did you have a dental visit in the last 12 months?: No Did you have a dental problem in the last 6 months where you did not have access to dental care?: No Was dental information given to patient?: Patient declined HPI 2m f/u HPI Details 69-year-old lady here today for follow-up on her anemia. Currently taking ferrous sulfate 325 mg daily. Denies any headache, no lightheadedness or chest pain or shortness of breath. Patient however complains of easy bruising, states that she easily bleeds . States that she was just sitting on a chair and skin on elbows started to bleed where it was rubbing on the arm of the chair. Has diminished hearing, has hearing aids, but would like a referral back to the speech and hearing center for re-evaluation PENDING SALE TO [facility] Medical History Hearing loss Closed fracture of right proximal humerus Anemia Personal history of (healed) osteoporosis fracture Osteoarthritis Cold intolerance History of fracture of right hip Fatigue History of syncope Surgical History Status post hip surgery S/P foot surgery, left Family History Father No problems noted. Mother Dementia Social History Housing: House Alcohol intake: never Patient Tobacco Use Status: Former Tobacco user e-Cigarette/Vaping Use: Never Used service: No Current occupational status: employed and retired Current occupational exposures/hazards: No Cognitive needs: No Hearing needs: Yes Vision needs: Yes Questionnaire PHQ-9 Over the last 2 weeks, how often have you been bothered by any of the following problems? 1. Little interest or pleasure in doing things: not at all 2. Feeling down, depressed, or hopeless: not at all 3. Trouble falling or staying asleep, or sleeping too much: several days 4. Feeling tired or having little energy: several days 5. Poor appetite or overeating: several days 6. Feeling bad about yourself - or that you are a failure or have let yourself or your family down: not at all 7. Trouble concentrating on things, such as reading the newspaper or watching television: several days 8. Moving or speaking so slowly that other people could have noticed. Or the opposite - being so fidgety or restless that you have been moving around a lot more than usual: not at all 9. Thoughts that you would be better off or of hurting yourself in some way: not at all Total score: 4 Depression Screening Interpretation: Negative Depression Screening Done: Yes Source: Developed by Drs. Adi Muñoz, Ana Lane, Brennan Betancourt and colleagues, with an educational kelly from [employer]. Thrive Questionnaire Date Thrive assessed: 01/06/25 I am a: Patient What is your living situation today?: I have a steady place to live Within the past 12 months, did the food you bought not last and you didn't have the money to get more?: I choose not to answer this question Within the past 12 months, did you worry whether your food would run out before you got money to buy more?: I choose not to answer this question Do you have trouble paying for medicines?: I choose not to answer this question Do you have trouble getting transportation to medical appointments?: No Do you have trouble paying your heating and electricity bill?: No Do you have trouble taking care of your child, family member or friend?: No Do you have trouble with day-to-day activities such as bathing, preparing meals, shopping, managing finances, etc.?: Yes Are you currently unemployed and looking for a job?: Yes Are you interested in more education?: No Please select the resources that you would like help with: None Currently or been in a relationship where the following occur: I choose not to answer THRIVE Score: 0 AUDIT C Alcohol Use Questionnaire (AUDIT-C) 1. How often do you have a drink containing alcohol?: Never 3. How often do you have six or more drinks on one occasion?: Never Total Score: 0 TAYLER-7 AMB Questionnaire TAYLER-7 Date TAYLER - 7 assessed: 01/06/25 Feeling nervous, anxious, or on edge: 0 = Not at all Not being able to stop or control worryin = Not at all Worrying too much about different things: 0 = Not at all Trouble relaxin = Not at all Being so restless that it is hard to sit still: 0 = Not at all Becoming easily annoyed or irritable: 0 = Not at all Feeling afraid as if something awful might happen: 0 = Not at all Total TAYLER-7 score (0-4 normal; 5-9 mild; 10-14 moderate; 15-21 severe): 0 Source: Developed by Drs. Adi Muñoz, Ana Lane, Brennan Betancourt and colleagues, with an educational kelly from [employer]. Review of Systems Const All systems reviewed & are unremarkable except as noted in HPI and below ENT Details: Frequent nosebleeds Physical exam (Primary Care) Vital Signs: Last Vital Signs Temp 98.0 F 06/24/25 09:34 Pulse 76 06/24/25 09:34 Resp 15 06/24/25 09:34 BP 130/64 06/24/25 09:34 Pulse Ox 95 06/24/25 09:34 Oxygen Delivery Method Room Air 06/24/25 09:34 BMI result Body Mass Index 25.8 Tobacco/Smoking Status: Tobacco use Status Tobacco use date assessed 06/24/25 06/24/25 09:59 Patient Tobacco Use Status Former Tobacco user 06/24/25 09:34 e-Cigarette/Vaping Use Never Used 06/24/25 09:34 PHQ-9: PHQ-9 Score PHQ-9: Total score 4 06/24/25 10:02 Depression Screening Interpretation: Negative Thrive Assessment: Date of Thrive Assessment Date Thrive assessed 01/06/25 06/24/25 09:34 Currently or been in a relationship where the following occur: I choose not to answer Const General: comfortable, no acute distress and alert Orientation/consciousness: patient oriented x3 HENMT Ears: external ears normal, TM's normal bilaterally and EAC's normal General nose exam: Normal external nose present Mouth: Normal oral and palatal mucosa present, oropharynx normal and moist mucous membranes Neck Neck: Yes full ROM, Yes no lymphadenopathy and Yes supple Resp Effort & Inspection: normal respiratory effort and able to speak in complete sentences Auscultation: clear to auscultation bilaterally Cardio Rate: regular rate Rhythm: regular rhythm Heart sounds: S1 normal heart sound present and S2 normal heart sound present GI Palpation (GI): Soft to palpation, nontender and no masses Auscultation: normal bowel sounds Back/Spine/Pelvis Back: No back tenderness Skin Other: , thin skin, Ecchymosis noted on both forearms Neuro General: patient oriented x3, gait normal, moves all extremities and no focal motor deficits Cranial nerves: Yes CN's II-XII intact bilaterally Cognition (Neuro): normal cognition Extrem General: Yes full ROM, Yes no joint enlargement, Yes no clubbing, cyanosis or edema and Yes no calf tenderness Results Reviewed Results Reviewed: Name: Julia Lomax Age/Sex: 69/F : 1955 Unit#: [id number] Attend Dr: Charley Hickey MD Re06/21/25 Status: DEP REF Location: [facility] Disch: SPEC : [id number] JOSIAH: 06/21/25 STATUS: COMP REQ : [id number] RECD: 06/21/[address]: Charley Hickey MD COMP: 06/21/25 ENTERED: 06/21/[address]: ORDERED: CBC Auto Diff Test Result Flag Reference WBC 6.1 4.8-10.8 X10*3/uL RBC 3.51 L 4.20-5.50 X10*6/uL HGB 11.0 L 12.0-16.0 g/dl HCT 33.8 L 37.0-47.0 % MCV 96.3 80.0-98.0 fL MCH 31.3 27.0-33.0 pg MCHC 32.5 31.0-35.0 g/dl RDW 12.1 11.0-16.0 % PLT 195 160-400 X10*3/uL MPV 10.3 9.4-12.3 fL Neut Pct Auto 55.8 45-73 % ImGran Pct Auto 0.2 0.0-0.4 % Lymp Pct Auto 28.5 20-40 % [place] Pct Auto 10.6 2-11 % Eos Pct Auto 4.1 H 0-4 % Baso Pct Auto 0.8 0-2 % NRBC Pct Auto 0.0 0.0-0.2 /100WBC ANC Neut Abs # 3.4 2.0-8.3 x10*3/uL ImGran Abs Auto 0.01 0.00-0.03 X10*3/uL Lymph Abs Auto 1.7 1.2-4.9 X10*3/uL [place] Abs Auto 0.6 0.1-1.2 X10*3/uL Eos Abs Auto 0.3 0.0-0.4 X10*3/uL Baso Abs Auto 0.1 0.0-0.2 X10*3/uL NRBC Abs Auto 0.000 0.0-0.012 X10*3/uL Name: Julia Lomax Age/Sex: 69/F : 1955 Unit#: [id number] Attend Dr: Charley Hickey MD Re06/21/25 Status: DEP REF Location: [facility] Disch: SPEC : [id number] JOSIAH: 06/21/25 STATUS: COMP REQ : [id number] RECD: 06/21/[address]: Charley Hickey MD COMP: 06/21/25 ENTERED: 06/21/[address]: ORDERED: IRON PROF, Ferritin Test Result Flag Reference Iron 86 30-160 mcg/dL TIBC 267 228-428 mcg/dL Saturation 32 15-50 % UIBC 181 ug/dL Ferritin 95 10-250 ng/mL Coding Level of Care Code Est Pt Level 4 (19923) Diagnoses Epistaxis R04.0 Multiple ecchymoses of both upper arms R58 Hearing loss H91.90 Anemia, unspecified type D64.9 Anemia type: unspecified type Assessment & Plan Assessment & Plan (1) Epistaxis: Code(s): R04.0 - Epistaxis Plan: Her liver enzymes, platelet count are within normal limits. Ordered von Willebrand comprehensive profile, PT and PTT (2) Multiple ecchymoses of both upper arms: Code(s): R58 - Hemorrhage, not elsewhere classified Plan: Her liver enzymes, platelet count are within normal limits. Ordered von Willebrand comprehensive profile, PT and PTT (3) Hearing loss: Code(s): H91.90 - Unspecified hearing loss, unspecified ear Category: Medical Plan: Referred to speech and hearing center in [place] (4) Anemia: Code(s): D64.9 - Anemia, unspecified Category: Medical Qualifiers: Anemia type: unspecified type Qualified Code(s): D64.9 - Anemia, unspecified Plan: Repeat another CBC and iron profile in 3 months. Continue with ferrous sulfate Orders: Orders Prothrombin Time INR 06/24/25 R04.0 - Epistaxis, R58 - Hemorrhage, not elsewhere classified Complete Blood Count Auto Diff 06/24/25 D64.9 - Anemia, unspecified IRON PROFILE 06/24/25 D64.9 - Anemia, unspecified von Willebrand Comp. Profile 06/24/25 R04.0 - Epistaxis, R58 - Hemorrhage, not elsewhere classified Partial Thromboplastin Time 06/24/25 R04.0 - Epistaxis, R58 - Hemorrhage, not elsewhere classified Referrals Speech and Hearing Referral H91.90 - Unspecified hearing loss, unspecified ear Medications: Refilled ferrous sulfate 325 mg PO DAILY 90 tabs 1RF
[2025-06-24 09:34] VITALS: BP 130/64; PULSE 76; RESP 15; TEMP 36.7; O2SAT 95; BMI 25.8
--- OUTSIDE RECORDS SUMMARY | 2025-06-24 10:22 | XMS_ITS | Patient Health Record ---
Author Organization [facility] Address [address] [place] [address] Care Team Providers Care Nursing Care Partner Name Role Phone Wilma Goldstein Primary Care Provider Yannick Chun Unavailable [phone] Reason For Referral No Information Problems Problem Type SNOMED Code ICD Code Onset Dates Problem Status W/U Status Risk Notes Problem Arthralgia (11319096) Arthralgia (719.40) Active confirmed Problem Disorder of joint of ankle and/or foot (104134960) Arthritis - Degenerative (719.97) Active confirmed Problem Ingrowing nail (688316200) Ingrowing Nail (703.0) Active confirmed Problem Neuralgia - Neuritis (729.2) Active confirmed Problem Onychomycosis (520865442) Onychomycosis (110.1) Active confirmed Problem Pain in limb (30461166) Pain in Limb (729.5) Active confirmed Plan Of Treatment Pending Test Test Name Order Date [id number] NAIL, 6 OR MORE 09/23/2013 [id number] NAIL, 6 OR MORE 12/28/2013 [id number] Plate 12/28/2013 Insurance Providers Payer Name Payer Address Payer Phone Subscriber Number Group Number Insured Name Patient Relationship to Insured Coverage Start Date Coverage End Date Medicare [employer] [address] [place] [address] [id number] Julia Lomax Self - patient is the insured 3 Medical (General) History Medical History History ICD Code Arthritis back, hip, knee pain headaches/migraines measles thyroid disorder
--- OUTSIDE RECORDS SUMMARY | 2025-06-24 10:22 | XMS_ITS | Patient Health Record ---
Author Organization [facility] Address [address] [place] [address] Care Team Providers Care Tellers Supervisor Name Role Phone Abimaelosmany Charley Primary Care Provider Unavailab MIGUEL ANGEL Beckwith Unavailable [phone] CARLITO ERNST Unavailable [phone] Allergies Allergen (clinical drug ingredient) Drug/Non Drug Allergy documented on EMR Reaction Allergy Type Onset Date Status oxycodone Oxycodone passed out Drug Allergy Active Results Component Value Reference Range Notes Anaerobic/Aerobic/Gram Stain -246042 Reviewed date:04/13/2025 07:38:44 AM Interpretation: Performing Lab:[facility], Molly Garib[address] Jeann[address], [address], [place], Phone - [phone], Director - [facility] Notes/Report: Clinical Information:SRC: SOURCE NOT INDICATED Clinical [...] Many gram posit miguel cocci. Anaerobic/Aerobic/Gram Stain -436722 Reviewed date:02/23/2025 07:36:54 AM Interpretation: Performing Lab:[facility] [address], [address], [place], Phone - [phone], Director - [facility] Notes/Report: Clinical Information:SRC: Clinical Information:SRC: Clinical Information:SRC: [...] number of gram positive cocci. 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 Problem Polyneuropathy (83254553) Polyneuropathy (G62.9) Active confirmed Problem Ulcer of left foot (disorder) (339784821) Ulcer of left foot with fat layer exposed (L97.522) Active confirmed Problem Polyneuropathy associated with another disorder (961563562) Polyneuropathy associated with underlying disease (G63) Active confirmed Problem Ulcer of right foot (disorder) (700496619) Ulcer of right foot, limited to breakdown of skin (L97.511) Active confirmed Problem Deformity of metatarsal (973152426) 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) Active confirmed Problem Vitamin D deficiency (22659335) Vitamin D deficiency (E55.9) Active confirmed Problem Deformity of right foot (finding) (379868102) Deformity of metatarsal bone of right foot [...] N/A Encounters Encounter Location Date Provider Diagnosis [facility] [address] [address] 07/13/2024 MIGUEL ANGEL AMADA [facility] [address] [address] 12/02/2024 MIGUEL ANGEL AMADA Right foot pain M79.671 and Gait abnormality R26.9 [facility] [address] [address] 09/22/2024 MIGUEL ANGEL AMADA Pressure injury of right foot, stage 3 L89.893 [facility] [address] [address] 10/12/2024 MIGUEL ANGEL AMADA Pressure injury of right foot, stage 3 L89.893 ; Cellulitis of right foot L03.115 ; Alcohol-induced polyneuropathy G62.1 and Post-traumatic osteoarthritis of right hip M16.51 [facility] [address] [address] 12/14/2024 CARLITO ERNST Abscess of right foot L02.611 ; Pressure injury of right foot, stage 3 L89.893 ; Cellulitis of right foot L03.115 and Alcohol-induced polyneuropathy G62.1 [facility] [address] 12/23/2024 MIGUEL ANGEL AMADA Deformity of metatarsal bone of right foot M21.961 and Right foot pain M79.671 [facility] [address] 12/31/2024 MIGUEL ANGEL AMADA Deformity of metatarsal bone of right foot M21.961 ; Right foot pain M79.671 and Gait abnormality R26.9 [facility] [address] 01/28/2025 MIGUEL ANGEL AMADA Deformity of metatarsal bone of right foot M21.961 ; Right foot pain M79.671 and Gait abnormality R26.9 [facility] [address] 02/15/2025 MIGUEL ANGEL AMADA Cellulitis of right foot L03.115 and Pressure injury of right foot, stage 3 L89.893 [facility] [address] 03/04/2025 MIGUEL ANGEL AMADA Cellulitis of right foot L03.115 ; Cutaneous abscess of right foot L02.611 ; Deformity of metatarsal bone of right foot M21.961 and Skin lesion of left lower extremity L98.9 [facility] [address] [address] 03/24/2025 MIGUEL ANGEL AMADA Deformity of metatarsal bone of right foot M21.961 and Pressure injury of right foot, stage 3 L89.893 [facility] [address] 04/01/2025 MIGUEL ANGEL AMADA Deformity of metatarsal bone of right foot M21.961 and Pressure injury of right foot, stage 3 L89.893 [facility] [address] 04/07/2025 MIGUEL ANGEL AMADA Cellulitis of right foot L03.115 and Postoperative wound dehiscence, initial encounter T81.31XA [facility] [address] 04/13/2025 MIGUEL ANGEL AMADA Postoperative wound dehiscence, subsequent encounter T81.31XD and Deformity of metatarsal bone of right foot M21.961 [facility] [address] 05/25/2025 MIGUEL ANGEL AMADA Deformity of metatarsal bone of right foot M21.961 ; Pre-ulcerative calluses L84 and Status post right foot surgery Z98.890 [facility] [address] 06/08/2025 MIGUEL ANGEL AMADA Left foot pain M79.6 72 ; Acute left ankle pain M25.572 and Weakness of left lower extremity R29.898 [facility] [address] 07/13/2024 MIGUEL ANGEL AMADA [facility] [address] 09/17/2024 MIGUEL ANGEL AMADA [facility] [address] 09/22/2024 MIGUEL ANGEL AMADA [facility] [address] 10/08/2024 MIGUEL ANGEL AMADA [facility] [address] 10/12/2024 MIGUEL ANGEL AMADA [facility] [address] 10/20/2024 MIGUEL ANGEL AMADA [facility] [address] 12/01/2024 MIGUEL ANGEL AMADA [facility] [address] [address] 12/14/2024 MIGUEL ANGEL YBARRA [facility] [address] [place] [address] 12/14/2024 CARLITO ERNST [facility] [address] [place] [address] 01/28/2025 MIGUEL ANGEL AMADA [facility] [address] [place] [address] 02/15/2025 MIGUEL ANGEL AMADA [facility] [address] [place] [address] 03/05/2025 MIGUEL ANGEL AMADA [facility] [address] [place] [address] 03/22/2025 MIGUEL ANGEL AMADA [facility] [address] [place] [address] 03/24/2025 MIGUEL ANGEL AMADA [facility] [address] [place] [address] 04/01/2025 MIGUEL ANGEL AMADA [facility] [address] [place] [address] 04/05/2025 MIGUEL ANGEL AMADA [facility] [address] [place] [address] 06/08/2025 MIGUEL ANGEL AMADA Assessments Encounter Date [...] 06/29/2025 09:30:00 AM, [address], [place], [address], Insurance Providers Payer Name Payer Address Payer Phone Subscriber Number Group Number Insured Name Patient Relationship to Insured Coverage Start Date Coverage End Date [employer] Medicare [address] [place] [phone] [id number] Julia Lomax Self - patient is the [...] IPJ arthrodesis, left 2-5 PIPJ arthrodesis. NEOS [phone] Right tailors bunion surgery 2019 Left and right 5th metatarsal floating o steotomies 07/2022 removal of mark left foot 02/2024 Right hip surgery 11/2024 Hospitalization History Reason Date(Month/Year) right hip surgery [facility] 11/2024 [facility] Lyme encephalopathy , UTI sepsis, Cirrhosis. 04/2020
--- OUTSIDE RECORDS SUMMARY | 2025-06-24 10:22 | XMS_ITS | Clinical Summary ---
Author Organization [facility] Address [address] [place] [address] Care Team Providers Care Bell Maker Name Role Phone Unavailable Primary Care Provider [...] 0 2021 Active ergocalciferol (VITAMIN D2) capsule 93931 units Take 1 capsule by mouth once [...]
--- OUTSIDE RECORDS SUMMARY | 2025-06-24 10:22 | XMS_ITS | Encounter Summary ---
Author Organization [facility] it Address [address] [place] [address] Care Team Providers Care Quality Lead Name Role Phone Audelia Messer MD Primary Care Provider [phone] Encounter Details Date Type Department Care Team [...] hip documented in this encounter Care Teams Quality Lead Relationship Specialty Start Date End Date Audelia Messer MD [address] [place] [address] PCP - General Internal Medicine 10/20/24 documented as of this encounter
--- OUTSIDE RECORDS SUMMARY | 2025-06-24 10:23 | XMS_ITS | Clinical Summary ---
Author Organization [facility] Address [address] [place] [id number] Phone Care Team Providers Care Claims Coordinator Name Role Phone Audelia Messer MD Primary Care Provider [phone] Allergies No known active allergies Medications methocarbamoL [...] dentisit 10/12/23 Liver disease April 2019 Alcoholism ([facility] V24, [facility] V28) April 2019 Hyponatremia 10/20/2024 Alcoholic cirrhosis of liver without ascites ([facility] V24, [facility] V28) 10/21/2024 Family History Medical History Relation [...] with [employer] Medical Devices Implanted Type Area Barrel Handler Device Identifier Shelf Expiration Date Model / Serial / Lot Cement Bone Surg Simplex Radiopq - [id number] Implanted:Qty : 1 on 11/16/2024 by Agusto Cain MD at [facility] Bone Cement Right: Hip [employer] [id number] 05/06/2027 6190-10-07 0 / / [id number] Cement Bone Surg Simplex Radiopq - [id number] Implanted:Qty : 1 on 11/16/2024 by Agusto Cain MD at [facility] Bone Cement Right: Hip [employer] [id number] 05/06/2027 6190-10-07 0 / / [id number] Kit Prep Total Hip Bone Imp - Sna - [id number] Implanted:Qty : 1 on 11/16/2024 by Agusto Cain MD at [facility] Bone Cement Right: Hip [employer] [id number] / NA / NA Hip Spacr Distl 10mm - [id number] Implanted:Qty : 1 on 11/16/2024 by Agusto Cain MD at [facility] Joints Hip Right: Hip [employer] [id number] 10/16/2029 7557-3018 / / [id number] Head Femoral 36mm -2.5mm Offset Biolox Delta Ceramic Hip - [id number] Implanted:Qty : 1 on 11/16/2024 by Agusto Cain MD at [facility] Joints Hip Right: Hip [employer] [id number] 06/20/2029 6570-0-43 6 / / [id number] Liner Trident X3 0 Deg 36mm 3.9mm Sz D - [id number] Implanted:Qty : 1 on 11/16/2024 by Agusto Cain MD at [facility] Joints Hip Right: Hip [employer] [id number] 06/10/2029 723-00-36 D / / [id number] Lp Hex Screw 6.5x25mm - [id number] Implanted:Qty : 1 on 11/16/2024 by Agusto Cain MD at [facility] Hip Right: Hip [employer] [id number] 09/07/2029 2863-1493 / / [id number] Tritanium Cluster Hole Shell 50mm - [id number] Implanted:Qty : 1 on 11/16/2024 by Agusto Cain MD at [facility] Joints Hip Right: Hip [employer] [id number] 08/04/2028 702-04-50 D / / [id number] Lp Hex Screw 6.5x15mm - [id number] Implanted:Qty : 1 on 11/16/2024 by Agusto Cain MD at [facility] Joints Hip Right: Hip [employer] [id number] 08/22/2027 7811-1408 / / [id number] Lp Hex Screw 6.5x20mm - [id number] Implanted:Qty : 1 on 11/16/2024 by Agusto Cain MD at [facility] Joints Hip Right: Hip [employer] [id number] 08/26/2029 8307-5992 / / [id number] Hip Stem Acco-C 132deg #4 - [id number] Implanted:Qty : 1 on 11/16/2024 by Agusto Cain MD at [facility] Joints Hip Right: Hip [employer] [id number] 09/13/2029 1774-1987 D / / [id number] Explanted Type Area Barrel Handler Device Identifier Shelf Expiration Date Model / Serial / Lot Canullated Screws Explanted:Qty: 3 on 11/16/2024 by Agusto Cain MD at [facility] Right: Hip NA NA / NA [...] to Health Maintenance Insurance [employer] MEDICARE ADVANTAGE [facility] Advance Directives Documents on File Type Date Recorded Patient Podiatry Professor Expl anation Health Care Decision (hx) 05/17/2020 [...] currently active code status orders. Care Teams Claims Coordinator Relationship Specialty Start Date End Date Audelia Messer MD [address] [place] [address] PCP - General Internal Medicine 10/20/24
== END 2025-06-24 10:20 | disposition home or self-care (01) ==
PROVIDERS: PCP Nurse Practitioner Primary Care; Visit Provider Internal Medicine
DX: R04.0 Epistaxis (principal); R58 Hemorrhage, not elsewhere classified; H91.90 Unspecified hearing loss, unspecified ear; D64.9 Anemia, unspecified

== ENCOUNTER 2025-06-24 08:58 | Outpatient (REF) | payer MEDICARE, OTHER, SELFPAY ==
[2025-06-24 14:08] LABS: MANUAL DIFF FLAG NO
[2025-06-24 14:41] LABS: Hematocrit 34.2 % (37.0-47.0); Hemoglobin 11.5 g/dl (12.0-16.0); Imm Gran Abs Auto 0.01 X10*3/uL (0.00-0.03); Imm Gran Pct Auto 0.2 % (0.0-0.4); Lymphocytes Absolute Auto 2.0 X10*3/uL (1.2-4.9); Mean Corpuscular HGB Conc 33.6 g/dl (31.0-35.0); Mean Corpuscular Hemoglobin 31.9 pg (27.0-33.0); Mean Corpuscular Volume 95.0 fL (80.0-98.0); NRBC Abs Auto 0.000 X10*3/uL (0.0-0.012); NRBC Pct Auto 0.0 /100WBC (0.0-0.2); Platelet Count 198 X10*3/uL (160-400); Red Blood Count 3.60 X10*6/uL (4.20-5.50); White Blood Count 5.6 X10*3/uL (4.8-10.8)
[2025-06-24 14:45] LABS: INTERNATIONAL NORM RATIO 1.0 (0.9-1.1); Prothrombin Time 11.6 SEC (10.9-12.4)
[2025-06-24 14:48] LABS: Partial Thromboplastin Time 30.3 SEC (26.7-34.1)
[2025-06-24 15:34] LABS: Iron 57 mcg/dL (30-160); Percent Iron Saturation 21 % (15-50); Total Iron Binding Capacity 270 mcg/dL (228-428); Unsaturated Iron Binding 213 ug/dL
[2025-07-09 14:45] LABS: PTT, Activated 29 sec (23-32)
== END 2025-06-24 08:59 | disposition home or self-care (01) ==
LOC: HO.LAB 08:58
PROVIDERS: PCP Nurse Practitioner Primary Care; Visit Provider Internal Medicine
DX: R04.0 Epistaxis (principal); R58 Hemorrhage, not elsewhere classified; H91.90 Unspecified hearing loss, unspecified ear; D64.9 Anemia, unspecified
CPT/HCPCS: 36415; 83540; 85025; 85240; 85245; 85246; 85247; 85610; 85730; 99212

== ENCOUNTER 2025-07-20 10:19 | Outpatient (REF) | payer MEDICARE, MEDICAID, SELFPAY ==
--- NOTE | ~2025-07-20 | XR_ITS ---
EXAMINATION: XR RIBS, RIGHT CLINICAL INFORMATION: R07.89 - Other chest pain COMPARISON: None available. TECHNIQUE: 3 views of the right ribs were obtained. FINDINGS: Lungs are clear. No consolidation, pneumothorax, or pleural effusion. The cardiomediastinal silhouette and pulmonary vasculature are normal. Aortic mural calcifications. Osseous structures are unremarkable. Ribs are intact. No acute fractures are identified. Old mildly impacted proximal right humeral fracture noted. XR/XR ribs RT min 3V w CXR1V IMPRESSION: No acute findings of the thorax. No acute rib fractures identified. Electronically signed by: Beni Polk MD 07/20/2025 11:26 AM EDT
== END 2025-07-20 10:20 | disposition home or self-care (01) ==
LOC: HO.HMGCX 10:19
PROVIDERS: PCP Internal Medicine; Visit Provider Physician Assistant
DX: R07.89 Other chest pain (principal)
CPT/HCPCS: 71101; 99212

== ENCOUNTER 2025-07-20 10:19 | Outpatient (AMB) | payer MEDICARE, MEDICAID, SELFPAY ==
--- OUTSIDE RECORDS SUMMARY | 2025-02-24 10:00 | XMS_ITS ---
Author Organization [facility] Address [address] [address] Care Team Providers Care Inpatient Services Rn Name Role Phone Charley Hickey Primary Care Provider MIGUEL ANGEL Rossi Unavailable [phone] REASON FOR VISIT right foot callus Encounters Encounter Location Date Provider Diagnosis [facility] [address] [address] 02/24/2025 MIGUEL ANGEL YBARRA Plan Of Treatment No Information Progress Notes * Julia NINO NDOB: [birth year] (69 yo F)Acc No.[id number]:02/24/2025 Progress Note Patient: Julia WOODSON Provider: Martir Holley DPGatito :1955 A ge:69 Y S ex:Female Date:02/24/2025 Address:[address] [place], [place] [address] Pcp:Charley Hickey Subjective: * Chief Complaints: * 1 . Right foot callus. * Medical History: Objective: * Vitals: Assessment: Plan: * Treatment: * Billing Information: * Visit Code: * Procedure Codes: * Electronic signature of Carmen LANIERPTommie on 07/20/2025 at 12:07 PM EDT Sign off status: Pending * Provider: Martir Holley DPM Date: 0 02/24/2025 Generated for Gagani ng/Fakeltong/eTransmitting on: 1 12:07 PM EDT
--- OUTSIDE RECORDS SUMMARY | 2025-03-23 11:15 | XMS_ITS ---
Author Organization [facility] Address [address] [address] Care Team Providers Care Basket Assembler Name Role Phone Charley Hickey Primary Care Provider MIGUEL ANGEL Rossi Unavailable [phone] REASON FOR VISIT concerned about the Lt foot not healing Encounters Encounter Location Date Provider Diagnosis [facility] [address] [address] 03/23/2025 MIGUEL ANGEL YBARRA Plan Of Treatment No Information Progress Notes * Julia NINO NDOB: [birth year] (69 yo F)Acc No.[id number]:03/23/2025 Progress Note Patient: Julia WOODSON Provider: Martir Holley DPM :1955 A ge:69 Y S ex:Female Date:03/23/2025 Address:[address] [place], [place] [id number] Pcp:Charley Hickey Subjective: * Chief Complaints: * [...] 03/23/2025 Generated for Printi ng/Faxing/eTransmitting on: 1 12:07 PM EDT
[2025-07-20 10:22] VITALS: BP 132/70; PULSE 69; TEMP 36.6; O2SAT 99; BMI 25.3
--- NOTE | 2025-07-20 10:22 | AM.OFFWIN_ITS ---
Intake Vital Signs 07/20/25 10:22 Height 5 ft 5 in Weight 152 lb BMI 25.3 BP 132/70 Blood Pressure Location Lt brachial Position Sitting Pulse 69 Pulse Source Pulse Oximeter Temp 97.8 F Temp Source Oral Pulse Oximetry (%) 99 Oxygen Delivery Method Room Air Intake Visit Reasons: ep pain upper rib cage under right breast Intake Note: pt presents with pain to right rib under RT breast- denies injury or any recent URI causing the pain Patient Tobacco Use Status: Former Tobacco user Allergies oxycodone Adverse Reaction (Intermediate, Verified 07/20/25 10:24) syncope Do you need a note to return to daycare/school/sports/work: No HPI HPI Comments History of Present Illness Details History of Present Illness - The patient is a 69-year-old female pr esenting with right-sided rib pain. - The rib pain has been present for a co uple of weeks, located at the right front side of her ribs, and is exacerbated by bending or lifting. - The pain is reproducible upon palpatio n, and is accompanied by a cough for the past week. - The patient denies any trauma, shortne ss of breath, fever, or wheezing, and has a history of osteoporosis and previous fractures. Physical Exam General: Cooperative, healthy appearing, comfortable, no acute distress and well developed Orientation: Patient oriented x3 Limitations: No limitations Head: Normal to inspection Ears: Hearing grossly normal bilaterally Nose: Normal External nose present Face and sinus: Normal facial exam Eyes: Appearance normal, both eyes and all related structures Neck: Normal visual inspection and Yes full ROM Respiratory: Normal respiratory effort and able to speak in complete sentences. Lung sounds heard in all hugehs, clear to auscultation. Skin: No rashes or lesions noted Neuro: Patient oriented x3 Extremities: Normal to inspection Review of Systems - Respiratory: Reports cough for the pas t week. Denies dyspnea, fever, or wheezing. All systems reviewed and are unremarkable except as noted in HPI PFSH Medical History Hearing loss Closed fracture of right proximal humerus Anemia Personal history of (healed) osteoporosis fracture Osteoarthritis Cold intolerance History of fracture of right hip Fatigue History of syncope Surgical History Status post hip surgery S/P foot surgery, left Family History Father No problems noted. Mother Dementia Social History Housing: House Alcohol intake: never Patient Tobacco Use Status: Former Tobacco user e-Cigarette/Vaping Use: Never Used service: No Current occupational status: employed and retired Current occupational exposures/hazards: No Cognitive needs: No Hearing needs: Yes Vision needs: Yes Physical Exam Vital Signs: Last Vital Signs Temp 97.8 F 07/20/25 10:22 Pulse 69 07/20/25 10:22 BP 132/70 07/20/25 10:22 Pulse Ox 99 07/20/25 10:22 Oxygen Delivery Method Room Air 07/20/25 10:22 BMI result Body Mass Index 25.3 Assessment & Plan Assessment & Plan (1) Rib pain on right side: Code(s): R07.89 - Other chest pain Plan: Patient was informed and verbally consented to the use of an ambient scribe for clinic note documentation during this visit. 1. Right-Sided Rib Pain - Plan to obtain a rib x-ray to rule out fracture or PNA though less likey as reproducible with TTP. - If x-ray is negative for fracture, please use musculoskeletal pain management with Aleve or Tylenol. - Advise on the use of Aleve every 12 hours for a few days if needed. Orders: Orders XR ribs RT min 3V w CXR1V Today R07.89 - Other chest pain Coding Level of Care Code Est Pt Level 4 (97145) Diagnoses Rib pain on right side R07.89
--- OUTSIDE RECORDS SUMMARY | 2025-07-20 12:07 | XMS_ITS | Clinical Summary ---
Author Organization [facility] Address [address] [place] [address] Care Team Providers Care Print Line Feeder Name Role Phone Unavailable Primary Care Provider [...] 0 2021 Active ergocalciferol (VITAMIN D2) capsule 96626 units Take 1 capsule by mouth once [...]
--- OUTSIDE RECORDS SUMMARY | 2025-07-20 12:07 | XMS_ITS | Patient Health Record ---
Author Organization [facility] Address [address] [place] [address] Care Team Providers Care Mental Health Director Name Role Phone Wilma Goldstein Primary Care Provider Yannick Chun Unavailable [phone] Reason For Referral No Information Problems Problem Type SNOMED Code ICD Code Onset Dates Problem Status W/U Status Risk Notes Problem Arthralgia (49845668) Arthralgia (719.40) Active confirmed Problem Disorder of joint of ankle and/or foot (207089321) Arthritis - Degenerative (719.97) Active confirmed Problem Ingrowing nail (531090973) Ingrowing Nail (703.0) Active confirmed Problem Neuralgia - Neuritis (729.2) Active confirmed Problem Onychomycosis (885373358) Onychomycosis (110.1) Active confirmed Problem Pain in limb (50140772) Pain in Limb (729.5) Active confirmed Plan Of Treatment Pending Test Test Name Order Date [id number] NAIL, 6 OR MORE 09/23/2013 [id number] NAIL, 6 OR MORE 12/28/2013 [id number] Plate 12/28/2013 Insurance Providers Payer Name Payer Address Payer Phone Subscriber Number Group Number Insured Name Patient Relationship to Insured Coverage Start Date Coverage End Date Medicare National [employer] [address] [place] [address] [id number] Julia Lomax Self - patient is the insured 3 Medical (General) History Medical History History ICD Code Arthritis back, hip, knee pain headaches/migraines measles thyroid disorder
--- OUTSIDE RECORDS SUMMARY | 2025-07-20 12:07 | XMS_ITS | Encounter Summary ---
Author Organization [facility] Address [address] [place] [address] Care Team Providers Care Air Conditioning Installer Name Role Phone Audelia Messer MD Primary Care Provider [phone] Encounter Details Date Type Department Care Team [...] Safety Answer Date Record ed Physical Abuse Unrecognized value 11/16/2024 Verbal Abuse Unrecognized value 11/16/2024 Comments No Sex and Gender Information Value Date Recorded Sex Assigned at Female 11/10/2024 5:19 PM EST Legal Sex Female 9:08 PM EST Gender Identity Female 11/10/2024 5:19 PM EST Sexual Orientation Straight 11/10/2024 5: 19 PM EST documented as of this encounter Functional Status * Calculated C-SSRS Risk Score (Lifetime/Recent) Answer Date of Assessment Author No Risk Indicated 11/17/2024 2:41 PM EST Martir Mar RN * [place] Suicide Severity Rating Scale (Screener/Recent Self-Report) Question Answer Date of Assessment Author 1. Wish to be (Past 1 Month) No 025 2:41 PM Catalina Jimenes RN 2. Non-Specific Active Suici young Thoughts (Past 1 Month) No 11/17/2024 2:41 PM Catalina Jimenes RN 6. Suicidal Behavior (Lifetime) No 5 2:41 PM Catalina Jimenes RN documented as of this encounter Plan of [...] hip documented in this encounter Care Teams Air Conditioning Installer Relationship Specialty Start Date End Date Audelia Messer MD [address] [place] [address] PCP - General Internal Medicine 10/20/24 documented as of this encounter
--- OUTSIDE RECORDS SUMMARY | 2025-07-20 12:08 | XMS_ITS | Patient Health Record ---
Author Organization [facility] Address [address] [place] [address] Care Team Providers Care Dive Supervisor Name Role Phone Abimaelosmany Charley Primary Care Provider Unavailab MIGUEL ANGEL Beckwith Unavailable [phone] CARLITO ERNST Unavailable [phone] Allergies Allergen (clinical drug ingredient) Drug/Non Drug Allergy documented on EMR Reaction Allergy Type Onset Date Status oxycodone Oxycodone passed out Drug Allergy Active Results Component Value Reference Range Notes Anaerobic/Aerobic/Gram Stain -[id number] Reviewed date:04/13/2025 07:38:44 AM Interpretation: Performing Lab:[facility], Molly Garibay Jeann[address], [address], [place], Phone - [phone], Director - [facility] Notes/Report: Clinical Information:SRC: SOURCE NOT INDICATED [...] Many gram posit miguel cocci. Anaerobic/Aerobic/Gram Stain -[id number] Reviewed date:02/23/2025 07:36:54 AM Interpretation: Performing Lab:[facility] [address], [address], [place], Phone - [phone], Director - [facility] Notes/Report: Clinical Information:SRC: Clinical Information:SRC: Clinical [...] number of gram positive cocci. 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 Problem Polyneuropathy (43455522) Polyneuropathy (G62.9) Active confirmed Problem Ulcer of left foot (disorder) (317814244) Ulcer of left foot with fat layer exposed (L97.522) Active confirmed Problem Polyneuropathy associated with another disorder (910075896) Polyneuropathy associated with underlying disease (G63) Active confirmed Problem Ulcer of right foot (disorder) (836264966) Ulcer of right foot, limited to breakdown of skin (L97.511) Active confirmed Problem Deformity of metatarsal (990783214) 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) Active confirmed Problem Vitamin D deficiency (02651524) Vitamin D deficiency (E55.9) Active confirmed Problem Deformity of right foot (finding) (500592129) Deformity of metatarsal bone of right foot (M21.961) Active confirmed Problem Skin ulcer of left heel with fat layer exposed (L97.422) Active confirmed Problem Pressure injury of right foot, 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) Active confirmed Vital Signs Heart Rate 87 /min 06/29/2025 Temperature 97.0 degrees Fahrenheit 06/29/2025 Respiratory Rate 16 /min 06/29/2025 Height 66 in 06/29/2025 Weight 147 lbs 06/29/2025 BMI 23.72 kg/m2 06/29/2025 Procedures Procedure Date Ordered Date Performed Result Body Sit e Debridement ulcer subq first 20sq cm 10/12/2024 N/A I&D superficial 03/04/2025 N/A Encounters Encounter Location Date Provider Diagnosis [facility] [address] 12/02/2024 MIGUEL ANGEL AMADA Right foot pain M79.671 and Gait abnormality R26.9 [facility] [address] 09/22/2024 MIGUEL ANGEL AMADA Pressure injury of right foot, stage 3 L89.893 [facility] [address] 10/12/2024 MIGUEL ANGEL AMADA Pressure injury of right foot, stage 3 L89.893 ; Cellulitis of right foot L03.115 ; Alcohol-induced polyneuropathy G62.1 and Post-traumatic osteoarthritis of right hip M16.51 [facility] [address] 12/14/2024 CARLITO ERNST Abscess of right foot L02.611 ; Pressure injury of right foot, stage 3 L89.893 ; Cellulitis of right foot L03.115 and Alcohol-induced polyneuropathy G62.1 [facility] [address] [address] 12/23/2024 MIGUEL ANGEL AMADA Deformity of metatarsal bone of right foot M21.961 and Right foot pain M79.671 [facility] [address] [address] 12/31/2024 MIGUEL ANGEL AMADA Deformity of metatarsal bone of right foot M21.961 ; Right foot pain M79.671 and Gait abnormality R26.9 [facility] [address] [address] 01/28/2025 MIGUEL ANGEL AMADA Deformity of metatarsal bone of right foot M21.961 ; Right foot pain M79.671 and Gait abnormality R26.9 [facility] [address] [address] 02/15/2025 MIGUEL ANGEL AMADA Cellulitis of right foot L03.115 and Pressure injury of right foot, stage 3 L89.893 [facility] [address] [address] 03/04/2025 MIGUEL ANGEL AMADA Cellulitis of right foot L03.115 ; Cutaneous abscess of right foot L02.611 ; Deformity of metatarsal bone of right foot M21.961 and Skin lesion of left lower extremity L98.9 [facility] [address] [address] 03/24/2025 MIGUEL ANGEL AMADA Deformity of metatarsal bone of right foot M21.961 and Pressure injury of right foot, stage 3 L89.893 [facility] [address] [address] 04/01/2025 MIGUEL ANGEL AMADA Deformity of metatarsal bone of right foot M21.961 and Pressure injury of right foot, stage 3 L89.893 [facility] [address] [address] 04/07/2025 MIGUEL ANGEL AMADA Cellulitis of right foot L03.115 and Postoperative wound dehiscence, initial encounter T81.31XA [facility] [address] 04/13/2025 MIGUEL ANGEL AMADA Postoperative wound dehiscence, subsequent encounter T81.31XD and Deformity of metatarsal bone of right foot M21.961 [facility] [address], [place] 05/25/2025 MIGUEL ANGEL AMADA Deformity of metatarsal bone of right foot M21.961 ; Pre-ulcerative calluses L84 and Status post right foot surgery Z98.890 [facility] [address], [place] 06/08/2025 MIGUEL ANGEL AMADA Left foot pain M79.6 72 ; Acute left ankle pain M25.572 and Weakness of left lower extremity R29.898 [facility] [address] 06/29/2025 MIGUEL ANGEL AMADA Deformity of metatarsal bone of right foot M21.961 ; Pre-ulcerative calluses L84 and Status post right foot surgery Z98.890 [facility] [address] 09/17/2024 MIGUEL ANGEL AMADA [facility] [address] 09/22/2024 MIGUEL ANGEL AMADA [facility] [address] 10/08/2024 MIGUEL ANGEL AMADA [facility] [address] 10/12/2024 MIGUEL ANGEL AMADA [facility] [address] 10/20/2024 MIGUEL ANGEL AMADA [facility] [address] 12/01/2024 MIGUEL ANGEL AMADA [facility] [address] 12/14/2024 MIGUEL ANGEL AMADA [facility] [address] [place] [address] 12/14/2024 CARLITOPEACE ERNST [facility] [address] [place] [address] 01/28/2025 MIGUEL ANGEL YBARRA [facility] [address] [place] [address] 02/15/2025 MIGUEL ANGEL AMADA [facility] [address] [place] [address] 03/05/2025 MIGUEL ANGEL AMADA [facility] [address] [place] [address] 03/22/2025 MIGUEL ANGEL AMADA [facility] [address] [place] [address] 03/24/2025 MIGUEL ANGEL AMADA [facility] [address] [place] [address] 04/01/2025 MIGUEL ANGEL AMADA [facility] [address] [place] [address] 04/05/2025 MIGUEL ANGEL AMADA [facility] [address] [place] [address] 06/08/2025 MIGUEL ANGEL AMADA [facility] [address] [place] [address] 06/29/2025 MIGUEL ANGEL AMADA Assessments Encounter Date Diagnosis [...] Acute left ankle pain (ICD-10 - M25.572) 05/25/2025 Deformity of metatarsal bone of right [...] the meantime with any questions or concerns. 06/29/2025 Deformity of metatarsal bone of right foot (ICD-10 - M21.961) Patient examined and evaluated. She is about 12 weeks s/p right MIS DMMO to the 5th metatarsal to offload a chronic recurrent ulceration. The right plantar sub right 5th ulceration has healed. Minimal callus build up plantarly. She has no edema or erythema to this area. She does still admit to chronic pain and weakness to both lower extremities and issues with residual deformities to her lesser toes on the left. She continues to see the new PCP and have work ups for this. I will request results on all her past labs. She otherwise is doing better to the right foot. I do not want to move forward with doing anything to the left 2nd toe until I see her current labs. She understood. I will contact her once I have them. 06/29/2025 Pre-ulcerative calluses (ICD-10 - L84) 05/25/2025 Pre-ulcerative calluses (ICD-10 - L84) 06/08/2025 Weakness of left lower extremity (ICD-10 - R29.898) 04/01/2025 Pressure injury of right foot, stage [...] post right foot surgery (ICD-10 - Z98.890) 06/29/2025 Status post right foot surgery (ICD-10 - [...] Coverage End Date [employer] Medicare [address] [place] [address] [id number] Julia Lomax Self - patient is the [...] IPJ arthrodesis, left 2-5 PIPJ arthrodesis. NEOS [id number] Right tailors bunion surgery 2019 Left and right 5th metatarsal floating o steotomies 07/2022 removal of mark left foot 02/2024 Right hip surgery 11/2024 Hospitalization History Reason Date(Month/Year) right hip surgery [facility] 11/2024 [facility] Lyme encephalopathy , UTI sepsis, Cirrhosis. 04/2020
--- OUTSIDE RECORDS SUMMARY | 2025-07-20 12:08 | XMS_ITS | Clinical Summary ---
Author Organization [facility] Address [address] [place] [id number] Phone Care Team Providers Care Lipcoat Sprayer Name Role Phone Audelia Messer MD Primary Care Provider [phone] Allergies No known active allergies Medications methocarbamoL [...] ADDENDUM: Dentist cleared patient for surgery. Immunizations Immunization Administration Dates Next Due Moderna SARS-CoV-2 COVID-19, [...] dentisit 10/12/23 Liver disease April 2019 Alcoholism ([facility] V24, [facility] V28) April 2019 Hyponatremia 10/20/2024 Alcoholic cirrhosis of liver without ascites ([facility] V24, [facility] V28) 10/21/2024 Family History Medical History Relation [...] with [employer] Medical Devices Implanted Type Area Machine Rug Cleaner Device Identifier Shelf Expiration Date Model / Serial / Lot Cement Bone Surg Simplex Radiopq - [id number] Implanted:Qty : 1 on 11/16/2024 by Agusto Cain MD at [facility] Bone Cement Right: Hip [employer] [id number] 05/06/2027 6190-10-07 0 / / [id number] Cement Bone Surg Simplex Radiopq - [id number] Implanted:Qty : 1 on 11/16/2024 by Agusto Cain MD at [facility] Bone Cement Right: Hip [employer] [id number] 05/06/2027 6190-10-07 0 / / [id number] Kit Prep Total Hip Bone Imp - Sna - [id number] Implanted:Qty : 1 on 11/16/2024 by Agusto Cain MD at [facility] Bone Cement Right: Hip [employer] [id number] / NA / NA Hip Spacr Distl 10mm - [id number] Implanted:Qty : 1 on 11/16/2024 by Agusto Cain MD at [facility] Joints Hip Right: Hip [employer] [id number] 10/16/2029 4784-7579 / / [id number] Head Femoral 36mm -2.5mm Offset [employer] Delta Ceramic Hip - [id number] Implanted:Qty : 1 on 11/16/2024 by Agusto Cain MD at [facility] Joints Hip Right: Hip [employer] [id number] 06/20/2029 6570-0-43 6 / / [id number] Liner Trident X3 0 Deg 36mm 3.9mm Sz D - [id number] Implanted:Qty : 1 on 11/16/2024 by Agusto Cian MD at [facility] Joints Hip Right: Hip [employer] [id number] 06/10/2029 723-00-36 D / / [id number] Lp Hex Screw 6.5x25mm - [id number] Implanted:Qty : 1 on 11/16/2024 by Agusto Cain MD at [facility] Joints Hip Right: Hip [employer] [id number] 09/07/2029 1640-7811 / / [id number] Tritanium Cluster Hole Shell 50mm - [id number] Implanted:Qty : 1 on 11/16/2024 by Agusto Cain MD at [facility]s Hip Right: Hip [employer] [id number] 08/04/2028 702-04-50 D / / [id number] Lp Hex Screw 6.5x15mm - [id number] Implanted:Qty : 1 on 11/16/2024 by Agusto Cain MD at [facility]s Hip Right: Hip [employer] [id number] 08/22/2027 1815-0570 / / [id number] Lp Hex Screw 6.5x20mm - [id number] Implanted:Qty : 1 on 11/16/2024 by Agusto Cain MD at [facility] Hip Right: Hip [employer] [id number] 08/26/2029 6053-0824 / / [id number] Hip Stem Acco-C 132deg #4 - [id number] Implanted:Qty : 1 on 11/16/2024 by Agusto Cain MD at [facility] Hip Right: Hip [employer] [id number] 09/13/2029 0624-6871 D / / [id number] Explanted Type Area Machine Rug Cleaner Device Identifier Shelf Expiration Date Model / [...] to Health Maintenance Insurance [employer] MED[employer]ARE ADVANTAGE [facility] Advance Directives Documents on File Type Date Recorded Patient Payroll And Benefits Analyst Expl anation Health Care Decision (hx) 05/17/2020 [...] currently active code status orders. Care Teams Lipcoat Sprayer Relationship Specialty Start Date End Date Audelia Messer MD [address] [place] [phone] PCP - General Internal Medicine 10/20/24
== END 2025-07-20 11:18 | disposition home or self-care (01) ==
PROVIDERS: PCP Nurse Practitioner Primary Care; Visit Provider Physician Assistant
DX: R07.89 Other chest pain (principal)

== ENCOUNTER → 2025-07-20 11:05 | Outpatient (BNV) | payer MEDICARE, MEDICAID, SELFPAY | PROVIDERS: PCP Internal Medicine; Visit Provider Radiology Diagnostic Radiology | DX: R07.89 Other chest pain (principal) | CPT/HCPCS: 71101 ==

== ENCOUNTER 2025-08-26 08:18 | Outpatient (AMB) | payer MEDICARE, MEDICAID, SELFPAY ==
--- OUTSIDE RECORDS SUMMARY | 2025-02-24 09:00 | XMS_ITS ---
Author Organization [facility] Address [address] [address] Care Team Providers Care Wrapper Dipper Name Role Phone Charley Hickey Primary Care Provider MIGUEL ANGEL Rossi Unavailable [phone] REASON FOR VISIT right foot callus Encounters Encounter Location Date Provider Diagnosis [facility] [address] [address] 02/24/2025 MIGUEL ANGEL YBARRA Plan Of Treatment No Information Progress Notes * Julia NINO NDOB: [birth year] (70 yo F)Acc No.[id number]:02/24/2025 Progress Note Patient: Julia WOODSON Provider: Martir Holley DPGatito :1955 A ge:69 Y S ex:Female Date:02/24/2025 Address:[address] [place], [place] [address] Pcp:Charley Hickey Subjective: * Chief Complaints: * 1 . Right foot callus. * Medical History: Objective: * Vitals: Assessment: Plan: * Treatment: * Billing Information: * Visit Code: * Procedure Codes: * Electronic signature of Carmen LANIERPTommie on 08/26/2025 at 08:50 AM EST Sign off status: Pending * Provider: Martir Holley DPGatito Date: 02/24/2025 Generated for Gagani ng/Fakeltong/eTransmitting on: 1 10/26/2024 08:50 AM EST
--- OUTSIDE RECORDS SUMMARY | 2025-03-23 10:15 | XMS_ITS ---
Author Organization [facility] Address [address] [address] Care Team Providers Care Back Hand Name Role Phone Charley Hickey Primary Care Provider MIGUEL ANGEL Rossi Unavailable [phone] REASON FOR VISIT concerned about the Lt foot not healing Encounters Encounter Location Date Provider Diagnosis [facility] [address] [address] 03/23/2025 MIGUEL ANGEL YBARRA Plan Of Treatment No Information Progress Notes * Julia NINO NDOB: [birth year] (70 yo F)Acc No.[id number]:03/23/2025 Progress Note Patient: Julia WOODSON Provider: Martir Holley DPM :1955 A ge:69 Y S ex:Female Date:03/23/2025 Address:[address] [place], [place] [id number] Pcp:Charley Hickey Subjective: * Chief Complaints: * 1 . concerned about the Lt foot not healing. * Medical History: Objective: * Vitals: Assessment: Plan: * Treatment: * Billing Information: * Visit Code: * Procedure Codes: * Electronic signature of Carmen LANIERPTommie on 08/26/2025 at 08:49 AM EST Sign off status: Pending * Provider: Martir Holley DPM Date: 0 03/23/2025 Generated for Printi ng/Faxing/eTransmitting on: 1 10/26/2024 08:49 AM EST
[2025-08-26 08:32] VITALS: BP 132/70; PULSE 74; O2SAT 98; BMI 25.3
--- NOTE | 2025-08-26 08:32 | MHC.OFFWIV ---
Intake Vital Signs 08/26/25 08:32 Height 5 ft 5 in Weight 152 lb BMI 25.3 BP 132/70 Blood Pressure Location Lt brachial Position Sitting Pulse 74 Pulse Source Pulse Oximeter Pulse Oximetry (%) 98 Oxygen Delivery Method Room Air Intake Visit Reasons: EP-b/l legs swollen, rt knee pain Intake Note: Patient presents c/o right knee pain - ongoing issue. Patient also mentions bilateral lower leg swelling & numbness x1 month, maybe longer. Patient Tobacco Use Status: Former Tobacco user Allergies oxycodone Adverse Reaction (Intermediate, Verified 08/26/25 08:36) syncope HPI HPI Comments History of Present Illness Details History of Present Illness - The patient is a 70-year-old individual presenting with concerns of weight gain, swelling in the legs, and knee pain. - The patient reports swelling in both legs, which becomes more pronounced in the afternoon, causing socks to leave ibarra. - She has been elevating the legs to help reduce the swelling. - The patient denies any associated pain or medication that could cause swelling. - The patient experiences numbness and heaviness in the legs, attributed to neuropathy in the feet. - This sensation has been persistent and is not associated with pain. - The patient has a history of knee pain and is seeking a referral for a knee surgeon. - The patient has previously received gel injections for the knee, which have been effective and she is not sure if this contributes to the swelling. - She has no associated calf pain, CP, SOB, redness or warmth. - She has no trauma or falls. - She is not on medication besides Tylenol. - She did have a hip replacement surgery. Physical Exam General: Cooperative, healthy appearing, comfortable, no acute distress and well developed Orientation: Patient oriented x3 Respiratory: Normal respiratory effort and able to speak in complete sentences. Clear to auscultation bilaterally. No w/r/r noted. Cardiovascular: Regular rate and rhythm. Normal S1 and S2. No m/r/g noted. Skin: No rashes or lesions noted. No erythema noted. No warmth noted. No varicose veins noted. Neuro: Patient oriented x3. Sensation is intact. Extremities: FROM of the lower legs bilaterally. No TTP of the lower legs. Negative Homans noted bilaterally. No pitting edema noted. Patient was informed and verbally consented to the use of an ambient scribe for clinic note documentation during this visit. [facility] Medical History Hearing loss Closed fracture of right proximal humerus Anemia Personal history of (healed) osteoporosis fracture Osteoarthritis Cold intolerance History of fracture of right hip Fatigue History of syncope Surgical History Status post hip surgery S/P foot surgery, left Family History Father No problems noted. Mother Dementia Social History Housing: House Alcohol intake: never Patient Tobacco Use Status: Former Tobacco user e-Cigarette/Vaping Use: Never Used service: No Current occupational status: employed and retired Current occupational exposures/hazards: No Cognitive needs: No Hearing needs: Yes Vision needs: Yes Review of Systems Const All systems reviewed & are unremarkable except as noted in HPI and below Physical Exam Vital Signs: Last Vital Signs Pulse 74 08/26/25 08:32 BP 132/70 08/26/25 08:32 Pulse Ox 98 08/26/25 08:32 Oxygen Delivery Method Room Air 08/26/25 08:32 BMI result Body Mass Index 25.3 Assessment & Plan Assessment & Plan (1) Leg swelling: Code(s): M79.89 - Other specified soft tissue disorders Plan Most likely dependent edema due to weight gain vs arthritis vs sedentary lifestyle plan - Recommendation to wear compression stockings to manage swelling. - Advised to elevate legs to reduce edema. - follow up with PCP - Advised the ER if she has calf pain, increased swelling, CP, SOB, etc. Medications: New miscellaneous medical supply wear daily for edema; 15-20 mmhg 1 ea 0RF leg edema Coding Level of Care Code Est Pt Level 3 (62032) Diagnoses Leg swelling M79.89
--- OUTSIDE RECORDS SUMMARY | 2025-08-26 08:49 | XMS_ITS | Clinical Summary ---
Author Organization [facility] Address [address] [place] [address] Care Team Providers Care Staff Certified Nurse Midwife Name Role Phone Unavailable Primary Care Provider [...] 0 2021 Active ergocalciferol (VITAMIN D2) capsule 18202 units Take 1 capsule by mouth once [...]
--- OUTSIDE RECORDS SUMMARY | 2025-08-26 08:49 | XMS_ITS | Data Portability ---
Author Organization [place] [facility] Fay AONE Kemp Address [address] [place] [address] Care Team Providers Care Workers Compensation Claims Supervisor Name Role Phone DIONNE VALLE Primary Care Provider [phone] DIONNE VALLE Referring Provider JOEL LAWTON Referring Provider [facility] Primary Care Provider Assessment Encounter Date Assessment [...] pain relief in the hip and satisfactory hindu of function in terms of activities of [...] Continue to work on hip conditioning exercises. [id number] medications as needed. Ultimate failure may occur [...] or 3 view 2024 025 [facility], [address], [place], [address], 03/19/2025 11:36:19 XR, shoulde r, 2 or more view 2024 025 [email or web address] [facility], [address], [place], [address], 02/05/2025 13:17:36 Medication Orders Synvisc -One 48 mg/6 mL intra-a rticula r syringe 2024 025 [facility], [address] [place] [address], [address], 03/04/2025 11:03:18 Synvisc -One 48 mg/6 mL intra-a rticula r syringe 2024 025 [facility], [address] [place] [address], [address], 03/04/2025 11:03:18 lidocai ne (PF) 10 mg/mL [...] By Organization Details Last Modified Time 12/01/2024 [id number] physical therapy * - Evaluate and treat as indicated to reduce pain and to improve strength, mobility, stability, range of motion, and function. Please teach a home exercise plan and incorporate PT into patient's exercise routine. 2-3 sessions weekly for 6-8 weeks. [email or web address] Not available 12/08/2024 08:14:15 03/04/2025 [id number] You have been pr ovided with a [...] hours following the injection. This is called belinda [email or web address] . To help minimize the chances of this, please see the post-injection instructions above. There is a less than 1% chance of an infection. If you notice any signs of infection (redness, warmth, drainage, fever greater than 100 degrees) please call our office or contact us through the portal MARK. [email or web address] Not available 03/04/2025 10:16:42 03/19/2025 [id number] AP pelvis, AP an d lateral radiographs [...] view No observ ation record ed. [email or web address] [address], [address], 11/17/2024 06:59:30 11/17/19 25 11/16/2024 XR, hip, unila teral , 2 or 3 view No observ ation record ed. [email or web address] [address], [address], 11/17/2024 15:28:59 11/17/19 25 11/16/2024 XR, knee, 4 or more view No observ ation record ed. [email or web address] [address], [address], 11/17/2024 15:28:59 11/17/19 25 11/16/2024 XR, foot, 3 or more view No observ ation record ed. [email or web address] [address], [address], 11/17/2024 15:28:59 Result Notes None recorded. Problems Name Problem SNOMED Code Status Onset Date Resolution Date Notes Provider Name and Address Organization Details Recorded Time Arthritis of right knee joint 61475323561 89079 Active 2016 Arthritis of right knee Not Available [facility] 5 23:29:05 Lesion of bone 289781487 Active 2019 Radiodens e bone lesion present on x-ray Not Available [facility] 5 23:11:10 Osteonecr osis 798071519 Active 2019 Bone infarct Not Available [facility] 5 23:11:10 Osteoarth ritis of knee 291366731 Active 2022 Shiva Rojas MD [address], [place], [address] , [place] [facility] 3 10:53:59 Closed fracture of proximal right humerus 28909217655 330230 Active 2023 ZAKI DUMONT PA-C [address], [place], [address] , [place] [facility] 4 08:42:58 Pain of right shoulder joint 58729715883 019090 Active 2023 ZAKI DUMONT PA-C [address], [place], [address] , [place] [facility] 4 08:42:58 Osteoarth r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 06138921758 9100 Active 2023 ZAKI DUMONT PA-C [address], [place], [address] , [place] [facility] 4 08:42:58 Pain 19284949 Active [address], [place], [address] , [place] [facility] 4 20:08:33 Osteoarth ritis of right knee joint 21592987787 9100 Active 2023 GAGANDEEP SANCHEZ PA-C [address], [place], [address] , [place] [facility] 4 09:39:02 Osteoarth ritis of left knee joint 87339033341 9109 Active 2023 GAGANDEEP SANCHEZ PA-C [address], [place], [address] , [place] [facility] 4 09:39:03 Osteoarth ritis of right hip joint 77963333832 9107 Active 2023 GAGANDEEP SANCHEZ PA-C [address], [place], [address] , [place] [facility] 4 13:18:38 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 Procedures Surgical History Date Name Laterality Status Provider Name and Address Organization Details Recorded Time 03/04/20 25 Synvisc-One Knee Inj w/US completed GAGANDEEP SANCHEZ PA-C [address] [address], [place], [address], [place] [facility] 03/04/2025 10:31:55 02/03/20 25 BLW Subacromial Inj completed Sammi Yi [place] [facility] 02/02/2025 11:41:40 11/16/19 25 TOTAL HIP ARTHROPLASTY (SURG) completed Elva Agarwal [place] [facility] 11/18/2024 14:14:48 09/22/20 24 BLW Subacromial Inj completed Sammi Yi [place] [facility] 09/22/2024 10:04:57 09/01/20 24 MJG GT injection w/US completed GAGANDEEP SANCHEZ PA-C [address], [place], [address], [place] [facility] 09/01/2024 14:17:38 06/02/20 24 Synvisc-One Knee Inj w/US completed GAGANDEEP SANCHEZ PA-C [address], [place], [address], [place] [facility] 06/02/2024 15:18:24 03/10/20 24 BLW Subacromial Inj completed Sammi Yi [place] [facility] 03/10/2024 09:39:21 02/25/20 24 ORTHOPAEDIC SURGERY (SURG) completed Elva Agarwal [place] [facility] 02/26/2024 09:22:07 11/05/19 24 BLW Subacromial Inj completed Sammi Yi [place] [facility] 11/05/2023 09:09:00 10/25/19 24 Synvisc-One Knee Inj completed GAGANDEEP SO PA-C [address], [place], [address], [place] [facility] 10/25/2023 10:46:54 03/19/20 23 Synvisc-One Knee Inj completed Shiva Rojas MD [address], [place], [address], [place] [facility] 03/19/2023 10:09:01 Imaging Results None recorded. Procedure Notes None recorded. Medical Equipment None Reported. Allergies No known drug allergies Medications Name Sig Start Date Stop Date Status Note LastModified by Organization Details LastModified Time methocarbam ol 500 mg tablet TAKE TWO TABLETS BY MOUTH EVERY 8 HOURS NEEDED FOR PAIN AND OR MUSCLE SPASMS 10/25 completed Not Available Not Available Not Available acetaminoph en 325 mg tablet Take 2 tablets (650 mg total) by mouth every 6 (six) hours as needed for pain. active Not Available Not Available No t Available prednisone 10 mg tablet TAKE FOUR TABLETS BY MOUTH EVERY DAY FOR 3 DAYS THEN TAKE THREE TABLETS BY MOUTH EVERY DAY FOR 3 DAYS, THEN TAKE TWO TABLETS BY MOUTH EVERY 10/25 completed Not Available Not Available Not Available cetirizine 10 mg tablet TAKE ONE TABLET BY MOUTH EVERY DAY 2020 active Not Available Not Available Not Avai lable amoxicillin 600 mg-potassiu m clavulanate 42.9 mg/5 [...] completed Not Available Not Available Not Available doxepin 10 mg capsule Take 10 mg by mouth. 2019 active Not Available Not Available Not Avai lable ciprofloxac in 500 mg tablet TAKE ONE TABLET BY MOUTH EVERY DAY FOR 10 DAYS 10/25 completed Not Available Not Available Not Available spironolact one 25 mg tablet TAKE 1 TABLET BY MOUTH TWICE DAILY 2019 active Not Available Not Available Not Avai lable cefadroxil 500 mg capsule active Not Available Not Available Not Available meloxicam 7.5 mg tablet 01/15 completed Not Available Not Available Not Available amoxicillin 875 mg tablet TAKE 1 TABLET BY MOUTH EVERY 12 HOURS FOR 10 DAYS 10/25 completed Not Available Not Available Not Available lorazepam 0.5 mg tablet Take 1 tablet by mouth every 6 (six) hours as needed. 2020 active Not Available Not Available Not Avai lable methocarbam ol 750 mg tablet active Not [...] completed Not Available Not Available Not Available methylpredn isolone acetate 40 mg/mL suspension for injection 11/28 completed Not Available Not Available Not Available bumetanide 0.5 mg tablet Take 0.5 mg by mouth. 2019 active Not Available Not Available Not Avai lable lisinopril 10 mg tablet Take 10 mg by mouth. 2020 active Not Available Not Available Not Avai lable polymyxin B sulfate 10,000 unit-trimet hoprim 1 mg/mL eye drops INSTILL ONE DROP INTO AFFECTED EYE S) EVERY 4 HOURS 10/25 completed Not Available Not Available Not Available sulfamethox azole 200 mg-trimetho prim 40 mg/5 mL oral suspension TAKE 5 MLS BY MOUTH TWO TIMES A DAY FOR 7 DAYS active Not Available Not Available No t Available folic acid 1 mg tablet Take 1 mg by mouth. 2019 active Not Available Not Available Not Avai lable Vitamin D2 1,250 mcg (50,000 unit) capsule TAKE ONE CAPSULE BY MOUTH ONCE A WEEK 10/25 completed Not Available Not Available Not Available loratadine 10 mg tablet Take 10 mg by mouth. 10/14 completed Not Available Not Available Not Available [...] Not Available Not Available Not Avai lable diclofenac 1 % topical gel APPLY 4GM TOPICALLY 3 TIMES DAILY 2019 active Not Available Not Available Not Avai lable Synvisc-One 48 mg/6 mL intra-artic ular syringe Take 6 mL by intraarti cular route. 2024 active Not Available Not Available Not Avai lable tranexamic acid 650 mg tablet 01/15 completed Not Available Not Available Not Available triamcinolo ne acetonide 0.1 %-emollient comb.no.45 topical cream Triamcino lone 0.1% cream 80gms with Cerave cream. Apply daily from neck down after showers. Not to be used on the face. 10/22 completed Not Available Not Available Not Available lidocaine (PF) 100 mg/5 mL (2 %) injection syringe Take 4 mL by injection route. 09/22 completed Not Available Not Available Not Available menthol 0.44 %-zinc oxide 20.6 % topical ointment in packet Apply 1 each topically . 2019 active Not Available Not Available Not Avai lable hyaluronate sodium, stabilized 88 mg/4 mL intra-artic ular syringe 08/03 completed Not Available Not Available Not Available hyaluronate sodium, stabilized 60 mg/3 mL intra-artic ular syringe 01/30 completed Not Available Not Available Not Available Vitals Date Recorded Body height Provider Name an d Address Organization Details Last Updated DateTime 12/01/2024 160.02 cm Isabel Magana [place] [facility] 12/01/2024 11:20:13 Date Recorded Body height Body mass index (BMI) Body weight Provider Name and Address Organization Details Last Updated DateTime 01/15/2025 160.02 cm 26 kg/m2 55361.08 g Opal Pelletier [facility] 01/15/2025 09:54:57 Date Recorded Body height Body mass index (BMI) Body weight Provider Name and Address Organization Details Last Updated DateTime 03/19/2025 160.02 cm 26 kg/m2 61183.08 g Opal Pelletier [facility] 03/19/2025 10:52:16 Social History Question Answer Notes LastModified by [employer] Details LastModified Time Tobacco Smoking Status Former Smoker Leanna Genao sridevi, [facility] 02/19/2023 10:23:44 Which Of Your Hands Is Dominant? Right Information not available 11/05/2023 Sex: Unknown Functional Status Question Answer Note LastModified by [employer] Details LastModified Time Do you use any illicit or recreational drugs? No [email or web address] Information not available 02/19/2023 Do you or have you ever used any other forms of tobacco or nicotine? No Information not available 02/19/2023 What is your level of alcohol consumption? None [email or web address] Information not available 02/19/2023 Mental Status None [...] Anemia N Brain Injury N Heart Attack ([place]) N Osteopenia N Diabetes N Bleeding Disorder [...] Diagnosis SNOMED-CT Code Diagnosis ICD10 Code Diagnosis IMO Codes Diagnosis Note [id number] Shiva Rojas MD [address] [address] 02/19/2023 09:55:49 02/19/2023 10:53:48 Pain of right knee joint 0866631265 11176 M25.561 Pain of le ft knee joint 9723136946 87881 M25.562 Osteoarthr itis of knee 826890262 M17.9 79659 MD KALYANI Ruiz [address] [address] 03/19/2023 09:19:16 03/19/2023 10:09:36 Bilateral osteoarthritis of knees 9629387946 12635 M17.0 Osteoarthr itis of knee 314873726 M17.9 93179 Shiva Rojas MD [address] [address] 03/21/2023 15:03:24 03/21/2023 16:05:12 Osteoarthritis of knee 220252378 M17.9 45483 GAGANDEEP SO PA-C [address] [place] [address] 10/25/2023 10:02:37 10/25/2023 10:46:38 Osteoarthritis of left knee joint 3333091488 59729 M17.12 Osteoarthr itis of right knee joint 1083330093 31475 M17.11 78538 Slava Patton MD [address] [address] 11/05/2023 08:20:45 11/05/2023 09:17:07 Pain of right shoulder joint 8073582284 5609036 M25.511 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 1967642000 97362 M19.011 Closed fra cture of proximal right humerus 5669905590 8541430 S42.201A [address] [address] 12/24/2023 09:04:44 12/24/2023 09:25:51 Osteoarthritis of knee 095669708 M17.9 Pain of ri ght shoulder joint 9147489619 7752726 M25.511 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 5009385840 57921 M19.011 Closed fra cture of proximal right humerus 6709533794 6061167 S42.201A 95655 Kyara Sierra MD [address] [address] 01/02/2024 14:08:16 01/02/2024 15:11:50 Pain in left foot 8645168768 01323 M79.672 Pain 44121184 T84.84X A Additional diagnosis detail: Painful orthopaedi c hardware 21234 Kyara Sierra MD [address] [address] 01/30/2024 08:45:09 01/30/2024 09:08:16 Pain in left foot 6577158211 71728 M79.672 Pain 76604621 T84.84X A Additional diagnosis detail: Painful orthopaedi c hardware 28619 Slava Patton MD [address] [address] 03/10/2024 09:05:05 03/10/2024 09:45:03 Pain of right shoulder joint 0757657464 4740327 M25.511 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 7412979577 84444 M19.011 Closed fra cture of proximal right humerus 1252128144 9310453 S42.201A 89028 TOMMIE JOHNSON PA-C [address] [address] 03/12/2024 09:27:33 03/12/2024 10:07:24 Pain in left foot 4348239822 23097 M79.672 Pain 28097198 T84.84X A Additional diagnosis detail: Painful orthopaedi c hardware 51193 ARIANNA MCCORMICK [address] [address] 03/17/2024 09:14:06 03/17/2024 09:51:08 Pain of right knee joint 3077569554 99581 M25.561 Additional diagnosis detail: Pain, joint, knee, right Pain of le ft knee joint 8852510453 16577 M25.562 Additional diagnosis detail: Pain, joint, knee, left Osteoarthr itis of right knee joint 0344689927 38348 M17.11 Additional diagnosis detail: Primary osteoarthr itis of right knee Osteoarthr itis of left knee joint 5757479551 73179 M17.12 Additional diagnosis detail: Primary osteoarthr itis of left knee 39734 ARIANNA MCCORMICK [address] [address] 06/02/2024 14:38:53 06/02/2024 15:32:53 Osteoarthritis of right knee joint 5967777391 29060 M17.11 8845040 Additional diagnosis detail: Primary osteoarthr itis of right knee Osteoarthr itis of left knee joint 2261245714 52881 M17.12 9904156 Additional diagnosis detail: Primary osteoarthr itis of left knee Osteoarthr itis of knee 784840149 M17.9 36143 ARIANNA MCCORMICK [address] [address] 06/16/2024 12:39:47 06/16/2024 13:17:47 Pain of right hip joint 8462785892 57066 M25.693 7591306 Osteoarthr itis of right hip joint 3576997745 17462 M16.11 8785807 40611 ARIANNA MCCORMICK [address] [address] 09/01/2024 13:27:29 09/01/2024 14:21:10 Trochanteric bursitis of right hip 1504545853 37908 M70.61 4941296 98809 ARIANNA MCCORMICK [address] [address] 09/15/2024 14:56:07 09/15/2024 16:03:48 Pain of hip region 66940253 M25.551 091261 18739 MD KALYANI Ortiz [address] [facility] [place] [address] 09/16/2024 10:54:39 09/16/2024 11:51:06 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 938806912 M16.51 9029320 Arthritis of hip 2405681 6 M13.859 08650 MD KALYANI Galvez [address] [address] 09/22/2024 09:18:13 09/22/2024 10:08:52 Pain of right shoulder joint 2713856434 8438607 M25.511 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 9840778519 42378 M19.011 Closed fra cture of proximal right humerus 5963177990 2718545 S42.201A [id number] ARIANNA MCCORMICK [address] [address] 12/01/2024 10:57:42 12/01/2024 11:27:35 History of repair of hip joint 931636062 Z96.869 0372897 [id number] MD KALYANI Ortiz [facility] [address] [address] 01/15/2025 09:48:03 01/15/2025 10:16:10 Surgical follow-up 723521157 Z47.1 Z96.641 31574562 [id number] MD KALYANI Galvez [address] [address] 02/02/2025 11:08:38 02/02/2025 11:43:52 Osteoarthr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 1814414669 03594 M19.011 Pain of ri ght shoulder joint 8657697712 1470271 M25.511 Closed fra cture of proximal right humerus 3265115475 2660829 S42.201A [id number] ARIANNA MCCORMICK [facility] 299 [facility] [address] [place] [address] 03/04/2025 10:15:48 03/04/2025 10:32:32 Osteoarthritis of right knee joint 3582603675 96914 M17.11 1275051 Osteoarthr itis of left knee joint 5440903403 58752 M17.12 [id number] MD KALYANI Ortiz [facility] 299 [facility] [address] [place] [address] 03/19/2025 10:18:29 03/19/2025 11:13:55 History of repair of hip joint 025990820 Z96.179 8161507 Surgical follow-up 07526 4000 Z47.1 Z96.641 [id number] Health Concerns Section Related Observation LastModified by Organization Detai ls LastModified Time None Recorded Concern Status LastModified by Organization Details LastModified Time None Recorded Advance Directives Directive None Recorded Payers Insurance Date Sequence Insurance Name Policy Number Policy Butterfield Covered Member ID Butterfield Member ID Guarantor Name 03/22/2025 1 [employer] (MEDICARE REPLACEMENT/A DVANTAGE - PPO) [id number] Julia Lomax [id number] Julia Lomax 01/15/2025 1 [place]: [employer] Julia Lomax [id number] Julia Lomax 03/22/2025 2 () Julia Lomax [id number] Julia Lomax 01/15/2025 1 [employer] (MEDICARE REPLACEMENT/A DVANTAGE - HMO) Julia Lomax [id number] Julia Lomax Notes Date Note Type Note Provider Name and Address Organization Details Recorded Time 02/02/2025 text/html Julia returns to the office today for follow-up of her [...] She has utilized Tylenol. Slava Patton MD [address], [place], [address], [place] [facility] 02/02/2025 11:47:16 OBGyn Episode No OBEpisode recorded.
--- OUTSIDE RECORDS SUMMARY | 2025-08-26 08:49 | XMS_ITS | Patient Health Record ---
Author Organization [facility] Address [address] [place] [address] Care Team Providers Care Shop Service Technician Name Role Phone Wilma Goldstein Primary Care Provider Yannick Chun Unavailable [phone] Reason For Referral No Information Problems Problem Type SNOMED Code ICD Code Onset Dates Problem Status W/U Status Risk Notes Problem Arthralgia (98832106) Arthralgia (719.40) Active confirmed Problem Disorder of joint of ankle and/or foot (610048101) Arthritis - Degenerative (719.97) Active confirmed Problem Ingrowing nail (141068605) Ingrowing Nail (703.0) Active confirmed Problem Neuralgia - Neuritis (729.2) Active confirmed Problem Onychomycosis (660342186) Onychomycosis (110.1) Active confirmed Problem Pain in limb (99339466) Pain in Limb (729.5) Active confirmed Plan Of Treatment Pending Test Test Name Order Date [id number] NAIL, 6 OR MORE 09/23/2013 [id number] NAIL, 6 OR MORE 12/28/2013 [id number] Plate 12/28/2013 Insurance Providers Payer Name Payer Address Payer Phone Subscriber Number Group Number Insured Name Patient Relationship to Insured Coverage Start Date Coverage End Date Medicare [employer] [address] [place] [address] [id number] Julia Lomax Self - patient is the insured 3 Medical (General) History Medical History History ICD Code Arthritis back, hip, knee pain headaches/migraines measles thyroid disorder
--- OUTSIDE RECORDS SUMMARY | 2025-08-26 08:50 | XMS_ITS | Patient Health Record ---
Author Organization [facility] Address [address] 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 Conservation Or Heritage Architect Name Role Phone Abimaelosmany Charley Primary Care Provider Unavailab MIGUEL ANGEL Beckwith Unavailable [phone] CARLITO ERNST Unavailable [phone] Allergies Allergen (clinical drug ingredient) Drug/Non Drug Allergy documented on EMR Reaction Allergy Type Onset Date Status oxycodone Oxycodone passed out Drug Allergy Active Results Component Value Reference Range Notes Anaerobic/Aerobic/Gram Stain -[id number] Reviewed date:04/13/2025 07:38:44 AM Interpretation: Performing Lab:[facility], Molly Garibay Jeannette, [address], [place], Phone - [phone], Director - [facility] Notes/Report: Clinical Information:SRC: SOURCE NOT INDICATED [...] Many gram posit miguel cocci. Anaerobic/Aerobic/Gram Stain -[id number] Reviewed date:02/23/2025 07:36:54 AM Interpretation: Performing Lab:[facility] [address], [address], [place], Phone - [phone], Director - [facility] Notes/Report: Clinical Information:SRC: Clinical Information:SRC: Clinical [...] number of gram positive cocci. 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 Problem Polyneuropathy (57984301) Polyneuropathy (G62.9) Active confirmed Problem Ulcer of left foot (disorder) (724842030) Ulcer of left foot with fat layer exposed (L97.522) Active confirmed Problem Polyneuropathy associated with another disorder (583848890) Polyneuropathy associated with underlying disease (G63) Active confirmed Problem Ulcer of right foot (disorder) (472333150) Ulcer of right foot, limited to breakdown of skin (L97.511) Active confirmed Problem Deformity of metatarsal (404421359) 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) Active confirmed Problem Vitamin D deficiency (63829689) Vitamin D deficiency (E55.9) Active confirmed Problem Deformity of right foot (finding) (538520513) Deformity of metatarsal bone of right foot [...] N/A Encounters Encounter Location Date Provider Diagnosis [facility] [address] 12/02/2024 MIGUEL ANGEL AMADA Right foot pain M79.671 and Gait abnormality R26.9 [facility] [address] 09/22/2024 MIGUEL ANGEL AMADA Pressure injury of right foot, stage 3 L89.893 [facility] [address] 10/12/2024 MIGUEL ANGEL AMADA Pressure injury of right foot, stage 3 L89.893 ; Cellulitis of right foot L03.115 ; Alcohol-induced polyneuropathy G62.1 and Post-traumatic osteoarthritis of right hip M16.51 [facility] [address] 12/14/2024 CARLITO ERNST Abscess of right foot L02.611 ; Pressure injury of right foot, stage 3 L89.893 ; Cellulitis of right foot L03.115 and Alcohol-induced polyneuropathy G62.1 [facility] [address] [address] 12/23/2024 MIGUEL ANGEL AMADA Deformity of metatarsal bone of right foot M21.961 and Right foot pain M79.671 [facility] [address] [address] 12/31/2024 MIGUEL ANGEL AMADA Deformity of metatarsal bone of right foot M21.961 ; Right foot pain M79.671 and Gait abnormality R26.9 [facility] [address] [address] 01/28/2025 MIGUEL ANGEL AMADA Deformity of metatarsal bone of right foot M21.961 ; Right foot pain M79.671 and Gait abnormality R26.9 [facility] [address] [address] 02/15/2025 MIGUEL ANGEL AMADA Cellulitis of right foot L03.115 and Pressure injury of right foot, stage 3 L89.893 [facility] [address] [address] 03/04/2025 MIGUEL ANGEL AMADA Cellulitis of right foot L03.115 ; Cutaneous abscess of right foot L02.611 ; Deformity of metatarsal bone of right foot M21.961 and Skin lesion of left lower extremity L98.9 [facility] [address] [address] 03/24/2025 MIGUEL ANGEL AMADA Deformity of metatarsal bone of right foot M21.961 and Pressure injury of right foot, stage 3 L89.893 [facility] [address] [address] 04/01/2025 MIGUEL ANGEL AMADA Deformity of metatarsal bone of right foot M21.961 and Pressure injury of right foot, stage 3 L89.893 [facility] [address] [address] 04/07/2025 MIGUEL ANGEL AMADA Cellulitis of right foot L03.115 and Postoperative wound dehiscence, initial encounter T81.31XA [facility] [address] 04/13/2025 MIGUEL ANGEL AMADA Postoperative wound dehiscence, subsequent encounter T81.31XD and Deformity of metatarsal bone of right foot M21.961 [facility] [address], [place] 05/25/2025 MIGUEL ANGEL AMADA Deformity of metatarsal bone of right foot M21.961 ; Pre-ulcerative calluses L84 and Status post right foot surgery Z98.890 [facility] [address], [place] 06/08/2025 MIGUEL ANGEL AMADA Left foot pain M79.6 72 ; Acute left ankle pain M25.572 and Weakness of left lower extremity R29.898 [facility] [address] 06/29/2025 MIGUEL ANGEL AMADA Deformity of metatarsal bone of right foot M21.961 ; Pre-ulcerative calluses L84 and Status post right foot surgery Z98.890 [facility] [address] 09/17/2024 MIGUEL ANGEL AMADA [facility] [address] 09/22/2024 MIGUEL ANGEL AMADA [facility] [address] 10/08/2024 MIGUEL ANGEL AMADA [facility] [address] 10/12/2024 MIGUEL ANGEL AMADA [facility] [address] 10/20/2024 MIGUEL ANGEL AMADA [facility] [address] 12/01/2024 MIGUEL ANGEL AMADA [facility] [address] 12/14/2024 MIGUEL ANGEL AMADA [facility] [address] [place] [address] 12/14/2024 CRALITOPEACE ERNST [facility] [address] [place] [address] 01/28/2025 MIGUEL ANGEL YBARRA [facility] [address] [place] [address] 02/15/2025 MIGUEL ANGEL AMADA [facility] [address] [place] [address] 03/05/2025 MIGUEL ANGEL AMADA [facility] [address] [place] [address] 03/22/2025 MIGUEL ANGEL AMADA [facility] [address] [place] [address] 03/24/2025 MIGUEL ANGEL AMADA [facility] [address] [place] [address] 04/01/2025 MIGUEL ANGEL AMADA [facility] [address] [place] [address] 04/05/2025 MIGUEL ANGEL AMADA [facility] [address] [place] [address] 06/08/2025 MIGUEL ANGEL AMADA [facility] [address] [place] [address] 06/29/2025 IMGUEL ANGEL AMADA Assessments Encounter Date Diagnosis (ICD [...] Coverage End Date [employer] [address] [place] [address] [id number] Julia Lomax Self - patient is the [...] IPJ arthrodesis, left 2-5 PIPJ arthrodesis. NEOS [id number] Right tailors bunion surgery 2019 Left and right 5th metatarsal floating o steotomies 07/2022 removal of mark left foot 02/2024 Right hip surgery 11/2024 Hospitalization History Reason Date(Month/Year) right hip surgery [facility] 11/2024 [facility] Lyme encephalopathy , UTI sepsis, Cirrhosis. 04/2020
== END 2025-08-26 09:09 | disposition home or self-care (01) ==
PROVIDERS: PCP Nurse Practitioner Primary Care; Visit Provider Physician Assistant Medical
DX: M79.89 Other specified soft tissue disorders (principal)

== ENCOUNTER → 2025-08-26 08:18 | Outpatient (BNVA) | payer MEDICARE, MEDICAID, SELFPAY | PROVIDERS: PCP Nurse Practitioner Primary Care; Visit Provider Physician Assistant Medical | DX: M79.89 Other specified soft tissue disorders (principal); R20.0 Anesthesia of skin; Z88.6 Allergy status to analgesic agent | CPT/HCPCS: 99212 ==